=== PATIENT | male | born 1945 | race Caucasian/White ===

== ENCOUNTER 2016-08-20 22:47 | Emergency (ER) | payer MEDICARE, OTHER ==
--- NOTE | 2016-08-20 23:57 | ED Physician Documentation ---
PD HPI DYSPNEA - Stated complaint Stated Complaint: SOA - Chief complaint Chief Complaint: Abd Pain - History obtained from History obtained from: Patient - History of Present Illness Timing - onset: How many weeks ago (2) Pain level now: 0 Improved by: Inhaler/neb, Rest Worsened by: Exertion Associated symptoms: Cough. No: Fever, Chest pain / discomfort Recently seen: Not recently seen - Additional information Additional information: c/o 2 weeks of productive cough, dyspnea. Also c/o 3 days of diarrhea; he recently had constipation and was taking several medications to counteract the constipation. He then had BM 3 days ago and has had frequent diarrheal stools since then. He also c/o intermittent difficulty urinating x months. He has h/o CLL/SLL with stem-cell transplant 8 years ago Review of Systems Constitutional: denies: Fever, Chills, Sweats Cardiac: denies: Chest pain / pressure, Palpitations Respiratory: reports: Dyspnea, Cough GI: reports: Diarrhea. denies: Abdominal Pain, Nausea, Vomiting : denies: Dysuria PD PAST MEDICAL HISTORY - Past Medical History Past Medical History: Yes Cardiovascular: None Respiratory: Shortness of breath, Other Neuro: Parkinson's Endocrine/Autoimmune: None GI: GERD : Renal insuffiency HEENT: None Psych: None Musculoskeletal: None Derm: Other Other Past Medical History: On home O2 @ 4L/min - Past Surgical History Past Surgical History: Yes General: Bowel surgery, Gastric surgery Derm: Skin cancer surgery - Present Medications Home Medications: Ambulatory Orders Medication Instructions Recorded Confirmed Carbidopa/Levodopa [Carbidopa-Levo 1 each PO BID 08/03/12 03/29/14 25-100 mg Odt] Dapsone 50 mg PO BID 08/03/12 03/29/14 Pantoprazole Sodium [Protonix] 40 mg PO BID 08/03/12 06/08/15 oxyCODONE [Roxicodone] 5 mg PO Q4-6H PRN 08/03/12 06/08/15 predniSONE [Deltasone] 5 mg PO DAILY 08/03/12 06/08/15 valACYclovir [Valtrex] 500 mg PO DAILY 08/03/12 06/08/15 Metoprolol Tartrate [Lopressor] 25 mg PO BID 02/02/13 03/29/14 Azithromycin 250 mg PO DAILY 11/16/13 03/29/14 Albuterol Sulfate [Albuterol 1 puffs INH Q6H PRN 03/29/14 03/29/14 Sulfate Hfa] Calcitriol [Rocaltrol] 1 cap PO DAILY 03/29/14 03/29/14 Clobetasol Propionate/Emoll 1 applic TOP BID PRN 03/29/14 03/29/14 [Clobetasol Emollient 0.05% Crm] Mupirocin 2% Oint [Bactroban 2% 1 applic TOP PRN 03/29/14 03/29/14 Oint] Ondansetron [Ondansetron Odt] 1 tab SL BID PRN 03/29/14 06/08/15 Magnesium Hydroxide [Milk of 2,400 mg PO DAILY 06/08/15 06/08/15 Magnesia] Montelukast [Singulair] 10 mg PO QPM 06/08/15 06/08/15 Selegiline HCl 5 mg PO DAILY 06/08/15 06/08/15 Amox/Clav 500/125 [Augmentin 1 tab PO BID 07/28/15 07/28/15 500/125] Fluticasone/Salmeterol [Advair Hfa 1 inh INH BID 07/28/15 07/28/15 230-21 Mcg Inhaler] Ipratropium/Albuterol [Duoneb] 1 unit INH DAILY 07/28/15 07/28/15 Tamsulosin [Flomax] 1 tab PO DAILY 07/28/15 07/28/15 Dicyclomine [Bentyl] 20 mg PO QID PRN #20 capsule 08/21/16 Levofloxacin [Levaquin] 500 mg PO DAILY #6 tablet 08/21/16 - Allergies Allergies/Adverse Reactions: Allergies Allergy/AdvReac Type Severity Reaction Status Date / Time rifampin Allergy Rash Verified 08/20/16 22:54 diphenhydramine HCl * AdvReac Unknown Verified 08/20/16 22:54 [From Benadryl] - Social History Does the pt smoke?: No Smoking Status: Never smoker Does the pt drink ETOH?: No Does the pt have substance abuse?: No - Immunizations Immunizations are current?: Yes - POLST Patient has POLST: Yes PD ED PE NORMAL - Vitals Vital signs reviewed: Yes - General General: Alert and oriented X 3, No acute distress, Well developed/nourished - HEENT HEENT: Moist mucous membranes - Neck Neck: Supple, no meningeal sign - Cardiac Cardiac: RRR, No murmur - Respiratory Respiratory: No respiratory distress, Other (diffuse bilateral crackles) - Abdomen Abdomen: Soft, Non tender, Non distended - Derm Derm: Normal color, Warm and dry Results - Vitals Vitals: Vital Signs - 24 hr 08/20/16 08/21/16 08/21/16 22:49 00:05 00:52 Temperature 36.5 C Heart Rate 74 68 71 Respiratory 19 18 15 Rate Blood Pressure 154/64 H 149/66 H 130/57 L O2 Saturation 94 98 97 08/21/16 08/21/16 08/21/16 02:23 03:30 04:30 Temperature 36.5 C Heart Rate 74 76 78 Respiratory 18 18 16 Rate Blood Pressure 138/77 H 148/65 H 150/65 H O2 Saturation 97 96 96 08/21/16 04:40 Temperature Heart Rate 74 Respiratory 16 Rate Blood Pressure 155/62 H O2 Saturation 97 Oxygen O2 Source Nasal cannula Oxygen Flow Rate 4 - Labs Labs: Microbiology 08/21/16 01:25 Clostridium difficile (PCR) - Final Stool 08/21/16 01:25 Campylobacter Antigen Assay - Final Stool Laboratory Tests 08/21/16 08/21/16 08/21/16 00:05 00:45 00:45 WBC 5.0 RBC 2.59 L Hgb 8.6 L Hct 26.2 L MCV 101.0 H MCH 33.1 H MCHC 32.7 RDW 14.0 Plt Count 161 MPV 8.1 Neut # 3.5 Lymph # 0.7 L [place] # 0.5 Eos # 0.2 Baso # 0.0 Absolute Nucleated RBC 0.00 Nucleated RBCs 0.0 Sodium 132 L Potassium 5.2 H Chloride 96 L Carbon Dioxide 29 Anion Gap 7.0 BUN 22 H Creatinine 1.9 H Estimated GFR (MDRD) 35 L Glucose 98 Calcium 8.6 Total Bilirubin 0.7 AST 27 ALT < 10 L Alkaline Phosphatase 88 B-Natriuretic Peptide Total Protein 7.5 Albumin 3.7 Globulin 3.8 Albumin/Globulin Ratio 1.0 Lipase 29 Urine Color YELLOW Urine Clarity CLEAR Urine pH 7.0 Ur Specific [place] <=1.005 Urine Protein TRACE Urine Glucose (UA) NEGATIVE Urine Ketones NEGATIVE Urine Occult Blood NEGATIVE Urine Nitrite NEGATIVE Urine Bilirubin NEGATIVE Urine Urobilinogen 0.2 (NORMAL) Ur Leukocyte Esterase NEGATIVE Ur Microscopic Review NOT INDICATED Urine Culture Comments NOT INDICATED 08/21/16 00:45 WBC RBC Hgb Hct MCV MCH MCHC RDW Plt Count MPV Neut # Lymph # [place] # Eos # Baso # Absolute Nucleated RBC Nucleated RBCs Sodium Potassium Chloride Carbon Dioxide Anion Gap BUN Creatinine Estimated GFR (MDRD) Glucose Calcium Total Bilirubin AST ALT Alkaline Phosphatase B-Natriuretic Peptide 93 Total Protein Albumin Globulin Albumin/Globulin Ratio Lipase Urine Color Urine Clarity Urine pH Ur Specific [place] Urine Protein Urine Glucose (UA) Urine Ketones Urine Occult Blood Urine Nitrite Urine Bilirubin Urine Urobilinogen Ur Leukocyte Esterase Ur Microscopic Review Urine Culture Comments - Rads (name of study) chest xray Radiology: Prelim report reviewed, See rad report PD MEDICAL DECISION MAKING - ED course Complexity details: reviewed results, re-evaluated patient, considered differential, d/w patient, d/w family Departure - Departure Disposition: Home, Self Care Clinical Impression: Bronchitis Condition: Good Instructions: ED Upper Resp Infec Abx Tx Follow-Up: Lopez Vences MD [Primary Care Provider] - Prescriptions: Dicyclomine [Bentyl] 20 mg PO QID PRN #20 capsule PRN Reason: Diarrhea Levofloxacin [Levaquin] 500 mg PO DAILY #6 tablet Comments: Your red blood cell levels were low today (hemoglobin is 8.6, your hematocrit is 26.2). This is certainly lower than last month's results, but a transfusion is not indicated at this time. You should speak to your doctor about having these levels rechecked this week. Your kidney tests were abnormal, but not significantly different from previous results. Your potassium was slightly elevated, and your sodium was a little bit lower than normal. The test results have been printed out and provided to you. Discharge Date/Time: 08/21/16 04:50
[2016-08-21 00:15] LABS: BILIRUBIN,URINE NEGATIVE (NEGATIVE)
[2016-08-21 00:19] LABS: UA CHARGE (STRIP ONLY) YES; UR CULTURE IF IND NOT INDICATED
[2016-08-21] MEDS ORDERED: SODIUM CHLORIDE 0.9% 500 ML IV STA (00:32)
[2016-08-21 00:55] LABS: BASOPHILS % (AUTO) 0.5 %; EOSINOPHILS # (AUTO) 0.2 10^3/uL (0.0-0.7); EOSINOPHILS % (AUTO) 4.5 %; HCT - HEMATOCRIT 26.2 % (42.0-52.0); HGB - HEMOGLOBIN 8.6 g/dL (14.0-18.0); LYMPHOCYTES # (AUTO) 0.7 10^3/uL (1.5-3.5); LYMPHOCYTES % (AUTO) 14.8 %; MEAN CORPUSCULAR HEMOGLOBIN 33.1 pg (27.0-31.0); MEAN CORPUSCULAR HGB CONC 32.7 g/dL (32.0-36.0); MEAN PLATELET VOLUME 8.1 fL (7.4-11.4); MONOCYTES # (AUTO) 0.5 10^3/uL (0.0-1.0); NEUTROPHILS # (AUTO) 3.5 10^3/uL (1.5-6.6); NEUTROPHILS % (AUTO) 70.2 %; RED BLOOD COUNT 2.59 10^6/uL (4.70-6.10)
[2016-08-21 01:05] LABS: BILIRUBIN,TOTAL 0.7 mg/dL (0.2-1.0); BUN - BLOOD UREA NITROGEN 22 mg/dL (6-20); CALCIUM 8.6 mg/dL (8.5-10.3); CARBON DIOXIDE - CO2 29 mmol/L (21-32); CHLORIDE 96 mmol/L (101-111); CREATININE 1.9 mg/dL (0.6-1.2); GFR - MDRD 35 (>89); GLUCOSE 98 mg/dL (70-100); LIPASE 29 U/L (22-51); POTASSIUM 5.2 mmol/L (3.5-5.0); SODIUM 132 mmol/L (135-145); TOTAL PROTEIN 7.5 g/dL (6.7-8.2)
[2016-08-21] MEDS ORDERED: LOPERAMIDE 2 MG CAPSULE PO STA (01:20)
[2016-08-21] MEDS ORDERED: LOPERAMIDE 2 MG CAPSULE PO ONE (01:20)
[2016-08-21] MEDS ORDERED: DIPHENOX/ATROPINE 2.5/0.025 MG TABLET PO STA (02:29)
[2016-08-21] MEDS ORDERED: DIPHENOX/ATROPINE 2.5/0.025 MG TABLET PO ONE (02:31)
[2016-08-21] MEDS ORDERED: DICYCLOMINE 10 MG CAPSULE PO STA ×2 (03:32→03:34)
[2016-08-21] MEDS ORDERED: DICYCLOMINE 10 MG CAPSULE PO ONE (03:34)
--- NOTE | 2016-08-21 04:21 | XRAY Preliminary Report ---
Exam: XR Chest 2 View PA/LAT IMPRESSION: Mild bilateral patchy opacities, suspicious for bronchopneumonia superimposed upon chroni c pulmonary scarring. [facility] SITE ID: [id number]
--- NOTE | 2016-08-21 04:23 | XRAY Report ---
EXAM: CHEST RADIOGRAPHY EXAM DATE: 08/21/2016 02:03 AM. CLINICAL HISTORY: Cough, dyspnea. COMPARISON: 06/07/2016, CT 04/08/2015. TECHNIQUE: 2 views. FINDINGS: Lungs/Pleura: New patchy right mid-upper lung zone airspace opacities with probable right middle lobe and mild left lung base involvement as well. No pneumothorax or effusion. Mediastinum: Heart and mediastinal contours are unremarkable. Other: Old lower thoracic compression fractures.. IMPRESSION: Mild bilateral patchy opacities, suspicious for bronchopneumonia superimposed upon chroni c pulmonary scarring. [facility] Referring Provider Line: [phone] SITE ID: [id number]
[2016-08-21] MEDS ORDERED: levoFLOXacin 250 MG TABLET PO STA (04:36)
[2016-08-21] MEDS ORDERED: levoFLOXacin 250 MG TABLET ONE (04:38)
[2016-08-21 04:59] VITALS: BP 155/62
== END 2016-08-21 04:50 | disposition home or self-care (01) ==
LOC: ED 22:47
DX: J40 Bronchitis, not specified as acute or chronic (principal); R19.7 Diarrhea, unspecified; D64.9 Anemia, unspecified; R79.89 Other specified abnormal findings of blood chemistry; G20 Parkinson's disease; Z85.6 Personal history of leukemia; Z94.84 Stem cells transplant status
CPT/HCPCS: 36415; 51798; 71020; 80053; 81003; 83690; 83880; 85025; 87045; 87046; 87493; 96360; 96361; 99283; 99285; A9270; 81001; 87086

== ENCOUNTER 2016-10-01 20:51 | Outpatient (CLI) | payer MEDICARE, OTHER | END 2016-10-01 20:52 | disposition short-term general hospital (02) | LOC: EMS 20:51 | PROVIDERS: ATTEND Surgery | DX: R06.00 Dyspnea, unspecified (principal) | CPT/HCPCS: A0425; A0429 ==

== ENCOUNTER 2016-11-20 16:41 | Emergency (ER) | payer MEDICARE, OTHER ==
[2016-11-20] MEDS ORDERED: LIDOCAINE 1% 2 ML VIAL ONE (17:59)
--- NOTE | 2016-11-20 18:25 | ED Physician Documentation ---
PD HPI UPPER EXT INJURY - Stated complaint Stated Complaint: LT THUMB LAC - Chief complaint Chief Complaint: Laceration - History obtained from History obtained from: Patient, Family - History of Present Illness Location: Left, Finger (thumb) Type of injury: Laceration Where injury occurred: Home Timing - onset: Today Timing - duration: Hours Timing - details: Abrupt onset, Still present Improved by: Rest Worsened by: Moving Associated symptoms: No: Weakness, Numbness, Tingling Contributing factors: No: Anticoagulated Similar symptoms before: Diagnosis (laceration) Recently seen: Clinic (Seen by manufacturing engineer machining recently and taken off of aspirin.) - Additonal information Additional information: 71-year-old male with a history of Parkinson's disease and leukemia which is been treated with bone marrow transplant Was using a metal gauge maker to make a gold sloughs when he grabbed the slough's by his hand instead of putting in the vice and he accidentally touched the back of his left thumb with a disk grinder. He has a laceration to the dorsum of the thumb. Review of Systems Constitutional: denies: Fever Respiratory: denies: Cough GI: denies: Vomiting Skin: reports: Laceration (s). denies: Rash Musculoskeletal: reports: Extremity pain. denies: Neck pain, Back pain PD PAST MEDICAL HISTORY - Past Medical History Cardiovascular: Hypertension, Murmur Respiratory: Shortness of breath, Other (GVHD-lungs) Neuro: Parkinson's Endocrine/Autoimmune: None GI: GERD : Renal insuffiency, Other HEENT: None Psych: None Musculoskeletal: None Derm: Other - Past Surgical History Past Surgical History: Yes General: Bowel surgery, Gastric surgery Derm: Skin cancer surgery - Present Medications Home Medications: Ambulatory Orders Medication Instructions Recorded Confirmed Dapsone 50 mg PO BID 08/03/12 11/20/16 valACYclovir [Valtrex] 500 mg PO BID 08/03/12 11/20/16 Metoprolol Tartrate [Lopressor] 12.5 mg PO BID 02/02/13 11/20/16 Azithromycin 250 mg PO DAILY 11/16/13 11/20/16 Calcitriol [Rocaltrol] 0.25 mcg PO DAILY 03/29/14 11/20/16 Montelukast [Singulair] 10 mg PO QPM 06/08/15 11/20/16 Selegiline HCl 5 mg PO BID 06/08/15 11/20/16 Fluticasone/Salmeterol [Advair Hfa 1 inh INH BID 07/28/15 11/20/16 230-21 Mcg Inhaler] Carbidopa/Levodopa ER 25/100 1 tab PO TID tablet 09/29/16 11/20/16 [Sinemet Cr 25 mg/100 mg] Pantoprazole [Protonix] 40 mg PO BID tablet 09/29/16 11/20/16 predniSONE [Deltasone] 5 mg PO DAILYWM tablet 09/29/16 11/20/16 - Allergies Allergies/Adverse Reactions: Allergies Allergy/AdvReac Type Severity Reaction Status Date / Time rifampin Allergy Rash Verified 11/20/16 16:48 diphenhydramine HCl * AdvReac Unknown Verified 11/20/16 16:48 [From Benadryl] lorazepam AdvReac Unknown Verified 11/20/16 16:48 - Social History Does the pt smoke?: No Smoking Status: Never smoker Does the pt drink ETOH?: No Does the pt have substance abuse?: No - Immunizations Immunizations are current?: Yes - POLST Patient has POLST: Yes PD ED PE NORMAL - Vitals Vital signs reviewed: Yes (Hypertensive) - General General: No acute distress, Well developed/nourished - HEENT HEENT: Atraumatic, PERRL - Respiratory Respiratory: No respiratory distress - Derm Derm: Normal color, Warm and dry, No rash - Extremities Extremities: No deformity, Other (There is a 2 cm laceration over the dorsum of the left thumb over the DIP joint. The distal neurovascular components are intact and there are no deeper structures involved.) - Neuro Neuro: No motor deficit, No sensory deficit - Psych Psych: Normal mood, Normal affect Results - Vitals Vitals: Vital Signs - 24 hr 11/20/16 16:44 Temperature 36.3 C L Heart Rate 66 Respiratory 18 Rate Blood Pressure 150/72 H O2 Saturation 94 Oxygen O2 Source Room air Procedures - Laceration (location) left thumb Length in cm: 2 Wound type: Linear, Clean Neurovascular status: Sensory intact, Motor intact, Vascular intact Anesthesia: Lidocaine 1% Wound Preparation: Hibiclens, Irrigated copiously NS, Wound explored, To the base Skin layer closure: Nylon, Interrupted, Size #-0 - enter number (5-0), Sutures - enter # (4) Other: Patient tolerated well, No complications, Neurovascular intact, Dressing applied, Tetanus UTD Complexity: Simple PD MEDICAL DECISION MAKING - ED course Complexity details: considered differential, d/w patient, d/w family ED course: 71-year-old male with a left thumb laceration is sutured he is up-to-date on his tetanus. Departure - Departure Disposition: 01 Home, Self Care Clinical Impression: Thumb laceration Qualifiers: Encounter type: initial encounter Damage to nail status: without damage Foreign body presence: without foreign body Laterality: left Qualified Code(s): S61.012A - Laceration without foreign body of left thumb without damage to nail , initial encounter Condition: Stable Instructions: ED Laceration Hand Follow-Up: Lopez Vences MD [Primary Care Provider] - Comments: Sutures out in 10 days.
[2016-11-20] MEDS ORDERED: BACITRACIN OINT TOP ONE (18:33)
[2016-11-20 18:47] VITALS: BP 119/79
== END 2016-11-20 18:46 | disposition home or self-care (01) ==
LOC: ED 16:41
DX: S61.012A Laceration without foreign body of left thumb without damage to nail, initial encounter (principal); W27.4XXA Contact with kitchen utensil, initial encounter; Y93.89 Activity, other specified; G20 Parkinson's disease; C95.90 Leukemia, unspecified not having achieved remission; I10 Essential (primary) hypertension; Z94.81 Bone marrow transplant status
CPT/HCPCS: 12001; 99283; A9270

== ENCOUNTER 2017-02-03 20:28 | Emergency (ER) | payer MEDICARE, OTHER ==
[2017-02-03 20:38] VITALS: BP 170/72
--- NOTE | 2017-02-03 20:55 | ED Physician Documentation ---
PD HPI UPPER EXT INJURY - Stated complaint Stated Complaint: GLF ARM INJURY - Chief complaint Chief Complaint: Ext Problem - History obtained from History obtained from: Patient, Family - History of Present Illness Location: Other (71-year-old gentleman who is up-to-date on tetanus, history of stem cell transplant and Parkinson's disease. He tripped and fell in the kitchen today hitting his forearm hard on the counter and has a skin tear over the dorsal medial right forearm with underlying pain. No other injuries. No head injury.) Review of Systems Constitutional: reports: Reviewed and negative Throat: reports: Reviewed and negative Cardiac: reports: Reviewed and negative PD PAST MEDICAL HISTORY - Past Medical History Cardiovascular: Hypertension, Murmur Respiratory: Shortness of breath, Other Neuro: Parkinson's Endocrine/Autoimmune: None GI: GERD : Renal insuffiency, Other HEENT: None Psych: None Musculoskeletal: None Derm: Other - Past Surgical History Past Surgical History: Yes General: Bowel surgery, Gastric surgery Derm: Skin cancer surgery - Present Medications Home Medications: Ambulatory Orders Medication Instructions Recorded Confirmed Dapsone 50 mg PO BID 08/03/12 02/03/17 valACYclovir [Valtrex] 500 mg PO DAILY 08/03/12 02/03/17 Metoprolol Tartrate [Lopressor] 12.5 mg PO BID 02/02/13 02/03/17 Azithromycin 250 mg PO DAILY 11/16/13 02/03/17 Calcitriol [Rocaltrol] 0.25 mcg PO DAILY 03/29/14 02/03/17 Montelukast [Singulair] 10 mg PO QPM 06/08/15 02/03/17 Selegiline HCl 5 mg PO BID 06/08/15 02/03/17 Fluticasone/Salmeterol [Advair Hfa 1 inh INH BID 07/28/15 02/03/17 230-21 Mcg Inhaler] Carbidopa/Levodopa ER 25/100 1 tab PO TID tablet 09/29/16 02/03/17 [Sinemet Cr 25 mg/100 mg] Pantoprazole [Protonix] 40 mg PO BID tablet 09/29/16 02/03/17 Cephalexin [Keflex] 500 mg PO QID #20 capsule 02/03/17 Clobetasol Propionate [Temovate] 15 gm TOP PRN PRN 02/03/17 02/03/17 Pramipexole [Mirapex] 0.125 mg PO PRN PRN 02/03/17 02/03/17 Tamsulosin [Flomax] 0.4 mg PO DAILY 02/03/17 02/03/17 predniSONE [Deltasone] 5 mg PO DAILY 02/03/17 02/03/17 - Allergies Allergies/Adverse Reactions: Allergies Allergy/AdvReac Type Severity Reaction Status Date / Time rifampin Allergy Rash Verified 11/20/16 16:48 diphenhydramine HCl * AdvReac Unknown Verified 11/20/16 16:48 [From Benadryl] lorazepam AdvReac Unknown Verified 11/20/16 16:48 - Social History Does the pt smoke?: No Smoking Status: Never smoker Does the pt drink ETOH?: No Does the pt have substance abuse?: No - Immunizations Immunizations are current?: Yes - POLST Patient has POLST: Yes PD ED PE NORMAL - Vitals Vital signs reviewed: Yes - General General: Alert and oriented X 3, No acute distress - Extremities Extremities: Other (There is a 5 cm curved laceration over the dorsal medial mid right forearm with some underlying ulnar tenderness but no deformity.) - Neuro Neuro: Alert and oriented X 3, Normal speech Results - Vitals Vitals: Vital Signs - 24 hr 02/03/17 20:31 Temperature 36.9 C Heart Rate 63 Respiratory 19 Rate Blood Pressure 170/72 H O2 Saturation 98 Oxygen O2 Source Nasal cannula - Rads (name of study) R forearm Radiology: EMP read contemporaneously (normal) Procedures - Laceration (location) R forearm Length in cm: 5 Wound type: Curved, Into subcut fat. No: Into muscle Neurovascular status: Sensory intact, Motor intact, Vascular intact Anesthesia: Lidocaine 1%, Marcaine 0.5%, With bicarb Wound Preparation: Betadine, Irrigated copiously NS Skin layer closure: Nylon, Running, Size #-0 - enter number (3-0) Other: Patient tolerated well, No complications, Neurovascular intact, Tetanus UTD Complexity: Simple PD MEDICAL DECISION MAKING - ED course ED course: 71-year-old gentleman with large skin laceration with underlying tenderness. Skin was closed with a running suture. Given his history of stem cell transplant he was placed on antibiotics, and given his history of wound dehiscence recommended to leave the sutures in for 3 weeks before removal. Departure - Departure Disposition: 01 Home, Self Care Clinical Impression: Laceration of forearm Qualifiers: Encounter type: initial encounter Laterality: right Qualified Code(s): S51.811A - Laceration without foreign body of right forearm, initial encounter Condition: Good Record reviewed to determine appropriate education?: Yes Instructions: ED Laceration All Prescriptions: Cephalexin [Keflex] 500 mg PO QID #20 capsule Comments: Come back for any signs of infection which would include: Redness, swelling, drainage, increased pain, or fevers. Follow-up with your physician in About 3 weeks for suture removal. Your blood pressure was elevated today on check into the emergency department. This does not mean that you have hypertension, it is a common phenomenon to come to the emergency department and have elevated blood pressure. I recommend that you see your primary care physician within the week to have it rechecked when you are feeling better.
[2017-02-03] MEDS ORDERED: BUFFERED LIDOCAINE 10 ML SYRINGE ONE (21:06)
[2017-02-03] MEDS ORDERED: CEPHALEXIN 250 MG Prepack 8 PO STA (21:23)
[2017-02-03] MEDS ORDERED: cephALEXin 250 MG CAPSULE PO STA (21:23)
--- NOTE | 2017-02-03 21:44 | XRAY Preliminary Report ---
Exam: XR FOREARM RT IMPRESSION: 1. Soft tissue hematoma dorsal to the mid forearm. 2. No acute bony abnormality. [facility] SITE ID: [id number]
[2017-02-03] MEDS ORDERED: CEPHALEXIN 250 MG Prepack 8 PO ONE (21:45)
[2017-02-03] MEDS ORDERED: cephALEXin 250 MG CAPSULE PO ONE (21:45)
--- NOTE | 2017-02-03 21:47 | XRAY Report ---
EXAM: RIGHT FOREARM RADIOGRAPHY EXAM DATE: 02/03/2017 09:33 PM. CLINICAL HISTORY: Right forearm pain after smashing on counter top. COMPARISON: None. TECHNIQUE: 2 views. FINDINGS: Bones: Normal. No fractures or bone lesions. Joints: Normal. No effusions or subluxations in the visualized wrist or elbow joints. Soft Tissues: Marked soft tissue swelling dorsal to the mid forearm. Vascular calcifications noted an teromedial to the wrist. IMPRESSION: 1. Soft tissue hematoma dorsal to the mid forearm. 2. No acute bony abnormality. [facility] Referring Provider Line: [phone] SITE ID: [id number]
[2017-02-03] MEDS ORDERED: BACITRACIN OINT TOP ONE (22:02)
== END 2017-02-03 22:12 | disposition home or self-care (01) ==
LOC: ED 20:28
DX: S51.811A Laceration without foreign body of right forearm, initial encounter (principal); W01.198A Fall on same level from slipping, tripping and stumbling with subsequent striking against other object, initial encounter; I10 Essential (primary) hypertension; G20 Parkinson's disease; Z94.84 Stem cells transplant status
CPT/HCPCS: 12002; 73090; 99283; A9270

== ENCOUNTER 2017-02-18 07:09 | Outpatient (CLI) | payer MEDICARE, OTHER | END 2017-02-18 07:10 | disposition critical access hospital (66) | LOC: EMS 07:09 | PROVIDERS: ATTEND Surgery | DX: R00.0 Tachycardia, unspecified (principal) | CPT/HCPCS: A0425; A0429 ==

== ENCOUNTER 2017-02-18 07:38 | Emergency (ER) | payer MEDICARE, OTHER ==
[2017-02-18] MEDS ORDERED: SODIUM CHLORIDE 0.9% 1,000 ML IV ONE (07:48)
[2017-02-18] MEDS: diltiaZEM INJ 5 MG/ML VIAL IVP STA ×2 (07:55→08:44)
[2017-02-18 08:01] LABS: BASOPHILS # (AUTO) 0.1 10^3/uL (0.0-0.1); BASOPHILS % (AUTO) 1.2 %; EOSINOPHILS # (AUTO) 0.2 10^3/uL (0.0-0.7); EOSINOPHILS % (AUTO) 2.7 %; HCT - HEMATOCRIT 36.4 % (42.0-52.0); HGB - HEMOGLOBIN 12.2 g/dL (14.0-18.0); LYMPHOCYTES # (AUTO) 2.2 10^3/uL (1.5-3.5); LYMPHOCYTES % (AUTO) 24.4 %; MEAN CORPUSCULAR HEMOGLOBIN 34.4 pg (27.0-31.0); MEAN CORPUSCULAR HGB CONC 33.5 g/dL (32.0-36.0); MEAN CORPUSCULAR VOLUME 102.6 fL (80.0-94.0); MEAN PLATELET VOLUME 8.7 fL (7.4-11.4); MONOCYTES # (AUTO) 0.8 10^3/uL (0.0-1.0); MONOCYTES % (AUTO) 8.5 %; NEUTROPHILS # (AUTO) 5.6 10^3/uL (1.5-6.6); NEUTROPHILS % (AUTO) 63.2 %; RED BLOOD COUNT 3.55 10^6/uL (4.70-6.10); UNCORRECTED WHITE BLOOD COUNT 8.9 x10^3/uL; WHITE BLOOD COUNT 8.9 x10^3/uL (4.8-10.8)
[2017-02-18 08:20] LABS: ALBUMIN/GLOBULIN RATIO 1.4 (1.0-2.2); BILIRUBIN,TOTAL 0.4 mg/dL (0.2-1.0); BUN - BLOOD UREA NITROGEN 29 mg/dL (6-20); CALCIUM 9.1 mg/dL (8.5-10.3); CARBON DIOXIDE - CO2 28 mmol/L (21-32); CHLORIDE 103 mmol/L (101-111); CREATININE 1.9 mg/dL (0.6-1.2); GFR - MDRD 35 (>89); GLUCOSE 112 mg/dL (70-100); LIPASE 47 U/L (22-51); PHOSPHORUS 3.3 mg/dL (2.5-4.6); POTASSIUM 4.4 mmol/L (3.5-5.0); SODIUM 140 mmol/L (135-145)
--- NOTE | 2017-02-18 08:23 | XRAY Preliminary Report ---
Exam: XR CHEST 1 VIEW IMPRESSION: Changes of mild chronic fibrotic lung disease, both lung bases, less pronounced than on m ost recent prior study, similar to prior CT scan. No pneumonia, CHF or other acute process. [facility] SITE ID: [id number]
--- NOTE | 2017-02-18 08:26 | XRAY Report ---
EXAM: CHEST RADIOGRAPHY, PORTABLE ONE VIEW EXAM DATE: 02/18/2017 07:58 AM. CLINICAL HISTORY: Chest pain in a 71-year-old male. COMPARISON: Two-view chest 09/29/[address] pulmonary angiogram of 04/08/2015. TECHNIQUE: 0758 hour AP upright portable view. FINDINGS: Lungs/Pleura: Increased interstitial markings both lung bases, chronic in appearance. No segmental or lobar consolidation. No pleural effusion. No pneumothorax. Suboptimal inspiratory effort. Mediastinum: Heart size normal considering inspiratory effort. No pulmonary vascular congestion or ad enopathy. Other: Trachea is midline. Osseous structures are unremarkable for age. IMPRESSION: Changes of mild chronic fibrotic lung disease, both lung bases, less pronounced than on m ost recent prior study, similar to prior CT scan. No pneumonia, CHF or other acute process. [facility] Referring Provider Line: [phone] SITE ID: [id number]
[2017-02-18] MEDS ORDERED: diltiaZEM INJ 5 MG/ML VIAL IVP STA (08:40)
--- NOTE | 2017-02-18 09:07 | ED Physician Documentation ---
PD HPI CHEST PAIN - Stated complaint Stated Complaint: RAPID HR - Chief complaint Chief Complaint: Cardiac - History obtained from History obtained from: Patient, EMS - History of Present Illness Timing - onset: Today Timing - onset during: Rest Similar symptoms before: Work up / diagnostics, Treatment Recently seen: Not recently seen - Additional information Additional information: Patient is a 71 year old male with a history of pulmonary fibrosis and a flutter. Patient states that he woke up this morning and happened to put his pulse ox on. Patient states that there was no reason for him to check, he just put it on. Patient states that he was found to have a heart rate of 160 so he called ems. patient denied any complaints with it. Patient did state that he shoveled snow yesterday but never had any chest pain or shortness of breath. Review of Systems Constitutional: denies: Fever, Chills Eyes: denies: Decreased vision Ears: denies: Ear pain, Drainage/discharge Nose: denies: Congestion Throat: reports: Reviewed and negative Cardiac: denies: Chest pain / pressure, Palpitations, Pedal edema, Calf pain Respiratory: denies: Dyspnea, Cough, Wheezing GI: denies: Nausea, Vomiting : reports: Reviewed and negative Skin: denies: Rash, Lesions Neurologic: denies: Generalized weakness Immunocompromised: denies: Immunocompromised PD PAST MEDICAL HISTORY - Past Medical History Past Medical History: Yes Cardiovascular: Hypertension, Atrial flutter, Murmur Respiratory: Shortness of breath, Other Neuro: Parkinson's Endocrine/Autoimmune: None GI: GERD : Renal insuffiency, Other HEENT: None Psych: None Musculoskeletal: None Derm: Other - Past Surgical History Past Surgical History: Yes General: Bowel surgery, Gastric surgery Derm: Skin cancer surgery - Present Medications Home Medications: Ambulatory Orders Medication Instructions Recorded Confirmed Dapsone 50 mg PO BID 08/03/12 02/18/17 valACYclovir [Valtrex] 500 mg PO DAILY 08/03/12 02/18/17 Metoprolol Tartrate [Lopressor] 12.5 mg PO BID 02/02/13 02/18/17 Azithromycin 250 mg PO DAILY 11/16/13 02/18/17 Calcitriol [Rocaltrol] 0.25 mcg PO DAILY 03/29/14 02/18/17 Montelukast [Singulair] 10 mg PO QPM 06/08/15 02/18/17 Selegiline HCl 5 mg PO BID 06/08/15 02/18/17 Fluticasone/Salmeterol [Advair Hfa 1 inh INH BID 07/28/15 02/18/17 230-21 Mcg Inhaler] Carbidopa/Levodopa ER 25/100 1 tab PO TID tablet 09/29/16 02/18/17 [Sinemet Cr 25 mg/100 mg] Pantoprazole [Protonix] 40 mg PO BID tablet 09/29/16 02/18/17 Cephalexin [Keflex] 500 mg PO QID #20 capsule 02/03/17 02/18/17 Clobetasol Propionate [Temovate] 15 gm TOP PRN PRN 02/03/17 02/18/17 Pramipexole [Mirapex] 0.125 mg PO PRN PRN 02/03/17 02/18/17 Tamsulosin [Flomax] 0.4 mg PO DAILY 02/03/17 02/18/17 predniSONE [Deltasone] 5 mg PO DAILY 02/03/17 02/18/17 - Allergies Allergies/Adverse Reactions: Allergies Allergy/AdvReac Type Severity Reaction Status Date / Time rifampin Allergy Rash Verified 11/20/16 16:48 diphenhydramine HCl * AdvReac Unknown Verified 11/20/16 16:48 [From Benadryl] lorazepam AdvReac Unknown Verified 11/20/16 16:48 - Social History Does the pt smoke?: No Smoking Status: Never smoker Does the pt drink ETOH?: No Does the pt have substance abuse?: No - Immunizations Immunizations are current?: Yes - POLST Patient has POLST: Yes PD ED PE NORMAL - Vitals Vital signs reviewed: Yes - General General: Alert and oriented X 3, No acute distress - HEENT HEENT: Atraumatic, PERRL - Neck Neck: Supple, no meningeal sign - Abdomen Abdomen: Soft, Non tender, Non distended - Neuro Neuro: Alert and oriented X 3, No motor deficit, No sensory deficit, Normal speech - Psych Psych: Normal mood PD ED PE EXPANDED - Cardiac Cardiac: Abnormal Rate, Tachy, Irregularly irregular - Extremities Extremities: Right arm (well healing wound on the right arm) Results - Vitals Vitals: Vital Signs - 24 hr 12/02/18/17 02/18/17 07:40 07:59 08:02 Temperature 36.3 C L Heart Rate 160 H 158 H 96 Respiratory 14 16 17 Rate Blood Pressure 106/72 106/72 96/60 O2 Saturation 98 25 L 97 02/18/17 02/18/17 02/18/17 08:07 08:08 08:12 Temperature Heart Rate 106 H 105 H 106 H Respiratory 14 14 19 Rate Blood Pressure 105/50 L 109/60 107/50 L O2 Saturation 98 98 99 02/18/17 02/18/17 02/18/17 08:23 08:42 08:46 Temperature Heart Rate 118 H 118 H 105 H Respiratory 20 20 18 Rate Blood Pressure 108/50 L 118/55 L 116/58 L O2 Saturation 96 97 96 02/18/17 02/18/17 02/18/17 08:48 08:52 08:53 Temperature Heart Rate 71 54 L 53 L Respiratory 17 22 17 Rate Blood Pressure 84/58 L 96/56 L 94/59 L O2 Saturation 98 98 97 02/18/17 09:15 Temperature Heart Rate 57 L Respiratory 12 Rate Blood Pressure 92/57 L O2 Saturation 97 Oxygen O2 Source Room air - EKG (time done) 0742 Rate: Rate (enter#) (160) Rhythm: Atrial flutter Tuttle: Normal Ischemia: ST depression Other comments: Other comments (A flutter with 2:1 with rate related ischemia) Compare to prior EKG: Changed from prior EKG 0805 Rate: Rate (enter#) (118) Rhythm: Atrial fibrillation Tuttle: Normal Compare to prior EKG: Changed from prior EKG 0859 Rate: Rate (enter#) (54) Rhythm: Sinus bradycardia Tuttle: LAD Intervals: Normal HI QRS: Normal Compare to prior EKG: Changed from prior EKG - Labs Labs: Laboratory Tests 02/18/17 02/18/17 02/18/17 07:45 07:45 07:45 WBC 8.9 RBC 3.55 L Hgb 12.2 L Hct 36.4 L MCV 102.6 H MCH 34.4 H MCHC 33.5 RDW 13.0 Plt Count 173 MPV 8.7 Neut # 5.6 Lymph # 2.2 Colquitt # 0.8 Eos # 0.2 Baso # 0.1 Absolute Nucleated RBC 0.00 Nucleated RBC % 0.0 Sodium 140 Potassium 4.4 Chloride 103 Carbon Dioxide 28 Anion Gap 9.0 BUN 29 H Creatinine 1.9 H Estimated GFR (MDRD) 35 L Glucose 112 H Calcium 9.1 Phosphorus 3.3 Magnesium 2.0 Total Bilirubin 0.4 AST 25 ALT < 10 L Alkaline Phosphatase 53 Troponin I < 0.04 Total Protein 7.0 Albumin 4.1 Globulin 2.9 Albumin/Globulin Ratio 1.4 Lipase 47 TSH 02/18/17 07:45 WBC RBC Hgb Hct MCV MCH MCHC RDW Plt Count MPV Neut # Lymph # Colquitt # Eos # Baso # Absolute Nucleated RBC Nucleated RBC % Sodium Potassium Chloride Carbon Dioxide Anion Gap BUN Creatinine Estimated GFR (MDRD) Glucose Calcium Phosphorus Magnesium Total Bilirubin AST ALT Alkaline Phosphatase Troponin I Total Protein Albumin Globulin Albumin/Globulin Ratio Lipase TSH 2.62 - Rads (name of study) chest x-ray Radiology: Final report received (no acute process) PD MEDICAL DECISION MAKING - ED course Complexity details: reviewed old records, reviewed results, re-evaluated patient , considered differential, d/w patient, d/w family ED course: Patient was seen and examined at bedside. patient was placed on a monitor and his heart rate was 160, but patient was asymptomatic. ekg was performed. IV access was gained. labs were drawn and patient was treated with a fluid bolus and cardizem 10mg. Patient's rate improved with the cardizem anywhere between 87 to 120. Patient still felt well. Patient was treated with an additional 10mg of cardizem. Patient's rate converted to sinus bradycardia. Patient's labs were within normal limits. Patient was given detailed discharge and follow up instructions. Patient required no further work up and was stable for discharge with outpatient follow up. - Critical Care Time(min): 30 Time Includes: Direct patient care Data interpretation: CXR, Prior EKG, Cardiac output Departure - Departure Disposition: 01 Home, Self Care Clinical Impression: Atrial flutter Condition: Good Instructions: Atrial Fibrillation Dc Follow-Up: Lopez Vences MD [Primary Care Provider] - Tomorrow Comments: Your symptoms this morning were being caused by a flutter. Your rhythm has since converted. It may have been due to the shoveling of snow yesterday. 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 If you have an elevated heart rate you should take your cartia. If you have any symptoms with the change in heart rate you should return to the emergency department. Discharge Date/Time: 02/18/17 09:27
[2017-02-18 09:16] VITALS: BP 92/57
== END 2017-02-18 09:27 | disposition home or self-care (01) ==
LOC: EDBD → EDUNIT# → ED 07:38
DX: I48.92 Unspecified atrial flutter (principal); J84.10 Pulmonary fibrosis, unspecified; I10 Essential (primary) hypertension; G20 Parkinson's disease; K21.9 Gastro-esophageal reflux disease without esophagitis; N28.9 Disorder of kidney and ureter, unspecified; Z98.84 Bariatric surgery status; Z85.828 Personal history of other malignant neoplasm of skin
CPT/HCPCS: 36415; 71010; 80053; 83690; 83735; 84100; 84443; 84484; 85025; 93005; 96361; 96374; 99284; 99291

== ENCOUNTER 2017-10-02 10:02 | Outpatient (CLI) | payer MEDICARE, OTHER | END 2017-10-02 10:03 | disposition home or self-care (01) | LOC: LAB 10:02 | DX: R91.8 Other nonspecific abnormal finding of lung field (principal) | CPT/HCPCS: 36415; 80299; 81599 ==

== ENCOUNTER 2017-10-10 11:22 | Outpatient (CLI) | payer MEDICARE, OTHER ==
[2017-10-10 12:42] LABS: CREATININE 2.1 mg/dL (0.6-1.2)
== END 2017-10-10 11:23 | disposition home or self-care (01) ==
LOC: LAB 11:22
PROVIDERS: ATTEND Internal Medicine Advanced Heart Failure and Transplant Cardiology
DX: N18.3 Chronic kidney disease, stage 3 (moderate) (principal); I10 Essential (primary) hypertension
CPT/HCPCS: 36415; 80048

== ENCOUNTER 2017-10-11 16:29 | Observation (INO) | payer MEDICARE, OTHER ==
--- NOTE | 2017-10-11 17:00 | ED Physician Documentation ---
History of Present Illness - Stated complaint Stated Complaint: SENT BY DOC - Chief complaint Chief Complaint: General - History obtained from History obtained from: Patient - History of Present Illness Timing: Yesterday (He had blood tests drawn yesterday in a follow-up evaluation for being on treatment for a fungal lung infection. His potassium level came back elevated at 5.8 and his creatinine was slightly higher than normal at 2.1. The ordering physician's office called the patient today to have him come to the ER for repeat blood tests and treatment of the hyperkalemia. The patient is feeling generally okay. He has had a persistent cough for a while. He is does not take any potassium supplements. He has not had any potassium rich foods. He does feel he is perhaps been under hydrating. He has not had any vomiting or diarrhea. He does not take any diuretics. His only new medication is an antifungal orally. He did have his ARB blood pressure medicine stopped a few days ago.) Review of Systems Constitutional: denies: Fever, Chills, Myalgias Eyes: denies: Loss of vision, Photophobia Nose: denies: Rhinorrhea / runny nose, Congestion Throat: denies: Sore throat Cardiac: denies: Chest pain / pressure, Palpitations Respiratory: reports: Dyspnea, Cough (for months, with recent Dx of fungal lung infection and is on oral antifungal medication for the past 2 weeks.). denies: Wheezing GI: reports: Nausea. denies: Abdominal Pain, Vomiting, Diarrhea : denies: Dysuria, Frequency Skin: denies: Rash, Lesions Musculoskeletal: denies: Extremity swelling Neurologic: reports: Generalized weakness (mild). denies: Focal weakness, Numbness, Near syncope PD PAST MEDICAL HISTORY - Past Medical History Past Medical History: Yes Cardiovascular: Hypertension, Atrial flutter, Murmur Respiratory: Shortness of breath, Other Endocrine/Autoimmune: None GI: GERD : Renal insuffiency, Other HEENT: None Psych: None Musculoskeletal: None Derm: Other - Past Surgical History Past Surgical History: Yes General: Bowel surgery, Gastric surgery Derm: Skin cancer surgery - Present Medications Home Medications: Ambulatory Orders Medication Instructions Recorded Confirmed Dapsone 50 mg PO BID 08/03/12 02/18/17 valACYclovir [Valtrex] 500 mg PO DAILY 08/03/12 02/18/17 Metoprolol Tartrate [Lopressor] 12.5 mg PO BID 02/02/13 02/18/17 Azithromycin 250 mg PO DAILY 11/16/13 02/18/17 Calcitriol [Rocaltrol] 0.25 mcg PO DAILY 03/29/14 02/18/17 Montelukast [Singulair] 10 mg PO QPM 06/08/15 02/18/17 Selegiline HCl 5 mg PO BID 06/08/15 02/18/17 Fluticasone/Salmeterol [Advair Hfa 1 inh INH BID 07/28/15 02/18/17 230-21 Mcg Inhaler] Carbidopa/Levodopa ER 25/100 1 tab PO TID tablet 09/29/16 02/18/17 [Sinemet Cr 25 mg/100 mg] Pantoprazole [Protonix] 40 mg PO BID tablet 09/29/16 02/18/17 Clobetasol Propionate [Temovate] 15 gm TOP PRN PRN 02/03/17 02/18/17 Pramipexole [Mirapex] 0.125 mg PO PRN PRN 02/03/17 02/18/17 Tamsulosin [Flomax] 0.4 mg PO DAILY 02/03/17 02/18/17 predniSONE [Deltasone] 5 mg PO DAILY 02/03/17 02/18/17 Hydralazine HCl 100 mg PO 10/11/17 Voriconazole [Vfend] 200 mg PO 10/11/17 - Allergies Allergies/Adverse Reactions: Allergies Allergy/AdvReac Type Severity Reaction Status Date / Time rifampin Allergy Rash Verified 11/20/16 16:48 diphenhydramine HCl * AdvReac Unknown Verified 11/20/16 16:48 [From Benadryl] lorazepam AdvReac Unknown Verified 11/20/16 16:48 - Social History Does the pt smoke?: No Smoking Status: Never smoker Does the pt drink ETOH?: No Does the pt have substance abuse?: No - Immunizations Immunizations are current?: Yes - POLST Patient has POLST: Yes PD ED PE NORMAL - Vitals Vital signs reviewed: Yes - General General: Alert and oriented X 3, No acute distress, Well developed/nourished - HEENT HEENT: Pharynx benign - Neck Neck: Supple, no meningeal sign, No adenopathy, No JVD - Cardiac Cardiac: RRR, No murmur - Respiratory Respiratory: Clear bilaterally - Abdomen Abdomen: Normal bowel sounds, Soft, Non tender, Non distended - Male Male : Deferred - Rectal Rectal: Deferred - Back Back: No CVA TTP - Derm Derm: Normal color, Warm and dry - Extremities Extremities: No deformity, Normal ROM s pain, No calf tenderness / cord, Other ( 1+ edema both legs/ankles. ) - Neuro Neuro: Alert and oriented X 3, No motor deficit, Normal speech - Psych Psych: Normal mood, Normal affect Results - Vitals Vitals: Vital Signs - 24 hr 10/11/17 10/11/17 10/11/17 16:35 17:48 19:15 Temperature 36.7 C Heart Rate 68 74 73 Respiratory 18 16 14 Rate Blood Pressure 125/56 L 131/63 H O2 Saturation 96 96 Oxygen O2 Source Room air - Tele (time rhythm occurred) 17:50 Telemetry / rhythm strip: Rate (70), NSR, Other (normal QRS) - Labs Labs: Laboratory Tests 10/11/17 10/11/17 10/11/17 17:50 17:50 19:25 WBC 8.7 RBC 3.24 L Hgb 11.0 L Hct 33.2 L MCV 102.7 H MCH 33.9 H MCHC 33.0 RDW 13.5 Plt Count 191 MPV 8.3 Neut # (Auto) 7.2 H Lymph # (Auto) 0.7 L Graves # (Auto) 0.6 Eos # (Auto) 0.2 Baso # (Auto) 0.0 Absolute Nucleated RBC 0.01 Nucleated RBC % 0.1 Sodium 136 137 Potassium 6.1 H* 5.4 H Chloride 106 107 Carbon Dioxide 23 22 Anion Gap 7.0 8.0 BUN 48 H 45 H Creatinine 2.1 H 2.1 H Estimated GFR (MDRD) 31 L 31 L Glucose 115 H 132 H Calcium 9.1 8.5 Magnesium 2.2 Total Bilirubin 0.5 AST 22 ALT < 10 L Alkaline Phosphatase 63 Total Protein 7.4 Albumin 4.5 Globulin 2.9 Albumin/Globulin Ratio 1.6 Lipase 61 H PD MEDICAL DECISION MAKING - ED course Complexity details: reviewed results, re-evaluated patient, considered differential, d/w patient - Sepsis Event Vital Signs: Vital Signs - 24 hr 10/11/17 10/11/17 10/11/17 16:35 17:48 19:15 Temperature 36.7 C Heart Rate 68 74 73 Respiratory 18 16 14 Rate Blood Pressure 125/56 L 131/63 H O2 Saturation 96 96 Oxygen O2 Source Room air Departure - Departure Disposition: ED Place in Observation Clinical Impression: Acute hyperkalemia Chronic renal insufficiency Qualifiers: Chronic kidney disease stage: unspecified stage Qualified Code(s): N18.9 - Chronic kidney disease, unspecified Condition: Stable Record reviewed to determine appropriate education?: Yes Discharge Date/Time: 10/11/17 22:27
[2017-10-11] MEDS ORDERED: SODIUM BICARBONATE ABBOJECT 50 MEQ/50 ML SYRINGE IVP STA (17:23)
[2017-10-11] MEDS ORDERED: SODIUM CHLORIDE 0.9% 1,000 ML IV ONE ×2 (17:23→19:36)
[2017-10-11] MEDS ORDERED: SODIUM POLYSTYRENE SULFONATE 15 GM/60 ML BOTTLE PO STA ×3 (17:23→22:07)
[2017-10-11] MEDS ORDERED: INSULIN REGULAR HUMAN 100 UNIT/1 ML 10 ML MDV IVP STA (17:24)
[2017-10-11] MEDS ORDERED: DEXTROSE 50% ABBOJECT 25 GM/50 ML SYRINGE IVP STA (17:24)
[2017-10-11] MEDS ORDERED: ALBUTEROL NEB 2.5 MG/3 ML INH STA (17:26)
[2017-10-11 17:57] LABS: BASOPHILS % (AUTO) 0.3 %; EOSINOPHILS # (AUTO) 0.2 10^3/uL (0.0-0.7); EOSINOPHILS % (AUTO) 2.2 %; LYMPHOCYTES # (AUTO) 0.7 10^3/uL (1.5-3.5); LYMPHOCYTES % (AUTO) 8.2 %; MEAN CORPUSCULAR HEMOGLOBIN 33.9 pg (27.0-31.0); MEAN CORPUSCULAR VOLUME 102.7 fL (80.0-94.0); MEAN PLATELET VOLUME 8.3 fL (7.4-11.4); MONOCYTES # (AUTO) 0.6 10^3/uL (0.0-1.0); MONOCYTES % (AUTO) 6.5 %; NEUTROPHILS # (AUTO) 7.2 10^3/uL (1.5-6.6); NEUTROPHILS % (AUTO) 82.8 %; PLT - PLATELET COUNT 191 10^3/uL (130-450); RED BLOOD COUNT 3.24 10^6/uL (4.70-6.10); RED CELL DISTRIBUTION WIDTH 13.5 % (12.0-15.0); WHITE BLOOD COUNT 8.7 x10^3/uL (4.8-10.8)
[2017-10-11 18:14] LABS: ALBUMIN 4.5 g/dL (3.2-5.5); ALBUMIN/GLOBULIN RATIO 1.6 (1.0-2.2); ALKALINE PHOSPHATASE 63 IU/L (42-121); ALT ALANINE AMINOTRANSFERASE < 10 IU/L (10-60); AST ASPARTATE AMINOTRANSFERASE 22 IU/L (10-42); BILIRUBIN,TOTAL 0.5 mg/dL (0.2-1.0); BUN - BLOOD UREA NITROGEN 48 mg/dL (6-20); CALCIUM 9.1 mg/dL (8.5-10.3); CARBON DIOXIDE - CO2 23 mmol/L (21-32); CHLORIDE 106 mmol/L (101-111); CREATININE 2.1 mg/dL (0.6-1.2); GFR - MDRD 31 (>89); GLUCOSE 115 mg/dL (70-100); LIPASE 61 U/L (22-51); MAGNESIUM 2.2 mg/dL (1.7-2.8); SODIUM 136 mmol/L (135-145); TOTAL PROTEIN 7.4 g/dL (6.7-8.2)
[2017-10-11 19:36] LABS: CALCIUM 8.5 mg/dL (8.5-10.3); CREATININE 2.1 mg/dL (0.6-1.2)
[2017-10-11] MEDS ORDERED: SODIUM CHLORIDE FLUSH 0.9% 10 ML SYRINGE IVP PRN (22:02)
[2017-10-11] MEDS ORDERED: FUROSEMIDE 20 MG/2 ML VIAL IVP STA (22:08)
[2017-10-11] MEDS ORDERED: oxyCODONE 5 MG TABLET PO PRN (22:23)
[2017-10-11] MEDS: DEXTROSE 5%-0.45% NACL 1,000 ML IV SCH (22:42)
[2017-10-11] MEDS ORDERED: cloNIDine 0.1 MG TABLET PO PRN (23:03)
--- NOTE | 2017-10-11 23:17 | HISTORY & PHYSICAL EXAMINATION ---
Chief Complaint - Chief Complaint Chief Complaint: Patient was directed to the ED after a blood tests found hyperkalemia History of Present Illness - Admitted From Admitted From:: home - History Obtained From History obtained from: The patient, his , emergency department physician - History of Present Illness HPI Comment/Other: Mr. 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 He has a past medical history significant for Parkinson's disease which is secondary to the cancer treatments, hypertension, emphysema, again secondary to the chemotherapy, chronic kidney disease, pneumonia, atrial flutter, aortic stenosis, Bronchiolitis obliterans, and patient does have a history of hyperkalemia a few years ago. The patient went for some routine blood testing a couple of days ago and the results found the patient have a potassium level of 5.8. He was directed to the emergency department for retesting and upon retesting was found to have a potassium level of 6.1. Upon presentation to the ED the patient was otherwise asymptomatic. He was found to be mildly hypertensive but the rest of his vital signs were within normal limits. His creatinine was noted to be 2.1 but this is his baseline as he does have a history of chronic kidney disease, stage 3b. Because the suspected offending agents were stopped a few days ago and the patient's potassium level continued to rise it was thought to be prudent to bring him into an observation bed where we will monitor him on telemetry, and treat his hyperkalemia with Kayexalate, IV fluids, and loop diuretics. History - Past Medical History Cardiovascular: reports: Hypertension, Atrial flutter, Murmur Respiratory: reports: Shortness of breath, Other Endocrine/Autoimmune: reports: None GI: reports: GERD : reports: Renal insuffiency, Other HEENT: reports: None Psych: reports: None Musculoskeletal: reports: None Derm: reports: Other MRSA Hx?: No - Past Surgical History General: reports: Bowel surgery, Gastric surgery Derm: reports: Skin cancer surgery - Family & Social History Family History: Mother: Blood Disease/Disorder (Mother of complications of C. difficile infection), Hypertension, Father: Cancer (Father had lung cancer and CLL.) Family History Comment/Other: The patient has a sister who is alive and well. He has no knowledge of any diabetes, hyperlipidemia, or heart disease in the family. Living arrangement: At home Living Situation: With spouse/s.o. Social History Notes: The patient and his celebrated their 49th anniversary yesterday. - Substance History Use: Uses substance without health or social issues: Alcohol Abuse: Recurrent use of substance despite neg consequences: NONE Dependence: Experiences withdrawal or developed tolerances: NONE - POLST Patient has POLST: Yes POLST Status: Full Code Meds/Allgy - Home Medications Home Medications: Ambulatory Orders Medication Instructions Recorded Confirmed Dapsone 50 mg PO BID 08/03/12 02/18/17 valACYclovir [Valtrex] 500 mg PO DAILY 08/03/12 02/18/17 Metoprolol Tartrate [Lopressor] 12.5 mg PO BID 02/02/13 02/18/17 Azithromycin 250 mg PO DAILY 11/16/13 02/18/17 Calcitriol [Rocaltrol] 0.25 mcg PO DAILY 03/29/14 02/18/17 Montelukast [Singulair] 10 mg PO QPM 06/08/15 02/18/17 Selegiline HCl 5 mg PO BID 06/08/15 02/18/17 Fluticasone/Salmeterol [Advair Hfa 1 inh INH BID 07/28/15 02/18/17 230-21 Mcg Inhaler] Carbidopa/Levodopa ER 25/100 1 tab PO TID tablet 09/29/16 02/18/17 [Sinemet Cr 25 mg/100 mg] Pantoprazole [Protonix] 40 mg PO BID tablet 09/29/16 02/18/17 Clobetasol Propionate [Temovate] 15 gm TOP PRN PRN 02/03/17 02/18/17 Pramipexole [Mirapex] 0.125 mg PO PRN PRN 02/03/17 02/18/17 Tamsulosin [Flomax] 0.4 mg PO DAILY 02/03/17 02/18/17 predniSONE [Deltasone] 5 mg PO DAILY 02/03/17 02/18/17 Hydralazine HCl 100 mg PO 10/11/17 Voriconazole [Vfend] 200 mg PO 08/17/18 - Allergies Allergies/Adverse Reactions: Allergies Allergy/AdvReac Type Severity Reaction Status Date / Time rifampin Allergy Rash Verified 11/20/16 16:48 diphenhydramine HCl * AdvReac Unknown Verified 11/20/16 16:48 [From Benadryl] lorazepam AdvReac Unknown Verified 11/20/16 16:48 Review of Systems - Constitutional Constitutional: denies: Fatigue, Fever, Chills, Malaise - Eyes Eyes: denies: Pain, Irritation, Amaurosis, Blurred vision - Ears, Nose & Throat Ears, Nose & Throat: denies: Ear pain, Hearing loss, Hearing aids, Tinnitus, Vertigo, Nasal pain, Nasal discharge - Cardiovascular Cariovascular: denies: Irregular heart rate, Palpitations, Chest pain, Edema, Syncope - Respiratory Respiratory: denies: Cough, Sputum production, Wheezing, Snoring, SOB at rest, SOB with exertion - Gastrointestinal Gastrointestinal: denies: Abdominal pain, Abdominal distention, Constipation, Diarrhea, Change in bowel habits, Rectal bleeding, Black stools, Bloody stools, Nausea, Vomiting - Genitourinary Genitourinary: denies: Dysuria, Frequency, Urgency, Hematuria - Musculoskeletal Musculoskeletal: denies: Muscle pain, Back pain, Muscle aches, Stiffness - Integumentary Integumentary: denies: Rash, Pruritis, Lesions, Dryness - Neurological Neurological: reports: General weakness, Other (Patient has Parkinson's disease/ parkinsonian symptoms secondary to chemotherapy). denies: Focal weakness, Headache, Dizziness - Psychiatric Psychiatric: denies: Depression, Anxiety, Suicidal, Hallucinations - Endocrine Endocrine: denies: Polyuria, Polydypsia, Polyphagia - Hematologic/Lymphatic Hematologic/Lymphatic: denies: Anemia, Bruising, Petechiae, Lymphadenopathy - All Other Systems All Other Systems: reports: Reviewed and negative Exam - Vital Signs Reviewed Vital Signs: Yes Vital Signs: Vital Signs x48h Temp Pulse Pulse Resp BP BP BP 10/11/17 23:06 62 198/64 H 10/11/17 22:30 36.5 C 63 24 199/64 H 10/11/17 22:18 68 19 167/65 H Pulse Ox 10/11/17 23:06 10/11/17 22:30 97 10/11/17 22:18 97 - Physical Exam General Appearance: positive: No acute distress, Alert, Mild distress Eyes Bilateral: positive: Normal inspection, PERRL, EOMI, No lid inflammation, Conjunctivae nml, No scleral icterus ENT: positive: ENT inspection nml, Pharynx nml, No signs of dehydration Neck: positive: Nml inspection, Thyroid nml, No JVD, Trachea midline. negative : Thyromegaly Respiratory: positive: Chest non-tender, No respiratory distress, Breath sounds nml. negative: Wheezes, Rales, Rhonchi Cardiovascular: positive: Regular rate & rhythm, No gallop, Systolic murmur (3/ 6 holosytolic murmur heard) Peripheral Pulses: positive: 1+ Abdomen: positive: Non-tender, No organomegaly, Nml bowel sounds, No distention. negative: Guarding, Rebound Back: positive: Nml inspection. negative: CVA tenderness (R), CVA tenderness (L ) Skin: positive: Color nml, No rash, Warm, Dry. negative: Cyanosis Extremities: positive: Non-tender, Full ROM, Nml appearance, No pedal edema Neurologic/Psychiatric: positive: Oriented x3, CN's nml (2-12), Motor nml, Sensation nml, Mood/affect nml, Other (Patient has masked facies and tremor consistent with parkinsonian disease) Conclusion/Plan - Problem List (1) Acute hyperkalemia Conclusion/Plan: We are treating the patient with IV fluids, loop diuretics, and Kayexalate. We are monitoring his EKG and will recheck his electrolytes in the morning. (2) Hypertension Conclusion/Plan: Patient has been increasingly hypertensive and only takes Metoprolol at home. I will add a calcium channel fina daily and clonidine as needed for hypertensive emergencies. (3) Macrocytic anemia Conclusion/Plan: Likely related to the patient's chronic illness but I will check the patient's B12 and folate levels. (4) Stage 3b chronic kidney disease Conclusion/Plan: The patient's creatinine is 2.1 which is about his baseline. We will gently hydrate him and monitor his medication regimen for nephrotoxic medications. (5) Parkinsons disease Conclusion/Plan: The patient has a history of Parkinson's disease secondary to chemotherapy he underwent for his CLL. We will continue on his home medication regimen. (6) Benign prostatic hyperplasia Conclusion/Plan: Patient has a history of benign prostatic hyperplasia. We will continue him on his tamsulosin. (7) Fungal pneumonia Conclusion/Plan: The patient says he is being treated currently for a fungal pneumonia. He does have a history of scarring secondary to [id number] disease and treatment for his CLL. Will continue on his current medication regimen. 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 We will continue on his home medication regimen. - Lab Results Lab results reviewed: Yes Matt Bones: 10/11/17 17:50 10/11/17 19:25 Core Measures - Anticipated LOS I expect patient to be DC'd or transferred within 96 hours.: Yes - DVT/VTE - Prophylaxis VTE/DVT Device ordered at admit?: Yes
[2017-10-11] MEDS ORDERED: METOPROLOL TARTRATE 25 MG TABLET PO SCH (23:45)
[2017-10-12] MEDS: amLODIPine 5 MG TABLET PO SCH ×2 (00:25→08:20)
[2017-10-12] MEDS: SODIUM CHLORIDE FLUSH 0.9% 10 ML SYRINGE IVP SCH ×2 (03:12→10:13)
[2017-10-12] MEDS: CARBIDOPA/LEVODOPA ER 25 MG/100 MG TABLET PO SCH ×2 (05:58→10:19)
[2017-10-12] MEDS ORDERED: PRAMIPEXOLE 0.25 MG TABLET PO PRN (06:08)
[2017-10-12] MEDS ORDERED: CLOBETASOL 0.05% OINT 30 GM TUBE TOP PRN (06:08)
[2017-10-12 06:12] LABS: HGB - HEMOGLOBIN 10.5 g/dL (14.0-18.0); MEAN CORPUSCULAR HEMOGLOBIN 34.4 pg (27.0-31.0); MEAN CORPUSCULAR HGB CONC 33.1 g/dL (32.0-36.0); MEAN CORPUSCULAR VOLUME 103.8 fL (80.0-94.0); MEAN PLATELET VOLUME 8.4 fL (7.4-11.4); RED BLOOD COUNT 3.04 10^6/uL (4.70-6.10); RED CELL DISTRIBUTION WIDTH 13.8 % (12.0-15.0); WHITE BLOOD COUNT 8.9 x10^3/uL (4.8-10.8)
[2017-10-12 06:19] LABS: CALCIUM 8.4 mg/dL (8.5-10.3); CREATININE 2.1 mg/dL (0.6-1.2)
[2017-10-12 06:49] LABS: FOLATE 6.65 ng/mL (5.90 - >24.8)
[2017-10-12 07:30] VITALS: BP 183/59
[2017-10-12] MEDS: DEXTROSE 5%-0.45% NACL 1,000 ML IV SCH (08:56)
[2017-10-12] MEDS ORDERED: PANTOPRAZOLE 40 MG TABLET PO SCH (09:00)
[2017-10-12] MEDS ORDERED: FLUTICASONE INH SCH (09:00)
[2017-10-12] MEDS ORDERED: predniSONE 5 MG TABLET PO SCH (09:00)
[2017-10-12] MEDS ORDERED: TAMSULOSIN 0.4 MG CAPSULE PO SCH (09:00)
[2017-10-12] MEDS ORDERED: CALCITRIOL 0.25 MCG CAPSULE PO SCH (09:00)
[2017-10-12] MEDS ORDERED: valACYclovir 500 MG TABLET PO SCH (09:00)
[2017-10-12] MEDS ORDERED: SALMETEROL INH SCH (09:00)
[2017-10-12] MEDS ORDERED: POLYETHYLENE GLYCOL 3350 17 GM PACKET PO SCH (09:00)
[2017-10-12] MEDS ORDERED: METOPROLOL TARTRATE 25 MG TABLET PO SCH (09:00)
[2017-10-12] MEDS ORDERED: HYDRALAZINE HCL 100 MG PO SCH (10:08)
--- NOTE | 2017-10-12 10:08 | Discharge Plan ---
Discharge Plan Disposition: 01 Home, Self Care Condition: Stable Diet: Low Sodium Activity Restrictions: Activity as Tolerated Shower Restrictions: No Instruction Topics: Diet Low Potassium Dc Additional Instructions or Follow Up instructions: Resume all your pre-hospital medications. Since Amlodipine worked to get your high blood pressure down, discuss this with your doctor and maybe a change of medicines will be ordered for you. Stick to a low Potassium diet. A handout has been provided to kristy about this. See your PCP or kidney specialist for blood tests and follow-up visit in the next 5-7 days. No Smoking: If you smoke, Please STOP! Call for help. Follow-up with: Lopez Vences MD [Primary Care Provider] -
[2017-10-12] MEDS ORDERED: CARBIDOPA/LEVODOPA ER 25 MG/100 MG TABLET PO SCH (14:00)
[2017-10-12] MEDS ORDERED: MONTELUKAST 10 MG TABLET PO SCH (21:00)
--- NOTE | 2017-10-13 03:42 | DISCHARGE SUMMARY ---
Physician: Joana Farrar MD DATE OF ADMISSION: 10/11/2017 DATE OF DISCHARGE: 10/12/2017 HISTORY OF PRESENT ILLNESS: This is a 72-year-old white male with a history of CLL, stem cell transplant, sagci-jeowtq-mrxr disease, hypertension, COPD, CKD, aortic stenosis, Parkinson's disease, admitted because outpatient labs that showed hyperkalemia, and he was told to go to the emergency room. The potassium level was 5.8, and in the emergency room a repeat potassium level was 6.1. He was placed in Observation, and hyperkalemia was managed. HOSPITAL COURSE AND DISCHARGE DIAGNOSES 1. Acute hyperkalemia. The patient received loop diuretic, Kayexalate, IV fluids. The very next potassium was 4.4. He was on telemetry, and there were no dysrhythmias. He was discharged on similar medications. Losartan had just recently been stopped previously, as an outpatient. 2. Hypertension. The patient reported recent trouble with blood pressure control. He was only on metoprolol at home and possibly on hydralazine. He required a dose of amlodipine while here. Blood pressures were in the 180 systolic range consistently until the last blood pressure, which was 90-99 systolic. With this, he felt fine, not dizzy. No new medicines were prescribed , but he was told to see his primary care physician or product ambassador for adjustment of medications for blood pressure control. 3. Stage 3b chronic kidney disease. The patient's baseline creatinine is 2.1. He received gentle hydration and was on no nephrotoxic medications while here. 4. Parkinson's disease. The patient has obvious stiffness and flat affect. His medications were continued while here. 5. Benign prostatic hypertrophy. The patient was continued on his Tamsulosin while here. 6. Fungal pneumonia. The patient was continued on his several medications while here. 7. Vbams-oioebn-weps disease. He was continued on his home medication regimen. 8. Chronic lymphocytic leukemia. There were no changes made here for management of this. LABORATORY STUDIES AND IMAGING: Reviewed and summarized above. ALLERGIES 1. RIFAMPIN 2. DIPHENHYDRAMINE. 3. LORAZEPAM. MEDICATIONS AT DISCHARGE 1. Albuterol 2 puffs q.4 h. p.r.n. 2. Unclear if he is on Zithromax 250 mg daily. 3. Rocaltrol 0.25 mcg p.o. daily. 4. Carbidopa/levodopa 1 tab p.o. q.i.d. p.r.n. 5. Dapsone 50 mg b.i.d. 6. Advair inhaler b.i.d. 7. Hydralazine 100 mg t.i.d. 8. Metoprolol 25 mg daily. 9. Singulair 10 mg every night. 10. Oxycodone 10 mg q.4 h. p.r.n. 11. Deltasone 5 mg daily. 12. Selegiline 5 mg b.i.d. 13. Flomax 0.4 mg every evening. 14. Valtrex 500 mg every evening. 15. Vfend 300 mg b.i.d. PHYSICAL EXAMINATION AT DISCHARGE VITAL SIGNS: Blood pressure 183/59, then 99/60, heart rate 62, afebrile, room air saturation 96%. HEENT: Unremarkable except flat affect. NECK: Without JVD or carotid bruits. CHEST: Clear. HEART: Sounds normal. ABDOMEN: Soft, benign. EXTREMITIES: Without clubbing, cyanosis, or edema. NEUROLOGIC: Stiffness and bradykinesis. FOLLOWUP: With his PCP as previously scheduled. CODE STATUS: FULL CODE. TIME REQUIRED TO COMPLETE THIS ENTIRE DISCHARGE: 30 minutes. cc: Lopez Vences MD TD: 10/12/2017 15:43 MTDD
[2017-10-13] MEDS ORDERED: SELEGILINE HCL 5 MG PO SCH (09:00)
== END 2017-10-12 10:44 | disposition home or self-care (01) ==
LOC: ED 16:29 → MS2 22:02
PROVIDERS: ADMIT Hospitalist; ATTEND Internal Medicine
DX: E87.5 Hyperkalemia (principal); I12.9 Hypertensive chronic kidney disease with stage 1 through stage 4 chronic kidney disease, or unspecified chronic kidney disease; N18.3 Chronic kidney disease, stage 3 (moderate); G21.19 Other drug induced secondary parkinsonism; T45.1X5S Adverse effect of antineoplastic and immunosuppressive drugs, sequela; N40.0 Benign prostatic hyperplasia without lower urinary tract symptoms; J16.8 Pneumonia due to other specified infectious organisms; D89.813 Graft-versus-host disease, unspecified; C91.91 Lymphoid leukemia, unspecified, in remission; Z94.84 Stem cells transplant status; J68.4 Chronic respiratory conditions due to chemicals, gases, fumes and vapors; I35.0 Nonrheumatic aortic (valve) stenosis; I48.92 Unspecified atrial flutter; K21.9 Gastro-esophageal reflux disease without esophagitis; Z79.51 Long term (current) use of inhaled steroids; Z79.52 Long term (current) use of systemic steroids; Z79.2 Long term (current) use of antibiotics; Z79.899 Other long term (current) drug therapy; Z85.828 Personal history of other malignant neoplasm of skin
CPT/HCPCS: 36415; 80048; 80053; 82607; 82746; 83690; 83735; 85025; 85027; 96361; 96374; 96375; 99283; 99284; A9270; G0378; J1815; J7512

== ENCOUNTER 2017-10-18 11:44 | Outpatient (CLI) | payer MEDICARE, OTHER ==
[2017-10-18 11:59] LABS: BASOPHILS # (AUTO) 0.1 10^3/uL (0.0-0.1); BASOPHILS % (AUTO) 0.8 %; EOSINOPHILS # (AUTO) 0.2 10^3/uL (0.0-0.7); EOSINOPHILS % (AUTO) 2.6 %; HGB - HEMOGLOBIN 10.6 g/dL (14.0-18.0); LYMPHOCYTES # (AUTO) 1.7 10^3/uL (1.5-3.5); LYMPHOCYTES % (AUTO) 26.3 %; MEAN CORPUSCULAR HEMOGLOBIN 34.1 pg (27.0-31.0); MEAN CORPUSCULAR HGB CONC 33.6 g/dL (32.0-36.0); MEAN CORPUSCULAR VOLUME 101.6 fL (80.0-94.0); MEAN PLATELET VOLUME 8.5 fL (7.4-11.4); MONOCYTES # (AUTO) 0.7 10^3/uL (0.0-1.0); MONOCYTES % (AUTO) 10.8 %; NEUTROPHILS # (AUTO) 3.9 10^3/uL (1.5-6.6); NEUTROPHILS % (AUTO) 59.5 %; PLT - PLATELET COUNT 177 10^3/uL (130-450); RED BLOOD COUNT 3.12 10^6/uL (4.70-6.10); RED CELL DISTRIBUTION WIDTH 13.2 % (12.0-15.0); WHITE BLOOD COUNT 6.6 x10^3/uL (4.8-10.8)
[2017-10-18 12:10] LABS: ALBUMIN/GLOBULIN RATIO 1.3 (1.0-2.2); ALKALINE PHOSPHATASE 91 IU/L (42-121); ALT ALANINE AMINOTRANSFERASE < 10 IU/L (10-60); AST ASPARTATE AMINOTRANSFERASE 36 IU/L (10-42); BILIRUBIN,TOTAL 0.5 mg/dL (0.2-1.0); BUN - BLOOD UREA NITROGEN 40 mg/dL (6-20); CARBON DIOXIDE - CO2 25 mmol/L (21-32); CHLORIDE 103 mmol/L (101-111); CREATININE 1.9 mg/dL (0.6-1.2); GFR - MDRD 35 (>89); GLUCOSE 105 mg/dL (70-100); SODIUM 135 mmol/L (135-145); TOTAL PROTEIN 7.1 g/dL (6.7-8.2)
== END 2017-10-18 11:45 | disposition home or self-care (01) ==
LOC: LAB 11:44
PROVIDERS: ATTEND Physician Assistant Medical
DX: Z79.899 Other long term (current) drug therapy (principal); N18.3 Chronic kidney disease, stage 3 (moderate)
CPT/HCPCS: 36415; 80053; 85025

== ENCOUNTER 2017-12-06 13:13 | Outpatient (CLI) | payer MEDICARE, OTHER ==
[2017-12-06 13:54] LABS: ALBUMIN 3.7 g/dL (3.2-5.5); ALBUMIN/GLOBULIN RATIO 1.2 (1.0-2.2); ALKALINE PHOSPHATASE 135 IU/L (42-121); ALT ALANINE AMINOTRANSFERASE < 10 IU/L (10-60); AST ASPARTATE AMINOTRANSFERASE 29 IU/L (10-42); BILIRUBIN,TOTAL 0.3 mg/dL (0.2-1.0); BUN - BLOOD UREA NITROGEN 29 mg/dL (6-20); CARBON DIOXIDE - CO2 25 mmol/L (21-32); CHLORIDE 106 mmol/L (101-111); CREATININE 1.5 mg/dL (0.6-1.2); GFR - MDRD 46 (>89); GLUCOSE 98 mg/dL (70-100); MAGNESIUM 1.8 mg/dL (1.7-2.8); PHOSPHORUS 2.5 mg/dL (2.5-4.6); SODIUM 138 mmol/L (135-145); TOTAL PROTEIN 6.9 g/dL (6.7-8.2)
== END 2017-12-06 13:14 | disposition home or self-care (01) ==
LOC: LAB 13:13
PROVIDERS: ATTEND Physician Assistant
DX: E83.51 Hypocalcemia (principal)
CPT/HCPCS: 36415; 80053; 83735; 84100

== ENCOUNTER 2017-12-13 13:18 | Outpatient (CLI) | payer MEDICARE, OTHER ==
[2017-12-13 14:00] LABS: ALBUMIN 3.7 g/dL (3.2-5.5); ALBUMIN/GLOBULIN RATIO 1.2 (1.0-2.2); ALKALINE PHOSPHATASE 114 IU/L (42-121); ALT ALANINE AMINOTRANSFERASE < 10 IU/L (10-60); AST ASPARTATE AMINOTRANSFERASE 23 IU/L (10-42); BILIRUBIN,TOTAL 0.6 mg/dL (0.2-1.0); BUN - BLOOD UREA NITROGEN 31 mg/dL (6-20); CALCIUM 8.9 mg/dL (8.5-10.3); CARBON DIOXIDE - CO2 26 mmol/L (21-32); CHLORIDE 104 mmol/L (101-111); CREATININE 1.6 mg/dL (0.6-1.2); GFR - MDRD 43 (>89); GLUCOSE 146 mg/dL (70-100); MAGNESIUM 2.1 mg/dL (1.7-2.8); PHOSPHORUS 2.7 mg/dL (2.5-4.6); SODIUM 138 mmol/L (135-145); TOTAL PROTEIN 6.7 g/dL (6.7-8.2)
== END 2017-12-13 13:19 | disposition home or self-care (01) ==
LOC: LAB 13:18
PROVIDERS: ATTEND Physician Assistant
DX: E83.51 Hypocalcemia (principal)
CPT/HCPCS: 36415; 80053; 83735; 84100

== ENCOUNTER 2017-12-26 09:09 | Outpatient (CLI) | payer MEDICARE, OTHER | END 2017-12-26 09:10 | disposition home or self-care (01) | LOC: LAB 09:09 | PROVIDERS: ATTEND Internal Medicine | DX: N52.9 Male erectile dysfunction, unspecified (principal) | CPT/HCPCS: 36415; 81599; 84402; 84403 ==

== ENCOUNTER 2018-02-20 12:35 | Outpatient (CLI) | payer MEDICARE, OTHER ==
[2018-02-20 14:05] LABS: CALCIUM 8.8 mg/dL (8.5-10.3); CREATININE 1.7 mg/dL (0.6-1.2)
== END 2018-02-20 12:36 | disposition home or self-care (01) ==
LOC: LAB 12:35
PROVIDERS: ATTEND Internal Medicine Advanced Heart Failure and Transplant Cardiology
DX: R79.89 Other specified abnormal findings of blood chemistry (principal); I50.22 Chronic systolic (congestive) heart failure; I35.0 Nonrheumatic aortic (valve) stenosis
CPT/HCPCS: 36415; 80048; 83880

== ENCOUNTER 2018-04-30 08:25 | Outpatient (CLI) | payer MEDICARE, OTHER | END 2018-04-30 08:26 | disposition short-term general hospital (02) | LOC: EMS 08:25 | PROVIDERS: ATTEND Surgery | DX: R06.00 Dyspnea, unspecified (principal); R53.1 Weakness; R34 Anuria and oliguria | CPT/HCPCS: A0425; A0427; A0888 ==

== ENCOUNTER 2018-06-27 08:00 | Outpatient (CLI) | payer MEDICARE, OTHER ==
[2018-06-27 18:48] LABS: CALCIUM 8.7 mg/dL (8.5-10.3); CREATININE 1.8 mg/dL (0.6-1.2)
== END 2018-06-27 23:59 | disposition home or self-care (01) ==
LOC: LAB.N 08:00
PROVIDERS: ATTEND Internal Medicine Advanced Heart Failure and Transplant Cardiology
DX: I50.30 Unspecified diastolic (congestive) heart failure (principal)
CPT/HCPCS: 36415; 80048

== ENCOUNTER 2021-04-03 13:22 | Emergency (ER) | payer MEDICARE, OTHER ==
[2021-04-03 14:41] LABS: BASOPHILS # (AUTO) 0.1 10^3/uL (0.0-0.1); BASOPHILS % (AUTO) 0.3 %; EOSINOPHILS # (AUTO) 0.4 10^3/uL (0.0-0.7); EOSINOPHILS % (AUTO) 2.2 %; HCT - HEMATOCRIT 29.7 % (42.0-52.0); HGB - HEMOGLOBIN 9.7 g/dL (14.0-18.0); LYMPHOCYTES # (AUTO) 1.3 10^3/uL (1.5-3.5); LYMPHOCYTES % (AUTO) 7.4 %; MEAN CORPUSCULAR HEMOGLOBIN 30.9 pg (27.0-31.0); MEAN CORPUSCULAR HGB CONC 32.7 g/dL (32.0-36.0); MEAN CORPUSCULAR VOLUME 94.6 fL (80.0-94.0); MEAN PLATELET VOLUME 10.4 fL (7.4-11.4); MONOCYTES # (AUTO) 0.9 10^3/uL (0.0-1.0); MONOCYTES % (AUTO) 4.9 %; NEUTROPHILS # (AUTO) 14.8 10^3/uL (1.5-6.6); NEUTROPHILS % (AUTO) 84.6 %; PLT - PLATELET COUNT 245 10^3/uL (130-450); RED BLOOD COUNT 3.14 10^6/uL (4.70-6.10); RED CELL DISTRIBUTION WIDTH 13.2 % (12.0-15.0); WHITE BLOOD COUNT 17.5 x10^3/uL (4.8-10.8)
[2021-04-03 14:50] LABS: CALCIUM 9.3 mg/dL (8.5-10.3); CREATININE 1.8 mg/dL (0.6-1.2)
[2021-04-03 14:56] LABS: INR 1.2 (0.8-1.2); PT - PROTHROMBIN TIME 13.1 secs (9.9-12.6)
[2021-04-03] MEDS ORDERED: OXYMETAZOLINE HCL 100 SPRAYS BOTTLE NAS STA (15:24)
[2021-04-03] MEDS ORDERED: cephALEXin 250 MG CAPSULE PO STA (15:25)
--- NOTE | 2021-04-03 15:27 | ED Physician Documentation ---
History of Present Illness - Stated complaint Stated Complaint: NOSEBLEEDS, HEART FAILURE - Chief complaint Chief Complaint: General - History obtained from History obtained from: Patient - History of Present Illness Timing: How many days ago (3) Pain level max: 0 Pain level now: 0 - Additonal information Additional information: 75-year-old male states he has had 3 nosebleeds in 3 days. He states he put several pieces of packing in his nose over the past 2 or 3 days but has not removed them. No fevers. No chills. Better with pressure and packing. He is not on any blood thinners. No cough. No congestion. No discharge. Patient does not currently have any active bleeding. Review of Systems Constitutional: denies: Fever, Chills Respiratory: denies: Cough GI: denies: Nausea, Vomiting, Diarrhea Skin: denies: Rash Musculoskeletal: denies: Neck pain, Back pain Neurologic: denies: Headache PD PAST MEDICAL HISTORY - Past Medical History Cardiovascular: Hypertension, Atrial flutter, Murmur Respiratory: Shortness of breath, Other Endocrine/Autoimmune: None GI: GERD : Renal insuffiency, Other HEENT: None Psych: None Musculoskeletal: None Derm: Other - Past Surgical History Past Surgical History: Yes General: Bowel surgery, Gastric surgery Derm: Skin cancer surgery - Present Medications Home Medications: Ambulatory Orders Medication Instructions Recorded Confirmed Dapsone 50 mg PO BID 08/03/12 10/12/17 valACYclovir [Valtrex] 500 mg PO QPM 08/03/12 10/12/17 Azithromycin 250 mg PO DAILY 11/16/13 10/12/17 calcitrioL [Rocaltrol] 0.25 mcg PO DAILY 03/29/14 10/12/17 Montelukast [Singulair] 10 mg PO QPM 06/08/15 10/12/17 Selegiline HCl 5 mg PO BID 06/08/15 10/12/17 Fluticasone/Salmeterol [Advair Hfa 1 puffs INH BID 07/28/15 10/12/17 230-21 Mcg Inhaler] Pantoprazole [Protonix] 40 mg PO BID tablet 09/29/16 10/12/17 Pramipexole [Mirapex] 0.125 mg PO DAILY PRN 02/03/17 10/12/17 Tamsulosin [Flomax] 0.4 mg PO 1700 02/03/17 10/12/17 predniSONE [Deltasone] 5 mg PO DAILY 02/03/17 10/12/17 Hydralazine HCl 100 mg PO TID 10/11/17 10/12/17 Voriconazole [Vfend] 300 mg PO BID 10/11/17 10/12/17 Albuterol Sulf [Ventolin Hfa 2 puffs INH Q4H PRN 10/12/17 10/12/17 Inhaler] Carbidopa/Levodopa 1 tab PO QID PRN 10/12/17 10/12/17 [Carbidopa-Levodopa 25-100 Tab] Metoprolol Succinate 25 mg PO DAILY 10/12/17 10/12/17 Oxycodone HCl 10 mg PO Q4H PRN 10/12/17 10/12/17 Oxymetazoline HCl [Afrin] 1 spray BERNARD BID #30 ml 04/03/21 cephALEXin [Keflex] 500 mg PO Q6H #28 cap 04/03/21 - Allergies Allergies/Adverse Reactions: Allergies Allergy/AdvReac Type Severity Reaction Status Date / Time rifampin Allergy Rash Verified 04/03/21 13:26 diphenhydramine HCl * AdvReac Unknown Verified 04/03/21 13:26 [From Benadryl] lorazepam AdvReac Unknown Verified 04/03/21 13:26 - Social History Does the pt smoke?: No Smoking Status: Never smoker Does the pt drink ETOH?: No Does the pt have substance abuse?: No - Immunizations Immunizations are current?: Yes - POLST Patient has POLST: Yes POLST Status: Full Code PD ED PE NORMAL - Vitals Vital signs reviewed: Yes - General General: Alert and oriented X 3 - HEENT HEENT: Moist mucous membranes, Other (There is dried blood in the right nare with packing in place. The packing was removed. No active bleeding.) - Derm Derm: Warm and dry - Neuro Neuro: Alert and oriented X 3 Results - Vitals Vitals: Vital Signs - 24 hr 04/03/21 04/03/21 04/03/21 13:26 15:49 16:15 Temperature 36.6 C 37 C Heart Rate 88 76 80 Respiratory 16 14 22 Rate Blood Pressure 122/54 L 133/71 H 113/75 O2 Saturation 96 96 100 Oxygen O2 Source Room air - Labs Labs: Laboratory Tests 04/03/21 04/03/21 04/03/21 14:37 14:37 14:39 WBC 17.5 H RBC 3.14 L Hgb 9.7 L Hct 29.7 L MCV 94.6 H MCH 30.9 MCHC 32.7 RDW 13.2 Plt Count 245 MPV 10.4 Neut # (Auto) 14.8 H Lymph # (Auto) 1.3 L [place] # (Auto) 0.9 Eos # (Auto) 0.4 Baso # (Auto) 0.1 Absolute Nucleated RBC 0.00 Nucleated RBC % 0.0 PT 13.1 H INR 1.2 Sodium 134 L Potassium 4.0 Chloride 94 L Carbon Dioxide 29 Anion Gap 11.0 BUN 67 H Creatinine 1.8 H Estimated GFR (MDRD) 37 L Glucose 127 H Calcium 9.3 PD MEDICAL DECISION MAKING - ED course Complexity details: reviewed results, re-evaluated patient, considered differential, d/w patient ED course: 75-year-old male with recurrent epistaxis in the right nare. No active bleeding here. He did have several pieces of gauze that had been in his nose for a few days. These were all removed and the nose was inspected to ensure no further packing was visible. This may be contributing to the elevated white blood cell count. We will place him on Keflex and have him follow-up closely with his doctor for further care. He will return if he worsens. We will place him on Afrin to help stabilize any further clotting or bleeding. There is no active bleeding to cauterize here. Patient counseled regarding signs and symptoms for which I believe and urgent re-evaluation would be necessary. Patient with good understanding of and agreement to plan and is comfortable going home at this time This document was made in part using voice recognition software. While efforts are made to proofread this document, sound alike and grammatical errors may occur. Departure - Departure Disposition: 01 Home, Self Care Clinical Impression: Epistaxis Condition: Good Instructions: ED Nosebleed Follow-Up: Ange Grissom MD [Primary Care Provider] - Prescriptions: Oxymetazoline HCl [Afrin] 1 spray BERNARD BID #30 ml cephALEXin [Keflex] 500 mg PO Q6H #28 cap Comments: Please follow-up with your doctor tomorrow for further care. Take all antibiotics until gone. Do not place any more packing in your nose. Return if you worsen. Use the Afrin for 3 days. Your prescription was sent to [facility] in [place]. Discharge Date/Time: 04/03/21 16:16
[2021-04-03 16:16] VITALS: BP 113/75
== END 2021-04-03 16:16 | disposition home or self-care (01) ==
LOC: ED 13:22
DX: R04.0 Epistaxis (principal)
CPT/HCPCS: 36415; 80048; 85025; 85610; 99283; A9270

== ENCOUNTER 2021-05-30 16:12 | Outpatient (CLI) | payer MEDICARE, OTHER ==
[2021-05-30 16:30] LABS: BASOPHILS % (AUTO) 0.6 %; EOSINOPHILS # (AUTO) 0.3 10^3/uL (0.0-0.7); EOSINOPHILS % (AUTO) 4.2 %; HCT - HEMATOCRIT 31.9 % (42.0-52.0); HGB - HEMOGLOBIN 10.6 g/dL (14.0-18.0); LYMPHOCYTES # (AUTO) 1.7 10^3/uL (1.5-3.5); LYMPHOCYTES % (AUTO) 23.6 %; MEAN CORPUSCULAR HEMOGLOBIN 31.2 pg (27.0-31.0); MEAN CORPUSCULAR HGB CONC 33.2 g/dL (32.0-36.0); MEAN CORPUSCULAR VOLUME 93.8 fL (80.0-94.0); MEAN PLATELET VOLUME 10.6 fL (7.4-11.4); MONOCYTES # (AUTO) 0.4 10^3/uL (0.0-1.0); MONOCYTES % (AUTO) 6.2 %; NEUTROPHILS # (AUTO) 4.6 10^3/uL (1.5-6.6); NEUTROPHILS % (AUTO) 65.1 %; PLT - PLATELET COUNT 227 10^3/uL (130-450); RED CELL DISTRIBUTION WIDTH 13.6 % (12.0-15.0)
[2021-05-30 16:46] LABS: ALKALINE PHOSPHATASE 66 IU/L (42-121); ALT ALANINE AMINOTRANSFERASE < 10 IU/L (10-60); AST ASPARTATE AMINOTRANSFERASE 30 IU/L (10-42); BILIRUBIN,TOTAL 0.6 mg/dL (0.2-1.0); BUN - BLOOD UREA NITROGEN 74 mg/dL (6-20); CALCIUM 9.7 mg/dL (8.5-10.3); CARBON DIOXIDE - CO2 32 mmol/L (21-32); CHLORIDE 93 mmol/L (101-111); CREATININE 1.8 mg/dL (0.6-1.2); GFR - MDRD 37 (>89); GLUCOSE 101 mg/dL (70-100); PHOSPHORUS 4.2 mg/dL (2.5-4.6); POTASSIUM 3.6 mmol/L (3.5-5.0); SODIUM 136 mmol/L (135-145); TOTAL PROTEIN 7.8 g/dL (6.7-8.2)
[2021-05-30 17:07] LABS: BILIRUBIN,DIRECT < 0.1 mg/dL (0.1-0.5)
== END 2021-05-30 16:13 | disposition home or self-care (01) ==
LOC: LAB 16:12
DX: C91.10 Chronic lymphocytic leukemia of B-cell type not having achieved remission (principal)
CPT/HCPCS: 36415; 80048; 80076; 84100; 85025

== ENCOUNTER 2021-09-18 11:20 | Outpatient (CLI) | payer MEDICARE, OTHER | END 2021-09-18 11:21 | disposition critical access hospital (66) | LOC: EMS 11:20 | DX: R06.02 Shortness of breath (principal); R53.1 Weakness | CPT/HCPCS: A0425; A0427 ==

== ENCOUNTER 2021-09-18 11:36 | Emergency (ER) | payer MEDICARE, OTHER ==
--- NOTE | 2021-09-18 11:54 | ED Physician Documentation ---
PD HPI DYSPNEA - Stated complaint Stated Complaint: SOA - Chief complaint Chief Complaint: Resp - History obtained from History obtained from: Patient - History of Present Illness Timing - onset: How many days ago (patient with recent hospitalization for pneumonia and dyspnea, discharged from 3 days ago. Patient not eating well due to throat pain and is generally weaker. Also with increased dyspnea this morning. Is on oxygen 2 lpm NC, and increased it to 3. Has finished PO abx Rx at discharge.) Timing - onset during: Rest Timing - duration: Days Timing - details: Gradual onset (gradually weaker and with increased dyspnea.) Inciting event(s): No: Out of meds (has home nebulizer but no meds for it. Had not been on regular nebs though for awhile.), URI Improved by: O2, Rest Worsened by: Exertion Associated symptoms: Cough, Wheezing. No: Fever, Chest pain / discomfort, Bilateral edema Similar symptoms before: Diagnosis (had had recent pneumonia versus [id number] disease of lungs/mouth. Has BOOP lung disease as well. Some history of COPD.) Recently seen: Admitted (at [facility] to for pneumonia and dyspnea. 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 denies: Fever, Chills Nose: denies: Rhinorrhea / runny nose, Congestion Throat: reports: Oral lesions / sores, Sore throat Cardiac: denies: Chest pain / pressure, Palpitations Respiratory: reports: Dyspnea, Cough, Wheezing GI: reports: Diarrhea (mild during hospitalization. improving now off abx.). denies: Abdominal Pain, Nausea, Vomiting Skin: denies: Rash Neurologic: reports: Generalized weakness, Altered mental status (weaker and slower to converse the past couple of days.). denies: Focal weakness, Numbness PD PAST MEDICAL HISTORY - Past Medical History Cardiovascular: Hypertension, Atrial flutter, Murmur Respiratory: Shortness of breath, Other Endocrine/Autoimmune: None GI: GERD : Renal insuffiency, Other HEENT: None Psych: None Musculoskeletal: None Derm: Other - Past Surgical History Past Surgical History: Yes General: Bowel surgery, Gastric surgery Derm: Skin cancer surgery - Present Medications Home Medications: Ambulatory Orders Medication Instructions Recorded Confirmed calcitrioL [Rocaltrol] 0.25 mcg PO DAILY 03/29/14 09/18/21 Selegiline HCl 5 mg PO BID 06/08/15 09/18/21 Pantoprazole [Protonix] 40 mg PO BID tablet 09/29/16 09/18/21 Tamsulosin [Flomax] 0.8 mg PO DAILY 02/03/17 09/18/21 Albuterol Sulf [Ventolin Hfa 2 puffs INH Q6H PRN 10/12/17 09/18/21 Inhaler] Carbidopa/Levodopa 1 tab PO TID 10/12/17 09/18/21 [Carbidopa-Levodopa 25-100 Tab] Albuterol 2.5 mg INH Q4H PRN #30 ml 09/18/21 Aspirin [Rhea Aspirin] 81 mg PO DAILY 09/18/21 09/18/21 Azithromycin 250 mg PO Q2D 20 Days #10 tablet 09/18/21 Budesonide [Pulmicort Flexhaler] 1 inh IH BID 30 Days #1 unit 09/18/21 Chlorthalidone 25 mg PO DAILY 09/18/21 09/18/21 Diphenoxylate/Atropine [Lomotil] 0 tab PO PRN PRN 09/18/21 09/18/21 Ferrous Sulfate 325 mg PO ONCE 09/18/21 09/18/21 Finasteride [Proscar] 5 mg PO DAILY 09/18/21 09/18/21 Fluoride (Sodium) [Prevident 5000] 100 ml DT DAILY PM 09/18/21 09/18/21 Lactobacillus Rhamnosus GG 1 cap PO DAILY 09/18/21 09/18/21 [Culturelle] Lidocaine Viscous 2% [Xylocaine 5 ml PO Q4H PRN #100 ml 09/18/21 Viscous 2%] Loperamide [Imodium] 2 mg PO PRN PRN 09/18/21 09/18/21 Multivit-Min/Iron/Folic Acid/K 1 each PO DAILY 09/18/21 09/18/21 [Multi-Day Plus Minerals Tablet] NIFEdipine [Procardia Xl] 30 mg PO BID 09/18/21 09/18/21 Nystatin [Mycostatin] 10 ml PO QID 5 Days #100 ml 09/18/21 Nystatin [Nystop] 1 applic TOP BID 09/18/21 09/18/21 Ondansetron Odt [Zofran Odt] 8 mg TL Q8H PRN 09/18/21 09/18/21 Oxycodone HCl 10 mg PO TID 09/18/21 09/18/21 Potassium Chloride [Klor-Con M10] 20 meq PO DAILY 09/18/21 09/18/21 Sodium Chloride 0.65% [[place]] 2 sprays BERNARD Q2H PRN 09/18/21 09/18/21 Valacyclovir HCl [Valtrex] 500 mg PO TID #15 tablet 09/18/21 hydrOXYzine HCL [Hydroxyzine HCl] 25 mg PO BID PRN 09/18/21 09/18/21 polyethylene glycoL 3350 [Miralax] 17 gm PO PRN PRN 09/18/21 09/18/21 - Allergies Allergies/Adverse Reactions: Allergies Allergy/AdvReac Type Severity Reaction Status Date / Time acetaminophen [From Tylenol] Allergy Unknown Verified 09/18/21 11:49 bacitracin Allergy Hives Verified 09/18/21 11:50 [From Neosporin ([id number])] diltiazem Allergy Rash Verified 09/18/21 11:49 neomycin Allergy Hives Verified 09/18/21 11:50 [From Neosporin ([id number])] polymyxin B Allergy Hives Verified 09/18/21 11:50 [From Neosporin ([id number])] rifampin Allergy Rash Verified 09/18/21 11:49 diphenhydramine HCl * AdvReac Unknown Verified 09/18/21 11:49 [From Benadryl] lorazepam AdvReac Unknown Verified 09/18/21 11:49 - Social History Does the pt smoke?: No Smoking Status: Never smoker Does the pt drink ETOH?: No Does the pt have substance abuse?: No - Immunizations Immunizations are current?: Yes - POLST Patient has POLST: Yes POLST Status: Full Code PD ED PE NORMAL - Vitals Vital signs reviewed: Yes - General General: Alert and oriented X 3, Well developed/nourished, Other (general weakness and sluggish answering of questions. He is alert and oriented. ) - HEENT HEENT: Other (small blistering crusted sore right corner of mouth. ). No: Pharynx benign (diffuse redness palatte and posterior pharynx. few small red ulcerations left side. ) - Neck Neck: Supple, no meningeal sign, No adenopathy - Cardiac Cardiac: RRR, No murmur - Respiratory Respiratory: No respiratory distress. No: Clear bilaterally (some wheezing diffusely and fine coarse sounds. Diminished sounds right lower. ) - Abdomen Abdomen: Soft, Non tender - Derm Derm: Normal color, Warm and dry Results - Vitals Vitals: Vital Signs - 24 hr 09/18/21 09/18/21 09/18/21 11:40 13:00 13:19 Temperature 37.2 C Heart Rate 100 90 94 Respiratory 28 H 24 16 Rate Blood Pressure 111/85 H 118/58 L O2 Saturation 93 97 09/18/21 09/18/21 09/18/21 14:17 16:14 16:30 Temperature Heart Rate 88 105 H 90 Respiratory 20 23 20 Rate Blood Pressure 99/51 L 110/52 L 103/51 L O2 Saturation 96 100 100 Oxygen O2 Source Nasal cannula Oxygen Flow Rate 2 - Labs Labs: Laboratory Tests 09/18/21 09/18/21 09/18/21 13:30 13:30 13:30 WBC 8.5 RBC 2.79 L Hgb 8.7 L Hct 26.1 L MCV 93.5 MCH 31.2 H MCHC 33.3 RDW 13.6 Plt Count 199 MPV 10.4 Neut # (Auto) 7.0 H Lymph # (Auto) 0.7 L [place] # (Auto) 0.7 Eos # (Auto) 0.0 Baso # (Auto) 0.0 Absolute Nucleated RBC 0.00 Nucleated RBC % 0.0 ESR > 140 H Sodium 138 Potassium 4.0 Chloride 97 L Carbon Dioxide 30 Anion Gap 11.0 BUN 50 H Creatinine 2.1 H Estimated GFR (MDRD) 31 L Glucose 121 H Calcium 9.1 Magnesium 2.2 Total Bilirubin 0.7 AST 37 ALT < 10 L Alkaline Phosphatase 59 B-Natriuretic Peptide Total Protein 7.4 Albumin 3.2 Globulin 4.2 Albumin/Globulin Ratio 0.8 L Lipase 34 09/18/21 13:30 WBC RBC Hgb Hct MCV MCH MCHC RDW Plt Count MPV Neut # (Auto) Lymph # (Auto) [place] # (Auto) Eos # (Auto) Baso # (Auto) Absolute Nucleated RBC Nucleated RBC % ESR Sodium Potassium Chloride Carbon Dioxide Anion Gap BUN Creatinine Estimated GFR (MDRD) Glucose Calcium Magnesium Total Bilirubin AST ALT Alkaline Phosphatase B-Natriuretic Peptide 166 H Total Protein Albumin Globulin Albumin/Globulin Ratio Lipase PD MEDICAL DECISION MAKING - ED course Complexity details: reviewed results, re-evaluated patient (he is much perkier after IV fluids, GI cocktail for throat pain, and neb treatment. Sats good on 2 lpm NC. ), considered differential (consider persistent pneumonia, mucous plugging, dehydration, viral/fungal stomatitis.), d/w patient, d/w home performance consultant ([facility] pulmonology) ED course: he does seem likely dehydrated and weak, largely due to mouth sores and not eating. Lido/mylanta did help and he was taking sips, small snack after. More alert and sitting up/stnding bedside to urinate after IV fluids. Talked with online communications manager Health Communications Specialist at [facility]. Patient was supposed to be on Zithromax 250 mg 3 times per week baseline, and valacyclovir. Had not gotten prescribed apparently. His stomatitis may be thrush but also consider herpetic given lip sore too. Could have some mucous plugging from recent pneumonia. Okay to use albuterol nebs and asked to start inhaled steroid as well. had said patient sensitive to sedating aspect of Benadryl so that was not included in oral meds for pain. Departure - Departure Disposition: 01 Home, Self Care Clinical Impression: Dyspnea, Pharyngitis, Dehydration, Moderate COPD (chronic obstructive pulmonary disease) Condition: Stable Record reviewed to determine appropriate education?: Yes Prescriptions: Albuterol 2.5 mg INH Q4H PRN #30 ml PRN Reason: Wheezing Azithromycin 250 mg PO Q2D 20 Days #10 tablet Nystatin [Mycostatin] 10 ml PO QID 5 Days #100 ml Budesonide [Pulmicort Flexhaler] 1 inh IH BID 30 Days #1 unit Valacyclovir HCl [Valtrex] 500 mg PO TID #15 tablet Lidocaine Viscous 2% [Xylocaine Viscous 2%] 5 ml PO Q4H PRN #100 ml PRN Reason: Pain Comments: Adonis patterson do seem a bit perkier now with some fluids and medications. I hope you are able to take in liquids and some food better. The on-call lapel padder blindstitch from the [facility] did call back just now. They would like you to continue with your current medications. They said it was okay to add albuterol nebulizer 3-4 times a day to help clear some of the mucus and such. The did agree with using both nystatin antifungal and Sonya acyclovir antiviral to help with the pharyngitis. For the symptoms of it, you can use the viscous lidocaine mixed with some antacid such as Maalox or Mylanta such as we did here to help with some of the discomfort. They also would like you to be using an inhaled steroid twice daily and azithromycin 3 times per week (essentially every other day) as a preventative for infection. Call the lapel padder blindstitch in the next day or 2 to update on how you are doing. Return to the ER as needed. I transmitted your prescriptions to [facility] pharmacy in [place]. Discharge Date/Time: 09/18/21 17:33
--- OUTSIDE RECORDS SUMMARY | 2021-09-18 12:16 | EXTERNAL MEDICAL SUMMARY RPT | Continuity of Care Document ---
:1945 Author Organization [facility] Address [address] [place] [address] Phone Allergies and Intolerances date description facility type (no date) acetaminophen [facility] (unknown) (no date) bacitracin [facility] (unknown) (no date) chlorhexidine [facility] (unknown) (no date) diltiazem [facility] (unknown) (no date) diphenhydramine [facility] (unknown) (no date) rifampin [facility] (unknown) Encounters No information. Functional Status No information. Immunizations No information. Medications date description facility [id number] Azithromycin 250 MG Oral Tablet [facility] Problems No information. Procedures date description facility [id number] General Physician [facility] Results/Labs test date author facility value unit interpret ation Result panel 1 (unknown) (no (unknown) (unknown) (no value) (units (unk nown) date) unknown) (unknown) (no (unknown) (unknown) [address] (units (unkn own) date) Street unknown) (unknown) (no (unknown) (unknown) [place], [place] (units ( unknown) date) [id number] unknown) (unknown) (no (unknown) (unknown) [facility] (units (unknown) date) unknown) (unknown) (no (unknown) (unknown) Signed (units (unkno wn) date) unknown) (unknown) (no (unknown) (unknown) XRay Report (units (un known) date) unknown) (unknown) (no (unknown) (unknown) (no value) (units (unk nown) date) unknown) (unknown) (no (unknown) (unknown) 09/05/21 (units (unkno wn) date) unknown) (unknown) (no (unknown) (unknown) Approved by: (units (u nknown) date) sanjeev Deal M.D. on 09/05/2021 at 15:58 (unknown) (no (unknown) (unknown) Bones and chest (units (unknown) date) wall: No unknown) suspicious bony lesions. Overlying soft tissues (unknown) (no (unknown) (unknown) COMPARISON: (units (un known) date) [facility], unknown) CR, XR CHEST 1V, 03/03/2021, 14:03. (unknown) (no (unknown) (unknown) Dictated by: (units (u nknown) date) Viji Staples unknown) Dylon on 09/05/2021 at 15:57 (unknown) (no (unknown) (unknown) FINDINGS: (units (unkn own) date) unknown) (unknown) (no (unknown) (unknown) IMPRESSION: (units (un known) date) Right basilar unknown) opacity most suggestive of pneumonia. (unknown) (no (unknown) (unknown) INDICATIONS: (units (u nknown) date) short of breath unknown) (unknown) (no (unknown) (unknown) Lungs and (units (unkn own) date) pleura: unknown) Interval development of patchy right basilar opacity. Trace (unknown) (no (unknown) (unknown) Mediastinum: (units (u nknown) date) Mediastinal unknown) contours appear normal. Heart size is normal. (unknown) (no (unknown) (unknown) Surgical (units (unkno wn) date) changes and unknown) devices: Prosthetic valve is noted. (unknown) (no (unknown) (unknown) TECHNIQUE: One (units (unknown) date) view of the unknown) chest was acquired. (unknown) (no (unknown) (unknown) costophrenic (units (u nknown) date) angle blunting unknown) suggestive of minimal effusions. (unknown) (no (unknown) (unknown) unremarkable. (units ( unknown) date) unknown) (unknown) (no (unknown) (unknown) Accession (units (unkn own) date) Number: unknown) [id number] (unknown) (no (unknown) (unknown) Age/Sex: 75 / M (units (unknown) date) Date of unknown) Service: (unknown) (no (unknown) (unknown) : 1945 (units (unknown) date) unknown) Acct:[id number] (unknown) (no (unknown) (unknown) Loc: ED (units (unkno wn) date) unknown) (unknown) (no (unknown) (unknown) [id number] (units (unk nown) date) unknown) (unknown) (no (unknown) (unknown) Ordering (units (unkno wn) date) Provider: unknown) Rhona Fofana D.O. (unknown) (no (unknown) (unknown) PROCEDURE: XR (units (unknown) date) CHEST 1V unknown) (unknown) (no (unknown) (unknown) Patient: (units (unkno wn) date) Adonis Dueñas unknown) Bryan MR#: (unknown) (no (unknown) (unknown) Procedure: XR (units ( unknown) date) chest 1V unknown) (unknown) (no (unknown) (unknown) appear (units (unkno wn) date) unknown) (unknown) (no (unknown) (unknown) bilateral (units (unkn own) date) unknown) Result panel 2 (unknown) (no (unknown) (unknown) (no value) (units (unk nown) date) unknown) (unknown) (no (unknown) (unknown) PO DAILY PRN (units (u nknown) date) (Reason: nausea unknown) and vomiting) (unknown) (no (unknown) (unknown) Date of Service: (units (unknown) date) 09/05/21 unknown) (unknown) (no (unknown) (unknown) (no value) (units (unk nown) date) unknown) (unknown) (no (unknown) (unknown) 0.4 mg PO BEDTIME (units (unknown) date) Qty: 0 unknown) (unknown) (no (unknown) (unknown) 1 - 2 tab PO TID (units (unknown) date) Qty: 0 unknown) (unknown) (no (unknown) (unknown) 1 applic Dental (units (unknown) date) BEDTIME unknown) (unknown) (no (unknown) (unknown) 1 mg PO BID (units (un known) date) unknown) (unknown) (no (unknown) (unknown) 1 patch topical (units (unknown) date) BID Qty: 30 1RF unknown) (unknown) (no (unknown) (unknown) 10 mg PO 1-2XD (units (unknown) date) MDD 20 mg PRN unknown) (Reason: chronic pain) (unknown) (no (unknown) (unknown) 10 mg PO Q8H PRN (units (unknown) date) (Reason: anxiety) unknown) Qty: 60 0RF (unknown) (no (unknown) (unknown) 100 mg PO TID (units ( unknown) date) Qty: 90 1RF unknown) (unknown) (no (unknown) (unknown) 17 gm PO DAILY (units (unknown) date) PRN (Reason: unknown) Constipation) Qty: 0 (unknown) (no (unknown) (unknown) 17.2 tab PO (units (un known) date) BEDTIME Qty: 0 unknown) (unknown) (no (unknown) (unknown) 2 puff INHALATION (units (unknown) date) Q4H PRN (Reason: unknown) Shortness Of Breath) (unknown) (no (unknown) (unknown) 250 mg PO MOWEFR (units (unknown) date) unknown) (unknown) (no (unknown) (unknown) 3 ml INHALATION (units (unknown) date) Q6-8H PRN (Reason: unknown) SOB) (unknown) (no (unknown) (unknown) 30 mg PO QAM (units (u nknown) date) unknown) (unknown) (no (unknown) (unknown) 40 mg PO BID (units (u nknown) date) unknown) (unknown) (no (unknown) (unknown) 400 mg PO TID (units ( unknown) date) Qty: 90 2RF unknown) (unknown) (no (unknown) (unknown) 5 mg PO BID (units (un known) date) unknown) (unknown) (no (unknown) (unknown) 50 mg PO BEDTIME (units (unknown) date) unknown) (unknown) (no (unknown) (unknown) 500 mg PO BEDTIME (units (unknown) date) unknown) (unknown) (no (unknown) (unknown) Allergies (units (unkn own) date) unknown) (unknown) (no (unknown) (unknown) ED Orders (units (unkn own) date) unknown) (unknown) (no (unknown) (unknown) Emergency Report (units (unknown) date) unknown) (unknown) (no (unknown) (unknown) Home Medications (units (unknown) date) unknown) (unknown) (no (unknown) (unknown) IRRITATION (units (unk nown) date) unknown) (unknown) (no (unknown) (unknown) [facility] (units (unknown) date) [address] unknown) [place] [address] (unknown) (no (unknown) (unknown) Label Comments: (units (unknown) date) unknown) (unknown) (no (unknown) (unknown) Previous Rx's (units ( unknown) date) unknown) (unknown) (no (unknown) (unknown) Rx Instructions: (units (unknown) date) unknown) (unknown) (no (unknown) (unknown) TO HIS EXISTING (units (unknown) date) 400MG TID. unknown) (unknown) (no (unknown) (unknown) USE TO TITRATE (units (unknown) date) DOSE TID. PT AWARE unknown) OF HOW TO ADD THIS (unknown) (no (unknown) (unknown) Vital Signs - 8 (units (unknown) date) hr unknown) (unknown) (no (unknown) (unknown) generally takes (units (unknown) date) at least tid, but unknown) may take up to 2 tabs tid (unknown) (no (unknown) (unknown) leave on 3-4 (units (u nknown) date) minutes then spit unknown) out. do not rinse, eat or drink for 30 minutes (unknown) (no (unknown) (unknown) take 1 tablet by (units (unknown) date) mouth EVERY SATURDAY unknown) SATURDAY AND SATURDAY (unknown) (no (unknown) (unknown) take 1 tablet by (units (unknown) date) mouth daily unknown) (unknown) (no (unknown) (unknown) take 1 tablet by (units (unknown) date) mouth every unknown) morning (unknown) (no (unknown) (unknown) (no value) (units (unk nown) date) unknown) (unknown) (no (unknown) (unknown) albuterol sulfate (units (unknown) date) 90 mcg/actuation unknown) Hfa Aerosol Inhaler (unknown) (no (unknown) (unknown) azithromycin 250 (units (unknown) date) mg tablet unknown) (unknown) (no (unknown) (unknown) carbidopa-levodop (units (unknown) date) a 25 MG/100 MG unknown) tablet extended release (unknown) (no (unknown) (unknown) dexamethasone 0.5 (units (unknown) date) mg/5 mL solution unknown) (unknown) (no (unknown) (unknown) diclofenac (units (unk nown) date) epolamine unknown) [Flector] 1.3 % patch 12 hour (unknown) (no (unknown) (unknown) fluoride (sodium) (units (unknown) date) 1.1 % Gel unknown) (unknown) (no (unknown) (unknown) gabapentin 100 mg (units (unknown) date) capsule unknown) (unknown) (no (unknown) (unknown) gabapentin 400 mg (units (unknown) date) capsule unknown) (unknown) (no (unknown) (unknown) hydroxyzine HCl (units (unknown) date) 10 mg tablet unknown) (unknown) (no (unknown) (unknown) ipratropium-albut (units (unknown) date) fermín 0.5 mg-3 unknown) mg(2.5 mg base)/3 mL Solution For Nebulization (unknown) (no (unknown) (unknown) metoprolol (units (unk nown) date) succinate 50 mg unknown) tablet extended release 24 hr (unknown) (no (unknown) (unknown) nifedipine 30 mg (units (unknown) date) tablet extended unknown) release (unknown) (no (unknown) (unknown) ondansetron HCl 4 (units (unknown) date) mg tablet unknown) (unknown) (no (unknown) (unknown) oxycodone 10 mg (units (unknown) date) tablet unknown) (unknown) (no (unknown) (unknown) pantoprazole 40 (units (unknown) date) mg Tablet,Delayed unknown) Release (Dr/Ec) (unknown) (no (unknown) (unknown) polyethylene (units (u nknown) date) glycol 3350 unknown) [Miralax] 119 GM powder (unknown) (no (unknown) (unknown) selegiline HCl 5 (units (unknown) date) mg Tablet unknown) (unknown) (no (unknown) (unknown) sennosides (units (unk nown) date) [senna] 8.6 MG unknown) tablet (unknown) (no (unknown) (unknown) tamsulosin (units (unk nown) date) [Flomax] 0.4 MG unknown) capsule,extended release 24hr (unknown) (no (unknown) (unknown) valacyclovir 500 (units (unknown) date) mg tablet unknown) (unknown) (no (unknown) (unknown) 09/05/21 (units (unkno wn) date) unknown) (unknown) (no (unknown) (unknown) Medication (units (unk nown) date) Instructions unknown) Recorded (unknown) (no (unknown) (unknown) Medication (units (unk nown) date) Instructions unknown) Recorded Confirmed (unknown) (no (unknown) (unknown) (2.5 mg base)/3 (units (unknown) date) mL nebulization unknown) (unknown) (no (unknown) (unknown) *Temp,ED* (units (unkn own) date) [Primary Care unknown) Provider] - (unknown) (no (unknown) (unknown) [phone] (units (unkn own) date) unknown) (unknown) (no (unknown) (unknown) 08/05/20 (units (unkno wn) date) unknown) (unknown) (no (unknown) (unknown) 09/05/21 15:25 (units (unknown) date) unknown) (unknown) (no (unknown) (unknown) 09/05/21 15:26 (units (unknown) date) unknown) (unknown) (no (unknown) (unknown) 14:36 (units (unkno wn) date) unknown) (unknown) (no (unknown) (unknown) Age/Sex: 75 / M (units (unknown) date) unknown) (unknown) (no (unknown) (unknown) Allergy/AdvReac (units (unknown) date) Type Severity unknown) Reaction Status Date / Time (unknown) (no (unknown) (unknown) Atrial (units (unkno wn) date) fibrillation unknown) (unknown) (no (unknown) (unknown) Atrial flutter (units (unknown) date) unknown) (unknown) (no (unknown) (unknown) Blood Pressure (units (unknown) date) 140/104 H unknown) 09/05/21 14:36 (unknown) (no (unknown) (unknown) Blood Pressure (units (unknown) date) 140/104 H unknown) (unknown) (no (unknown) (unknown) 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) (unknown) (no (unknown) (unknown) CMV pneumonia (units ( unknown) date) unknown) (unknown) (no (unknown) (unknown) COVID19 -Nasal (units (unknown) date) RAPID/Pre-Proc unknown) Stat (unknown) (no (unknown) (unknown) Chief Complaint: (units (unknown) date) Shortness of unknown) Breath/Dyspnea (unknown) (no (unknown) (unknown) Chronic (units (unkno wn) date) [id number] unknown) disease (unknown) (no (unknown) (unknown) Chronic kidney (units (unknown) date) disease, stage III unknown) (moderate) (unknown) (no (unknown) (unknown) Complete Blood (units (unknown) date) Count AUTO DIFF unknown) Stat (unknown) (no (unknown) (unknown) Comprehensive (units ( unknown) date) Metabolic Panel unknown) Stat (unknown) (no (unknown) (unknown) Compression (units (un known) date) fracture of L1 unknown) lumbar vertebra (unknown) (no (unknown) (unknown) Course (units (unkno wn) date) unknown) (unknown) (no (unknown) (unknown) 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 unknown) (unknown) (no (unknown) (unknown) HPI - SOB/Dyspnea (units (unknown) date) unknown) (unknown) (no (unknown) (unknown) History of (units (unk nown) date) partial colectomy unknown) (unknown) (no (unknown) (unknown) History of (units (unk nown) date) radiofrequency unknown) ablation procedure for cardiac arrhythmia (unknown) (no (unknown) (unknown) Initial Vital (units ( unknown) date) Signs unknown) (unknown) (no (unknown) (unknown) Initial Vital (units ( unknown) date) Signs: unknown) (unknown) (no (unknown) (unknown) Limitations: no (units (unknown) date) limitations unknown) (unknown) (no (unknown) (unknown) Lipase Stat (units (un known) date) unknown) (unknown) (no (unknown) (unknown) Medical History (units (unknown) date) (Updated 09/05/21 unknown) @ 00:00 by ) (unknown) (no (unknown) (unknown) Mode of arrival: (units (unknown) date) Ambulatory unknown) (unknown) (no (unknown) (unknown) Mother C. (units (un known) date) difficile colitis unknown) (unknown) (no (unknown) (unknown) NT-proBNP (units (unkn own) date) (BNP-Adult 18+) unknown) Stat (unknown) (no (unknown) (unknown) No Action (units (unkn own) date) unknown) (unknown) (no (unknown) (unknown) Ordered: (units (unkno wn) date) unknown) (unknown) (no (unknown) (unknown) Orders (units (unkno wn) date) unknown) (unknown) (no (unknown) (unknown) Oxygen Delivery (units (unknown) date) Method 09/05/21 unknown) 14:36 (unknown) (no (unknown) (unknown) Oxygen Delivery (units (unknown) date) Method Room Air unknown) (unknown) (no (unknown) (unknown) Parkinson disease (units (unknown) date) unknown) (unknown) (no (unknown) (unknown) Patient History (units (unknown) date) unknown) (unknown) (no (unknown) (unknown) Patient: (units (unkno wn) date) Adonis Dueñas unknown) MR#: M (unknown) (no (unknown) (unknown) Prescriptions: (units (unknown) date) unknown) (unknown) (no (unknown) (unknown) Pulse Oximetry (units (unknown) date) 99 09/05/21 unknown) 14:36 (unknown) (no (unknown) (unknown) Pulse Oximetry 99 (units (unknown) date) unknown) (unknown) (no (unknown) (unknown) Pulse Rate 96 H (units (unknown) date) 09/05/21 14:36 unknown) (unknown) (no (unknown) (unknown) Pulse Rate 96 H (units (unknown) date) unknown) (unknown) (no (unknown) (unknown) Referrals: (units (unk nown) date) unknown) (unknown) (no (unknown) (unknown) Related Data (units (u nknown) date) unknown) (unknown) (no (unknown) (unknown) Respiratory Rate (units (unknown) date) 28 H 09/05/21 unknown) 14:36 (unknown) (no (unknown) (unknown) Respiratory Rate (units (unknown) date) 28 H unknown) (unknown) (no (unknown) (unknown) 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) (unknown) (no (unknown) (unknown) Signed By: (units (unk nown) date) unknown) (unknown) (no (unknown) (unknown) Skin cancer (units (un known) date) unknown) (unknown) (no (unknown) (unknown) Smoking Status: (units (unknown) date) Former smoker unknown) (unknown) (no (unknown) (unknown) Smoking Status: (units (unknown) date) Former smoker unknown) (unknown) (no (unknown) (unknown) Social History (units (unknown) date) (Reviewed 12/26/18 unknown) @ 01:35 by Rhona Fofana DO) (unknown) (no (unknown) (unknown) Source: patient (units (unknown) date) unknown) (unknown) (no (unknown) (unknown) Spinal stenosis (units (unknown) date) unknown) (unknown) (no (unknown) (unknown) Stated Complaint: (units (unknown) date) sob/weak unknown) (unknown) (no (unknown) (unknown) Substance Use (units ( unknown) date) Type: does not use unknown) (unknown) (no (unknown) (unknown) Surgical History (units (unknown) date) (Updated 03/03/21 unknown) @ 18:43 by Derik Smith MD) (unknown) (no (unknown) (unknown) T11 vertebral (units ( unknown) date) fracture unknown) (unknown) (no (unknown) (unknown) Temperature 97.1 (units (unknown) date) F L 09/05/21 unknown) 14:36 (unknown) (no (unknown) (unknown) Temperature 97.1 (units (unknown) date) F L unknown) (unknown) (no (unknown) (unknown) Time Seen by (units (u nknown) date) Provider: 09/05/21 unknown) 15:25 (unknown) (no (unknown) (unknown) Tobacco: How many (units (unknown) date) years used: 10 unknown) (unknown) (no (unknown) (unknown) Troponin + CK (units ( unknown) date) Cardiac Panel Stat unknown) (unknown) (no (unknown) (unknown) Vital Signs (units (un known) date) unknown) (unknown) (no (unknown) (unknown) Vital signs: (units (u nknown) date) unknown) (unknown) (no (unknown) (unknown) XR chest 1V Stat (units (unknown) date) unknown) (unknown) (no (unknown) (unknown) [From BENADRYL] (units (unknown) date) SEDATION unknown) (unknown) (no (unknown) (unknown) acetaminophen (units ( unknown) date) [ACETAMINOPHEN] unknown) AdvReac Unknown ABD PAIN Verified 09/05/21 14:36 (unknown) (no (unknown) (unknown) aerosol inhaler (units (unknown) date) Shortness Of unknown) Breath (unknown) (no (unknown) (unknown) albuterol sulfate (units (unknown) date) 90 mcg/actuation 2 unknown) puff inhalation Q4H PRN 11/04/17 08/05/20 (unknown) (no (unknown) (unknown) alcohol intake (units (unknown) date) frequency: unknown) holidays/special occasions only (unknown) (no (unknown) (unknown) alcohol intake: (units (unknown) date) current unknown) (unknown) (no (unknown) (unknown) azithromycin 250 (units (unknown) date) mg tablet 250 mg unknown) PO MOWEFR 04/25/18 08/05/20 (unknown) (no (unknown) (unknown) bacitracin (units (unk nown) date) [BACITRACIN] unknown) Allergy Unknown SKIN Verified 09/05/21 14:36 (unknown) (no (unknown) (unknown) carbidopa ER 25 (units (unknown) date) mg-levodopa 100 mg unknown) 1 - 2 tab PO TID ##0 10/02/16 08/05/20 (unknown) (no (unknown) (unknown) chlorhexidine (units ( unknown) date) [CHLORHEXIDINE] unknown) Allergy Unknown SKIN Verified 09/05/21 14:36 (unknown) (no (unknown) (unknown) dexamethasone 0.5 (units (unknown) date) mg/5 mL oral 1 mg unknown) PO BID 05/23/20 08/05/20 (unknown) (no (unknown) (unknown) diclofenac (units (unk nown) date) epolamine 1.3 % 1 unknown) patch topical BID #30 ea 08/15/20 (unknown) (no (unknown) (unknown) diltiazem Allergy (units (unknown) date) Intermediate Hives unknown) Verified 09/05/21 14:36 (unknown) (no (unknown) (unknown) diphenhydramine (units (unknown) date) AdvReac Unknown unknown) EXTREME Verified 09/05/21 14:36 (unknown) (no (unknown) (unknown) fluoride (sodium) (units (unknown) date) 1.1 % dental gel 1 unknown) applic dental BEDTIME 04/30/18 08/05/20 (unknown) (no (unknown) (unknown) gabapentin 100 mg (units (unknown) date) capsule 100 mg PO unknown) TID #90 caps 01/02/21 (unknown) (no (unknown) (unknown) gabapentin 400 mg (units (unknown) date) capsule 400 mg PO unknown) TID #90 caps 01/31/21 (unknown) (no (unknown) (unknown) gram/dose oral (units (unknown) date) powder (Miralax) unknown) (unknown) (no (unknown) (unknown) household (units (unkn own) date) members: spouse unknown) (unknown) (no (unknown) (unknown) hydroxyzine HCl (units (unknown) date) 10 mg tablet 10 mg unknown) PO Q8H PRN anxiety #60 tabs 03/03/21 (unknown) (no (unknown) (unknown) ipratropium 0.5 (units (unknown) date) mg-albuterol 3 mg unknown) 3 ml inhalation Q6-8H PRN SOB 07/14/18 (unknown) (no (unknown) (unknown) metoprolol (units (unk nown) date) succinate 50 mg 50 unknown) mg PO BEDTIME 04/25/18 08/05/20 (unknown) (no (unknown) (unknown) nifedipine 30 mg (units (unknown) date) tablet,extended 30 unknown) mg PO QAM 04/25/18 08/05/20 (unknown) (no (unknown) (unknown) ondansetron HCl 4 (units (unknown) date) mg tablet mg PO unknown) DAILY PRN nausea and vomiting 05/23/20 (unknown) (no (unknown) (unknown) oxycodone 10 mg (units (unknown) date) tablet 10 mg PO unknown) 1-2XD PRN chronic pain 04/25/18 08/05/20 (unknown) (no (unknown) (unknown) pantoprazole 40 (units (unknown) date) mg tablet,delayed unknown) 40 mg PO BID 07/15/18 08/05/20 (unknown) (no (unknown) (unknown) polyethylene (units (u nknown) date) glycol 3350 17 17 unknown) gm PO DAILY PRN Constipation ##0 10/02/16 (unknown) (no (unknown) (unknown) release (units (unkno wn) date) unknown) (unknown) (no (unknown) (unknown) rifampin (units (unkno wn) date) [RIFAMPIN] Allergy unknown) Unknown HIVES Verified 09/05/21 14:36 (unknown) (no (unknown) (unknown) selegiline HCl 5 (units (unknown) date) mg tablet 5 mg PO unknown) BID 11/04/17 08/05/20 (unknown) (no (unknown) (unknown) sennosides 8.6 mg (units (unknown) date) tablet (senna) unknown) 17.2 tab PO BEDTIME ##0 10/01/16 08/05/20 (unknown) (no (unknown) (unknown) soln (units (unkno wn) date) unknown) (unknown) (no (unknown) (unknown) solution (units (unkno wn) date) unknown) (unknown) (no (unknown) (unknown) tablet,extended (units (unknown) date) release unknown) (unknown) (no (unknown) (unknown) tablet,extended (units (unknown) date) release 24 hr unknown) (unknown) (no (unknown) (unknown) tamsulosin 0.4 mg (units (unknown) date) capsule (Flomax) unknown) 0.4 mg PO BEDTIME ##0 10/01/16 08/05/20 (unknown) (no (unknown) (unknown) transdermal 12 (units (unknown) date) hour patch unknown) (Flector) (unknown) (no (unknown) (unknown) valacyclovir 500 (units (unknown) date) mg tablet 500 mg unknown) PO BEDTIME 04/25/18 08/05/20 Result panel 3 (unknown) (no date) (unknown) (unknown) 0.7 % (unkn own) (unknown) (no date) (unknown) (unknown) 10.7 g/dL (unkn own) (unknown) (no date) (unknown) (unknown) 100 /uL (unkn own) (unknown) (no date) (unknown) (unknown) 1200 /uL (unkn own) (unknown) (no date) (unknown) (unknown) 13.8 % (unkn own) (unknown) (no date) (unknown) (unknown) 15.9 % (unkn own) (unknown) (no date) (unknown) (unknown) 245 X10 3/uL (unkn own) (unknown) (no date) (unknown) (unknown) 3.38 X10 6/uL (unkn own) (unknown) (no date) (unknown) (unknown) 30.6 % (unkn own) (unknown) (no date) (unknown) (unknown) 31.5 PG (unkn own) (unknown) (no date) (unknown) (unknown) 34.8 % (unkn own) (unknown) (no date) (unknown) (unknown) 400 /uL (unkn own) (unknown) (no date) (unknown) (unknown) 5.5 % (unkn own) (unknown) (no date) (unknown) (unknown) 5100 /uL (unkn own) (unknown) (no date) (unknown) (unknown) 69.0 % (unkn own) (unknown) (no date) (unknown) (unknown) 7.4 X10 3/uL (unkn own) (unknown) (no date) (unknown) (unknown) 700 /uL (unkn own) (unknown) (no date) (unknown) (unknown) 8.9 % (unkn own) (unknown) (no date) (unknown) (unknown) 90.6 fL (unkn own) Result panel 4 (unknown) (no date) (unknown) (unknown) 0.5 mg/dL (unkn own) (unknown) (no date) (unknown) (unknown) 1.0 (units (unkn own) unknown) (unknown) (no date) (unknown) (unknown) 1.81 mg/dL (unkn own) (unknown) (no date) (unknown) (unknown) 139 mmol/L (unkn own) (unknown) (no date) (unknown) (unknown) 144 mg/dL (unkn own) (unknown) (no date) (unknown) (unknown) 157 U/L (unkn own) (unknown) (no date) (unknown) (unknown) 3.6 mmol/L (unkn own) (unknown) (no date) (unknown) (unknown) 3.9 g/dL (unkn own) (unknown) (no date) (unknown) (unknown) 31 IU/L (unkn own) (unknown) (no date) (unknown) (unknown) 31 mmol/L (unkn own) (unknown) (no date) (unknown) (unknown) 34.3 (units (unkn own) unknown) (unknown) (no date) (unknown) (unknown) 38 mL/min (unkn own) (unknown) (no date) (unknown) (unknown) 4.0 g/dL (unkn own) (unknown) (no date) (unknown) (unknown) 57 U/L (unkn own) (unknown) (no date) (unknown) (unknown) 62 mg/dL (unkn own) (unknown) (no date) (unknown) (unknown) 7 IU/L (unkn own) (unknown) (no date) (unknown) (unknown) 7.9 g/dL (unkn own) (unknown) (no date) (unknown) (unknown) 87 U/L (unkn own) (unknown) (no date) (unknown) (unknown) 9.1 mg/dL (unkn own) (unknown) (no date) (unknown) (unknown) 99 mmol/L (unkn own) (unknown) (no date) (unknown) (unknown) Test not % (unkn own) performed (unknown) (no date) (unknown) (unknown) Test not ng/mL (unkn own) performed Result panel 5 (unknown) (no date) (unknown) (unknown) Negative (units (unkn own) unknown) Result panel 6 (unknown) (no date) (unknown) (unknown) < 0.012 ng/mL (unkn own) (unknown) (no date) (unknown) (unknown) 0.5 mg/dL (unkn own) (unknown) (no date) (unknown) (unknown) 1.0 (units (unkn own) unknown) (unknown) (no date) (unknown) (unknown) 1.81 mg/dL (unkn own) (unknown) (no date) (unknown) (unknown) 139 mmol/L (unkn own) (unknown) (no date) (unknown) (unknown) 144 mg/dL (unkn own) (unknown) (no date) (unknown) (unknown) 157 U/L (unkn own) (unknown) (no date) (unknown) (unknown) 3.6 mmol/L (unkn own) (unknown) (no date) (unknown) (unknown) 3.9 g/dL (unkn own) (unknown) (no date) (unknown) (unknown) 31 IU/L (unkn own) (unknown) (no date) (unknown) (unknown) 31 mmol/L (unkn own) (unknown) (no date) (unknown) (unknown) 34.3 (units (unkn own) unknown) (unknown) (no date) (unknown) (unknown) 38 mL/min (unkn own) (unknown) (no date) (unknown) (unknown) 4.0 g/dL (unkn own) (unknown) (no date) (unknown) (unknown) 57 U/L (unkn own) (unknown) (no date) (unknown) (unknown) 594 pg/mL (unkn own) (unknown) (no date) (unknown) (unknown) 62 mg/dL (unkn own) (unknown) (no date) (unknown) (unknown) 7 IU/L (unkn own) (unknown) (no date) (unknown) (unknown) 7.9 g/dL (unkn own) (unknown) (no date) (unknown) (unknown) 87 U/L (unkn own) (unknown) (no date) (unknown) (unknown) 9.1 mg/dL (unkn own) (unknown) (no date) (unknown) (unknown) 99 mmol/L (unkn own) (unknown) (no date) (unknown) (unknown) Test not % (unkn own) performed (unknown) (no date) (unknown) (unknown) Test not ng/mL (unkn own) performed Result panel 7 (unknown) (no (unknown) (unknown) (no value) (units (unk nown) date) unknown) (unknown) (no (unknown) (unknown) PO DAILY PRN (units (u nknown) date) (Reason: nausea unknown) and vomiting) (unknown) (no (unknown) (unknown) Date of Service: (units (unknown) date) 09/05/21 unknown) (unknown) (no (unknown) (unknown) (no value) (units (unk nown) date) unknown) (unknown) (no (unknown) (unknown) 0.4 mg PO BEDTIME (units (unknown) date) Qty: 0 unknown) (unknown) (no (unknown) (unknown) 09/05/21 16:00 (units (unknown) date) unknown) (unknown) (no (unknown) (unknown) 1 - 2 tab PO TID (units (unknown) date) Qty: 0 unknown) (unknown) (no (unknown) (unknown) 1 applic Dental (units (unknown) date) BEDTIME unknown) (unknown) (no (unknown) (unknown) 1 mg PO BID (units (un known) date) unknown) (unknown) (no (unknown) (unknown) 1 patch topical (units (unknown) date) BID Qty: 30 1RF unknown) (unknown) (no (unknown) (unknown) 10 mg PO 1-2XD (units (unknown) date) MDD 20 mg PRN unknown) (Reason: chronic pain) (unknown) (no (unknown) (unknown) 10 mg PO Q8H PRN (units (unknown) date) (Reason: anxiety) unknown) Qty: 60 0RF (unknown) (no (unknown) (unknown) 100 mg PO TID (units ( unknown) date) Qty: 90 1RF unknown) (unknown) (no (unknown) (unknown) 17 gm PO DAILY (units (unknown) date) PRN (Reason: unknown) Constipation) Qty: 0 (unknown) (no (unknown) (unknown) 17.2 tab PO (units (un known) date) BEDTIME Qty: 0 unknown) (unknown) (no (unknown) (unknown) 2 puff INHALATION (units (unknown) date) Q4H PRN (Reason: unknown) Shortness Of Breath) (unknown) (no (unknown) (unknown) 250 mg PO MOWEFR (units (unknown) date) unknown) (unknown) (no (unknown) (unknown) 3 ml INHALATION (units (unknown) date) Q6-8H PRN (Reason: unknown) SOB) (unknown) (no (unknown) (unknown) 30 mg PO QAM (units (u nknown) date) unknown) (unknown) (no (unknown) (unknown) 40 mg PO BID (units (u nknown) date) unknown) (unknown) (no (unknown) (unknown) 400 mg PO TID (units ( unknown) date) Qty: 90 2RF unknown) (unknown) (no (unknown) (unknown) 5 mg PO BID (units (un known) date) unknown) (unknown) (no (unknown) (unknown) 50 mg PO BEDTIME (units (unknown) date) unknown) (unknown) (no (unknown) (unknown) 500 mg PO BEDTIME (units (unknown) date) unknown) (unknown) (no (unknown) (unknown) Allergies (units (unkn own) date) unknown) (unknown) (no (unknown) (unknown) ED Orders (units (unkn own) date) unknown) (unknown) (no (unknown) (unknown) Emergency Report (units (unknown) date) unknown) (unknown) (no (unknown) (unknown) Home Medications (units (unknown) date) unknown) (unknown) (no (unknown) (unknown) IRRITATION (units (unk nown) date) unknown) (unknown) (no (unknown) (unknown) [facility] (units (unknown) date) [address] [place] [address] unknown) [place] [address] (unknown) (no (unknown) (unknown) Lab Results (units (un known) date) unknown) (unknown) (no (unknown) (unknown) Label Comments: (units (unknown) date) unknown) (unknown) (no (unknown) (unknown) Previous Rx's (units ( unknown) date) unknown) (unknown) (no (unknown) (unknown) Rx Instructions: (units (unknown) date) unknown) (unknown) (no (unknown) (unknown) TO HIS EXISTING (units (unknown) date) 400MG TID. unknown) (unknown) (no (unknown) (unknown) USE TO TITRATE (units (unknown) date) DOSE TID. PT AWARE unknown) OF HOW TO ADD THIS (unknown) (no (unknown) (unknown) Vital Signs - 8 (units (unknown) date) hr unknown) (unknown) (no (unknown) (unknown) generally takes (units (unknown) date) at least tid, but unknown) may take up to 2 tabs tid (unknown) (no (unknown) (unknown) leave on 3-4 (units (u nknown) date) minutes then spit unknown) out. do not rinse, eat or drink for 30 minutes (unknown) (no (unknown) (unknown) take 1 tablet by (units (unknown) date) mouth EVERY SATURDAY unknown) SATURDAY AND SATURDAY (unknown) (no (unknown) (unknown) take 1 tablet by (units (unknown) date) mouth daily unknown) (unknown) (no (unknown) (unknown) take 1 tablet by (units (unknown) date) mouth every unknown) morning (unknown) (no (unknown) (unknown) (no value) (units (unk nown) date) unknown) (unknown) (no (unknown) (unknown) 09/05/21 09/05/21 (units (unknown) date) 09/05/21 unknown) Range/Units (unknown) (no (unknown) (unknown) 16:00 16:00 16:00 (units (unknown) date) unknown) (unknown) (no (unknown) (unknown) albuterol sulfate (units (unknown) date) 90 mcg/actuation unknown) Hfa Aerosol Inhaler (unknown) (no (unknown) (unknown) azithromycin 250 (units (unknown) date) mg tablet unknown) (unknown) (no (unknown) (unknown) carbidopa-levodop (units (unknown) date) a 25 MG/100 MG unknown) tablet extended release (unknown) (no (unknown) (unknown) dexamethasone 0.5 (units (unknown) date) mg/5 mL solution unknown) (unknown) (no (unknown) (unknown) diclofenac (units (unk nown) date) epolamine unknown) [Flector] 1.3 % patch 12 hour (unknown) (no (unknown) (unknown) fluoride (sodium) (units (unknown) date) 1.1 % Gel unknown) (unknown) (no (unknown) (unknown) gabapentin 100 mg (units (unknown) date) capsule unknown) (unknown) (no (unknown) (unknown) gabapentin 400 mg (units (unknown) date) capsule unknown) (unknown) (no (unknown) (unknown) hydroxyzine HCl (units (unknown) date) 10 mg tablet unknown) (unknown) (no (unknown) (unknown) ipratropium-albut (units (unknown) date) fermín 0.5 mg-3 unknown) mg(2.5 mg base)/3 mL Solution For Nebulization (unknown) (no (unknown) (unknown) metoprolol (units (unk nown) date) succinate 50 mg unknown) tablet extended release 24 hr (unknown) (no (unknown) (unknown) nifedipine 30 mg (units (unknown) date) tablet extended unknown) release (unknown) (no (unknown) (unknown) ondansetron HCl 4 (units (unknown) date) mg tablet unknown) (unknown) (no (unknown) (unknown) oxycodone 10 mg (units (unknown) date) tablet unknown) (unknown) (no (unknown) (unknown) pantoprazole 40 (units (unknown) date) mg Tablet,Delayed unknown) Release (Dr/Ec) (unknown) (no (unknown) (unknown) polyethylene (units (u nknown) date) glycol 3350 unknown) [Miralax] 119 GM powder (unknown) (no (unknown) (unknown) selegiline HCl 5 (units (unknown) date) mg Tablet unknown) (unknown) (no (unknown) (unknown) sennosides (units (unk nown) date) [senna] 8.6 MG unknown) tablet (unknown) (no (unknown) (unknown) tamsulosin (units (unk nown) date) [Flomax] 0.4 MG unknown) capsule,extended release 24hr (unknown) (no (unknown) (unknown) valacyclovir 500 (units (unknown) date) mg tablet unknown) (unknown) (no (unknown) (unknown) 09/05/21 (units (unkno wn) date) unknown) (unknown) (no (unknown) (unknown) He is followed (units (unknown) date) closely by unknown) [facility] and [facility]. He complains of (unknown) (no (unknown) (unknown) Medication (units (unk nown) date) Instructions unknown) Recorded (unknown) (no (unknown) (unknown) Medication (units (unk nown) date) Instructions unknown) Recorded Confirmed (unknown) (no (unknown) (unknown) (2.5 mg base)/3 (units (unknown) date) mL nebulization unknown) (unknown) (no (unknown) (unknown) *Temp,ED* (units (unkn own) date) [Primary Care unknown) Provider] - (unknown) (no (unknown) (unknown) [id number] (units (unkn own) date) unknown) (unknown) (no (unknown) (unknown) 08/05/20 (units (unkno wn) date) unknown) (unknown) (no (unknown) (unknown) 09/05/21 15:25 (units (unknown) date) unknown) (unknown) (no (unknown) (unknown) 09/05/21 16:00 (units (unknown) date) unknown) (unknown) (no (unknown) (unknown) 12 point review (units (unknown) date) of systems is unknown) negative except for those stated above and HPI (unknown) (no (unknown) (unknown) 14:36 (units (unkno wn) date) unknown) (unknown) (no (unknown) (unknown) 2 L of oxygen at (units (unknown) date) night but also has unknown) started wearing some oxygen during the day. (unknown) (no (unknown) (unknown) ALT 7 (<50) (units (unknown) date) IU/L unknown) (unknown) (no (unknown) (unknown) AST 31 (units (unkno wn) date) (17-59) IU/L unknown) (unknown) (no (unknown) (unknown) Age/Sex: 75 / M (units (unknown) date) unknown) (unknown) (no (unknown) (unknown) Albumin 4.0 (units ( unknown) date) (3.5-5.0) g/dL unknown) (unknown) (no (unknown) (unknown) Albumin/Globulin (units (unknown) date) Ratio 1.0 unknown) (1.0-2.8) (unknown) (no (unknown) (unknown) Alkaline (units (unkno wn) date) Phosphatase 87 unknown) (38-126) U/L (unknown) (no (unknown) (unknown) Allergy/AdvReac (units (unknown) date) Type Severity unknown) Reaction Status Date / Time (unknown) (no (unknown) (unknown) Atrial (units (unkno wn) date) fibrillation unknown) (unknown) (no (unknown) (unknown) Atrial flutter (units (unknown) date) unknown) (unknown) (no (unknown) (unknown) BUN 62 H (units (unk nown) date) (9-20) mg/dL unknown) (unknown) (no (unknown) (unknown) BUN/Creatinine (units (unknown) date) Ratio 34.3 H unknown) (6-22) (unknown) (no (unknown) (unknown) Baso # (Auto) (units ( unknown) date) 100 (0-100) unknown) /uL (unknown) (no (unknown) (unknown) Baso % (Auto) (units ( unknown) date) 0.7 (0-2) % unknown) (unknown) (no (unknown) (unknown) Blood Pressure (units (unknown) date) 140/104 H unknown) 09/05/21 14:36 (unknown) (no (unknown) (unknown) Blood Pressure (units (unknown) date) 140/104 H unknown) (unknown) (no (unknown) (unknown) CARDIOVASCULAR: (units (unknown) date) Denies chest pain, unknown) palpitations, orthopnea, edema (unknown) (no (unknown) (unknown) CK-MB (CK-2) (units (u nknown) date) TNP unknown) (unknown) (no (unknown) (unknown) CK-MB (CK-2) Rel (units (unknown) date) Index TNP unknown) (unknown) (no (unknown) (unknown) 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) (unknown) (no (unknown) (unknown) CMV pneumonia (units ( unknown) date) unknown) (unknown) (no (unknown) (unknown) COVID19 -Nasal (units (unknown) date) RAPID/Pre-Proc unknown) Stat (unknown) (no (unknown) (unknown) Calcium 9.1 (units ( unknown) date) (8.4-10.2) mg/dL unknown) (unknown) (no (unknown) (unknown) Carbon Dioxide (units (unknown) date) 31 (22-32) unknown) mmol/L (unknown) (no (unknown) (unknown) Chief Complaint: (units (unknown) date) Shortness of unknown) Breath/Dyspnea (unknown) (no (unknown) (unknown) Chloride 99 (units ( unknown) date) (98-107) mmol/L unknown) (unknown) (no (unknown) (unknown) Chronic (units (unkno wn) date) [id number] unknown) disease (unknown) (no (unknown) (unknown) Chronic kidney (units (unknown) date) disease, stage III unknown) (moderate) (unknown) (no (unknown) (unknown) Complete Blood (units (unknown) date) Count AUTO DIFF unknown) Stat (unknown) (no (unknown) (unknown) Comprehensive (units ( unknown) date) Metabolic Panel unknown) Stat (unknown) (no (unknown) (unknown) Compression (units (un known) date) fracture of L1 unknown) lumbar vertebra (unknown) (no (unknown) (unknown) Course (units (unkno wn) date) unknown) (unknown) (no (unknown) (unknown) Creatinine 1.81 (units (unknown) date) H (0.66-1.25) unknown) mg/dL (unknown) (no (unknown) (unknown) 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 (unknown) (no (unknown) (unknown) Elevated PSA (units (u nknown) date) unknown) (unknown) (no (unknown) (unknown) Eos # (Auto) 400 (units (unknown) date) (0-450) /uL unknown) (unknown) (no (unknown) (unknown) Eos % (Auto) 5.5 (units (unknown) date) H (2-4) % unknown) (unknown) (no (unknown) (unknown) Estimated GFR (units ( unknown) date) 38 L (>60) unknown) mL/min (unknown) (no (unknown) (unknown) Exam (units (unkno wn) date) unknown) (unknown) (no (unknown) (unknown) Family History (units (unknown) date) (Reviewed 08/05/20 unknown) @ 10:35 by Derik Wallace DO) (unknown) (no (unknown) (unknown) Father Cancer (units (unknown) date) unknown) (unknown) (no (unknown) (unknown) Fungal pneumonia (units (unknown) date) unknown) (unknown) (no (unknown) (unknown) GASTROINTESTINAL: (units (unknown) date) Denies nausea, unknown) vomiting, abdominal pain, diarrhea, (unknown) (no (unknown) (unknown) GENERAL: Denies (units (unknown) date) chills, fatigue, unknown) malaise, fever, sweats, travel (unknown) (no (unknown) (unknown) : Denies (units (unkn own) date) dysuria, unknown) frequency, incontinence, hematuria, urinary retention, flank (unknown) (no (unknown) (unknown) General (units (unkno wn) date) unknown) (unknown) (no (unknown) (unknown) GenericComposite[ (units (unknown) date) Plt Count 245 unknown) (150-400) X10^3/uL ] (unknown) (no (unknown) (unknown) GenericComposite[ (units (unknown) date) RBC 3.38 L unknown) (4.5-5.9) X10^6/uL ] (unknown) (no (unknown) (unknown) GenericComposite[ (units (unknown) date) WBC 7.4 unknown) (4.5-11.0) X10^3/uL ] (unknown) (no (unknown) (unknown) Globulin 3.9 (units (unknown) date) (1.7-4.1) g/dL unknown) (unknown) (no (unknown) (unknown) Glucose 144 H (units (unknown) date) (80-110) mg/dL unknown) (unknown) (no (unknown) (unknown) 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 unknown) (unknown) (no (unknown) (unknown) HEENT: Denies (units ( unknown) date) sinus pain, ear unknown) pain, sore throat, difficulty swallowing, neck (unknown) (no (unknown) (unknown) HPI - SOB/Dyspnea (units (unknown) date) unknown) (unknown) (no (unknown) (unknown) HPI Narrative: (units (unknown) date) unknown) (unknown) (no (unknown) (unknown) Hct 30.6 L (units (un known) date) (41-53) % unknown) (unknown) (no (unknown) (unknown) 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 (unknown) (no (unknown) (unknown) Hgb 10.7 L (units (un known) date) (13.5-17.5) g/dL unknown) (unknown) (no (unknown) (unknown) History of (units (unk nown) date) Present Illness unknown) (unknown) (no (unknown) (unknown) History of (units (unk nown) date) partial colectomy unknown) (unknown) (no (unknown) (unknown) History of (units (unk nown) date) radiofrequency unknown) ablation procedure for cardiac arrhythmia (unknown) (no (unknown) (unknown) Initial Vital (units ( unknown) date) Signs unknown) (unknown) (no (unknown) (unknown) Initial Vital (units ( unknown) date) Signs: unknown) (unknown) (no (unknown) (unknown) Lab Data (units (unkno wn) date) unknown) (unknown) (no (unknown) (unknown) Labs: (units (unkno wn) date) unknown) (unknown) (no (unknown) (unknown) Limitations: no (units (unknown) date) limitations unknown) (unknown) (no (unknown) (unknown) Lipase 157 (units (u nknown) date) (23-300) U/L unknown) (unknown) (no (unknown) (unknown) Lipase Stat (units (un known) date) unknown) (unknown) (no (unknown) (unknown) Lymph # (Auto) (units (unknown) date) 1200 unknown) (9996-9869) /uL (unknown) (no (unknown) (unknown) Lymph % (Auto) (units (unknown) date) 15.9 L (25-40) unknown) % (unknown) (no (unknown) (unknown) MCH 31.5 (units (unkn own) date) (26-34) PG unknown) (unknown) (no (unknown) (unknown) MCHC 34.8 (units (unk nown) date) (30-36) % unknown) (unknown) (no (unknown) (unknown) MCV 90.6 (units (unkn own) date) (80-100) fL unknown) (unknown) (no (unknown) (unknown) MDM - SOB/Dyspnea (units (unknown) date) unknown) (unknown) (no (unknown) (unknown) MUSCULOSKELETAL: (units (unknown) date) Denies weakness, unknown) joint pain, or bony pain (unknown) (no (unknown) (unknown) Medical History (units (unknown) date) (Updated 09/05/21 unknown) @ 00:00 by ) (unknown) (no (unknown) (unknown) Mode of arrival: (units (unknown) date) Ambulatory unknown) (unknown) (no (unknown) (unknown) [place] # (Auto) (units ( unknown) date) 700 (0-900) unknown) /uL (unknown) (no (unknown) (unknown) [place] % (Auto) (units ( unknown) date) 8.9 (3-14) % unknown) (unknown) (no (unknown) (unknown) Mother C. (units (un known) date) difficile colitis unknown) (unknown) (no (unknown) (unknown) NEUROLOGIC: (units (un known) date) Denies weakness, unknown) dizziness, headache, numbness, change in speech, (unknown) (no (unknown) (unknown) NT-proBNP (units (unkn own) date) (BNP-Adult 18+) unknown) Stat (unknown) (no (unknown) (unknown) Narrative: (units (unk nown) date) unknown) (unknown) (no (unknown) (unknown) Neut # (Auto) (units ( unknown) date) 5100 unknown) (5557-6905) /uL (unknown) (no (unknown) (unknown) Neut % (Auto) (units ( unknown) date) 69.0 (50-75) % unknown) (unknown) (no (unknown) (unknown) No Action (units (unkn own) date) unknown) (unknown) (no (unknown) (unknown) Ordered: (units (unkno wn) date) unknown) (unknown) (no (unknown) (unknown) Orders (units (unkno wn) date) unknown) (unknown) (no (unknown) (unknown) Oxygen Delivery (units (unknown) date) Method 09/05/21 unknown) 14:36 (unknown) (no (unknown) (unknown) Oxygen Delivery (units (unknown) date) Method Room Air unknown) (unknown) (no (unknown) (unknown) PSYCHIATRIC: No (units (unknown) date) concerning unknown) psychosocial issues. (unknown) (no (unknown) (unknown) Parkinson disease (units (unknown) date) unknown) (unknown) (no (unknown) (unknown) Patient History (units (unknown) date) unknown) (unknown) (no (unknown) (unknown) Patient is a (units (un known) date) 75-year-old male unknown) with history of leukemia [id number] disease (unknown) (no (unknown) (unknown) Patient: (units (unkno wn) date) Adonis Dueñas unknown) MR#: M (unknown) (no (unknown) (unknown) Potassium 3.6 (units (unknown) date) (3.4-5.1) mmol/L unknown) (unknown) (no (unknown) (unknown) Prescriptions: (units (unknown) date) unknown) (unknown) (no (unknown) (unknown) Pulse Oximetry (units (unknown) date) 99 09/05/21 unknown) 14:36 (unknown) (no (unknown) (unknown) Pulse Oximetry 99 (units (unknown) date) unknown) (unknown) (no (unknown) (unknown) Pulse Rate 96 H (units (unknown) date) 09/05/21 14:36 unknown) (unknown) (no (unknown) (unknown) Pulse Rate 96 H (units (unknown) date) unknown) (unknown) (no (unknown) (unknown) RDW 13.8 (units (unkn own) date) (11.6-14.8) % unknown) (unknown) (no (unknown) (unknown) RESPIRATORY: (units (u nknown) date) Denies dyspnea, unknown) cough, wheezing, hemoptysis, sputum. 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) (unknown) (no (unknown) (unknown) SARS-CoV-2 (PCR) (units (unknown) date) Negative unknown) (Negative) (unknown) (no (unknown) (unknown) SKIN: No rash, no (units (unknown) date) erythema, no unknown) pruritus (unknown) (no (unknown) (unknown) Signed By: (units (unk nown) date) unknown) (unknown) (no (unknown) (unknown) Skin cancer (units (un known) date) unknown) (unknown) (no (unknown) (unknown) Smoking Status: (units (unknown) date) Former smoker unknown) (unknown) (no (unknown) (unknown) Smoking Status: (units (unknown) date) Former smoker unknown) (unknown) (no (unknown) (unknown) Social History (units (unknown) date) (Reviewed 12/26/18 unknown) @ 01:35 by Rhona Fofana DO) (unknown) (no (unknown) (unknown) Sodium 139 (units (u nknown) date) (137-145) mmol/L unknown) (unknown) (no (unknown) (unknown) Source: patient (units (unknown) date) unknown) (unknown) (no (unknown) (unknown) Spinal stenosis (units (unknown) date) unknown) (unknown) (no (unknown) (unknown) Stated Complaint: (units (unknown) date) sob/weak unknown) (unknown) (no (unknown) (unknown) Substance Use (units ( unknown) date) Type: does not use unknown) (unknown) (no (unknown) (unknown) Surgical History (units (unknown) date) (Updated 03/03/21 unknown) @ 18:43 by Derik Smith MD) (unknown) (no (unknown) (unknown) T11 vertebral (units ( unknown) date) fracture unknown) (unknown) (no (unknown) (unknown) Temperature 97.1 (units (unknown) date) F L 09/05/21 unknown) 14:36 (unknown) (no (unknown) (unknown) Temperature 97.1 (units (unknown) date) F L unknown) (unknown) (no (unknown) (unknown) Time Seen by (units (u nknown) date) Provider: 09/05/21 unknown) 15:25 (unknown) (no (unknown) (unknown) Tobacco: How many (units (unknown) date) years used: 10 unknown) (unknown) (no (unknown) (unknown) Total Bilirubin (units (unknown) date) 0.5 (0.2-1.3) unknown) mg/dL (unknown) (no (unknown) (unknown) Total Creatine (units (unknown) date) Kinase 57 unknown) (55-170) U/L (unknown) (no (unknown) (unknown) Total Protein (units ( unknown) date) 7.9 (6.3-8.2) unknown) g/dL (unknown) (no (unknown) (unknown) Troponin + CK (units ( unknown) date) Cardiac Panel Stat unknown) (unknown) (no (unknown) (unknown) Vital Signs (units (un known) date) unknown) (unknown) (no (unknown) (unknown) Vital signs: (units (u nknown) date) unknown) (unknown) (no (unknown) (unknown) XR chest 1V Stat (units (unknown) date) unknown) (unknown) (no (unknown) (unknown) [Embedded Image (units (unknown) date) Not Available] unknown) (unknown) (no (unknown) (unknown) [From BENADRYL] (units (unknown) date) SEDATION unknown) (unknown) (no (unknown) (unknown) acetaminophen (units ( unknown) date) [ACETAMINOPHEN] unknown) AdvReac Unknown ABD PAIN Verified 09/05/21 14:36 (unknown) (no (unknown) (unknown) aerosol inhaler (units (unknown) date) Shortness Of unknown) Breath (unknown) (no (unknown) (unknown) albuterol sulfate (units (unknown) date) 90 mcg/actuation 2 unknown) puff inhalation Q4H PRN 11/04/17 08/05/20 (unknown) (no (unknown) (unknown) alcohol intake (units (unknown) date) frequency: unknown) holidays/special occasions only (unknown) (no (unknown) (unknown) alcohol intake: (units (unknown) date) current unknown) (unknown) (no (unknown) (unknown) azithromycin 250 (units (unknown) date) mg tablet 250 mg unknown) PO MOWEFR 04/25/18 08/05/20 (unknown) (no (unknown) (unknown) bacitracin (units (unk nown) date) [BACITRACIN] unknown) Allergy Unknown SKIN Verified 09/05/21 14:36 (unknown) (no (unknown) (unknown) being weak a (units (u nknown) date) difficulty walking unknown) around but does not get need a walker. He is (unknown) (no (unknown) (unknown) carbidopa ER 25 (units (unknown) date) mg-levodopa 100 mg unknown) 1 - 2 tab PO TID ##0 10/02/16 08/05/20 (unknown) (no (unknown) (unknown) chlorhexidine (units ( unknown) date) [CHLORHEXIDINE] unknown) Allergy Unknown SKIN Verified 09/05/21 14:36 (unknown) (no (unknown) (unknown) confusion (units (unkn own) date) unknown) (unknown) (no (unknown) (unknown) congestion using (units (unknown) date) albuterol twice a unknown) day he continues to bring up a lot of sputum (unknown) (no (unknown) (unknown) constipation, (units ( unknown) date) melena. unknown) (unknown) (no (unknown) (unknown) dexamethasone 0.5 (units (unknown) date) mg/5 mL oral 1 mg unknown) PO BID 05/23/20 08/05/20 (unknown) (no (unknown) (unknown) diclofenac (units (unk nown) date) epolamine 1.3 % 1 unknown) patch topical BID #30 ea 08/15/20 (unknown) (no (unknown) (unknown) diltiazem Allergy (units (unknown) date) Intermediate Hives unknown) Verified 09/05/21 14:36 (unknown) (no (unknown) (unknown) diphenhydramine (units (unknown) date) AdvReac Unknown unknown) EXTREME Verified 09/05/21 14:36 (unknown) (no (unknown) (unknown) fluoride (sodium) (units (unknown) date) 1.1 % dental gel 1 unknown) applic dental BEDTIME 04/30/18 08/05/20 (unknown) (no (unknown) (unknown) gabapentin 100 mg (units (unknown) date) capsule 100 mg PO unknown) TID #90 caps 01/02/21 (unknown) (no (unknown) (unknown) gabapentin 400 mg (units (unknown) date) capsule 400 mg PO unknown) TID #90 caps 01/31/21 (unknown) (no (unknown) (unknown) gram/dose oral (units (unknown) date) powder (Miralax) unknown) (unknown) (no (unknown) (unknown) have gotten worse (units (unknown) date) over last couple unknown) of days. He denies any chest pain. He wears (unknown) (no (unknown) (unknown) household (units (unkn own) date) members: spouse unknown) (unknown) (no (unknown) (unknown) hydroxyzine HCl (units (unknown) date) 10 mg tablet 10 mg unknown) PO Q8H PRN anxiety #60 tabs 03/03/21 (unknown) (no (unknown) (unknown) ipratropium 0.5 (units (unknown) date) mg-albuterol 3 mg unknown) 3 ml inhalation Q6-8H PRN SOB 07/14/18 (unknown) (no (unknown) (unknown) metoprolol (units (unk nown) date) succinate 50 mg 50 unknown) mg PO BEDTIME 04/25/18 08/05/20 (unknown) (no (unknown) (unknown) months. He has (units (unknown) date) had productive unknown) sputum no fevers or chills. 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 He has had chronic chest (unknown) (no (unknown) (unknown) oxycodone 10 mg (units (unknown) date) tablet 10 mg PO unknown) 1-2XD PRN chronic pain 04/25/18 08/05/20 (unknown) (no (unknown) (unknown) pain (units (unkno wn) date) unknown) (unknown) (no (unknown) (unknown) pain. 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 (units (unknown) date) unknown) (unknown) (no (unknown) (unknown) release (units (unkno wn) date) unknown) (unknown) (no (unknown) (unknown) rifampin (units (unkno wn) date) [RIFAMPIN] Allergy unknown) Unknown HIVES Verified 09/05/21 14:36 (unknown) (no (unknown) (unknown) selegiline HCl 5 (units (unknown) date) mg tablet 5 mg PO unknown) BID 11/04/17 08/05/20 (unknown) (no (unknown) (unknown) sennosides 8.6 mg (units (unknown) date) tablet (senna) unknown) 17.2 tab PO BEDTIME ##0 10/01/16 08/05/20 (unknown) (no (unknown) (unknown) soln (units (unkno wn) date) unknown) (unknown) (no (unknown) (unknown) solution (units (unkno wn) date) unknown) (unknown) (no (unknown) (unknown) tablet,extended (units (unknown) date) release unknown) (unknown) (no (unknown) (unknown) tablet,extended (units (unknown) date) release 24 hr unknown) (unknown) (no (unknown) (unknown) tamsulosin 0.4 mg (units (unknown) date) capsule (Flomax) unknown) 0.4 mg PO BEDTIME ##0 10/01/16 08/05/20 (unknown) (no (unknown) (unknown) today with (units (unkn own) date) increasing unknown) shortness of breath which has been worse over the last few (unknown) (no (unknown) (unknown) transdermal 12 (units (unknown) date) hour patch unknown) (Flector) (unknown) (no (unknown) (unknown) valacyclovir 500 (units (unknown) date) mg tablet 500 mg unknown) PO BEDTIME 04/25/18 08/05/20 Result panel 8 (unknown) (no date) (unknown) (unknown) 686 ng/mL (unkn own) Result panel 9 (unknown) (no (unknown) (unknown) (no value) (units (unk nown) date) unknown) (unknown) (no (unknown) (unknown) [address] [place] [address] (units (unknown) date) unknown) (unknown) (no (unknown) (unknown) [place], [place] (units ( unknown) date) [id number] unknown) (unknown) (no (unknown) (unknown) CT Scan Report (units (unknown) date) unknown) (unknown) (no (unknown) (unknown) [facility] (units (unknown) date) unknown) (unknown) (no (unknown) (unknown) Signed (units (unkno wn) date) unknown) (unknown) (no (unknown) (unknown) (no value) (units (unk nown) date) unknown) (unknown) (no (unknown) (unknown) 09/05/21 (units (unkno wn) date) unknown) (unknown) (no (unknown) (unknown) 1. No pulmonary (units (unknown) date) embolism unknown) demonstrated. (unknown) (no (unknown) (unknown) 2. Patchy (units (unkn own) date) consolidative and unknown) ground-glass opacities, most confluent in the right (unknown) (no (unknown) (unknown) 3. (units (unkno wn) date) Moderate-severe unknown) bronchiectasis, worsened since before. Areas of bronchial (unknown) (no (unknown) (unknown) 4. Nonspecific (units (unknown) date) reticular and unknown) bronchocentric airspace opacities could suggest a (unknown) (no (unknown) (unknown) 5. Nonspecific (units (unknown) date) mediastinal unknown) lymphadenopathy, could be reactive. (unknown) (no (unknown) (unknown) ANGIO CHEST PE (units (unknown) date) PROTOCOL, unknown) 12/25/2018, 23:58. (unknown) (no (unknown) (unknown) Abdomen: (units (unkno wn) date) Visualized upper unknown) abdominal solid organs appear unremarkable for in (unknown) (no (unknown) (unknown) After the (units (unkn own) date) administration of unknown) intravenous contrast, 2 mm thick sections acquired (unknown) (no (unknown) (unknown) Approved by: (units (u nknown) date) pedro Zapien) Dylon on 09/05/2021 at 18:56 (unknown) (no (unknown) (unknown) Bones and chest (units (unknown) date) wall: Multilevel unknown) degenerative change of the visualized spine. (unknown) (no (unknown) (unknown) COMPARISON: (units (un known) date) [facility], unknown) CR, XR CHEST 1V, 09/05/2021, 15:31. [place] (unknown) (no (unknown) (unknown) Dictated by: (units (u nknown) date) pedro Zapien) Dylon on 09/05/2021 at 18:39 (unknown) (no (unknown) (unknown) FINDINGS: (units (unkn own) date) unknown) (unknown) (no (unknown) (unknown) For radiation (units ( unknown) date) dose reduction, unknown) the following was used: automated exposure (unknown) (no (unknown) (unknown) IMPRESSION: (units (un known) date) unknown) (unknown) (no (unknown) (unknown) INDICATIONS: (units (u nknown) date) +dimer RLL unknown) (unknown) (no (unknown) (unknown) Image quality: (units (unknown) date) Excellent. unknown) (unknown) (no (unknown) (unknown) Lungs and pleura: (units (unknown) date) Bronchiectasis is unknown) present as before, overall moderate-severe (unknown) (no (unknown) (unknown) Mediastinum: No (units (unknown) date) pericardial unknown) effusion. Mediastinal lymphadenopathy is present, (unknown) (no (unknown) (unknown) Pulmonary (units (unkn own) date) arteries: unknown) Pulmonary arteries are normal in size, and demonstrate no (unknown) (no (unknown) (unknown) TECHNIQUE: (units (unk nown) date) unknown) (unknown) (no (unknown) (unknown) acute appearing (units (unknown) date) fractures of T11 unknown) and L1. T11 fracture consistent with (unknown) (no (unknown) (unknown) adjustment of mA (units (unknown) date) and/or kV unknown) according to patient size. (unknown) (no (unknown) (unknown) airways mucous (units (unknown) date) plugging also unknown) present. No pleural effusion. (unknown) (no (unknown) (unknown) aorta is normal (units (unknown) date) in caliber and unknown) enhancement. (unknown) (no (unknown) (unknown) arterial phase of (units (unknown) date) enhancement. unknown) (unknown) (no (unknown) (unknown) complete burst (units (unknown) date) fracture, up to unknown) 75% vertebral body height loss. (unknown) (no (unknown) (unknown) consolidation (units ( unknown) date) within the right unknown) lower lobe. Mild bronchial wall thickening and (unknown) (no (unknown) (unknown) example a 1.2 cm (units (unknown) date) lower paratracheal unknown) lymph node (). A TAVR is present. (unknown) (no (unknown) (unknown) fracture, (units (unkn own) date) approximately 30% unknown) vertebral body height loss. L1 fracture likely (unknown) (no (unknown) (unknown) intraluminal (units (u nknown) date) filling defects to unknown) suggest central pulmonary embolism. (unknown) (no (unknown) (unknown) lobe, suspicious (units (unknown) date) for pneumonia unknown) and/or aspiration. (unknown) (no (unknown) (unknown) of interstitial (units (unknown) date) lung disease. unknown) (unknown) (no (unknown) (unknown) opacities (units (unkn own) date) predominantly in a unknown) bronchocentric distribution, with more confluent (unknown) (no (unknown) (unknown) projection (MIP) (units (unknown) date) coronal and unknown) sagittal reformats were then acquired through the (unknown) (no (unknown) (unknown) pulmonary apices (units (unknown) date) to the posterior unknown) costophrenic angles. 3-dimensional maximum (unknown) (no (unknown) (unknown) thickening and (units (unknown) date) mucous plugging unknown) are present, could indicate a component of (unknown) (no (unknown) (unknown) worsened since (units (unknown) date) the previous exam. unknown) There are patchy consolidative and ground- (unknown) (no (unknown) (unknown) Accession Number: (units (unknown) date) [id number] unknown) (unknown) (no (unknown) (unknown) Age/Sex: 75 / M (units (unknown) date) Date of Service: unknown) (unknown) (no (unknown) (unknown) : 1945 (units (unknown) date) Acct:[id number] unknown) (unknown) (no (unknown) (unknown) Hospital, CT, CT (units (unknown) date) unknown) (unknown) (no (unknown) (unknown) Loc: ED (units (unkno wn) date) unknown) (unknown) (no (unknown) (unknown) [id number] (units (unk nown) date) unknown) (unknown) (no (unknown) (unknown) Non- (units (unkno wn) date) unknown) (unknown) (no (unknown) (unknown) Ordering (units (unkno wn) date) Provider: unknown) Rhona Fofana D.O. (unknown) (no (unknown) (unknown) PROCEDURE: CT (units (unknown) date) ANGIO CHEST PE unknown) PROTOCOL (unknown) (no (unknown) (unknown) Patient: (units (unkno wn) date) Adonis Dueñas unknown) MR#: (unknown) (no (unknown) (unknown) Procedure: CT (units ( unknown) date) angio chest PE unknown) protocol (unknown) (no (unknown) (unknown) Thoracic (units (unkno wn) date) unknown) (unknown) (no (unknown) (unknown) bronchitis. (units (un known) date) unknown) (unknown) (no (unknown) (unknown) component (units (unkn own) date) unknown) (unknown) (no (unknown) (unknown) control, (units (unkno wn) date) unknown) (unknown) (no (unknown) (unknown) for (units (unkno wn) date) unknown) (unknown) (no (unknown) (unknown) from the (units (unkno wn) date) unknown) (unknown) (no (unknown) (unknown) glass (units (unkno wn) date) unknown) (unknown) (no (unknown) (unknown) intensity (units (unkn own) date) unknown) (unknown) (no (unknown) (unknown) lower (units (unkno wn) date) unknown) (unknown) (no (unknown) (unknown) peripheral (units (unk nown) date) unknown) (unknown) (no (unknown) (unknown) represents a (units (u nknown) date) unknown) (unknown) (no (unknown) (unknown) severity, (units (unkn own) date) unknown) (unknown) (no (unknown) (unknown) the early (units (unkn own) date) unknown) (unknown) (no (unknown) (unknown) thorax. (units (unkno wn) date) unknown) (unknown) (no (unknown) (unknown) wall (units (unkno wn) date) unknown) (unknown) (no (unknown) (unknown) wedge/impaction (units (unknown) date) unknown) Result panel 10 (unknown) (no (unknown) (unknown) (no value) (units (unk nown) date) unknown) (unknown) (no (unknown) (unknown) Radiologist's (units ( unknown) date) Impression: unknown) (unknown) (no (unknown) (unknown) PO DAILY PRN (units (u nknown) date) (Reason: nausea unknown) and vomiting) (unknown) (no (unknown) (unknown) Date of Service: (units (unknown) date) 09/05/21 unknown) (unknown) (no (unknown) (unknown) (no value) (units (unk nown) date) unknown) (unknown) (no (unknown) (unknown) 0.4 mg PO BEDTIME (units (unknown) date) Qty: 0 unknown) (unknown) (no (unknown) (unknown) 09/05/21 16:00 (units (unknown) date) unknown) (unknown) (no (unknown) (unknown) 1 - 2 tab PO TID (units (unknown) date) Qty: 0 unknown) (unknown) (no (unknown) (unknown) 1 applic Dental (units (unknown) date) BEDTIME unknown) (unknown) (no (unknown) (unknown) 1 mg PO BID (units (un known) date) unknown) (unknown) (no (unknown) (unknown) 1 patch topical (units (unknown) date) BID Qty: 30 1RF unknown) (unknown) (no (unknown) (unknown) 10 mg PO 1-2XD (units (unknown) date) MDD 20 mg PRN unknown) (Reason: chronic pain) (unknown) (no (unknown) (unknown) 10 mg PO Q8H PRN (units (unknown) date) (Reason: anxiety) unknown) Qty: 60 0RF (unknown) (no (unknown) (unknown) 100 mg PO TID (units ( unknown) date) Qty: 90 1RF unknown) (unknown) (no (unknown) (unknown) [address] [place] [address] (units (unknown) date) unknown) (unknown) (no (unknown) (unknown) 17 gm PO DAILY (units (unknown) date) PRN (Reason: unknown) Constipation) Qty: 0 (unknown) (no (unknown) (unknown) 17.2 tab PO (units (un known) date) BEDTIME Qty: 0 unknown) (unknown) (no (unknown) (unknown) 2 puff INHALATION (units (unknown) date) Q4H PRN (Reason: unknown) Shortness Of Breath) (unknown) (no (unknown) (unknown) 250 mg PO MOWEFR (units (unknown) date) unknown) (unknown) (no (unknown) (unknown) 3 ml INHALATION (units (unknown) date) Q6-8H PRN (Reason: unknown) SOB) (unknown) (no (unknown) (unknown) 30 mg PO QAM (units (u nknown) date) unknown) (unknown) (no (unknown) (unknown) 40 mg PO BID (units (u nknown) date) unknown) (unknown) (no (unknown) (unknown) 400 mg PO TID (units ( unknown) date) Qty: 90 2RF unknown) (unknown) (no (unknown) (unknown) 5 mg PO BID (units (un known) date) unknown) (unknown) (no (unknown) (unknown) 50 mg PO BEDTIME (units (unknown) date) unknown) (unknown) (no (unknown) (unknown) 500 mg PO BEDTIME (units (unknown) date) unknown) (unknown) (no (unknown) (unknown) Allergies (units (unkn own) date) unknown) (unknown) (no (unknown) (unknown) [place] (units ( unknown) date) [id number] unknown) (unknown) (no (unknown) (unknown) Documented By: NR (units (unknown) date) unknown) (unknown) (no (unknown) (unknown) ED Orders (units (unkn own) date) unknown) (unknown) (no (unknown) (unknown) Emergency Report (units (unknown) date) unknown) (unknown) (no (unknown) (unknown) Home Medications (units (unknown) date) unknown) (unknown) (no (unknown) (unknown) IRRITATION (units (unk nown) date) unknown) (unknown) (no (unknown) (unknown) [facility] (units (unknown) date) [address] [place] [address] unknown) [place] [address] (unknown) (no (unknown) (unknown) Lab Results (units (un known) date) unknown) (unknown) (no (unknown) (unknown) Label Comments: (units (unknown) date) unknown) (unknown) (no (unknown) (unknown) Last Admin: (units (un known) date) 09/05/21 17:50 unknown) Dose: 2 sprays (unknown) (no (unknown) (unknown) Previous Rx's (units ( unknown) date) unknown) (unknown) (no (unknown) (unknown) Rx Instructions: (units (unknown) date) unknown) (unknown) (no (unknown) (unknown) Signed (units (unkno wn) date) unknown) (unknown) (no (unknown) (unknown) Stop: 09/05/21 (units (unknown) date) 17:47 unknown) (unknown) (no (unknown) (unknown) TO HIS EXISTING (units (unknown) date) 400MG TID. unknown) (unknown) (no (unknown) (unknown) USE TO TITRATE (units (unknown) date) DOSE TID. PT AWARE unknown) OF HOW TO ADD THIS (unknown) (no (unknown) (unknown) Vital Signs - 8 (units (unknown) date) hr unknown) (unknown) (no (unknown) (unknown) XRay Report (units (un known) date) unknown) (unknown) (no (unknown) (unknown) generally takes (units (unknown) date) at least tid, but unknown) may take up to 2 tabs tid (unknown) (no (unknown) (unknown) leave on 3-4 (units (u nknown) date) minutes then spit unknown) out. do not rinse, eat or drink for 30 minutes (unknown) (no (unknown) (unknown) take 1 tablet by (units (unknown) date) mouth EVERY SATURDAY unknown) SATURDAY AND SATURDAY (unknown) (no (unknown) (unknown) take 1 tablet by (units (unknown) date) mouth daily unknown) (unknown) (no (unknown) (unknown) take 1 tablet by (units (unknown) date) mouth every unknown) morning (unknown) (no (unknown) (unknown) (no value) (units (unk nown) date) unknown) (unknown) (no (unknown) (unknown) 09/05/21 09/05/21 (units (unknown) date) 09/05/21 unknown) Range/Units (unknown) (no (unknown) (unknown) 09/05/21 (units (unkno wn) date) Range/Units unknown) (unknown) (no (unknown) (unknown) 16:00 (units (unkno wn) date) unknown) (unknown) (no (unknown) (unknown) 16:00 16:00 16:00 (units (unknown) date) unknown) (unknown) (no (unknown) (unknown) albuterol sulfate (units (unknown) date) 90 mcg/actuation unknown) Hfa Aerosol Inhaler (unknown) (no (unknown) (unknown) azithromycin 250 (units (unknown) date) mg tablet unknown) (unknown) (no (unknown) (unknown) carbidopa-levodop (units (unknown) date) a 25 MG/100 MG unknown) tablet extended release (unknown) (no (unknown) (unknown) dexamethasone 0.5 (units (unknown) date) mg/5 mL solution unknown) (unknown) (no (unknown) (unknown) diclofenac (units (unk nown) date) epolamine unknown) [Flector] 1.3 % patch 12 hour (unknown) (no (unknown) (unknown) fluoride (sodium) (units (unknown) date) 1.1 % Gel unknown) (unknown) (no (unknown) (unknown) gabapentin 100 mg (units (unknown) date) capsule unknown) (unknown) (no (unknown) (unknown) gabapentin 400 mg (units (unknown) date) capsule unknown) (unknown) (no (unknown) (unknown) hydroxyzine HCl (units (unknown) date) 10 mg tablet unknown) (unknown) (no (unknown) (unknown) ipratropium-albut (units (unknown) date) fermín 0.5 mg-3 unknown) mg(2.5 mg base)/3 mL Solution For Nebulization (unknown) (no (unknown) (unknown) metoprolol (units (unk nown) date) succinate 50 mg unknown) tablet extended release 24 hr (unknown) (no (unknown) (unknown) nifedipine 30 mg (units (unknown) date) tablet extended unknown) release (unknown) (no (unknown) (unknown) ondansetron HCl 4 (units (unknown) date) mg tablet unknown) (unknown) (no (unknown) (unknown) oxycodone 10 mg (units (unknown) date) tablet unknown) (unknown) (no (unknown) (unknown) pantoprazole 40 (units (unknown) date) mg Tablet,Delayed unknown) Release (Dr/Ec) (unknown) (no (unknown) (unknown) polyethylene (units (u nknown) date) glycol 3350 unknown) [Miralax] 119 GM powder (unknown) (no (unknown) (unknown) selegiline HCl 5 (units (unknown) date) mg Tablet unknown) (unknown) (no (unknown) (unknown) sennosides (units (unk nown) date) [senna] 8.6 MG unknown) tablet (unknown) (no (unknown) (unknown) tamsulosin (units (unk nown) date) [Flomax] 0.4 MG unknown) capsule,extended release 24hr (unknown) (no (unknown) (unknown) valacyclovir 500 (units (unknown) date) mg tablet unknown) (unknown) (no (unknown) (unknown) 09/05/21 (units (unkno wn) date) unknown) (unknown) (no (unknown) (unknown) He is followed (units (unknown) date) closely by unknown) [facility] and [facility]. He complains of (unknown) (no (unknown) (unknown) Medication (units (unk nown) date) Instructions unknown) Recorded (unknown) (no (unknown) (unknown) Medication (units (unk nown) date) Instructions unknown) Recorded Confirmed (unknown) (no (unknown) (unknown) may be worse over (units (unknown) date) the last few days. unknown) He is not hypoxic. He does not have a (unknown) (no (unknown) (unknown) not be consistent (units (unknown) date) with pneumonia it unknown) is difficult to tell what is chronic and (unknown) (no (unknown) (unknown) (2.5 mg base)/3 (units (unknown) date) mL nebulization unknown) (unknown) (no (unknown) (unknown) *Temp,ED* (units (unkn own) date) [Primary Care unknown) Provider] - (unknown) (no (unknown) (unknown) [id number] (units (unkn own) date) unknown) (unknown) (no (unknown) (unknown) 08/05/20 (units (unkno wn) date) unknown) (unknown) (no (unknown) (unknown) 09/05/21 15:25 (units (unknown) date) unknown) (unknown) (no (unknown) (unknown) 09/05/21 16:00 (units (unknown) date) unknown) (unknown) (no (unknown) (unknown) 09/05/21 17:38 (units (unknown) date) unknown) (unknown) (no (unknown) (unknown) 12 point review (units (unknown) date) of systems is unknown) negative except for those stated above and HPI (unknown) (no (unknown) (unknown) 14:36 09/05/21 (units (unknown) date) unknown) (unknown) (no (unknown) (unknown) 14:49 09/05/21 (units (unknown) date) unknown) (unknown) (no (unknown) (unknown) 15:00 (units (unkno wn) date) unknown) (unknown) (no (unknown) (unknown) 15:30 09/05/21 (units (unknown) date) unknown) (unknown) (no (unknown) (unknown) 16:00 09/05/21 (units (unknown) date) unknown) (unknown) (no (unknown) (unknown) 16:38 (units (unkno wn) date) unknown) (unknown) (no (unknown) (unknown) 16:39 (units (unkno wn) date) unknown) (unknown) (no (unknown) (unknown) 16:39 09/05/21 (units (unknown) date) unknown) (unknown) (no (unknown) (unknown) 2 L of oxygen at (units (unknown) date) night but also has unknown) started wearing some oxygen during the day. (unknown) (no (unknown) (unknown) ? (units (unkno wn) date) unknown) (unknown) (no (unknown) (unknown) ALT 7 (<50) (units (unknown) date) IU/L unknown) (unknown) (no (unknown) (unknown) ALT (<50) IU/L (units (unknown) date) unknown) (unknown) (no (unknown) (unknown) AST 31 (units (unkn own) date) (17-59) IU/L unknown) (unknown) (no (unknown) (unknown) AST (17-59) (units ( unknown) date) IU/L unknown) (unknown) (no (unknown) (unknown) Accession Number: (units (unknown) date) [id number] ?? unknown) (unknown) (no (unknown) (unknown) Acct:[id number] (units (unknown) date) unknown) (unknown) (no (unknown) (unknown) Age/Sex: 75 / M (units (unknown) date) unknown) (unknown) (no (unknown) (unknown) Age/Sex: 75 / M (units (unknown) date) unknown) (unknown) (no (unknown) (unknown) Albumin 4.0 (units (unknown) date) (3.5-5.0) g/dL unknown) (unknown) (no (unknown) (unknown) Albumin (units (unkno wn) date) (3.5-5.0) g/dL unknown) (unknown) (no (unknown) (unknown) Albumin/Globulin (units (unknown) date) Ratio 1.0 unknown) (1.0-2.8) (unknown) (no (unknown) (unknown) Albumin/Globulin (units (unknown) date) Ratio (1.0-2.8) unknown) (unknown) (no (unknown) (unknown) Alkaline (units (unkno wn) date) Phosphatase 87 unknown) (38-126) U/L (unknown) (no (unknown) (unknown) Alkaline (units (unkno wn) date) Phosphatase unknown) (38-126) U/L (unknown) (no (unknown) (unknown) Allergy/AdvReac (units (unknown) date) Type Severity unknown) Reaction Status Date / Time (unknown) (no (unknown) (unknown) Atrial (units (unkno wn) date) fibrillation unknown) (unknown) (no (unknown) (unknown) Atrial flutter (units (unknown) date) unknown) (unknown) (no (unknown) (unknown) BUN 62 H (units (un known) date) (9-20) mg/dL unknown) (unknown) (no (unknown) (unknown) BUN (9-20) (units (u nknown) date) mg/dL unknown) (unknown) (no (unknown) (unknown) BUN/Creatinine (units (unknown) date) Ratio 34.3 H unknown) (6-22) (unknown) (no (unknown) (unknown) BUN/Creatinine (units (unknown) date) Ratio (6-22) unknown) (unknown) (no (unknown) (unknown) Baso # (Auto) (units ( unknown) date) (0-100) /uL unknown) (unknown) (no (unknown) (unknown) Baso # (Auto) (units ( unknown) date) 100 (0-100) unknown) /uL (unknown) (no (unknown) (unknown) Baso % (Auto) (units ( unknown) date) (0-2) % unknown) (unknown) (no (unknown) (unknown) Baso % (Auto) (units ( unknown) date) 0.7 (0-2) % unknown) (unknown) (no (unknown) (unknown) Blood Pressure (units (unknown) date) unknown) (unknown) (no (unknown) (unknown) Blood Pressure (units (unknown) date) 140/104 H unknown) 09/05/21 14:36 (unknown) (no (unknown) (unknown) Blood Pressure (units (unknown) date) 148/71 H unknown) (unknown) (no (unknown) (unknown) Blood Pressure (units (unknown) date) 140/104 H unknown) (unknown) (no (unknown) (unknown) Bones and chest (units (unknown) date) wall:? No unknown) suspicious bony lesions.? 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 (units (u nknown) date) [facility], unknown) CR, XR CHEST 1V, 03/03/2021, 14:03. (unknown) (no (unknown) (unknown) COVID19 -Nasal (units (unknown) date) RAPID/Pre-Proc unknown) Stat (unknown) (no (unknown) (unknown) CT angio chest PE (units (unknown) date) protocol Stat unknown) (unknown) (no (unknown) (unknown) Calcium 9.1 (units (unknown) date) (8.4-10.2) mg/dL unknown) (unknown) (no (unknown) (unknown) Calcium (units (unkno wn) date) (8.4-10.2) mg/dL unknown) (unknown) (no (unknown) (unknown) Carbon Dioxide (units (unknown) date) 31 (22-32) unknown) mmol/L (unknown) (no (unknown) (unknown) Carbon Dioxide (units (unknown) date) (22-32) mmol/L unknown) (unknown) (no (unknown) (unknown) Chest x-ray: (units (u nknown) date) unknown) (unknown) (no (unknown) (unknown) Chief Complaint: (units (unknown) date) Shortness of unknown) Breath/Dyspnea (unknown) (no (unknown) (unknown) Chloride 99 (units (unknown) date) (98-107) mmol/L unknown) (unknown) (no (unknown) (unknown) Chloride (units (unkno wn) date) (98-107) mmol/L unknown) (unknown) (no (unknown) (unknown) Chronic (units (unkno wn) date) [id number] unknown) disease (unknown) (no (unknown) (unknown) Chronic kidney (units (unknown) date) disease, stage III unknown) (moderate) (unknown) (no (unknown) (unknown) Complete Blood (units (unknown) date) Count AUTO DIFF unknown) Stat (unknown) (no (unknown) (unknown) Comprehensive (units ( unknown) date) Metabolic Panel unknown) Stat (unknown) (no (unknown) (unknown) Compression (units (un known) date) fracture of L1 unknown) lumbar vertebra (unknown) (no (unknown) (unknown) Course (units (unkno wn) date) unknown) (unknown) (no (unknown) (unknown) Creatinine (units (unk nown) date) 1.81 H unknown) (0.66-1.25) mg/dL (unknown) (no (unknown) (unknown) Creatinine (units (unk nown) date) (0.66-1.25) mg/dL unknown) (unknown) (no (unknown) (unknown) 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 (unknown) (no (unknown) (unknown) D Dimer Stat (units (u nknown) date) unknown) (unknown) (no (unknown) (unknown) D-Dimer (<230) (units (unknown) date) ng/mL unknown) (unknown) (no (unknown) (unknown) D-Dimer 686 H (units (unknown) date) (<230) ng/mL unknown) (unknown) (no (unknown) (unknown) : 1945 (units (unknown) date) Acct:[id number] unknown) (unknown) (no (unknown) (unknown) : 1945 (units (unknown) date) unknown) (unknown) (no (unknown) (unknown) Date of Service: (units (unknown) date) 09/05/21 unknown) (unknown) (no (unknown) (unknown) Departure (units (unkn own) date) unknown) (unknown) (no (unknown) (unknown) Dictated by: (units (u nknown) date) Viji Staples M.D. unknown) on 09/05/2021 at 15:57 (unknown) (no (unknown) (unknown) Discharge Plan (units (unknown) date) unknown) (unknown) (no (unknown) (unknown) Discontinued (units (u nknown) date) Medications unknown) (unknown) (no (unknown) (unknown) ECG Data (units (unkno wn) date) unknown) (unknown) (no (unknown) (unknown) EKG-12 Lead Stat (units (unknown) date) unknown) (unknown) (no (unknown) (unknown) ER Physician: (units ( unknown) date) Rhona Fofana unknown) D.O. (unknown) (no (unknown) (unknown) Elevated PSA (units (u nknown) date) unknown) (unknown) (no (unknown) (unknown) Eos # (Auto) (units (u nknown) date) (0-450) /uL unknown) (unknown) (no (unknown) (unknown) Eos # (Auto) 400 (units (unknown) date) (0-450) /uL unknown) (unknown) (no (unknown) (unknown) Eos % (Auto) (units (u nknown) date) (2-4) % unknown) (unknown) (no (unknown) (unknown) Eos % (Auto) 5.5 (units (unknown) date) H (2-4) % unknown) (unknown) (no (unknown) (unknown) Estimated GFR (units ( unknown) date) 38 L (>60) unknown) mL/min (unknown) (no (unknown) (unknown) Estimated GFR (units ( unknown) date) (>60) mL/min unknown) (unknown) (no (unknown) (unknown) Exam (units (unkno wn) date) unknown) (unknown) (no (unknown) (unknown) FINDINGS:? (units (unk nown) date) unknown) (unknown) (no (unknown) (unknown) Family History (units (unknown) date) (Reviewed 08/05/20 unknown) @ 10:35 by Derik Wallace DO) (unknown) (no (unknown) (unknown) Father Cancer (units (unknown) date) unknown) (unknown) (no (unknown) (unknown) Fungal pneumonia (units (unknown) date) unknown) (unknown) (no (unknown) (unknown) GASTROINTESTINAL: (units (unknown) date) Denies nausea, unknown) vomiting, abdominal pain, diarrhea, (unknown) (no (unknown) (unknown) GENERAL: Denies (units (unknown) date) chills, fatigue, unknown) malaise, fever, sweats, travel (unknown) (no (unknown) (unknown) : Denies (units (unkn own) date) dysuria, unknown) frequency, incontinence, hematuria, urinary retention, flank (unknown) (no (unknown) (unknown) General (units (unkno wn) date) unknown) (unknown) (no (unknown) (unknown) GenericComposite[ (units (unknown) date) Plt Count unknown) (150-400) X10^3/uL ] (unknown) (no (unknown) (unknown) GenericComposite[ (units (unknown) date) Plt Count 245 unknown) (150-400) X10^3/uL ] (unknown) (no (unknown) (unknown) GenericComposite[ (units (unknown) date) RBC (4.5-5.9) unknown) X10^6/uL ] (unknown) (no (unknown) (unknown) GenericComposite[ (units (unknown) date) RBC 3.38 L unknown) (4.5-5.9) X10^6/uL ] (unknown) (no (unknown) (unknown) GenericComposite[ (units (unknown) date) WBC (4.5-11.0) unknown) X10^3/uL ] (unknown) (no (unknown) (unknown) GenericComposite[ (units (unknown) date) WBC 7.4 unknown) (4.5-11.0) X10^3/uL ] (unknown) (no (unknown) (unknown) Globulin 3.9 (units (unknown) date) (1.7-4.1) g/dL unknown) (unknown) (no (unknown) (unknown) Globulin (units (unkno wn) date) (1.7-4.1) g/dL unknown) (unknown) (no (unknown) (unknown) Glucose 144 H (units (unknown) date) (80-110) mg/dL unknown) (unknown) (no (unknown) (unknown) Glucose (units (unkno wn) date) (80-110) mg/dL unknown) (unknown) (no (unknown) (unknown) 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 unknown) (unknown) (no (unknown) (unknown) HEENT: Denies (units ( unknown) date) sinus pain, ear unknown) pain, sore throat, difficulty swallowing, neck (unknown) (no (unknown) (unknown) HPI - SOB/Dyspnea (units (unknown) date) unknown) (unknown) (no (unknown) (unknown) HPI Narrative: (units (unknown) date) unknown) (unknown) (no (unknown) (unknown) Hct (41-53) % (units (unknown) date) unknown) (unknown) (no (unknown) (unknown) Hct 30.6 L (units (un known) date) (41-53) % unknown) (unknown) (no (unknown) (unknown) 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 (unknown) (no (unknown) (unknown) Hgb (13.5-17.5) (units (unknown) date) g/dL unknown) (unknown) (no (unknown) (unknown) Hgb 10.7 L (units (un known) date) (13.5-17.5) g/dL unknown) (unknown) (no (unknown) (unknown) History of (units (unk nown) date) Present Illness unknown) (unknown) (no (unknown) (unknown) History of (units (unk nown) date) partial colectomy unknown) (unknown) (no (unknown) (unknown) History of (units (unk nown) date) radiofrequency unknown) ablation procedure for cardiac arrhythmia (unknown) (no (unknown) (unknown) IMPRESSION:? (units (u nknown) date) Right basilar unknown) opacity most suggestive of pneumonia. (unknown) (no (unknown) (unknown) INDICATIONS:? (units ( unknown) date) short of breath unknown) (unknown) (no (unknown) (unknown) Imaging Data (units (u nknown) date) unknown) (unknown) (no (unknown) (unknown) Initial Vital (units ( unknown) date) Signs unknown) (unknown) (no (unknown) (unknown) Initial Vital (units ( unknown) date) Signs: unknown) (unknown) (no (unknown) (unknown) Interpretation: (units (unknown) date) unknown) (unknown) (no (unknown) (unknown) Lab Data (units (unkno wn) date) unknown) (unknown) (no (unknown) (unknown) Labs: (units (unkno wn) date) unknown) (unknown) (no (unknown) (unknown) Limitations: no (units (unknown) date) limitations unknown) (unknown) (no (unknown) (unknown) Lipase 157 (units ( unknown) date) (23-300) U/L unknown) (unknown) (no (unknown) (unknown) Lipase (23-300) (units (unknown) date) U/L unknown) (unknown) (no (unknown) (unknown) Lipase Stat (units (un known) date) unknown) (unknown) (no (unknown) (unknown) Loc: ED (units (unkno wn) date) unknown) (unknown) (no (unknown) (unknown) Lungs and (units (unkn own) date) pleura:? Interval unknown) development of patchy right basilar opacity.? Trace (unknown) (no (unknown) (unknown) Lymph # (Auto) (units (unknown) date) (3948-0989) /uL unknown) (unknown) (no (unknown) (unknown) Lymph # (Auto) (units (unknown) date) 1200 unknown) (1576-2457) /uL (unknown) (no (unknown) (unknown) Lymph % (Auto) (units (unknown) date) (25-40) % unknown) (unknown) (no (unknown) (unknown) Lymph % (Auto) (units (unknown) date) 15.9 L (25-40) unknown) % (unknown) (no (unknown) (unknown) MCH (26-34) PG (units (unknown) date) unknown) (unknown) (no (unknown) (unknown) MCH 31.5 (units (unkn own) date) (26-34) PG unknown) (unknown) (no (unknown) (unknown) MCHC (30-36) % (units (unknown) date) unknown) (unknown) (no (unknown) (unknown) MCHC 34.8 (units (unk nown) date) (30-36) % unknown) (unknown) (no (unknown) (unknown) MCV (80-100) (units (unknown) date) fL unknown) (unknown) (no (unknown) (unknown) MCV 90.6 (units (unkn own) date) (80-100) fL unknown) (unknown) (no (unknown) (unknown) MDM - SOB/Dyspnea (units (unknown) date) unknown) (unknown) (no (unknown) (unknown) MDM Narrative (units ( unknown) date) unknown) (unknown) (no (unknown) (unknown) MR#: [id number] (units (unknown) date) unknown) (unknown) (no (unknown) (unknown) MUSCULOSKELETAL: (units (unknown) date) Denies weakness, unknown) joint pain, or bony pain (unknown) (no (unknown) (unknown) Mediastinum:? (units ( unknown) date) Mediastinal unknown) contours appear normal.? Heart size is normal.? (unknown) (no (unknown) (unknown) Medical History (units (unknown) date) (Updated 09/05/21 unknown) @ 00:00 by ) (unknown) (no (unknown) (unknown) Medical decision (units (unknown) date) making narrative: unknown) (unknown) (no (unknown) (unknown) Mode of arrival: (units (unknown) date) Ambulatory unknown) (unknown) (no (unknown) (unknown) [place] # (Auto) (units ( unknown) date) (0-900) /uL unknown) (unknown) (no (unknown) (unknown) [place] # (Auto) (units ( unknown) date) 700 (0-900) unknown) /uL (unknown) (no (unknown) (unknown) [place] % (Auto) (units ( unknown) date) (3-14) % unknown) (unknown) (no (unknown) (unknown) [place] % (Auto) (units ( unknown) date) 8.9 (3-14) % unknown) (unknown) (no (unknown) (unknown) Mother C. (units (un known) date) difficile colitis unknown) (unknown) (no (unknown) (unknown) NEUROLOGIC: (units (un known) date) Denies weakness, unknown) dizziness, headache, numbness, change in speech, (unknown) (no (unknown) (unknown) NT-Pro-B (units (unkno wn) date) Natriuret Pep unknown) 594 H (<450) pg/mL (unknown) (no (unknown) (unknown) NT-Pro-B (units (unkno wn) date) Natriuret Pep unknown) (<450) pg/mL (unknown) (no (unknown) (unknown) NT-proBNP (units (unkn own) date) (BNP-Adult 18+) unknown) Stat (unknown) (no (unknown) (unknown) Narrative: (units (unk nown) date) unknown) (unknown) (no (unknown) (unknown) Neut # (Auto) (units ( unknown) date) (6260-3372) /uL unknown) (unknown) (no (unknown) (unknown) Neut # (Auto) (units ( unknown) date) 5100 unknown) (8277-5169) /uL (unknown) (no (unknown) (unknown) Neut % (Auto) (units ( unknown) date) (50-75) % unknown) (unknown) (no (unknown) (unknown) Neut % (Auto) (units ( unknown) date) 69.0 (50-75) % unknown) (unknown) (no (unknown) (unknown) No Action (units (unkn own) date) unknown) (unknown) (no (unknown) (unknown) Normal sinus (units (u nknown) date) rhythm rate 89 MT unknown) interval 136 QRS [address] changes (unknown) (no (unknown) (unknown) Ordered: (units (unkno wn) date) unknown) (unknown) (no (unknown) (unknown) Ordering (units (unkno wn) date) Provider: unknown) Rhona Fofana D.O. (unknown) (no (unknown) (unknown) Orders (units (unkno wn) date) unknown) (unknown) (no (unknown) (unknown) Oxygen Delivery (units (unknown) date) Method unknown) (unknown) (no (unknown) (unknown) Oxygen Delivery (units (unknown) date) Method unknown) (unknown) (no (unknown) (unknown) Oxygen Delivery (units (unknown) date) Method 09/05/21 unknown) 14:36 (unknown) (no (unknown) (unknown) Oxygen Delivery (units (unknown) date) Method Room Air unknown) (unknown) (no (unknown) (unknown) Oxymetazoline HCl (units (unknown) date) (Oxymetazoline unknown) Nasal [place] 15 Ml) 2 sprays NASAL NOW ONE (unknown) (no (unknown) (unknown) PROCEDURE:? XR (units (unknown) date) CHEST 1V unknown) (unknown) (no (unknown) (unknown) PSYCHIATRIC: No (units (unknown) date) concerning unknown) psychosocial issues. (unknown) (no (unknown) (unknown) Parkinson disease (units (unknown) date) unknown) (unknown) (no (unknown) (unknown) Patient History (units (unknown) date) unknown) (unknown) (no (unknown) (unknown) Patient has (units (unk nown) date) chronic cough he unknown) sounds like he has sputum production frequently but (unknown) (no (unknown) (unknown) Patient is a (units (un known) date) 75-year-old male unknown) with history of leukemia [id number] disease (unknown) (no (unknown) (unknown) Patient: (units (unkno wn) date) Adonis Dueñas unknown) MR#: M (unknown) (no (unknown) (unknown) Patient: (units (unkno wn) date) Adonis Dueñas unknown) (unknown) (no (unknown) (unknown) Potassium 3.6 (units (unknown) date) (3.4-5.1) mmol/L unknown) (unknown) (no (unknown) (unknown) Potassium (units (unkn own) date) (3.4-5.1) mmol/L unknown) (unknown) (no (unknown) (unknown) Prescriptions: (units (unknown) date) unknown) (unknown) (no (unknown) (unknown) Procedure: XR (units ( unknown) date) chest 1V unknown) (unknown) (no (unknown) (unknown) Pulse Oximetry (units (unknown) date) 99 09/05/21 unknown) 14:36 (unknown) (no (unknown) (unknown) Pulse Oximetry (units (unknown) date) 100 97 92 unknown) (unknown) (no (unknown) (unknown) Pulse Oximetry 94 (units (unknown) date) unknown) (unknown) (no (unknown) (unknown) Pulse Oximetry 99 (units (unknown) date) 96 100 unknown) (unknown) (no (unknown) (unknown) Pulse Rate 96 H (units (unknown) date) 09/05/21 14:36 unknown) (unknown) (no (unknown) (unknown) Pulse Rate 82 86 (units (unknown) date) 92 H unknown) (unknown) (no (unknown) (unknown) Pulse Rate 92 H (units (unknown) date) unknown) (unknown) (no (unknown) (unknown) Pulse Rate 96 H (units (unknown) date) 98 H 88 unknown) (unknown) (no (unknown) (unknown) RDW (11.6-14.8) (units (unknown) date) % unknown) (unknown) (no (unknown) (unknown) RDW 13.8 (units (unkn own) date) (11.6-14.8) % unknown) (unknown) (no (unknown) (unknown) RESPIRATORY: (units (u nknown) date) Denies dyspnea, unknown) cough, wheezing, hemoptysis, sputum. (unknown) (no (unknown) (unknown) Referrals: (units (unk nown) date) unknown) (unknown) (no (unknown) (unknown) Related Data (units (u nknown) date) unknown) (unknown) (no (unknown) (unknown) Respiratory Rate (units (unknown) date) unknown) (unknown) (no (unknown) (unknown) Respiratory Rate (units (unknown) date) unknown) (unknown) (no (unknown) (unknown) Respiratory Rate (units (unknown) date) 28 H 09/05/21 unknown) 14:36 (unknown) (no (unknown) (unknown) Respiratory Rate (units (unknown) date) 28 H unknown) (unknown) (no (unknown) (unknown) Result diagrams: (units (unknown) date) unknown) (unknown) (no (unknown) (unknown) Review of Systems (units (unknown) date) unknown) (unknown) (no (unknown) (unknown) 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) (unknown) (no (unknown) (unknown) SARS-CoV-2 (PCR) (units (unknown) date) (Negative) unknown) (unknown) (no (unknown) (unknown) SARS-CoV-2 (PCR) (units (unknown) date) Negative unknown) (Negative) (unknown) (no (unknown) (unknown) SKIN: No rash, no (units (unknown) date) erythema, no unknown) pruritus (unknown) (no (unknown) (unknown) Signed By: (units (unk nown) date) unknown) (unknown) (no (unknown) (unknown) Skin cancer (units (un known) date) unknown) (unknown) (no (unknown) (unknown) Smoking Status: (units (unknown) date) Former smoker unknown) (unknown) (no (unknown) (unknown) Smoking Status: (units (unknown) date) Former smoker unknown) (unknown) (no (unknown) (unknown) Social History (units (unknown) date) (Reviewed 12/26/18 unknown) @ 01:35 by Rhona Fofana DO) (unknown) (no (unknown) (unknown) Sodium 139 (units ( unknown) date) (137-145) mmol/L unknown) (unknown) (no (unknown) (unknown) Sodium (units (unkno wn) date) (137-145) mmol/L unknown) (unknown) (no (unknown) (unknown) Source: patient (units (unknown) date) unknown) (unknown) (no (unknown) (unknown) Spinal stenosis (units (unknown) date) unknown) (unknown) (no (unknown) (unknown) Stated Complaint: (units (unknown) date) sob/weak unknown) (unknown) (no (unknown) (unknown) Substance Use (units ( unknown) date) Type: does not use unknown) (unknown) (no (unknown) (unknown) Surgical History (units (unknown) date) (Updated 03/03/21 unknown) @ 18:43 by Derik Smith MD) (unknown) (no (unknown) (unknown) Surgical changes (units (unknown) date) and devices:? unknown) Prosthetic valve is noted. (unknown) (no (unknown) (unknown) T11 vertebral (units ( unknown) date) fracture unknown) (unknown) (no (unknown) (unknown) TECHNIQUE:? One (units (unknown) date) view of the chest unknown) was acquired.? (unknown) (no (unknown) (unknown) Temperature (units (un known) date) unknown) (unknown) (no (unknown) (unknown) Temperature (units (un known) date) unknown) (unknown) (no (unknown) (unknown) Temperature 97.1 (units (unknown) date) F L 09/05/21 unknown) 14:36 (unknown) (no (unknown) (unknown) Temperature 97.1 (units (unknown) date) F L unknown) (unknown) (no (unknown) (unknown) Time Seen by (units (u nknown) date) Provider: 09/05/21 unknown) 15:25 (unknown) (no (unknown) (unknown) Tobacco: How many (units (unknown) date) years used: 10 unknown) (unknown) (no (unknown) (unknown) Total Bilirubin (units (unknown) date) 0.5 (0.2-1.3) unknown) mg/dL (unknown) (no (unknown) (unknown) Total Bilirubin (units (unknown) date) (0.2-1.3) mg/dL unknown) (unknown) (no (unknown) (unknown) Total Creatine (units (unknown) date) Kinase 57 unknown) (55-170) U/L (unknown) (no (unknown) (unknown) Total Creatine (units (unknown) date) Kinase (55-170) unknown) U/L (unknown) (no (unknown) (unknown) Total Protein (units ( unknown) date) 7.9 (6.3-8.2) unknown) g/dL (unknown) (no (unknown) (unknown) Total Protein (units ( unknown) date) (6.3-8.2) g/dL unknown) (unknown) (no (unknown) (unknown) Troponin + CK (units ( unknown) date) Cardiac Panel Stat unknown) (unknown) (no (unknown) (unknown) Troponin I < (units (unknown) date) 0.012 unknown) (0.01-0.034) ng/mL (unknown) (no (unknown) (unknown) Troponin I (units (unk nown) date) (0.01-0.034) unknown) ng/mL (unknown) (no (unknown) (unknown) Vital Signs (units (un known) date) unknown) (unknown) (no (unknown) (unknown) Vital signs: (units (u nknown) date) unknown) (unknown) (no (unknown) (unknown) Waiting for CT (units (unknown) date) angio chest. unknown) (unknown) (no (unknown) (unknown) XR chest 1V Stat (units (unknown) date) unknown) (unknown) (no (unknown) (unknown) [Embedded Image (units (unknown) date) Not Available] unknown) (unknown) (no (unknown) (unknown) [From BENADRYL] (units (unknown) date) SEDATION unknown) (unknown) (no (unknown) (unknown) acetaminophen (units ( unknown) date) [ACETAMINOPHEN] unknown) AdvReac Unknown ABD PAIN Verified 09/05/21 14:36 (unknown) (no (unknown) (unknown) aerosol inhaler (units (unknown) date) Shortness Of unknown) Breath (unknown) (no (unknown) (unknown) albuterol sulfate (units (unknown) date) 90 mcg/actuation 2 unknown) puff inhalation Q4H PRN 11/04/17 08/05/20 (unknown) (no (unknown) (unknown) alcohol intake (units (unknown) date) frequency: unknown) holidays/special occasions only (unknown) (no (unknown) (unknown) alcohol intake: (units (unknown) date) current unknown) (unknown) (no (unknown) (unknown) appear (units (unkno wn) date) unknown) (unknown) (no (unknown) (unknown) azithromycin 250 (units (unknown) date) mg tablet 250 mg unknown) PO MOWEFR 04/25/18 08/05/20 (unknown) (no (unknown) (unknown) bacitracin (units (unk nown) date) [BACITRACIN] unknown) Allergy Unknown SKIN Verified 09/05/21 14:36 (unknown) (no (unknown) (unknown) being weak a (units (u nknown) date) difficulty walking unknown) around but does not get need a walker. He is (unknown) (no (unknown) (unknown) bilateral (units (unkn own) date) unknown) (unknown) (no (unknown) (unknown) carbidopa ER 25 (units (unknown) date) mg-levodopa 100 mg unknown) 1 - 2 tab PO TID ##0 10/02/16 08/05/20 (unknown) (no (unknown) (unknown) chlorhexidine (units ( unknown) date) [CHLORHEXIDINE] unknown) Allergy Unknown SKIN Verified 09/05/21 14:36 (unknown) (no (unknown) (unknown) confusion (units (unkn own) date) unknown) (unknown) (no (unknown) (unknown) congestion using (units (unknown) date) albuterol twice a unknown) day he continues to bring up a lot of sputum (unknown) (no (unknown) (unknown) constipation, (units ( unknown) date) melena. unknown) (unknown) (no (unknown) (unknown) costophrenic (units (u nknown) date) angle blunting unknown) suggestive of minimal effusions. (unknown) (no (unknown) (unknown) dexamethasone 0.5 (units (unknown) date) mg/5 mL oral 1 mg unknown) PO BID 05/23/20 08/05/20 (unknown) (no (unknown) (unknown) diclofenac (units (unk nown) date) epolamine 1.3 % 1 unknown) patch topical BID #30 ea 08/15/20 (unknown) (no (unknown) (unknown) diltiazem Allergy (units (unknown) date) Intermediate Hives unknown) Verified 09/05/21 14:36 (unknown) (no (unknown) (unknown) diphenhydramine (units (unknown) date) AdvReac Unknown unknown) EXTREME Verified 09/05/21 14:36 (unknown) (no (unknown) (unknown) doing contrast at (units (unknown) date) this time he unknown) agrees to do contrast. (unknown) (no (unknown) (unknown) fever he has no (units (unknown) date) leukocytosis. unknown) X-ray concerning for pneumonia symptoms where may (unknown) (no (unknown) (unknown) fluoride (sodium) (units (unknown) date) 1.1 % dental gel 1 unknown) applic dental BEDTIME 04/30/18 08/05/20 (unknown) (no (unknown) (unknown) for a PE. He (units ( unknown) date) does have chronic unknown) kidney disease seems to be stable slightly (unknown) (no (unknown) (unknown) gabapentin 100 mg (units (unknown) date) capsule 100 mg PO unknown) TID #90 caps 01/02/21 (unknown) (no (unknown) (unknown) gabapentin 400 mg (units (unknown) date) capsule 400 mg PO unknown) TID #90 caps 01/31/21 (unknown) (no (unknown) (unknown) gram/dose oral (units (unknown) date) powder (Miralax) unknown) (unknown) (no (unknown) (unknown) have gotten worse (units (unknown) date) over last couple unknown) of days. He denies any chest pain. He wears (unknown) (no (unknown) (unknown) household (units (unkn own) date) members: spouse unknown) (unknown) (no (unknown) (unknown) hydroxyzine HCl (units (unknown) date) 10 mg tablet 10 mg unknown) PO Q8H PRN anxiety #60 tabs 03/03/21 (unknown) (no (unknown) (unknown) improved from (units ( unknown) date) previous blood unknown) work. Discussed with him risks and benefits of (unknown) (no (unknown) (unknown) ipratropium 0.5 (units (unknown) date) mg-albuterol 3 mg unknown) 3 ml inhalation Q6-8H PRN SOB 07/14/18 (unknown) (no (unknown) (unknown) metoprolol (units (unk nown) date) succinate 50 mg 50 unknown) mg PO BEDTIME 04/25/18 08/05/20 (unknown) (no (unknown) (unknown) months. He has (units (unknown) date) had productive unknown) sputum no fevers or chills. 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 He has had chronic chest (unknown) (no (unknown) (unknown) oxycodone 10 mg (units (unknown) date) tablet 10 mg PO unknown) 1-2XD PRN chronic pain 04/25/18 08/05/20 (unknown) (no (unknown) (unknown) pain (units (unkno wn) date) unknown) (unknown) (no (unknown) (unknown) pain. 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 (units (unknown) date) unknown) (unknown) (no (unknown) (unknown) release (units (unkno wn) date) unknown) (unknown) (no (unknown) (unknown) rifampin (units (unkno wn) date) [RIFAMPIN] Allergy unknown) Unknown HIVES Verified 09/05/21 14:36 (unknown) (no (unknown) (unknown) selegiline HCl 5 (units (unknown) date) mg tablet 5 mg PO unknown) BID 11/04/17 08/05/20 (unknown) (no (unknown) (unknown) sennosides 8.6 mg (units (unknown) date) tablet (senna) unknown) 17.2 tab PO BEDTIME ##0 17 08/05/20 (unknown) (no (unknown) (unknown) soln (units (unkno wn) date) unknown) (unknown) (no (unknown) (unknown) solution (units (unkno wn) date) unknown) (unknown) (no (unknown) (unknown) tablet,extended (units (unknown) date) release unknown) (unknown) (no (unknown) (unknown) tablet,extended (units (unknown) date) release 24 hr unknown) (unknown) (no (unknown) (unknown) tamsulosin 0.4 mg (units (unknown) date) capsule (Flomax) unknown) 0.4 mg PO BEDTIME ##0 10/01/16 08/05/20 (unknown) (no (unknown) (unknown) today with (units (unkn own) date) increasing unknown) shortness of breath which has been worse over the last few (unknown) (no (unknown) (unknown) transdermal 12 (units (unknown) date) hour patch unknown) (Flector) (unknown) (no (unknown) (unknown) unremarkable.? (units (unknown) date) unknown) (unknown) (no (unknown) (unknown) valacyclovir 500 (units (unknown) date) mg tablet 500 mg unknown) PO BEDTIME 04/25/18 08/05/20 (unknown) (no (unknown) (unknown) what is new. (units (u nknown) date) D-dimer is unknown) slightly elevated at 600 he has multiple risk factors Result panel 11 (unknown) (no (unknown) (unknown) (no value) (units (unk nown) date) unknown) (unknown) (no (unknown) (unknown) Radiologist's (units ( unknown) date) Impression: unknown) (unknown) (no (unknown) (unknown) PO DAILY PRN (units (u nknown) date) (Reason: nausea unknown) and vomiting) (unknown) (no (unknown) (unknown) Date of Service: (units (unknown) date) 09/05/21 unknown) (unknown) (no (unknown) (unknown) (no value) (units (unk nown) date) unknown) (unknown) (no (unknown) (unknown) 0.4 mg PO BEDTIME (units (unknown) date) Qty: 0 unknown) (unknown) (no (unknown) (unknown) 09/05/21 16:00 (units (unknown) date) unknown) (unknown) (no (unknown) (unknown) 1 - 2 tab PO TID (units (unknown) date) Qty: 0 unknown) (unknown) (no (unknown) (unknown) 1 applic Dental (units (unknown) date) BEDTIME unknown) (unknown) (no (unknown) (unknown) 1 mg PO BID (units (un known) date) unknown) (unknown) (no (unknown) (unknown) 1 patch topical (units (unknown) date) BID Qty: 30 1RF unknown) (unknown) (no (unknown) (unknown) 10 mg PO 1-2XD (units (unknown) date) MDD 20 mg PRN unknown) (Reason: chronic pain) (unknown) (no (unknown) (unknown) 10 mg PO Q8H PRN (units (unknown) date) (Reason: anxiety) unknown) Qty: 60 0RF (unknown) (no (unknown) (unknown) 100 mg PO TID (units ( unknown) date) Qty: 90 1RF unknown) (unknown) (no (unknown) (unknown) [facility] (units (unknown) date) unknown) (unknown) (no (unknown) (unknown) 17 gm PO DAILY (units (unknown) date) PRN (Reason: unknown) Constipation) Qty: 0 (unknown) (no (unknown) (unknown) 17.2 tab PO (units (un known) date) BEDTIME Qty: 0 unknown) (unknown) (no (unknown) (unknown) 2 puff INHALATION (units (unknown) date) Q4H PRN (Reason: unknown) Shortness Of Breath) (unknown) (no (unknown) (unknown) 250 mg PO MOWEFR (units (unknown) date) unknown) (unknown) (no (unknown) (unknown) 3 ml INHALATION (units (unknown) date) Q6-8H PRN (Reason: unknown) SOB) (unknown) (no (unknown) (unknown) 30 mg PO QAM (units (u nknown) date) unknown) (unknown) (no (unknown) (unknown) 40 mg PO BID (units (u nknown) date) unknown) (unknown) (no (unknown) (unknown) 400 mg PO TID (units ( unknown) date) Qty: 90 2RF unknown) (unknown) (no (unknown) (unknown) 5 mg PO BID (units (un known) date) unknown) (unknown) (no (unknown) (unknown) 50 mg PO BEDTIME (units (unknown) date) unknown) (unknown) (no (unknown) (unknown) 500 mg PO BEDTIME (units (unknown) date) unknown) (unknown) (no (unknown) (unknown) Allergies (units (unkn own) date) unknown) (unknown) (no (unknown) (unknown) AMAURI Macario (units ( unknown) date) [id number] unknown) (unknown) (no (unknown) (unknown) Documented By: NR (units (unknown) date) unknown) (unknown) (no (unknown) (unknown) ED Orders (units (unkn own) date) unknown) (unknown) (no (unknown) (unknown) Emergency Report (units (unknown) date) unknown) (unknown) (no (unknown) (unknown) Home Medications (units (unknown) date) unknown) (unknown) (no (unknown) (unknown) IRRITATION (units (unk nown) date) unknown) (unknown) (no (unknown) (unknown) [facility] (units (unknown) date) [address] [place] [address] unknown) AMAURI Macario [id number] (unknown) (no (unknown) (unknown) Lab Results (units (un known) date) unknown) (unknown) (no (unknown) (unknown) Label Comments: (units (unknown) date) unknown) (unknown) (no (unknown) (unknown) Last Admin: (units (un known) date) 09/05/21 17:50 unknown) Dose: 2 sprays (unknown) (no (unknown) (unknown) Previous Rx's (units ( unknown) date) unknown) (unknown) (no (unknown) (unknown) Rx Instructions: (units (unknown) date) unknown) (unknown) (no (unknown) (unknown) Signed (units (unkno wn) date) unknown) (unknown) (no (unknown) (unknown) Stop: 09/05/21 (units (unknown) date) 17:47 unknown) (unknown) (no (unknown) (unknown) TO HIS EXISTING (units (unknown) date) 400MG TID. unknown) (unknown) (no (unknown) (unknown) USE TO TITRATE (units (unknown) date) DOSE TID. PT AWARE unknown) OF HOW TO ADD THIS (unknown) (no (unknown) (unknown) Vital Signs - 8 (units (unknown) date) hr unknown) (unknown) (no (unknown) (unknown) XRay Report (units (un known) date) unknown) (unknown) (no (unknown) (unknown) generally takes (units (unknown) date) at least tid, but unknown) may take up to 2 tabs tid (unknown) (no (unknown) (unknown) leave on 3-4 (units (u nknown) date) minutes then spit unknown) out. do not rinse, eat or drink for 30 minutes (unknown) (no (unknown) (unknown) take 1 tablet by (units (unknown) date) mouth EVERY SATURDAY unknown) SATURDAY AND SATURDAY (unknown) (no (unknown) (unknown) take 1 tablet by (units (unknown) date) mouth daily unknown) (unknown) (no (unknown) (unknown) take 1 tablet by (units (unknown) date) mouth every unknown) morning (unknown) (no (unknown) (unknown) (no value) (units (unk nown) date) unknown) (unknown) (no (unknown) (unknown) 09/05/21 09/05/21 (units (unknown) date) 09/05/21 unknown) Range/Units (unknown) (no (unknown) (unknown) 09/05/21 (units (unkno wn) date) Range/Units unknown) (unknown) (no (unknown) (unknown) 16:00 (units (unkno wn) date) unknown) (unknown) (no (unknown) (unknown) 16:00 16:00 16:00 (units (unknown) date) unknown) (unknown) (no (unknown) (unknown) albuterol sulfate (units (unknown) date) 90 mcg/actuation unknown) Hfa Aerosol Inhaler (unknown) (no (unknown) (unknown) azithromycin 250 (units (unknown) date) mg tablet unknown) (unknown) (no (unknown) (unknown) carbidopa-levodop (units (unknown) date) a 25 MG/100 MG unknown) tablet extended release (unknown) (no (unknown) (unknown) dexamethasone 0.5 (units (unknown) date) mg/5 mL solution unknown) (unknown) (no (unknown) (unknown) diclofenac (units (unk nown) date) epolamine unknown) [Flector] 1.3 % patch 12 hour (unknown) (no (unknown) (unknown) fluoride (sodium) (units (unknown) date) 1.1 % Gel unknown) (unknown) (no (unknown) (unknown) gabapentin 100 mg (units (unknown) date) capsule unknown) (unknown) (no (unknown) (unknown) gabapentin 400 mg (units (unknown) date) capsule unknown) (unknown) (no (unknown) (unknown) hydroxyzine HCl (units (unknown) date) 10 mg tablet unknown) (unknown) (no (unknown) (unknown) ipratropium-albut (units (unknown) date) fermín 0.5 mg-3 unknown) mg(2.5 mg base)/3 mL Solution For Nebulization (unknown) (no (unknown) (unknown) metoprolol (units (unk nown) date) succinate 50 mg unknown) tablet extended release 24 hr (unknown) (no (unknown) (unknown) nifedipine 30 mg (units (unknown) date) tablet extended unknown) release (unknown) (no (unknown) (unknown) ondansetron HCl 4 (units (unknown) date) mg tablet unknown) (unknown) (no (unknown) (unknown) oxycodone 10 mg (units (unknown) date) tablet unknown) (unknown) (no (unknown) (unknown) pantoprazole 40 (units (unknown) date) mg Tablet,Delayed unknown) Release (Dr/Ec) (unknown) (no (unknown) (unknown) polyethylene (units (u nknown) date) glycol 3350 unknown) [Miralax] 119 GM powder (unknown) (no (unknown) (unknown) selegiline HCl 5 (units (unknown) date) mg Tablet unknown) (unknown) (no (unknown) (unknown) sennosides (units (unk nown) date) [senna] 8.6 MG unknown) tablet (unknown) (no (unknown) (unknown) tamsulosin (units (unk nown) date) [Flomax] 0.4 MG unknown) capsule,extended release 24hr (unknown) (no (unknown) (unknown) valacyclovir 500 (units (unknown) date) mg tablet unknown) (unknown) (no (unknown) (unknown) 09/05/21 (units (unkno wn) date) unknown) (unknown) (no (unknown) (unknown) He is followed (units (unknown) date) closely by unknown) [facility] and [facility]. He complains of (unknown) (no (unknown) (unknown) Medication (units (unk nown) date) Instructions unknown) Recorded (unknown) (no (unknown) (unknown) Medication (units (unk nown) date) Instructions unknown) Recorded Confirmed (unknown) (no (unknown) (unknown) may be worse over (units (unknown) date) the last few days. unknown) He is not hypoxic. He does not have a (unknown) (no (unknown) (unknown) not be consistent (units (unknown) date) with pneumonia it unknown) is difficult to tell what is chronic and (unknown) (no (unknown) (unknown) (2.5 mg base)/3 (units (unknown) date) mL nebulization unknown) (unknown) (no (unknown) (unknown) *Temp,ED* (units (unkn own) date) [Primary Care unknown) Provider] - (unknown) (no (unknown) (unknown) [phone] (units (unkn own) date) unknown) (unknown) (no (unknown) (unknown) 08/05/20 (units (unkno wn) date) unknown) (unknown) (no (unknown) (unknown) 09/05/21 15:25 (units (unknown) date) unknown) (unknown) (no (unknown) (unknown) 09/05/21 16:00 (units (unknown) date) unknown) (unknown) (no (unknown) (unknown) 09/05/21 17:38 (units (unknown) date) unknown) (unknown) (no (unknown) (unknown) 12 point review (units (unknown) date) of systems is unknown) negative except for those stated above and HPI (unknown) (no (unknown) (unknown) 14:36 09/05/21 (units (unknown) date) unknown) (unknown) (no (unknown) (unknown) 14:49 09/05/21 (units (unknown) date) unknown) (unknown) (no (unknown) (unknown) 15:00 (units (unkno wn) date) unknown) (unknown) (no (unknown) (unknown) 15:30 09/05/21 (units (unknown) date) unknown) (unknown) (no (unknown) (unknown) 16:00 09/05/21 (units (unknown) date) unknown) (unknown) (no (unknown) (unknown) 16:38 (units (unkno wn) date) unknown) (unknown) (no (unknown) (unknown) 16:39 (units (unkno wn) date) unknown) (unknown) (no (unknown) (unknown) 16:39 09/05/21 (units (unknown) date) unknown) (unknown) (no (unknown) (unknown) 2 L of oxygen at (units (unknown) date) night but also has unknown) started wearing some oxygen during the day. (unknown) (no (unknown) (unknown) ? (units (unkno wn) date) unknown) (unknown) (no (unknown) (unknown) ALT 7 (<50) (units (unknown) date) IU/L unknown) (unknown) (no (unknown) (unknown) ALT (<50) IU/L (units (unknown) date) unknown) (unknown) (no (unknown) (unknown) AST 31 (units (unkn own) date) (17-59) IU/L unknown) (unknown) (no (unknown) (unknown) AST (17-59) (units ( unknown) date) IU/L unknown) (unknown) (no (unknown) (unknown) Accession Number: (units (unknown) date) [id number] ?? unknown) (unknown) (no (unknown) (unknown) Acct:[id number] (units (unknown) date) unknown) (unknown) (no (unknown) (unknown) Age/Sex: 75 / M (units (unknown) date) unknown) (unknown) (no (unknown) (unknown) Age/Sex: 75 / M (units (unknown) date) unknown) (unknown) (no (unknown) (unknown) Albumin 4.0 (units (unknown) date) (3.5-5.0) g/dL unknown) (unknown) (no (unknown) (unknown) Albumin (units (unkno wn) date) (3.5-5.0) g/dL unknown) (unknown) (no (unknown) (unknown) Albumin/Globulin (units (unknown) date) Ratio 1.0 unknown) (1.0-2.8) (unknown) (no (unknown) (unknown) Albumin/Globulin (units (unknown) date) Ratio (1.0-2.8) unknown) (unknown) (no (unknown) (unknown) Alkaline (units (unkno wn) date) Phosphatase 87 unknown) (38-126) U/L (unknown) (no (unknown) (unknown) Alkaline (units (unkno wn) date) Phosphatase unknown) (38-126) U/L (unknown) (no (unknown) (unknown) Allergy/AdvReac (units (unknown) date) Type Severity unknown) Reaction Status Date / Time (unknown) (no (unknown) (unknown) Atrial (units (unkno wn) date) fibrillation unknown) (unknown) (no (unknown) (unknown) Atrial flutter (units (unknown) date) unknown) (unknown) (no (unknown) (unknown) BUN 62 H (units (un known) date) (9-20) mg/dL unknown) (unknown) (no (unknown) (unknown) BUN (9-20) (units (u nknown) date) mg/dL unknown) (unknown) (no (unknown) (unknown) BUN/Creatinine (units (unknown) date) Ratio 34.3 H unknown) (6-22) (unknown) (no (unknown) (unknown) BUN/Creatinine (units (unknown) date) Ratio (6-22) unknown) (unknown) (no (unknown) (unknown) Baso # (Auto) (units ( unknown) date) (0-100) /uL unknown) (unknown) (no (unknown) (unknown) Baso # (Auto) (units ( unknown) date) 100 (0-100) unknown) /uL (unknown) (no (unknown) (unknown) Baso % (Auto) (units ( unknown) date) (0-2) % unknown) (unknown) (no (unknown) (unknown) Baso % (Auto) (units ( unknown) date) 0.7 (0-2) % unknown) (unknown) (no (unknown) (unknown) Blood Pressure (units (unknown) date) unknown) (unknown) (no (unknown) (unknown) Blood Pressure (units (unknown) date) 140/104 H unknown) 09/05/21 14:36 (unknown) (no (unknown) (unknown) Blood Pressure (units (unknown) date) 148/71 H unknown) (unknown) (no (unknown) (unknown) Blood Pressure (units (unknown) date) 140/104 H unknown) (unknown) (no (unknown) (unknown) Bones and chest (units (unknown) date) wall:? No unknown) suspicious bony lesions.? 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 (units (u nknown) date) [facility], unknown) CR, XR CHEST 1V, 03/03/2021, 14:03. (unknown) (no (unknown) (unknown) COVID19 -Nasal (units (unknown) date) RAPID/Pre-Proc unknown) Stat (unknown) (no (unknown) (unknown) CT angio chest PE (units (unknown) date) protocol Stat unknown) (unknown) (no (unknown) (unknown) Calcium 9.1 (units (unknown) date) (8.4-10.2) mg/dL unknown) (unknown) (no (unknown) (unknown) Calcium (units (unkno wn) date) (8.4-10.2) mg/dL unknown) (unknown) (no (unknown) (unknown) Carbon Dioxide (units (unknown) date) 31 (22-32) unknown) mmol/L (unknown) (no (unknown) (unknown) Carbon Dioxide (units (unknown) date) (22-32) mmol/L unknown) (unknown) (no (unknown) (unknown) Chest x-ray: (units (u nknown) date) unknown) (unknown) (no (unknown) (unknown) Chief Complaint: (units (unknown) date) Shortness of unknown) Breath/Dyspnea (unknown) (no (unknown) (unknown) Chloride 99 (units (unknown) date) (98-107) mmol/L unknown) (unknown) (no (unknown) (unknown) Chloride (units (unkno wn) date) (98-107) mmol/L unknown) (unknown) (no (unknown) (unknown) Chronic (units (unkno wn) date) [id number] unknown) disease (unknown) (no (unknown) (unknown) Chronic kidney (units (unknown) date) disease, stage III unknown) (moderate) (unknown) (no (unknown) (unknown) Complete Blood (units (unknown) date) Count AUTO DIFF unknown) Stat (unknown) (no (unknown) (unknown) Comprehensive (units ( unknown) date) Metabolic Panel unknown) Stat (unknown) (no (unknown) (unknown) Compression (units (un known) date) fracture of L1 unknown) lumbar vertebra (unknown) (no (unknown) (unknown) Course (units (unkno wn) date) unknown) (unknown) (no (unknown) (unknown) Creatinine (units (unk nown) date) 1.81 H unknown) (0.66-1.25) mg/dL (unknown) (no (unknown) (unknown) Creatinine (units (unk nown) date) (0.66-1.25) mg/dL unknown) (unknown) (no (unknown) (unknown) 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 (unknown) (no (unknown) (unknown) D Dimer Stat (units (u nknown) date) unknown) (unknown) (no (unknown) (unknown) D-Dimer (<230) (units (unknown) date) ng/mL unknown) (unknown) (no (unknown) (unknown) D-Dimer 686 H (units (unknown) date) (<230) ng/mL unknown) (unknown) (no (unknown) (unknown) : 1945 (units (unknown) date) Acct:[id number] unknown) (unknown) (no (unknown) (unknown) : 1945 (units (unknown) date) unknown) (unknown) (no (unknown) (unknown) Date of Service: (units (unknown) date) 09/05/21 unknown) (unknown) (no (unknown) (unknown) Departure (units (unkn own) date) unknown) (unknown) (no (unknown) (unknown) Dictated by: (units (u nknown) date) Viji Staples M.D. unknown) on 09/05/2021 at 15:57 (unknown) (no (unknown) (unknown) Discharge Plan (units (unknown) date) unknown) (unknown) (no (unknown) (unknown) Discontinued (units (u nknown) date) Medications unknown) (unknown) (no (unknown) (unknown) ECG Data (units (unkno wn) date) unknown) (unknown) (no (unknown) (unknown) EKG-12 Lead Stat (units (unknown) date) unknown) (unknown) (no (unknown) (unknown) ER Physician: (units ( unknown) date) Rhona Fofana unknown) D.O. (unknown) (no (unknown) (unknown) Elevated PSA (units (u nknown) date) unknown) (unknown) (no (unknown) (unknown) Eos # (Auto) (units (u nknown) date) (0-450) /uL unknown) (unknown) (no (unknown) (unknown) Eos # (Auto) 400 (units (unknown) date) (0-450) /uL unknown) (unknown) (no (unknown) (unknown) Eos % (Auto) (units (u nknown) date) (2-4) % unknown) (unknown) (no (unknown) (unknown) Eos % (Auto) 5.5 (units (unknown) date) H (2-4) % unknown) (unknown) (no (unknown) (unknown) Estimated GFR (units ( unknown) date) 38 L (>60) unknown) mL/min (unknown) (no (unknown) (unknown) Estimated GFR (units ( unknown) date) (>60) mL/min unknown) (unknown) (no (unknown) (unknown) Exam (units (unkno wn) date) unknown) (unknown) (no (unknown) (unknown) FINDINGS:? (units (unk nown) date) unknown) (unknown) (no (unknown) (unknown) Family History (units (unknown) date) (Reviewed 08/05/20 unknown) @ 10:35 by Derik Wallace DO) (unknown) (no (unknown) (unknown) Father Cancer (units (unknown) date) unknown) (unknown) (no (unknown) (unknown) Fungal pneumonia (units (unknown) date) unknown) (unknown) (no (unknown) (unknown) GASTROINTESTINAL: (units (unknown) date) Denies nausea, unknown) vomiting, abdominal pain, diarrhea, (unknown) (no (unknown) (unknown) GENERAL: Denies (units (unknown) date) chills, fatigue, unknown) malaise, fever, sweats, travel (unknown) (no (unknown) (unknown) : Denies (units (unkn own) date) dysuria, unknown) frequency, incontinence, hematuria, urinary retention, flank (unknown) (no (unknown) (unknown) General (units (unkno wn) date) unknown) (unknown) (no (unknown) (unknown) GenericComposite[ (units (unknown) date) Plt Count unknown) (150-400) X10^3/uL ] (unknown) (no (unknown) (unknown) GenericComposite[ (units (unknown) date) Plt Count 245 unknown) (150-400) X10^3/uL ] (unknown) (no (unknown) (unknown) GenericComposite[ (units (unknown) date) RBC (4.5-5.9) unknown) X10^6/uL ] (unknown) (no (unknown) (unknown) GenericComposite[ (units (unknown) date) RBC 3.38 L unknown) (4.5-5.9) X10^6/uL ] (unknown) (no (unknown) (unknown) GenericComposite[ (units (unknown) date) WBC (4.5-11.0) unknown) X10^3/uL ] (unknown) (no (unknown) (unknown) GenericComposite[ (units (unknown) date) WBC 7.4 unknown) (4.5-11.0) X10^3/uL ] (unknown) (no (unknown) (unknown) Globulin 3.9 (units (unknown) date) (1.7-4.1) g/dL unknown) (unknown) (no (unknown) (unknown) Globulin (units (unkno wn) date) (1.7-4.1) g/dL unknown) (unknown) (no (unknown) (unknown) Glucose 144 H (units (unknown) date) (80-110) mg/dL unknown) (unknown) (no (unknown) (unknown) Glucose (units (unkno wn) date) (80-110) mg/dL unknown) (unknown) (no (unknown) (unknown) 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 unknown) (unknown) (no (unknown) (unknown) HEENT: Denies (units ( unknown) date) sinus pain, ear unknown) pain, sore throat, difficulty swallowing, neck (unknown) (no (unknown) (unknown) HPI - SOB/Dyspnea (units (unknown) date) unknown) (unknown) (no (unknown) (unknown) HPI Narrative: (units (unknown) date) unknown) (unknown) (no (unknown) (unknown) Hct (41-53) % (units (unknown) date) unknown) (unknown) (no (unknown) (unknown) Hct 30.6 L (units (un known) date) (41-53) % unknown) (unknown) (no (unknown) (unknown) 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 (unknown) (no (unknown) (unknown) Hgb (13.5-17.5) (units (unknown) date) g/dL unknown) (unknown) (no (unknown) (unknown) Hgb 10.7 L (units (un known) date) (13.5-17.5) g/dL unknown) (unknown) (no (unknown) (unknown) History of (units (unk nown) date) Present Illness unknown) (unknown) (no (unknown) (unknown) History of (units (unk nown) date) partial colectomy unknown) (unknown) (no (unknown) (unknown) History of (units (unk nown) date) radiofrequency unknown) ablation procedure for cardiac arrhythmia (unknown) (no (unknown) (unknown) IMPRESSION:? (units (u nknown) date) Right basilar unknown) opacity most suggestive of pneumonia. (unknown) (no (unknown) (unknown) INDICATIONS:? (units ( unknown) date) short of breath unknown) (unknown) (no (unknown) (unknown) Imaging Data (units (u nknown) date) unknown) (unknown) (no (unknown) (unknown) Initial Vital (units ( unknown) date) Signs unknown) (unknown) (no (unknown) (unknown) Initial Vital (units ( unknown) date) Signs: unknown) (unknown) (no (unknown) (unknown) Interpretation: (units (unknown) date) unknown) (unknown) (no (unknown) (unknown) Lab Data (units (unkno wn) date) unknown) (unknown) (no (unknown) (unknown) Labs: (units (unkno wn) date) unknown) (unknown) (no (unknown) (unknown) Limitations: no (units (unknown) date) limitations unknown) (unknown) (no (unknown) (unknown) Lipase 157 (units ( unknown) date) (23-300) U/L unknown) (unknown) (no (unknown) (unknown) Lipase (23-300) (units (unknown) date) U/L unknown) (unknown) (no (unknown) (unknown) Lipase Stat (units (un known) date) unknown) (unknown) (no (unknown) (unknown) Loc: ED (units (unkno wn) date) unknown) (unknown) (no (unknown) (unknown) Lungs and (units (unkn own) date) pleura:? Interval unknown) development of patchy right basilar opacity.? Trace (unknown) (no (unknown) (unknown) Lymph # (Auto) (units (unknown) date) (1922-2013) /uL unknown) (unknown) (no (unknown) (unknown) Lymph # (Auto) (units (unknown) date) 1200 unknown) (4749-2507) /uL (unknown) (no (unknown) (unknown) Lymph % (Auto) (units (unknown) date) (25-40) % unknown) (unknown) (no (unknown) (unknown) Lymph % (Auto) (units (unknown) date) 15.9 L (25-40) unknown) % (unknown) (no (unknown) (unknown) MCH (26-34) PG (units (unknown) date) unknown) (unknown) (no (unknown) (unknown) MCH 31.5 (units (unkn own) date) (26-34) PG unknown) (unknown) (no (unknown) (unknown) MCHC (30-36) % (units (unknown) date) unknown) (unknown) (no (unknown) (unknown) MCHC 34.8 (units (unk nown) date) (30-36) % unknown) (unknown) (no (unknown) (unknown) MCV (80-100) (units (unknown) date) fL unknown) (unknown) (no (unknown) (unknown) MCV 90.6 (units (unkn own) date) (80-100) fL unknown) (unknown) (no (unknown) (unknown) MDM - SOB/Dyspnea (units (unknown) date) unknown) (unknown) (no (unknown) (unknown) MDM Narrative (units ( unknown) date) unknown) (unknown) (no (unknown) (unknown) MR#: [id number] (units (unknown) date) unknown) (unknown) (no (unknown) (unknown) MUSCULOSKELETAL: (units (unknown) date) Denies weakness, unknown) joint pain, or bony pain (unknown) (no (unknown) (unknown) Mediastinum:? (units ( unknown) date) Mediastinal unknown) contours appear normal.? Heart size is normal.? (unknown) (no (unknown) (unknown) Medical History (units (unknown) date) (Updated 09/05/21 unknown) @ 00:00 by ) (unknown) (no (unknown) (unknown) Medical decision (units (unknown) date) making narrative: unknown) (unknown) (no (unknown) (unknown) Mode of arrival: (units (unknown) date) Ambulatory unknown) (unknown) (no (unknown) (unknown) [place] # (Auto) (units ( unknown) date) (0-900) /uL unknown) (unknown) (no (unknown) (unknown) [place] # (Auto) (units ( unknown) date) 700 (0-900) unknown) /uL (unknown) (no (unknown) (unknown) [place] % (Auto) (units ( unknown) date) (3-14) % unknown) (unknown) (no (unknown) (unknown) [place] % (Auto) (units ( unknown) date) 8.9 (3-14) % unknown) (unknown) (no (unknown) (unknown) Mother C. (units (un known) date) difficile colitis unknown) (unknown) (no (unknown) (unknown) NEUROLOGIC: (units (un known) date) Denies weakness, unknown) dizziness, headache, numbness, change in speech, (unknown) (no (unknown) (unknown) NT-Pro-B (units (unkno wn) date) Natriuret Pep unknown) 594 H (<450) pg/mL (unknown) (no (unknown) (unknown) NT-Pro-B (units (unkno wn) date) Natriuret Pep unknown) (<450) pg/mL (unknown) (no (unknown) (unknown) NT-proBNP (units (unkn own) date) (BNP-Adult 18+) unknown) Stat (unknown) (no (unknown) (unknown) Narrative: (units (unk nown) date) unknown) (unknown) (no (unknown) (unknown) Neut # (Auto) (units ( unknown) date) (2848-9381) /uL unknown) (unknown) (no (unknown) (unknown) Neut # (Auto) (units ( unknown) date) 5100 unknown) (4344-4552) /uL (unknown) (no (unknown) (unknown) Neut % (Auto) (units ( unknown) date) (50-75) % unknown) (unknown) (no (unknown) (unknown) Neut % (Auto) (units ( unknown) date) 69.0 (50-75) % unknown) (unknown) (no (unknown) (unknown) No Action (units (unkn own) date) unknown) (unknown) (no (unknown) (unknown) Normal sinus (units (u nknown) date) rhythm rate 89 MT unknown) interval 136 QRS [address] changes (unknown) (no (unknown) (unknown) Ordered: (units (unkno wn) date) unknown) (unknown) (no (unknown) (unknown) Ordering (units (unkno wn) date) Provider: unknown) Rhona Fofana D.O. (unknown) (no (unknown) (unknown) Orders (units (unkno wn) date) unknown) (unknown) (no (unknown) (unknown) Oxygen Delivery (units (unknown) date) Method unknown) (unknown) (no (unknown) (unknown) Oxygen Delivery (units (unknown) date) Method unknown) (unknown) (no (unknown) (unknown) Oxygen Delivery (units (unknown) date) Method 09/05/21 unknown) 14:36 (unknown) (no (unknown) (unknown) Oxygen Delivery (units (unknown) date) Method Room Air unknown) (unknown) (no (unknown) (unknown) Oxymetazoline HCl (units (unknown) date) (Oxymetazoline unknown) Nasal [place] 15 Ml) 2 sprays NASAL NOW ONE (unknown) (no (unknown) (unknown) PROCEDURE:? XR (units (unknown) date) CHEST 1V unknown) (unknown) (no (unknown) (unknown) PSYCHIATRIC: No (units (unknown) date) concerning unknown) psychosocial issues. (unknown) (no (unknown) (unknown) Parkinson disease (units (unknown) date) unknown) (unknown) (no (unknown) (unknown) Patient History (units (unknown) date) unknown) (unknown) (no (unknown) (unknown) Patient has (units (unk nown) date) chronic cough he unknown) sounds like he has sputum production frequently but (unknown) (no (unknown) (unknown) Patient is a (units (un known) date) 75-year-old male unknown) with history of leukemia [id number] disease (unknown) (no (unknown) (unknown) Patient: (units (unkno wn) date) Adonis Dueñas unknown) MR#: M (unknown) (no (unknown) (unknown) Patient: (units (unkno wn) date) Adonis Dueñas unknown) (unknown) (no (unknown) (unknown) Potassium 3.6 (units (unknown) date) (3.4-5.1) mmol/L unknown) (unknown) (no (unknown) (unknown) Potassium (units (unkn own) date) (3.4-5.1) mmol/L unknown) (unknown) (no (unknown) (unknown) Prescriptions: (units (unknown) date) unknown) (unknown) (no (unknown) (unknown) Procedure: XR (units ( unknown) date) chest 1V unknown) (unknown) (no (unknown) (unknown) Pulse Oximetry (units (unknown) date) 99 09/05/21 unknown) 14:36 (unknown) (no (unknown) (unknown) Pulse Oximetry (units (unknown) date) 100 97 92 unknown) (unknown) (no (unknown) (unknown) Pulse Oximetry 94 (units (unknown) date) unknown) (unknown) (no (unknown) (unknown) Pulse Oximetry 99 (units (unknown) date) 96 100 unknown) (unknown) (no (unknown) (unknown) Pulse Rate 96 H (units (unknown) date) 07/12/22 14:36 unknown) (unknown) (no (unknown) (unknown) Pulse Rate 82 86 (units (unknown) date) 92 H unknown) (unknown) (no (unknown) (unknown) Pulse Rate 92 H (units (unknown) date) unknown) (unknown) (no (unknown) (unknown) Pulse Rate 96 H (units (unknown) date) 98 H 88 unknown) (unknown) (no (unknown) (unknown) RDW (11.6-14.8) (units (unknown) date) % unknown) (unknown) (no (unknown) (unknown) RDW 13.8 (units (unkn own) date) (11.6-14.8) % unknown) (unknown) (no (unknown) (unknown) RESPIRATORY: (units (u nknown) date) Denies dyspnea, unknown) cough, wheezing, hemoptysis, sputum. (unknown) (no (unknown) (unknown) Referrals: (units (unk nown) date) unknown) (unknown) (no (unknown) (unknown) Related Data (units (u nknown) date) unknown) (unknown) (no (unknown) (unknown) Respiratory Rate (units (unknown) date) unknown) (unknown) (no (unknown) (unknown) Respiratory Rate (units (unknown) date) unknown) (unknown) (no (unknown) (unknown) Respiratory Rate (units (unknown) date) 28 H 09/05/21 unknown) 14:36 (unknown) (no (unknown) (unknown) Respiratory Rate (units (unknown) date) 28 H unknown) (unknown) (no (unknown) (unknown) Result diagrams: (units (unknown) date) unknown) (unknown) (no (unknown) (unknown) Review of Systems (units (unknown) date) unknown) (unknown) (no (unknown) (unknown) 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) (unknown) (no (unknown) (unknown) SARS-CoV-2 (PCR) (units (unknown) date) (Negative) unknown) (unknown) (no (unknown) (unknown) SARS-CoV-2 (PCR) (units (unknown) date) Negative unknown) (Negative) (unknown) (no (unknown) (unknown) SKIN: No rash, no (units (unknown) date) erythema, no unknown) pruritus (unknown) (no (unknown) (unknown) Signed By: (units (unk nown) date) unknown) (unknown) (no (unknown) (unknown) Skin cancer (units (un known) date) unknown) (unknown) (no (unknown) (unknown) Smoking Status: (units (unknown) date) Former smoker unknown) (unknown) (no (unknown) (unknown) Smoking Status: (units (unknown) date) Former smoker unknown) (unknown) (no (unknown) (unknown) Social History (units (unknown) date) (Reviewed 12/26/18 unknown) @ 01:35 by Rhona Fofana DO) (unknown) (no (unknown) (unknown) Sodium 139 (units ( unknown) date) (137-145) mmol/L unknown) (unknown) (no (unknown) (unknown) Sodium (units (unkno wn) date) (137-145) mmol/L unknown) (unknown) (no (unknown) (unknown) Source: patient (units (unknown) date) unknown) (unknown) (no (unknown) (unknown) Spinal stenosis (units (unknown) date) unknown) (unknown) (no (unknown) (unknown) Stated Complaint: (units (unknown) date) sob/weak unknown) (unknown) (no (unknown) (unknown) Substance Use (units ( unknown) date) Type: does not use unknown) (unknown) (no (unknown) (unknown) Surgical History (units (unknown) date) (Updated 03/03/21 unknown) @ 18:43 by Derik Smith MD) (unknown) (no (unknown) (unknown) Surgical changes (units (unknown) date) and devices:? unknown) Prosthetic valve is noted. (unknown) (no (unknown) (unknown) T11 vertebral (units ( unknown) date) fracture unknown) (unknown) (no (unknown) (unknown) TECHNIQUE:? One (units (unknown) date) view of the chest unknown) was acquired.? (unknown) (no (unknown) (unknown) Temperature (units (un known) date) unknown) (unknown) (no (unknown) (unknown) Temperature (units (un known) date) unknown) (unknown) (no (unknown) (unknown) Temperature 97.1 (units (unknown) date) F L 09/05/21 unknown) 14:36 (unknown) (no (unknown) (unknown) Temperature 97.1 (units (unknown) date) F L unknown) (unknown) (no (unknown) (unknown) Time Seen by (units (u nknown) date) Provider: 09/05/21 unknown) 15:25 (unknown) (no (unknown) (unknown) Tobacco: How many (units (unknown) date) years used: 10 unknown) (unknown) (no (unknown) (unknown) Total Bilirubin (units (unknown) date) 0.5 (0.2-1.3) unknown) mg/dL (unknown) (no (unknown) (unknown) Total Bilirubin (units (unknown) date) (0.2-1.3) mg/dL unknown) (unknown) (no (unknown) (unknown) Total Creatine (units (unknown) date) Kinase 57 unknown) (55-170) U/L (unknown) (no (unknown) (unknown) Total Creatine (units (unknown) date) Kinase (55-170) unknown) U/L (unknown) (no (unknown) (unknown) Total Protein (units ( unknown) date) 7.9 (6.3-8.2) unknown) g/dL (unknown) (no (unknown) (unknown) Total Protein (units ( unknown) date) (6.3-8.2) g/dL unknown) (unknown) (no (unknown) (unknown) Troponin + CK (units ( unknown) date) Cardiac Panel Stat unknown) (unknown) (no (unknown) (unknown) Troponin I < (units (unknown) date) 0.012 unknown) (0.01-0.034) ng/mL (unknown) (no (unknown) (unknown) Troponin I (units (unk nown) date) (0.01-0.034) unknown) ng/mL (unknown) (no (unknown) (unknown) Vital Signs (units (un known) date) unknown) (unknown) (no (unknown) (unknown) Vital signs: (units (u nknown) date) unknown) (unknown) (no (unknown) (unknown) Waiting for CT (units (unknown) date) angio chest. unknown) (unknown) (no (unknown) (unknown) XR chest 1V Stat (units (unknown) date) unknown) (unknown) (no (unknown) (unknown) [Embedded Image (units (unknown) date) Not Available] unknown) (unknown) (no (unknown) (unknown) [From BENADRYL] (units (unknown) date) SEDATION unknown) (unknown) (no (unknown) (unknown) acetaminophen (units ( unknown) date) [ACETAMINOPHEN] unknown) AdvReac Unknown ABD PAIN Verified 09/05/21 14:36 (unknown) (no (unknown) (unknown) aerosol inhaler (units (unknown) date) Shortness Of unknown) Breath (unknown) (no (unknown) (unknown) albuterol sulfate (units (unknown) date) 90 mcg/actuation 2 unknown) puff inhalation Q4H PRN 11/04/17 08/05/20 (unknown) (no (unknown) (unknown) alcohol intake (units (unknown) date) frequency: unknown) holidays/special occasions only (unknown) (no (unknown) (unknown) alcohol intake: (units (unknown) date) current unknown) (unknown) (no (unknown) (unknown) appear (units (unkno wn) date) unknown) (unknown) (no (unknown) (unknown) azithromycin 250 (units (unknown) date) mg tablet 250 mg unknown) PO MOWEFR 04/25/18 08/05/20 (unknown) (no (unknown) (unknown) bacitracin (units (unk nown) date) [BACITRACIN] unknown) Allergy Unknown SKIN Verified 09/05/21 14:36 (unknown) (no (unknown) (unknown) being weak a (units (u nknown) date) difficulty walking unknown) around but does not get need a walker. He is (unknown) (no (unknown) (unknown) bilateral (units (unkn own) date) unknown) (unknown) (no (unknown) (unknown) carbidopa ER 25 (units (unknown) date) mg-levodopa 100 mg unknown) 1 - 2 tab PO TID ##0 10/02/16 08/05/20 (unknown) (no (unknown) (unknown) chlorhexidine (units ( unknown) date) [CHLORHEXIDINE] unknown) Allergy Unknown SKIN Verified 09/05/21 14:36 (unknown) (no (unknown) (unknown) confusion (units (unkn own) date) unknown) (unknown) (no (unknown) (unknown) congestion using (units (unknown) date) albuterol twice a unknown) day he continues to bring up a lot of sputum (unknown) (no (unknown) (unknown) constipation, (units ( unknown) date) melena. unknown) (unknown) (no (unknown) (unknown) costophrenic (units (u nknown) date) angle blunting unknown) suggestive of minimal effusions. (unknown) (no (unknown) (unknown) dexamethasone 0.5 (units (unknown) date) mg/5 mL oral 1 mg unknown) PO BID 05/23/20 08/05/20 (unknown) (no (unknown) (unknown) diclofenac (units (unk nown) date) epolamine 1.3 % 1 unknown) patch topical BID #30 ea 08/15/20 (unknown) (no (unknown) (unknown) diltiazem Allergy (units (unknown) date) Intermediate Hives unknown) Verified 09/05/21 14:36 (unknown) (no (unknown) (unknown) diphenhydramine (units (unknown) date) AdvReac Unknown unknown) EXTREME Verified 09/05/21 14:36 (unknown) (no (unknown) (unknown) doing contrast at (units (unknown) date) this time he unknown) agrees to do contrast. (unknown) (no (unknown) (unknown) fever he has no (units (unknown) date) leukocytosis. unknown) X-ray concerning for pneumonia symptoms where may (unknown) (no (unknown) (unknown) fluoride (sodium) (units (unknown) date) 1.1 % dental gel 1 unknown) applic dental BEDTIME 04/30/18 08/05/20 (unknown) (no (unknown) (unknown) for a PE. He (units ( unknown) date) does have chronic unknown) kidney disease seems to be stable slightly (unknown) (no (unknown) (unknown) gabapentin 100 mg (units (unknown) date) capsule 100 mg PO unknown) TID #90 caps 01/02/21 (unknown) (no (unknown) (unknown) gabapentin 400 mg (units (unknown) date) capsule 400 mg PO unknown) TID #90 caps 01/31/21 (unknown) (no (unknown) (unknown) gram/dose oral (units (unknown) date) powder (Miralax) unknown) (unknown) (no (unknown) (unknown) have gotten worse (units (unknown) date) over last couple unknown) of days. He denies any chest pain. He wears (unknown) (no (unknown) (unknown) household (units (unkn own) date) members: spouse unknown) (unknown) (no (unknown) (unknown) hydroxyzine HCl (units (unknown) date) 10 mg tablet 10 mg unknown) PO Q8H PRN anxiety #60 tabs 03/03/21 (unknown) (no (unknown) (unknown) improved from (units ( unknown) date) previous blood unknown) work. Discussed with him risks and benefits of (unknown) (no (unknown) (unknown) ipratropium 0.5 (units (unknown) date) mg-albuterol 3 mg unknown) 3 ml inhalation Q6-8H PRN SOB 07/14/18 (unknown) (no (unknown) (unknown) metoprolol (units (unk nown) date) succinate 50 mg 50 unknown) mg PO BEDTIME 04/25/18 08/05/20 (unknown) (no (unknown) (unknown) months. He has (units (unknown) date) had productive unknown) sputum no fevers or chills. 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 He has had chronic chest (unknown) (no (unknown) (unknown) oxycodone 10 mg (units (unknown) date) tablet 10 mg PO unknown) 1-2XD PRN chronic pain 04/25/18 08/05/20 (unknown) (no (unknown) (unknown) pain (units (unkno wn) date) unknown) (unknown) (no (unknown) (unknown) pain. 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 (units (unknown) date) unknown) (unknown) (no (unknown) (unknown) release (units (unkno wn) date) unknown) (unknown) (no (unknown) (unknown) rifampin (units (unkno wn) date) [RIFAMPIN] Allergy unknown) Unknown HIVES Verified 09/05/21 14:36 (unknown) (no (unknown) (unknown) selegiline HCl 5 (units (unknown) date) mg tablet 5 mg PO unknown) BID 11/04/17 08/05/20 (unknown) (no (unknown) (unknown) sennosides 8.6 mg (units (unknown) date) tablet (senna) unknown) 17.2 tab PO BEDTIME ##0 10/01/16 08/05/20 (unknown) (no (unknown) (unknown) soln (units (unkno wn) date) unknown) (unknown) (no (unknown) (unknown) solution (units (unkno wn) date) unknown) (unknown) (no (unknown) (unknown) tablet,extended (units (unknown) date) release unknown) (unknown) (no (unknown) (unknown) tablet,extended (units (unknown) date) release 24 hr unknown) (unknown) (no (unknown) (unknown) tamsulosin 0.4 mg (units (unknown) date) capsule (Flomax) unknown) 0.4 mg PO BEDTIME ##0 10/01/16 08/05/20 (unknown) (no (unknown) (unknown) today with (units (unkn own) date) increasing unknown) shortness of breath which has been worse over the last few (unknown) (no (unknown) (unknown) transdermal 12 (units (unknown) date) hour patch unknown) (Flector) (unknown) (no (unknown) (unknown) unremarkable.? (units (unknown) date) unknown) (unknown) (no (unknown) (unknown) valacyclovir 500 (units (unknown) date) mg tablet 500 mg unknown) PO BEDTIME 04/25/18 08/05/20 (unknown) (no (unknown) (unknown) what is new. (units (u nknown) date) D-dimer is unknown) slightly elevated at 600 he has multiple risk factors Result panel 12 (unknown) (no (unknown) (unknown) (no value) (units (unk nown) date) unknown) (unknown) (no (unknown) (unknown) Radiologist's (units ( unknown) date) Impression: unknown) (unknown) (no (unknown) (unknown) PO DAILY PRN (units (u nknown) date) (Reason: nausea unknown) and vomiting) (unknown) (no (unknown) (unknown) Date of Service: (units (unknown) date) 09/05/21 unknown) (unknown) (no (unknown) (unknown) (no value) (units (unk nown) date) unknown) (unknown) (no (unknown) (unknown) 0.4 mg PO BEDTIME (units (unknown) date) Qty: 0 unknown) (unknown) (no (unknown) (unknown) 09/05/21 16:00 (units (unknown) date) unknown) (unknown) (no (unknown) (unknown) 1 - 2 tab PO TID (units (unknown) date) Qty: 0 unknown) (unknown) (no (unknown) (unknown) 1 applic Dental (units (unknown) date) BEDTIME unknown) (unknown) (no (unknown) (unknown) 1 mg PO BID (units (un known) date) unknown) (unknown) (no (unknown) (unknown) 1 patch topical (units (unknown) date) BID Qty: 30 1RF unknown) (unknown) (no (unknown) (unknown) 10 mg PO 1-2XD (units (unknown) date) MDD 20 mg PRN unknown) (Reason: chronic pain) (unknown) (no (unknown) (unknown) 10 mg PO Q8H PRN (units (unknown) date) (Reason: anxiety) unknown) Qty: 60 0RF (unknown) (no (unknown) (unknown) 100 mg PO TID (units ( unknown) date) Qty: 90 1RF unknown) (unknown) (no (unknown) (unknown) [address] [place] [address] (units (unknown) date) unknown) (unknown) (no (unknown) (unknown) 17 gm PO DAILY (units (unknown) date) PRN (Reason: unknown) Constipation) Qty: 0 (unknown) (no (unknown) (unknown) 17.2 tab PO (units (un known) date) BEDTIME Qty: 0 unknown) (unknown) (no (unknown) (unknown) 2 puff INHALATION (units (unknown) date) Q4H PRN (Reason: unknown) Shortness Of Breath) (unknown) (no (unknown) (unknown) 250 mg PO MOWEFR (units (unknown) date) unknown) (unknown) (no (unknown) (unknown) 3 ml INHALATION (units (unknown) date) Q6-8H PRN (Reason: unknown) SOB) (unknown) (no (unknown) (unknown) 30 mg PO QAM (units (u nknown) date) unknown) (unknown) (no (unknown) (unknown) 40 mg PO BID (units (u nknown) date) unknown) (unknown) (no (unknown) (unknown) 400 mg PO TID (units ( unknown) date) Qty: 90 2RF unknown) (unknown) (no (unknown) (unknown) 5 mg PO BID (units (un known) date) unknown) (unknown) (no (unknown) (unknown) 50 mg PO BEDTIME (units (unknown) date) unknown) (unknown) (no (unknown) (unknown) 500 mg PO BEDTIME (units (unknown) date) unknown) (unknown) (no (unknown) (unknown) Allergies (units (unkn own) date) unknown) (unknown) (no (unknown) (unknown) [place] (units ( unknown) date) [id number] unknown) (unknown) (no (unknown) (unknown) Documented By: NR (units (unknown) date) unknown) (unknown) (no (unknown) (unknown) ED Orders (units (unkn own) date) unknown) (unknown) (no (unknown) (unknown) Emergency Report (units (unknown) date) unknown) (unknown) (no (unknown) (unknown) Home Medications (units (unknown) date) unknown) (unknown) (no (unknown) (unknown) IRRITATION (units (unk nown) date) unknown) (unknown) (no (unknown) (unknown) [facility] (units (unknown) date) [address] [place] [address] unknown) [place] [address] (unknown) (no (unknown) (unknown) Lab Results (units (un known) date) unknown) (unknown) (no (unknown) (unknown) Label Comments: (units (unknown) date) unknown) (unknown) (no (unknown) (unknown) Last Admin: (units (un known) date) 09/05/21 17:50 unknown) Dose: 2 sprays (unknown) (no (unknown) (unknown) Previous Rx's (units ( unknown) date) unknown) (unknown) (no (unknown) (unknown) Rx Instructions: (units (unknown) date) unknown) (unknown) (no (unknown) (unknown) Signed (units (unkno wn) date) unknown) (unknown) (no (unknown) (unknown) Stop: 09/05/21 (units (unknown) date) 17:47 unknown) (unknown) (no (unknown) (unknown) TO HIS EXISTING (units (unknown) date) 400MG TID. unknown) (unknown) (no (unknown) (unknown) USE TO TITRATE (units (unknown) date) DOSE TID. PT AWARE unknown) OF HOW TO ADD THIS (unknown) (no (unknown) (unknown) Vital Signs - 8 (units (unknown) date) hr unknown) (unknown) (no (unknown) (unknown) XRay Report (units (un known) date) unknown) (unknown) (no (unknown) (unknown) generally takes (units (unknown) date) at least tid, but unknown) may take up to 2 tabs tid (unknown) (no (unknown) (unknown) leave on 3-4 (units (u nknown) date) minutes then spit unknown) out. do not rinse, eat or drink for 30 minutes (unknown) (no (unknown) (unknown) take 1 tablet by (units (unknown) date) mouth EVERY SATURDAY unknown) SATURDAY AND SATURDAY (unknown) (no (unknown) (unknown) take 1 tablet by (units (unknown) date) mouth daily unknown) (unknown) (no (unknown) (unknown) take 1 tablet by (units (unknown) date) mouth every unknown) morning (unknown) (no (unknown) (unknown) (no value) (units (unk nown) date) unknown) (unknown) (no (unknown) (unknown) 09/05/21 09/05/21 (units (unknown) date) 09/05/21 unknown) Range/Units (unknown) (no (unknown) (unknown) 09/05/21 (units (unkno wn) date) Range/Units unknown) (unknown) (no (unknown) (unknown) 16:00 (units (unkno wn) date) unknown) (unknown) (no (unknown) (unknown) 16:00 16:00 16:00 (units (unknown) date) unknown) (unknown) (no (unknown) (unknown) albuterol sulfate (units (unknown) date) 90 mcg/actuation unknown) Hfa Aerosol Inhaler (unknown) (no (unknown) (unknown) azithromycin 250 (units (unknown) date) mg tablet unknown) (unknown) (no (unknown) (unknown) carbidopa-levodop (units (unknown) date) a 25 MG/100 MG unknown) tablet extended release (unknown) (no (unknown) (unknown) dexamethasone 0.5 (units (unknown) date) mg/5 mL solution unknown) (unknown) (no (unknown) (unknown) diclofenac (units (unk nown) date) epolamine unknown) [Flector] 1.3 % patch 12 hour (unknown) (no (unknown) (unknown) fluoride (sodium) (units (unknown) date) 1.1 % Gel unknown) (unknown) (no (unknown) (unknown) gabapentin 100 mg (units (unknown) date) capsule unknown) (unknown) (no (unknown) (unknown) gabapentin 400 mg (units (unknown) date) capsule unknown) (unknown) (no (unknown) (unknown) hydroxyzine HCl (units (unknown) date) 10 mg tablet unknown) (unknown) (no (unknown) (unknown) ipratropium-albut (units (unknown) date) fermín 0.5 mg-3 unknown) mg(2.5 mg base)/3 mL Solution For Nebulization (unknown) (no (unknown) (unknown) metoprolol (units (unk nown) date) succinate 50 mg unknown) tablet extended release 24 hr (unknown) (no (unknown) (unknown) nifedipine 30 mg (units (unknown) date) tablet extended unknown) release (unknown) (no (unknown) (unknown) ondansetron HCl 4 (units (unknown) date) mg tablet unknown) (unknown) (no (unknown) (unknown) oxycodone 10 mg (units (unknown) date) tablet unknown) (unknown) (no (unknown) (unknown) pantoprazole 40 (units (unknown) date) mg Tablet,Delayed unknown) Release (Dr/Ec) (unknown) (no (unknown) (unknown) polyethylene (units (u nknown) date) glycol 3350 unknown) [Miralax] 119 GM powder (unknown) (no (unknown) (unknown) selegiline HCl 5 (units (unknown) date) mg Tablet unknown) (unknown) (no (unknown) (unknown) sennosides (units (unk nown) date) [senna] 8.6 MG unknown) tablet (unknown) (no (unknown) (unknown) tamsulosin (units (unk nown) date) [Flomax] 0.4 MG unknown) capsule,extended release 24hr (unknown) (no (unknown) (unknown) valacyclovir 500 (units (unknown) date) mg tablet unknown) (unknown) (no (unknown) (unknown) 09/05/21 (units (unkno wn) date) unknown) (unknown) (no (unknown) (unknown) He is followed (units (unknown) date) closely by unknown) [facility] and [facility]. He complains of (unknown) (no (unknown) (unknown) Medication (units (unk nown) date) Instructions unknown) Recorded (unknown) (no (unknown) (unknown) Medication (units (unk nown) date) Instructions unknown) Recorded Confirmed (unknown) (no (unknown) (unknown) may be worse over (units (unknown) date) the last few days. unknown) He is not hypoxic. He does not have a (unknown) (no (unknown) (unknown) not be consistent (units (unknown) date) with pneumonia it unknown) is difficult to tell what is chronic and (unknown) (no (unknown) (unknown) (2.5 mg base)/3 (units (unknown) date) mL nebulization unknown) (unknown) (no (unknown) (unknown) *Temp,ED* (units (unkn own) date) [Primary Care unknown) Provider] - (unknown) (no (unknown) (unknown) [phone] (units (unkn own) date) unknown) (unknown) (no (unknown) (unknown) 08/05/20 (units (unkno wn) date) unknown) (unknown) (no (unknown) (unknown) 09/05/21 15:25 (units (unknown) date) unknown) (unknown) (no (unknown) (unknown) 09/05/21 16:00 (units (unknown) date) unknown) (unknown) (no (unknown) (unknown) 09/05/21 17:38 (units (unknown) date) unknown) (unknown) (no (unknown) (unknown) 12 point review (units (unknown) date) of systems is unknown) negative except for those stated above and HPI (unknown) (no (unknown) (unknown) 14:36 09/05/21 (units (unknown) date) unknown) (unknown) (no (unknown) (unknown) 14:49 09/05/21 (units (unknown) date) unknown) (unknown) (no (unknown) (unknown) 15:00 (units (unkno wn) date) unknown) (unknown) (no (unknown) (unknown) 15:30 09/05/21 (units (unknown) date) unknown) (unknown) (no (unknown) (unknown) 16:00 09/05/21 (units (unknown) date) unknown) (unknown) (no (unknown) (unknown) 16:38 (units (unkno wn) date) unknown) (unknown) (no (unknown) (unknown) 16:39 (units (unkno wn) date) unknown) (unknown) (no (unknown) (unknown) 16:39 09/05/21 (units (unknown) date) unknown) (unknown) (no (unknown) (unknown) 2 L of oxygen at (units (unknown) date) night but also has unknown) started wearing some oxygen during the day. (unknown) (no (unknown) (unknown) ? (units (unkno wn) date) unknown) (unknown) (no (unknown) (unknown) ALT 7 (<50) (units (unknown) date) IU/L unknown) (unknown) (no (unknown) (unknown) ALT (<50) IU/L (units (unknown) date) unknown) (unknown) (no (unknown) (unknown) AST 31 (units (unkn own) date) (17-59) IU/L unknown) (unknown) (no (unknown) (unknown) AST (17-59) (units ( unknown) date) IU/L unknown) (unknown) (no (unknown) (unknown) Accession Number: (units (unknown) date) [id number] ?? unknown) (unknown) (no (unknown) (unknown) Acct:[id number] (units (unknown) date) unknown) (unknown) (no (unknown) (unknown) Age/Sex: 75 / M (units (unknown) date) unknown) (unknown) (no (unknown) (unknown) Age/Sex: 75 / M (units (unknown) date) unknown) (unknown) (no (unknown) (unknown) Albumin 4.0 (units (unknown) date) (3.5-5.0) g/dL unknown) (unknown) (no (unknown) (unknown) Albumin (units (unkno wn) date) (3.5-5.0) g/dL unknown) (unknown) (no (unknown) (unknown) Albumin/Globulin (units (unknown) date) Ratio 1.0 unknown) (1.0-2.8) (unknown) (no (unknown) (unknown) Albumin/Globulin (units (unknown) date) Ratio (1.0-2.8) unknown) (unknown) (no (unknown) (unknown) Alkaline (units (unkno wn) date) Phosphatase 87 unknown) (38-126) U/L (unknown) (no (unknown) (unknown) Alkaline (units (unkno wn) date) Phosphatase unknown) (38-126) U/L (unknown) (no (unknown) (unknown) Allergy/AdvReac (units (unknown) date) Type Severity unknown) Reaction Status Date / Time (unknown) (no (unknown) (unknown) Atrial (units (unkno wn) date) fibrillation unknown) (unknown) (no (unknown) (unknown) Atrial flutter (units (unknown) date) unknown) (unknown) (no (unknown) (unknown) BUN 62 H (units (un known) date) (9-20) mg/dL unknown) (unknown) (no (unknown) (unknown) BUN (9-20) (units (u nknown) date) mg/dL unknown) (unknown) (no (unknown) (unknown) BUN/Creatinine (units (unknown) date) Ratio 34.3 H unknown) (6-22) (unknown) (no (unknown) (unknown) BUN/Creatinine (units (unknown) date) Ratio (6-22) unknown) (unknown) (no (unknown) (unknown) Baso # (Auto) (units ( unknown) date) (0-100) /uL unknown) (unknown) (no (unknown) (unknown) Baso # (Auto) (units ( unknown) date) 100 (0-100) unknown) /uL (unknown) (no (unknown) (unknown) Baso % (Auto) (units ( unknown) date) (0-2) % unknown) (unknown) (no (unknown) (unknown) Baso % (Auto) (units ( unknown) date) 0.7 (0-2) % unknown) (unknown) (no (unknown) (unknown) Blood Pressure (units (unknown) date) unknown) (unknown) (no (unknown) (unknown) Blood Pressure (units (unknown) date) 140/104 H unknown) 09/05/21 14:36 (unknown) (no (unknown) (unknown) Blood Pressure (units (unknown) date) 148/71 H unknown) (unknown) (no (unknown) (unknown) Blood Pressure (units (unknown) date) 140/104 H unknown) (unknown) (no (unknown) (unknown) Bones and chest (units (unknown) date) wall:? No unknown) suspicious bony lesions.? 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 (units (u nknown) date) [facility], unknown) CR, XR CHEST 1V, 03/03/2021, 14:03. (unknown) (no (unknown) (unknown) COVID19 -Nasal (units (unknown) date) RAPID/Pre-Proc unknown) Stat (unknown) (no (unknown) (unknown) CT angio chest PE (units (unknown) date) protocol Stat unknown) (unknown) (no (unknown) (unknown) Calcium 9.1 (units (unknown) date) (8.4-10.2) mg/dL unknown) (unknown) (no (unknown) (unknown) Calcium (units (unkno wn) date) (8.4-10.2) mg/dL unknown) (unknown) (no (unknown) (unknown) Carbon Dioxide (units (unknown) date) 31 (22-32) unknown) mmol/L (unknown) (no (unknown) (unknown) Carbon Dioxide (units (unknown) date) (22-32) mmol/L unknown) (unknown) (no (unknown) (unknown) Chest x-ray: (units (u nknown) date) unknown) (unknown) (no (unknown) (unknown) Chief Complaint: (units (unknown) date) Shortness of unknown) Breath/Dyspnea (unknown) (no (unknown) (unknown) Chloride 99 (units (unknown) date) (98-107) mmol/L unknown) (unknown) (no (unknown) (unknown) Chloride (units (unkno wn) date) (98-107) mmol/L unknown) (unknown) (no (unknown) (unknown) Chronic (units (unkno wn) date) rmogl-lovgzh-schu unknown) disease (unknown) (no (unknown) (unknown) Chronic kidney (units (unknown) date) disease, stage III unknown) (moderate) (unknown) (no (unknown) (unknown) Complete Blood (units (unknown) date) Count AUTO DIFF unknown) Stat (unknown) (no (unknown) (unknown) Comprehensive (units ( unknown) date) Metabolic Panel unknown) Stat (unknown) (no (unknown) (unknown) Compression (units (un known) date) fracture of L1 unknown) lumbar vertebra (unknown) (no (unknown) (unknown) Course (units (unkno wn) date) unknown) (unknown) (no (unknown) (unknown) Creatinine (units (unk nown) date) 1.81 H unknown) (0.66-1.25) mg/dL (unknown) (no (unknown) (unknown) Creatinine (units (unk nown) date) (0.66-1.25) mg/dL unknown) (unknown) (no (unknown) (unknown) 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 (unknown) (no (unknown) (unknown) D Dimer Stat (units (u nknown) date) unknown) (unknown) (no (unknown) (unknown) D-Dimer (<230) (units (unknown) date) ng/mL unknown) (unknown) (no (unknown) (unknown) D-Dimer 686 H (units (unknown) date) (<230) ng/mL unknown) (unknown) (no (unknown) (unknown) : 1945 (units (unknown) date) Acct:[id number] unknown) (unknown) (no (unknown) (unknown) : 1945 (units (unknown) date) unknown) (unknown) (no (unknown) (unknown) Date of Service: (units (unknown) date) 09/05/21 unknown) (unknown) (no (unknown) (unknown) Departure (units (unkn own) date) unknown) (unknown) (no (unknown) (unknown) Dictated by: (units (u nknown) date) Viji Staples M.D. unknown) on 09/05/2021 at 15:57 (unknown) (no (unknown) (unknown) Discharge Plan (units (unknown) date) unknown) (unknown) (no (unknown) (unknown) Discontinued (units (u nknown) date) Medications unknown) (unknown) (no (unknown) (unknown) ECG Data (units (unkno wn) date) unknown) (unknown) (no (unknown) (unknown) EKG-12 Lead Stat (units (unknown) date) unknown) (unknown) (no (unknown) (unknown) ER Physician: (units ( unknown) date) Adonis Mancilla unknown) D.O. (unknown) (no (unknown) (unknown) Elevated PSA (units (u nknown) date) unknown) (unknown) (no (unknown) (unknown) Eos # (Auto) (units (u nknown) date) (0-450) /uL unknown) (unknown) (no (unknown) (unknown) Eos # (Auto) 400 (units (unknown) date) (0-450) /uL unknown) (unknown) (no (unknown) (unknown) Eos % (Auto) (units (u nknown) date) (2-4) % unknown) (unknown) (no (unknown) (unknown) Eos % (Auto) 5.5 (units (unknown) date) H (2-4) % unknown) (unknown) (no (unknown) (unknown) Estimated GFR (units ( unknown) date) 38 L (>60) unknown) mL/min (unknown) (no (unknown) (unknown) Estimated GFR (units ( unknown) date) (>60) mL/min unknown) (unknown) (no (unknown) (unknown) Exam (units (unkno wn) date) unknown) (unknown) (no (unknown) (unknown) FINDINGS:? (units (unk nown) date) unknown) (unknown) (no (unknown) (unknown) Family History (units (unknown) date) (Reviewed 08/05/20 unknown) @ 10:35 by Derik Wallace DO) (unknown) (no (unknown) (unknown) Father Cancer (units (unknown) date) unknown) (unknown) (no (unknown) (unknown) Fungal pneumonia (units (unknown) date) unknown) (unknown) (no (unknown) (unknown) GASTROINTESTINAL: (units (unknown) date) Denies nausea, unknown) vomiting, abdominal pain, diarrhea, (unknown) (no (unknown) (unknown) GENERAL: Denies (units (unknown) date) chills, fatigue, unknown) malaise, fever, sweats, travel (unknown) (no (unknown) (unknown) : Denies (units (unkn own) date) dysuria, unknown) frequency, incontinence, hematuria, urinary retention, flank (unknown) (no (unknown) (unknown) General (units (unkno wn) date) unknown) (unknown) (no (unknown) (unknown) GenericComposite[ (units (unknown) date) Plt Count unknown) (150-400) X10^3/uL ] (unknown) (no (unknown) (unknown) GenericComposite[ (units (unknown) date) Plt Count 245 unknown) (150-400) X10^3/uL ] (unknown) (no (unknown) (unknown) GenericComposite[ (units (unknown) date) RBC (4.5-5.9) unknown) X10^6/uL ] (unknown) (no (unknown) (unknown) GenericComposite[ (units (unknown) date) RBC 3.38 L unknown) (4.5-5.9) X10^6/uL ] (unknown) (no (unknown) (unknown) GenericComposite[ (units (unknown) date) WBC (4.5-11.0) unknown) X10^3/uL ] (unknown) (no (unknown) (unknown) GenericComposite[ (units (unknown) date) WBC 7.4 unknown) (4.5-11.0) X10^3/uL ] (unknown) (no (unknown) (unknown) Globulin 3.9 (units (unknown) date) (1.7-4.1) g/dL unknown) (unknown) (no (unknown) (unknown) Globulin (units (unkno wn) date) (1.7-4.1) g/dL unknown) (unknown) (no (unknown) (unknown) Glucose 144 H (units (unknown) date) (80-110) mg/dL unknown) (unknown) (no (unknown) (unknown) Glucose (units (unkno wn) date) (80-110) mg/dL unknown) (unknown) (no (unknown) (unknown) 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 unknown) (unknown) (no (unknown) (unknown) HEENT: Denies (units ( unknown) date) sinus pain, ear unknown) pain, sore throat, difficulty swallowing, neck (unknown) (no (unknown) (unknown) HPI - SOB/Dyspnea (units (unknown) date) unknown) (unknown) (no (unknown) (unknown) HPI Narrative: (units (unknown) date) unknown) (unknown) (no (unknown) (unknown) Hct (41-53) % (units (unknown) date) unknown) (unknown) (no (unknown) (unknown) Hct 30.6 L (units (un known) date) (41-53) % unknown) (unknown) (no (unknown) (unknown) 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 (unknown) (no (unknown) (unknown) Hgb (13.5-17.5) (units (unknown) date) g/dL unknown) (unknown) (no (unknown) (unknown) Hgb 10.7 L (units (un known) date) (13.5-17.5) g/dL unknown) (unknown) (no (unknown) (unknown) History of (units (unk nown) date) Present Illness unknown) (unknown) (no (unknown) (unknown) History of (units (unk nown) date) partial colectomy unknown) (unknown) (no (unknown) (unknown) History of (units (unk nown) date) radiofrequency unknown) ablation procedure for cardiac arrhythmia (unknown) (no (unknown) (unknown) IMPRESSION:? (units (u nknown) date) Right basilar unknown) opacity most suggestive of pneumonia. (unknown) (no (unknown) (unknown) INDICATIONS:? (units ( unknown) date) short of breath unknown) (unknown) (no (unknown) (unknown) Imaging Data (units (u nknown) date) unknown) (unknown) (no (unknown) (unknown) Initial Vital (units ( unknown) date) Signs unknown) (unknown) (no (unknown) (unknown) Initial Vital (units ( unknown) date) Signs: unknown) (unknown) (no (unknown) (unknown) Interpretation: (units (unknown) date) unknown) (unknown) (no (unknown) (unknown) Lab Data (units (unkno wn) date) unknown) (unknown) (no (unknown) (unknown) Labs: (units (unkno wn) date) unknown) (unknown) (no (unknown) (unknown) Limitations: no (units (unknown) date) limitations unknown) (unknown) (no (unknown) (unknown) Lipase 157 (units ( unknown) date) (23-300) U/L unknown) (unknown) (no (unknown) (unknown) Lipase (23-300) (units (unknown) date) U/L unknown) (unknown) (no (unknown) (unknown) Lipase Stat (units (un known) date) unknown) (unknown) (no (unknown) (unknown) Loc: ED (units (unkno wn) date) unknown) (unknown) (no (unknown) (unknown) Lungs and (units (unkn own) date) pleura:? Interval unknown) development of patchy right basilar opacity.? Trace (unknown) (no (unknown) (unknown) Lymph # (Auto) (units (unknown) date) (9834-4195) /uL unknown) (unknown) (no (unknown) (unknown) Lymph # (Auto) (units (unknown) date) 1200 unknown) (0959-4933) /uL (unknown) (no (unknown) (unknown) Lymph % (Auto) (units (unknown) date) (25-40) % unknown) (unknown) (no (unknown) (unknown) Lymph % (Auto) (units (unknown) date) 15.9 L (25-40) unknown) % (unknown) (no (unknown) (unknown) MCH (26-34) PG (units (unknown) date) unknown) (unknown) (no (unknown) (unknown) MCH 31.5 (units (unkn own) date) (26-34) PG unknown) (unknown) (no (unknown) (unknown) MCHC (30-36) % (units (unknown) date) unknown) (unknown) (no (unknown) (unknown) MCHC 34.8 (units (unk nown) date) (30-36) % unknown) (unknown) (no (unknown) (unknown) MCV (80-100) (units (unknown) date) fL unknown) (unknown) (no (unknown) (unknown) MCV 90.6 (units (unkn own) date) (80-100) fL unknown) (unknown) (no (unknown) (unknown) MDM - SOB/Dyspnea (units (unknown) date) unknown) (unknown) (no (unknown) (unknown) MDM Narrative (units ( unknown) date) unknown) (unknown) (no (unknown) (unknown) MR#: [id number] (units (unknown) date) unknown) (unknown) (no (unknown) (unknown) MUSCULOSKELETAL: (units (unknown) date) Denies weakness, unknown) joint pain, or bony pain (unknown) (no (unknown) (unknown) Mediastinum:? (units ( unknown) date) Mediastinal unknown) contours appear normal.? Heart size is normal.? (unknown) (no (unknown) (unknown) Medical History (units (unknown) date) (Updated 09/05/21 unknown) @ 00:00 by ) (unknown) (no (unknown) (unknown) Medical decision (units (unknown) date) making narrative: unknown) (unknown) (no (unknown) (unknown) Mode of arrival: (units (unknown) date) Ambulatory unknown) (unknown) (no (unknown) (unknown) [place] # (Auto) (units ( unknown) date) (0-900) /uL unknown) (unknown) (no (unknown) (unknown) [place] # (Auto) (units ( unknown) date) 700 (0-900) unknown) /uL (unknown) (no (unknown) (unknown) [place] % (Auto) (units ( unknown) date) (3-14) % unknown) (unknown) (no (unknown) (unknown) [place] % (Auto) (units ( unknown) date) 8.9 (3-14) % unknown) (unknown) (no (unknown) (unknown) Mother C. (units (un known) date) difficile colitis unknown) (unknown) (no (unknown) (unknown) NEUROLOGIC: (units (un known) date) Denies weakness, unknown) dizziness, headache, numbness, change in speech, (unknown) (no (unknown) (unknown) NT-Pro-B (units (unkno wn) date) Natriuret Pep unknown) 594 H (<450) pg/mL (unknown) (no (unknown) (unknown) NT-Pro-B (units (unkno wn) date) Natriuret Pep unknown) (<450) pg/mL (unknown) (no (unknown) (unknown) NT-proBNP (units (unkn own) date) (BNP-Adult 18+) unknown) Stat (unknown) (no (unknown) (unknown) Narrative: (units (unk nown) date) unknown) (unknown) (no (unknown) (unknown) Neut # (Auto) (units ( unknown) date) (2953-9233) /uL unknown) (unknown) (no (unknown) (unknown) Neut # (Auto) (units ( unknown) date) 5100 unknown) (1645-3790) /uL (unknown) (no (unknown) (unknown) Neut % (Auto) (units ( unknown) date) (50-75) % unknown) (unknown) (no (unknown) (unknown) Neut % (Auto) (units ( unknown) date) 69.0 (50-75) % unknown) (unknown) (no (unknown) (unknown) No Action (units (unkn own) date) unknown) (unknown) (no (unknown) (unknown) Normal sinus (units (u nknown) date) rhythm rate 89 MT unknown) interval 136 QRS [address] changes (unknown) (no (unknown) (unknown) Ordered: (units (unkno wn) date) unknown) (unknown) (no (unknown) (unknown) Ordering (units (unkno wn) date) Provider: unknown) Rhona Fofana D.O. (unknown) (no (unknown) (unknown) Orders (units (unkno wn) date) unknown) (unknown) (no (unknown) (unknown) Oxygen Delivery (units (unknown) date) Method unknown) (unknown) (no (unknown) (unknown) Oxygen Delivery (units (unknown) date) Method unknown) (unknown) (no (unknown) (unknown) Oxygen Delivery (units (unknown) date) Method 09/05/21 unknown) 14:36 (unknown) (no (unknown) (unknown) Oxygen Delivery (units (unknown) date) Method Room Air unknown) (unknown) (no (unknown) (unknown) Oxymetazoline HCl (units (unknown) date) (Oxymetazoline unknown) Nasal [place] 15 Ml) 2 sprays NASAL NOW ONE (unknown) (no (unknown) (unknown) PROCEDURE:? XR (units (unknown) date) CHEST 1V unknown) (unknown) (no (unknown) (unknown) PSYCHIATRIC: No (units (unknown) date) concerning unknown) psychosocial issues. (unknown) (no (unknown) (unknown) Parkinson disease (units (unknown) date) unknown) (unknown) (no (unknown) (unknown) Patient History (units (unknown) date) unknown) (unknown) (no (unknown) (unknown) Patient has (units (unk nown) date) chronic cough he unknown) sounds like he has sputum production frequently but (unknown) (no (unknown) (unknown) Patient is a (units (un known) date) 75-year-old male unknown) with history of leukemia vzsya-japbrc-kilj disease (unknown) (no (unknown) (unknown) Patient: (units (unkno wn) date) Adonis Dueñas unknown) MR#: M (unknown) (no (unknown) (unknown) Patient: (units (unkno wn) date) Adonis Dueñas unknown) (unknown) (no (unknown) (unknown) Potassium 3.6 (units (unknown) date) (3.4-5.1) mmol/L unknown) (unknown) (no (unknown) (unknown) Potassium (units (unkn own) date) (3.4-5.1) mmol/L unknown) (unknown) (no (unknown) (unknown) Prescriptions: (units (unknown) date) unknown) (unknown) (no (unknown) (unknown) Procedure: XR (units ( unknown) date) chest 1V unknown) (unknown) (no (unknown) (unknown) Pulse Oximetry (units (unknown) date) 99 09/05/21 unknown) 14:36 (unknown) (no (unknown) (unknown) Pulse Oximetry (units (unknown) date) 100 97 92 unknown) (unknown) (no (unknown) (unknown) Pulse Oximetry 94 (units (unknown) date) unknown) (unknown) (no (unknown) (unknown) Pulse Oximetry 99 (units (unknown) date) 96 100 unknown) (unknown) (no (unknown) (unknown) Pulse Rate 96 H (units (unknown) date) 09/05/21 14:36 unknown) (unknown) (no (unknown) (unknown) Pulse Rate 82 86 (units (unknown) date) 92 H unknown) (unknown) (no (unknown) (unknown) Pulse Rate 92 H (units (unknown) date) unknown) (unknown) (no (unknown) (unknown) Pulse Rate 96 H (units (unknown) date) 98 H 88 unknown) (unknown) (no (unknown) (unknown) RDW (11.6-14.8) (units (unknown) date) % unknown) (unknown) (no (unknown) (unknown) RDW 13.8 (units (unkn own) date) (11.6-14.8) % unknown) (unknown) (no (unknown) (unknown) RESPIRATORY: (units (u nknown) date) Denies dyspnea, unknown) cough, wheezing, hemoptysis, sputum. (unknown) (no (unknown) (unknown) Referrals: (units (unk nown) date) unknown) (unknown) (no (unknown) (unknown) Related Data (units (u nknown) date) unknown) (unknown) (no (unknown) (unknown) Respiratory Rate (units (unknown) date) unknown) (unknown) (no (unknown) (unknown) Respiratory Rate (units (unknown) date) unknown) (unknown) (no (unknown) (unknown) Respiratory Rate (units (unknown) date) 28 H 09/05/21 unknown) 14:36 (unknown) (no (unknown) (unknown) Respiratory Rate (units (unknown) date) 28 H unknown) (unknown) (no (unknown) (unknown) Result diagrams: (units (unknown) date) unknown) (unknown) (no (unknown) (unknown) Review of Systems (units (unknown) date) unknown) (unknown) (no (unknown) (unknown) 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) (unknown) (no (unknown) (unknown) SARS-CoV-2 (PCR) (units (unknown) date) (Negative) unknown) (unknown) (no (unknown) (unknown) SARS-CoV-2 (PCR) (units (unknown) date) Negative unknown) (Negative) (unknown) (no (unknown) (unknown) SKIN: No rash, no (units (unknown) date) erythema, no unknown) pruritus (unknown) (no (unknown) (unknown) Signed By: (units (unk nown) date) unknown) (unknown) (no (unknown) (unknown) Skin cancer (units (un known) date) unknown) (unknown) (no (unknown) (unknown) Smoking Status: (units (unknown) date) Former smoker unknown) (unknown) (no (unknown) (unknown) Smoking Status: (units (unknown) date) Former smoker unknown) (unknown) (no (unknown) (unknown) Social History (units (unknown) date) (Reviewed 12/26/18 unknown) @ 01:35 by Rhona Fofana DO) (unknown) (no (unknown) (unknown) Sodium 139 (units ( unknown) date) (137-145) mmol/L unknown) (unknown) (no (unknown) (unknown) Sodium (units (unkno wn) date) (137-145) mmol/L unknown) (unknown) (no (unknown) (unknown) Source: patient (units (unknown) date) unknown) (unknown) (no (unknown) (unknown) Spinal stenosis (units (unknown) date) unknown) (unknown) (no (unknown) (unknown) Stated Complaint: (units (unknown) date) sob/weak unknown) (unknown) (no (unknown) (unknown) Substance Use (units ( unknown) date) Type: does not use unknown) (unknown) (no (unknown) (unknown) Surgical History (units (unknown) date) (Updated 03/03/21 unknown) @ 18:43 by Derik Smith MD) (unknown) (no (unknown) (unknown) Surgical changes (units (unknown) date) and devices:? unknown) Prosthetic valve is noted. (unknown) (no (unknown) (unknown) T11 vertebral (units ( unknown) date) fracture unknown) (unknown) (no (unknown) (unknown) TECHNIQUE:? One (units (unknown) date) view of the chest unknown) was acquired.? (unknown) (no (unknown) (unknown) Temperature (units (un known) date) unknown) (unknown) (no (unknown) (unknown) Temperature (units (un known) date) unknown) (unknown) (no (unknown) (unknown) Temperature 97.1 (units (unknown) date) F L 09/05/21 unknown) 14:36 (unknown) (no (unknown) (unknown) Temperature 97.1 (units (unknown) date) F L unknown) (unknown) (no (unknown) (unknown) Time Seen by (units (u nknown) date) Provider: 09/05/21 unknown) 15:25 (unknown) (no (unknown) (unknown) Tobacco: How many (units (unknown) date) years used: 10 unknown) (unknown) (no (unknown) (unknown) Total Bilirubin (units (unknown) date) 0.5 (0.2-1.3) unknown) mg/dL (unknown) (no (unknown) (unknown) Total Bilirubin (units (unknown) date) (0.2-1.3) mg/dL unknown) (unknown) (no (unknown) (unknown) Total Creatine (units (unknown) date) Kinase 57 unknown) (55-170) U/L (unknown) (no (unknown) (unknown) Total Creatine (units (unknown) date) Kinase (55-170) unknown) U/L (unknown) (no (unknown) (unknown) Total Protein (units ( unknown) date) 7.9 (6.3-8.2) unknown) g/dL (unknown) (no (unknown) (unknown) Total Protein (units ( unknown) date) (6.3-8.2) g/dL unknown) (unknown) (no (unknown) (unknown) Troponin + CK (units ( unknown) date) Cardiac Panel Stat unknown) (unknown) (no (unknown) (unknown) Troponin I < (units (unknown) date) 0.012 unknown) (0.01-0.034) ng/mL (unknown) (no (unknown) (unknown) Troponin I (units (unk nown) date) (0.01-0.034) unknown) ng/mL (unknown) (no (unknown) (unknown) Vital Signs (units (un known) date) unknown) (unknown) (no (unknown) (unknown) Vital signs: (units (u nknown) date) unknown) (unknown) (no (unknown) (unknown) Waiting for CT (units (unknown) date) angio chest. unknown) (unknown) (no (unknown) (unknown) XR chest 1V Stat (units (unknown) date) unknown) (unknown) (no (unknown) (unknown) [Embedded Image (units (unknown) date) Not Available] unknown) (unknown) (no (unknown) (unknown) [From BENADRYL] (units (unknown) date) SEDATION unknown) (unknown) (no (unknown) (unknown) acetaminophen (units ( unknown) date) [ACETAMINOPHEN] unknown) AdvReac Unknown ABD PAIN Verified 09/05/21 14:36 (unknown) (no (unknown) (unknown) aerosol inhaler (units (unknown) date) Shortness Of unknown) Breath (unknown) (no (unknown) (unknown) albuterol sulfate (units (unknown) date) 90 mcg/actuation 2 unknown) puff inhalation Q4H PRN 11/04/17 08/05/20 (unknown) (no (unknown) (unknown) alcohol intake (units (unknown) date) frequency: unknown) holidays/special occasions only (unknown) (no (unknown) (unknown) alcohol intake: (units (unknown) date) current unknown) (unknown) (no (unknown) (unknown) appear (units (unkno wn) date) unknown) (unknown) (no (unknown) (unknown) azithromycin 250 (units (unknown) date) mg tablet 250 mg unknown) PO MOWEFR 04/25/18 08/05/20 (unknown) (no (unknown) (unknown) bacitracin (units (unk nown) date) [BACITRACIN] unknown) Allergy Unknown SKIN Verified 09/05/21 14:36 (unknown) (no (unknown) (unknown) being weak a (units (u nknown) date) difficulty walking unknown) around but does not get need a walker. He is (unknown) (no (unknown) (unknown) bilateral (units (unkn own) date) unknown) (unknown) (no (unknown) (unknown) carbidopa ER 25 (units (unknown) date) mg-levodopa 100 mg unknown) 1 - 2 tab PO TID ##0 10/02/16 08/05/20 (unknown) (no (unknown) (unknown) chlorhexidine (units ( unknown) date) [CHLORHEXIDINE] unknown) Allergy Unknown SKIN Verified 09/05/21 14:36 (unknown) (no (unknown) (unknown) confusion (units (unkn own) date) unknown) (unknown) (no (unknown) (unknown) congestion using (units (unknown) date) albuterol twice a unknown) day he continues to bring up a lot of sputum (unknown) (no (unknown) (unknown) constipation, (units ( unknown) date) melena. unknown) (unknown) (no (unknown) (unknown) costophrenic (units (u nknown) date) angle blunting unknown) suggestive of minimal effusions. (unknown) (no (unknown) (unknown) dexamethasone 0.5 (units (unknown) date) mg/5 mL oral 1 mg unknown) PO BID 05/23/20 08/05/20 (unknown) (no (unknown) (unknown) diclofenac (units (unk nown) date) epolamine 1.3 % 1 unknown) patch topical BID #30 ea 08/15/20 (unknown) (no (unknown) (unknown) diltiazem Allergy (units (unknown) date) Intermediate Hives unknown) Verified 09/05/21 14:36 (unknown) (no (unknown) (unknown) diphenhydramine (units (unknown) date) AdvReac Unknown unknown) EXTREME Verified 09/05/21 14:36 (unknown) (no (unknown) (unknown) doing contrast at (units (unknown) date) this time he unknown) agrees to do contrast. (unknown) (no (unknown) (unknown) fever he has no (units (unknown) date) leukocytosis. unknown) X-ray concerning for pneumonia symptoms where may (unknown) (no (unknown) (unknown) fluoride (sodium) (units (unknown) date) 1.1 % dental gel 1 unknown) applic dental BEDTIME 04/30/18 08/05/20 (unknown) (no (unknown) (unknown) for a PE. He (units ( unknown) date) does have chronic unknown) kidney disease seems to be stable slightly (unknown) (no (unknown) (unknown) gabapentin 100 mg (units (unknown) date) capsule 100 mg PO unknown) TID #90 caps 01/02/21 (unknown) (no (unknown) (unknown) gabapentin 400 mg (units (unknown) date) capsule 400 mg PO unknown) TID #90 caps 01/31/21 (unknown) (no (unknown) (unknown) gram/dose oral (units (unknown) date) powder (Miralax) unknown) (unknown) (no (unknown) (unknown) have gotten worse (units (unknown) date) over last couple unknown) of days. He denies any chest pain. He wears (unknown) (no (unknown) (unknown) household (units (unkn own) date) members: spouse unknown) (unknown) (no (unknown) (unknown) hydroxyzine HCl (units (unknown) date) 10 mg tablet 10 mg unknown) PO Q8H PRN anxiety #60 tabs 03/03/21 (unknown) (no (unknown) (unknown) improved from (units ( unknown) date) previous blood unknown) work. Discussed with him risks and benefits of (unknown) (no (unknown) (unknown) ipratropium 0.5 (units (unknown) date) mg-albuterol 3 mg unknown) 3 ml inhalation Q6-8H PRN SOB 07/14/18 (unknown) (no (unknown) (unknown) metoprolol (units (unk nown) date) succinate 50 mg 50 unknown) mg PO BEDTIME 04/25/18 08/05/20 (unknown) (no (unknown) (unknown) months. He has (units (unknown) date) had productive unknown) sputum no fevers or chills. 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 He has had chronic chest (unknown) (no (unknown) (unknown) oxycodone 10 mg (units (unknown) date) tablet 10 mg PO unknown) 1-2XD PRN chronic pain 04/25/18 08/05/20 (unknown) (no (unknown) (unknown) pain (units (unkno wn) date) unknown) (unknown) (no (unknown) (unknown) pain. 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 (units (unknown) date) unknown) (unknown) (no (unknown) (unknown) release (units (unkno wn) date) unknown) (unknown) (no (unknown) (unknown) rifampin (units (unkno wn) date) [RIFAMPIN] Allergy unknown) Unknown HIVES Verified 09/05/21 14:36 (unknown) (no (unknown) (unknown) selegiline HCl 5 (units (unknown) date) mg tablet 5 mg PO unknown) BID 11/04/17 08/05/20 (unknown) (no (unknown) (unknown) sennosides 8.6 mg (units (unknown) date) tablet (senna) unknown) 17.2 tab PO BEDTIME ##0 10/01/16 08/05/20 (unknown) (no (unknown) (unknown) soln (units (unkno wn) date) unknown) (unknown) (no (unknown) (unknown) solution (units (unkno wn) date) unknown) (unknown) (no (unknown) (unknown) tablet,extended (units (unknown) date) release unknown) (unknown) (no (unknown) (unknown) tablet,extended (units (unknown) date) release 24 hr unknown) (unknown) (no (unknown) (unknown) tamsulosin 0.4 mg (units (unknown) date) capsule (Flomax) unknown) 0.4 mg PO BEDTIME ##0 10/01/16 08/05/20 (unknown) (no (unknown) (unknown) today with (units (unkn own) date) increasing unknown) shortness of breath which has been worse over the last few (unknown) (no (unknown) (unknown) transdermal 12 (units (unknown) date) hour patch unknown) (Flector) (unknown) (no (unknown) (unknown) unremarkable.? (units (unknown) date) unknown) (unknown) (no (unknown) (unknown) valacyclovir 500 (units (unknown) date) mg tablet 500 mg unknown) PO BEDTIME 04/25/18 08/05/20 (unknown) (no (unknown) (unknown) what is new. (units (u nknown) date) D-dimer is unknown) slightly elevated at 600 he has multiple risk factors Result panel 13 (unknown) (no (unknown) (unknown) (no value) (units (unk nown) date) unknown) (unknown) (no (unknown) (unknown) Radiologist's (units ( unknown) date) Impression: unknown) (unknown) (no (unknown) (unknown) PO DAILY PRN (units (u nknown) date) (Reason: nausea unknown) and vomiting) (unknown) (no (unknown) (unknown) Date of Service: (units (unknown) date) 09/05/21 unknown) (unknown) (no (unknown) (unknown) (no value) (units (unk nown) date) unknown) (unknown) (no (unknown) (unknown) <Electronically (units (unknown) date) signed by Adonis vasquez) Bennett Mancilla> (unknown) (no (unknown) (unknown) 0.4 mg PO BEDTIME (units (unknown) date) Qty: 0 unknown) (unknown) (no (unknown) (unknown) 09/05/21 16:00 (units (unknown) date) unknown) (unknown) (no (unknown) (unknown) 09/06/21 0142 (units ( unknown) date) unknown) (unknown) (no (unknown) (unknown) 1 - 2 tab PO TID (units (unknown) date) Qty: 0 unknown) (unknown) (no (unknown) (unknown) 1 applic Dental (units (unknown) date) BEDTIME unknown) (unknown) (no (unknown) (unknown) 1 mg PO BID (units (un known) date) unknown) (unknown) (no (unknown) (unknown) 1 patch topical (units (unknown) date) BID Qty: 30 1RF unknown) (unknown) (no (unknown) (unknown) 10 mg PO 1-2XD (units (unknown) date) MDD 20 mg PRN unknown) (Reason: chronic pain) (unknown) (no (unknown) (unknown) 10 mg PO Q8H PRN (units (unknown) date) (Reason: anxiety) unknown) Qty: 60 0RF (unknown) (no (unknown) (unknown) 100 mg PO TID (units ( unknown) date) Qty: 90 1RF unknown) (unknown) (no (unknown) (unknown) [address] [place] [address] (units (unknown) date) unknown) (unknown) (no (unknown) (unknown) 17 gm PO DAILY (units (unknown) date) PRN (Reason: unknown) Constipation) Qty: 0 (unknown) (no (unknown) (unknown) 17.2 tab PO (units (un known) date) BEDTIME Qty: 0 unknown) (unknown) (no (unknown) (unknown) 2 puff INHALATION (units (unknown) date) Q4H PRN (Reason: unknown) Shortness Of Breath) (unknown) (no (unknown) (unknown) 250 mg PO DAILY (units (unknown) date) 120 Days Qty: 4 unknown) 0RF (unknown) (no (unknown) (unknown) 250 mg PO MOWEFR (units (unknown) date) unknown) (unknown) (no (unknown) (unknown) 3 ml INHALATION (units (unknown) date) Q6-8H PRN (Reason: unknown) SOB) (unknown) (no (unknown) (unknown) 30 mg PO QAM (units (u nknown) date) unknown) (unknown) (no (unknown) (unknown) 40 mg PO BID (units (u nknown) date) unknown) (unknown) (no (unknown) (unknown) 400 mg PO TID (units ( unknown) date) Qty: 90 2RF unknown) (unknown) (no (unknown) (unknown) 5 mg PO BID (units (un known) date) unknown) (unknown) (no (unknown) (unknown) 50 mg PO BEDTIME (units (unknown) date) unknown) (unknown) (no (unknown) (unknown) 500 mg PO BEDTIME (units (unknown) date) unknown) (unknown) (no (unknown) (unknown) Allergies (units (unkn own) date) unknown) (unknown) (no (unknown) (unknown) AMAURI [place] (units ( unknown) date) [id number] unknown) (unknown) (no (unknown) (unknown) CT Scan Report (units (unknown) date) unknown) (unknown) (no (unknown) (unknown) Documented By: KB (units (unknown) date) unknown) (unknown) (no (unknown) (unknown) Documented By: NR (units (unknown) date) unknown) (unknown) (no (unknown) (unknown) ED Orders (units (unkn own) date) unknown) (unknown) (no (unknown) (unknown) Emergency Report (units (unknown) date) unknown) (unknown) (no (unknown) (unknown) Home Medications (units (unknown) date) unknown) (unknown) (no (unknown) (unknown) IRRITATION (units (unk nown) date) unknown) (unknown) (no (unknown) (unknown) [facility] (units (unknown) date) unknown) (unknown) (no (unknown) (unknown) [facility] (units (unknown) date) [address] unknown) [place] [id number] (unknown) (no (unknown) (unknown) Lab Results (units (un known) date) unknown) (unknown) (no (unknown) (unknown) Label Comments: (units (unknown) date) unknown) (unknown) (no (unknown) (unknown) Last Admin: (units (un known) date) 09/05/21 17:50 unknown) Dose: 2 sprays (unknown) (no (unknown) (unknown) Last Admin: (units (un known) date) 09/05/21 20:43 unknown) Dose: 500 mg (unknown) (no (unknown) (unknown) Previous Rx's (units ( unknown) date) unknown) (unknown) (no (unknown) (unknown) Rx Instructions: (units (unknown) date) unknown) (unknown) (no (unknown) (unknown) Signed (units (unkno wn) date) unknown) (unknown) (no (unknown) (unknown) Stop: 09/05/21 (units (unknown) date) 17:47 unknown) (unknown) (no (unknown) (unknown) Stop: 09/05/21 (units (unknown) date) 20:38 unknown) (unknown) (no (unknown) (unknown) TO HIS EXISTING (units (unknown) date) 400MG TID. unknown) (unknown) (no (unknown) (unknown) USE TO TITRATE (units (unknown) date) DOSE TID. PT AWARE unknown) OF HOW TO ADD THIS (unknown) (no (unknown) (unknown) Vital Signs - 8 (units (unknown) date) hr unknown) (unknown) (no (unknown) (unknown) XRay Report (units (un known) date) unknown) (unknown) (no (unknown) (unknown) generally takes (units (unknown) date) at least tid, but unknown) may take up to 2 tabs tid (unknown) (no (unknown) (unknown) leave on 3-4 (units (u nknown) date) minutes then spit unknown) out. do not rinse, eat or drink for 30 minutes (unknown) (no (unknown) (unknown) take 1 tablet by (units (unknown) date) mouth EVERY SATURDAY unknown) SATURDAY AND SATURDAY (unknown) (no (unknown) (unknown) take 1 tablet by (units (unknown) date) mouth daily unknown) (unknown) (no (unknown) (unknown) take 1 tablet by (units (unknown) date) mouth every unknown) morning (unknown) (no (unknown) (unknown) (no value) (units (unk nown) date) unknown) (unknown) (no (unknown) (unknown) 07/12/22 07/12/22 (units (unknown) date) 09/05/21 unknown) Range/Units (unknown) (no (unknown) (unknown) 09/05/21 (units (unkno wn) date) Range/Units unknown) (unknown) (no (unknown) (unknown) 16:00 (units (unkno wn) date) unknown) (unknown) (no (unknown) (unknown) 16:00 16:00 16:00 (units (unknown) date) unknown) (unknown) (no (unknown) (unknown) After that you (units (unknown) date) can go back and unknown) start taking it 3 days a week. Contact your (unknown) (no (unknown) (unknown) albuterol sulfate (units (unknown) date) 90 mcg/actuation unknown) Hfa Aerosol Inhaler (unknown) (no (unknown) (unknown) azithromycin 250 (units (unknown) date) mg tablet unknown) (unknown) (no (unknown) (unknown) carbidopa-levodop (units (unknown) date) a 25 MG/100 MG unknown) tablet extended release (unknown) (no (unknown) (unknown) dexamethasone 0.5 (units (unknown) date) mg/5 mL solution unknown) (unknown) (no (unknown) (unknown) diclofenac (units (unk nown) date) epolamine unknown) [Flector] 1.3 % patch 12 hour (unknown) (no (unknown) (unknown) fluoride (sodium) (units (unknown) date) 1.1 % Gel unknown) (unknown) (no (unknown) (unknown) gabapentin 100 mg (units (unknown) date) capsule unknown) (unknown) (no (unknown) (unknown) gabapentin 400 mg (units (unknown) date) capsule unknown) (unknown) (no (unknown) (unknown) hydroxyzine HCl (units (unknown) date) 10 mg tablet unknown) (unknown) (no (unknown) (unknown) ipratropium-albut (units (unknown) date) fermín 0.5 mg-3 unknown) mg(2.5 mg base)/3 mL Solution For Nebulization (unknown) (no (unknown) (unknown) metoprolol (units (unk nown) date) succinate 50 mg unknown) tablet extended release 24 hr (unknown) (no (unknown) (unknown) nifedipine 30 mg (units (unknown) date) tablet extended unknown) release (unknown) (no (unknown) (unknown) ondansetron HCl 4 (units (unknown) date) mg tablet unknown) (unknown) (no (unknown) (unknown) oxycodone 10 mg (units (unknown) date) tablet unknown) (unknown) (no (unknown) (unknown) pantoprazole 40 (units (unknown) date) mg Tablet,Delayed unknown) Release (Dr/Ec) (unknown) (no (unknown) (unknown) polyethylene (units (u nknown) date) glycol 3350 unknown) [Miralax] 119 GM powder (unknown) (no (unknown) (unknown) selegiline HCl 5 (units (unknown) date) mg Tablet unknown) (unknown) (no (unknown) (unknown) sennosides (units (unk nown) date) [senna] 8.6 MG unknown) tablet (unknown) (no (unknown) (unknown) tamsulosin (units (unk nown) date) [Flomax] 0.4 MG unknown) capsule,extended release 24hr (unknown) (no (unknown) (unknown) valacyclovir 500 (units (unknown) date) mg tablet unknown) (unknown) (no (unknown) (unknown) 09/05/21 (units (unkno wn) date) unknown) (unknown) (no (unknown) (unknown) He is followed (units (unknown) date) closely by unknown) [facility] and [facility]. He complains of (unknown) (no (unknown) (unknown) Medication (units (unk nown) date) Instructions unknown) Recorded (unknown) (no (unknown) (unknown) Medication (units (unk nown) date) Instructions unknown) Recorded Confirmed (unknown) (no (unknown) (unknown) Pneumonia (units (unkn own) date) unknown) (unknown) (no (unknown) (unknown) early (units (unkno wn) date) unknown) (unknown) (no (unknown) (unknown) may be worse over (units (unknown) date) the last few days. unknown) He is not hypoxic. He does not have a (unknown) (no (unknown) (unknown) not be consistent (units (unknown) date) with pneumonia it unknown) is difficult to tell what is chronic and (unknown) (no (unknown) (unknown) <Rhona Ct, (units (unknown) date) DO - Last Filed: unknown) 09/05/21 19:54> (unknown) (no (unknown) (unknown) <Adonis Laurent, (units (unknown) date) DO - Last Filed: unknown) 09/06/21 01:42> (unknown) (no (unknown) (unknown) (2.5 mg base)/3 (units (unknown) date) mL nebulization unknown) (unknown) (no (unknown) (unknown) *Temp,ED* (units (unkn own) date) [Primary Care unknown) Provider] - (unknown) (no (unknown) (unknown) [phone] (units (unkn own) date) unknown) (unknown) (no (unknown) (unknown) 08/05/20 (units (unkno wn) date) unknown) (unknown) (no (unknown) (unknown) 09/05/21 17:38 (units (unknown) date) unknown) (unknown) (no (unknown) (unknown) 1. No pulmonary (units (unknown) date) embolism unknown) demonstrated.? (unknown) (no (unknown) (unknown) 12 point review (units (unknown) date) of systems is unknown) negative except for those stated above and HPI (unknown) (no (unknown) (unknown) 18:00 09/05/21 (units (unknown) date) unknown) (unknown) (no (unknown) (unknown) 18:30 (units (unkno wn) date) unknown) (unknown) (no (unknown) (unknown) 19:00 09/05/21 (units (unknown) date) unknown) (unknown) (no (unknown) (unknown) 19:30 (units (unkno wn) date) unknown) (unknown) (no (unknown) (unknown) 2 L of oxygen at (units (unknown) date) night but also has unknown) started wearing some oxygen during the day. (unknown) (no (unknown) (unknown) 2. Patchy (units (unkn own) date) consolidative and unknown) ground-glass opacities, most confluent in the right (unknown) (no (unknown) (unknown) 3. (units (unkno wn) date) Moderate-severe unknown) bronchiectasis, worsened since before.? Areas of bronchial (unknown) (no (unknown) (unknown) 4. Nonspecific (units (unknown) date) reticular and unknown) bronchocentric airspace opacities could suggest a (unknown) (no (unknown) (unknown) 5. Nonspecific (units (unknown) date) mediastinal unknown) lymphadenopathy, could be reactive.? (unknown) (no (unknown) (unknown) ? (units (unkno wn) date) unknown) (unknown) (no (unknown) (unknown) A prescription (units (unknown) date) for antibiotics unknown) was transmitted to [facility] in [place]. (unknown) (no (unknown) (unknown) ALT 7 (<50) (units (unknown) date) IU/L unknown) (unknown) (no (unknown) (unknown) ALT (<50) IU/L (units (unknown) date) unknown) (unknown) (no (unknown) (unknown) ANGIO CHEST PE (units (unknown) date) PROTOCOL, unknown) 12/25/2018, 23:58. (unknown) (no (unknown) (unknown) AST 31 (units (unkn own) date) (17-59) IU/L unknown) (unknown) (no (unknown) (unknown) AST (17-59) (units ( unknown) date) IU/L unknown) (unknown) (no (unknown) (unknown) Abdomen:? (units (unkno wn) date) Visualized upper unknown) abdominal solid organs appear unremarkable for in the (unknown) (no (unknown) (unknown) Accession Number: (units (unknown) date) [id number] ?? unknown) (unknown) (no (unknown) (unknown) Accession Number: (units (unknown) date) [id number] ?? unknown) (unknown) (no (unknown) (unknown) Acct:[id number] (units (unknown) date) unknown) (unknown) (no (unknown) (unknown) Activity (units (unkno wn) date) Restrictions/Addit unknown) ional Instructions: (unknown) (no (unknown) (unknown) After the (units (unkn own) date) administration of unknown) intravenous contrast, 2 mm thick sections acquired (unknown) (no (unknown) (unknown) Age/Sex: 75 / M (units (unknown) date) unknown) (unknown) (no (unknown) (unknown) Age/Sex: 75 / M (units (unknown) date) unknown) (unknown) (no (unknown) (unknown) Albumin 4.0 (units (unknown) date) (3.5-5.0) g/dL unknown) (unknown) (no (unknown) (unknown) Albumin (units (unkno wn) date) (3.5-5.0) g/dL unknown) (unknown) (no (unknown) (unknown) Albumin/Globulin (units (unknown) date) Ratio 1.0 unknown) (1.0-2.8) (unknown) (no (unknown) (unknown) Albumin/Globulin (units (unknown) date) Ratio (1.0-2.8) unknown) (unknown) (no (unknown) (unknown) Alkaline (units (unkno wn) date) Phosphatase 87 unknown) (38-126) U/L (unknown) (no (unknown) (unknown) Alkaline (units (unkno wn) date) Phosphatase unknown) (38-126) U/L (unknown) (no (unknown) (unknown) Allergy/AdvReac (units (unknown) date) Type Severity unknown) Reaction Status Date / Time (unknown) (no (unknown) (unknown) Approved by: (units (u nknown) date) sanjeev Zapien M.D. on 09/05/2021 at 18:56?? (unknown) (no (unknown) (unknown) Atrial (units (o wn) date) fibrillation unknown) (unknown) (no (unknown) (unknown) Atrial flutter (units (unknown) date) unknown) (unknown) (no (unknown) (unknown) Azithromycin (units (u nknown) date) (Azithromycin 250 unknown) Mg Tablet) 500 mg PO NOW ONE (unknown) (no (unknown) (unknown) BUN 62 H (units (un known) date) (9-20) mg/dL unknown) (unknown) (no (unknown) (unknown) BUN (9-20) (units (u nknown) date) mg/dL unknown) (unknown) (no (unknown) (unknown) BUN/Creatinine (units (unknown) date) Ratio 34.3 H unknown) (6-22) (unknown) (no (unknown) (unknown) BUN/Creatinine (units (unknown) date) Ratio (6-22) unknown) (unknown) (no (unknown) (unknown) Baso # (Auto) (units ( unknown) date) (0-100) /uL unknown) (unknown) (no (unknown) (unknown) Baso # (Auto) (units ( unknown) date) 100 (0-100) unknown) /uL (unknown) (no (unknown) (unknown) Baso % (Auto) (units ( unknown) date) (0-2) % unknown) (unknown) (no (unknown) (unknown) Baso % (Auto) (units ( unknown) date) 0.7 (0-2) % unknown) (unknown) (no (unknown) (unknown) Blood Pressure (units (unknown) date) unknown) (unknown) (no (unknown) (unknown) Blood Pressure (units (unknown) date) 140/104 H unknown) 09/05/21 14:36 (unknown) (no (unknown) (unknown) Blood Pressure (units (unknown) date) 139/68 unknown) (unknown) (no (unknown) (unknown) Bones and chest (units (unknown) date) wall:? Multilevel unknown) degenerative change of the visualized spine.? (unknown) (no (unknown) (unknown) Bones and chest (units (unknown) date) wall:? No unknown) suspicious bony lesions.? 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 (units (u nknown) date) [facility], unknown) CR, XR CHEST 1V, 03/03/2021, 14:03. (unknown) (no (unknown) (unknown) COMPARISON:? (units (u nknown) date) [facility], unknown) CR, XR CHEST 1V, 09/05/2021, 15:31.? [place] (unknown) (no (unknown) (unknown) CT angio chest PE (units (unknown) date) protocol Stat unknown) (unknown) (no (unknown) (unknown) CT scan - chest: (units (unknown) date) unknown) (unknown) (no (unknown) (unknown) Calcium 9.1 (units (unknown) date) (8.4-10.2) mg/dL unknown) (unknown) (no (unknown) (unknown) Calcium (units (unkno wn) date) (8.4-10.2) mg/dL unknown) (unknown) (no (unknown) (unknown) Carbon Dioxide (units (unknown) date) 31 (22-32) unknown) mmol/L (unknown) (no (unknown) (unknown) Carbon Dioxide (units (unknown) date) (22-32) mmol/L unknown) (unknown) (no (unknown) (unknown) Chest x-ray: (units (u nknown) date) unknown) (unknown) (no (unknown) (unknown) Chief Complaint: (units (unknown) date) Shortness of unknown) Breath/Dyspnea (unknown) (no (unknown) (unknown) Chloride 99 (units (unknown) date) (98-107) mmol/L unknown) (unknown) (no (unknown) (unknown) Chloride (units (unkno wn) date) (98-107) mmol/L unknown) (unknown) (no (unknown) (unknown) Chronic (units (unkno wn) date) iovzi-ncsvxj-dchw unknown) disease (unknown) (no (unknown) (unknown) Chronic kidney (units (unknown) date) disease, stage III unknown) (moderate) (unknown) (no (unknown) (unknown) Clinical (units (unkno wn) date) Impression: unknown) (unknown) (no (unknown) (unknown) Compression (units (un known) date) fracture of L1 unknown) lumbar vertebra (unknown) (no (unknown) (unknown) Course (units (unkno wn) date) unknown) (unknown) (no (unknown) (unknown) Creatinine (units (unk nown) date) 1.81 H unknown) (0.66-1.25) mg/dL (unknown) (no (unknown) (unknown) Creatinine (units (unk nown) date) (0.66-1.25) mg/dL unknown) (unknown) (no (unknown) (unknown) 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D. on 09/05/2021 at 18:39 ? ? (unknown) (no (unknown) (unknown) Dictated by: (units (u nknown) date) Viji Staples M.D. unknown) on 09/05/2021 at 15:57 (unknown) (no (unknown) (unknown) Discharge Plan (units (unknown) date) unknown) (unknown) (no (unknown) (unknown) Discontinued (units (u nknown) date) Medications unknown) (unknown) (no (unknown) (unknown) Dr Mancilla: (units (unk nown) date) Received turned unknown) over. Review patient's history and physical exam. (unknown) (no (unknown) (unknown) ECG Data (units (unkno wn) date) unknown) (unknown) (no (unknown) (unknown) ER Physician: (units ( unknown) date) Adonis Mancilla unknown) D.O. (unknown) (no (unknown) (unknown) Elevated PSA (units (u nknown) date) unknown) (unknown) (no (unknown) (unknown) Eos # (Auto) (units (u nknown) date) (0-450) /uL unknown) (unknown) (no (unknown) (unknown) Eos # (Auto) 400 (units (unknown) date) (0-450) /uL unknown) (unknown) (no (unknown) (unknown) Eos % (Auto) (units (u nknown) date) (2-4) % unknown) (unknown) (no (unknown) (unknown) Eos % (Auto) 5.5 (units (unknown) date) H (2-4) % unknown) (unknown) (no (unknown) (unknown) Estimated GFR (units ( unknown) date) 38 L (>60) unknown) mL/min (unknown) (no (unknown) (unknown) Estimated GFR (units ( unknown) date) (>60) mL/min unknown) (unknown) (no (unknown) (unknown) Exam (units (unkno wn) date) unknown) (unknown) (no (unknown) (unknown) FINDINGS:? (units (unk nown) date) unknown) (unknown) (no (unknown) (unknown) Family History (units (unknown) date) (Reviewed 08/05/20 unknown) @ 10:35 by Derik Wallace DO) (unknown) (no (unknown) (unknown) Father Cancer (units (unknown) date) unknown) (unknown) (no (unknown) (unknown) For radiation (units ( unknown) date) dose reduction, unknown) the following was used:? automated exposure (unknown) (no (unknown) (unknown) Fungal pneumonia (units (unknown) date) unknown) (unknown) (no (unknown) (unknown) GASTROINTESTINAL: (units (unknown) date) Denies nausea, unknown) vomiting, abdominal pain, diarrhea, (unknown) (no (unknown) (unknown) GENERAL: Denies (units (unknown) date) chills, fatigue, unknown) malaise, fever, sweats, travel (unknown) (no (unknown) (unknown) : Denies (units (unkn own) date) dysuria, unknown) frequency, incontinence, hematuria, urinary retention, flank (unknown) (no (unknown) (unknown) General (units (unkno wn) date) unknown) (unknown) (no (unknown) (unknown) GenericComposite[ (units (unknown) date) Plt Count unknown) (150-400) X10^3/uL ] (unknown) (no (unknown) (unknown) GenericComposite[ (units (unknown) date) Plt Count 245 unknown) (150-400) X10^3/uL ] (unknown) (no (unknown) (unknown) GenericComposite[ (units (unknown) date) RBC (4.5-5.9) unknown) X10^6/uL ] (unknown) (no (unknown) (unknown) GenericComposite[ (units (unknown) date) RBC 3.38 L unknown) (4.5-5.9) X10^6/uL ] (unknown) (no (unknown) (unknown) GenericComposite[ (units (unknown) date) WBC (4.5-11.0) unknown) X10^3/uL ] (unknown) (no (unknown) (unknown) GenericComposite[ (units (unknown) date) WBC 7.4 unknown) (4.5-11.0) X10^3/uL ] (unknown) (no (unknown) (unknown) Globulin 3.9 (units (unknown) date) (1.7-4.1) g/dL unknown) (unknown) (no (unknown) (unknown) Globulin (units (unkno wn) date) (1.7-4.1) g/dL unknown) (unknown) (no (unknown) (unknown) Glucose 144 H (units (unknown) date) (80-110) mg/dL unknown) (unknown) (no (unknown) (unknown) Glucose (units (unkno wn) date) (80-110) mg/dL unknown) (unknown) (no (unknown) (unknown) 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 unknown) (unknown) (no (unknown) (unknown) HEENT: Denies (units ( unknown) date) sinus pain, ear unknown) pain, sore throat, difficulty swallowing, neck (unknown) (no (unknown) (unknown) HPI - SOB/Dyspnea (units (unknown) date) unknown) (unknown) (no (unknown) (unknown) HPI Narrative: (units (unknown) date) unknown) (unknown) (no (unknown) (unknown) Hct (41-53) % (units (unknown) date) unknown) (unknown) (no (unknown) (unknown) Hct 30.6 L (units (un known) date) (41-53) % unknown) (unknown) (no (unknown) (unknown) 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 (unknown) (no (unknown) (unknown) Hgb (13.5-17.5) (units (unknown) date) g/dL unknown) (unknown) (no (unknown) (unknown) Hgb 10.7 L (units (un known) date) (13.5-17.5) g/dL unknown) (unknown) (no (unknown) (unknown) History of (units (unk nown) date) Present Illness unknown) (unknown) (no (unknown) (unknown) History of (units (unk nown) date) partial colectomy unknown) (unknown) (no (unknown) (unknown) History of (units (unk nown) date) radiofrequency unknown) ablation procedure for cardiac arrhythmia (unknown) (no (unknown) (unknown) Hospital, CT, CT (units (unknown) date) unknown) (unknown) (no (unknown) (unknown) IMPRESSION:? (units (u nknown) date) unknown) (unknown) (no (unknown) (unknown) IMPRESSION:? (units (u nknown) date) Right basilar unknown) opacity most suggestive of pneumonia. (unknown) (no (unknown) (unknown) INDICATIONS:? (units ( unknown) date) +dimer RLL unknown) (unknown) (no (unknown) (unknown) INDICATIONS:? (units ( unknown) date) short of breath unknown) (unknown) (no (unknown) (unknown) Image quality:? (units (unknown) date) Excellent.? unknown) (unknown) (no (unknown) (unknown) Imaging Data (units (u nknown) date) unknown) (unknown) (no (unknown) (unknown) Initial Vital (units ( unknown) date) Signs unknown) (unknown) (no (unknown) (unknown) Initial Vital (units ( unknown) date) Signs: unknown) (unknown) (no (unknown) (unknown) Instructions: DI (units (unknown) date) for Pneumonia -- unknown) Adult (unknown) (no (unknown) (unknown) Interpretation: (units (unknown) date) unknown) (unknown) (no (unknown) (unknown) Lab Data (units (unkno wn) date) unknown) (unknown) (no (unknown) (unknown) Labs: (units (unkno wn) date) unknown) (unknown) (no (unknown) (unknown) Limitations: no (units (unknown) date) limitations unknown) (unknown) (no (unknown) (unknown) Lipase 157 (units ( unknown) date) (23-300) U/L unknown) (unknown) (no (unknown) (unknown) Lipase (23-300) (units (unknown) date) U/L unknown) (unknown) (no (unknown) (unknown) Loc: ED (units (unkno wn) date) unknown) (unknown) (no (unknown) (unknown) Lungs and (units (unkn own) date) pleura:? unknown) Bronchiectasis is present as before, overall moderate-severe (unknown) (no (unknown) (unknown) Lungs and (units (unkn own) date) pleura:? Interval unknown) development of patchy right basilar opacity.? Trace (unknown) (no (unknown) (unknown) Lymph # (Auto) (units (unknown) date) (1633-4514) /uL unknown) (unknown) (no (unknown) (unknown) Lymph # (Auto) (units (unknown) date) 1200 unknown) (5591-2429) /uL (unknown) (no (unknown) (unknown) Lymph % (Auto) (units (unknown) date) (25-40) % unknown) (unknown) (no (unknown) (unknown) Lymph % (Auto) (units (unknown) date) 15.9 L (25-40) unknown) % (unknown) (no (unknown) (unknown) MCH (26-34) PG (units (unknown) date) unknown) (unknown) (no (unknown) (unknown) MCH 31.5 (units (unkn own) date) (26-34) PG unknown) (unknown) (no (unknown) (unknown) MCHC (30-36) % (units (unknown) date) unknown) (unknown) (no (unknown) (unknown) MCHC 34.8 (units (unk nown) date) (30-36) % unknown) (unknown) (no (unknown) (unknown) MCV (80-100) (units (unknown) date) fL unknown) (unknown) (no (unknown) (unknown) MCV 90.6 (units (unkn own) date) (80-100) fL unknown) (unknown) (no (unknown) (unknown) MDM - SOB/Dyspnea (units (unknown) date) unknown) (unknown) (no (unknown) (unknown) MDM Narrative (units ( unknown) date) unknown) (unknown) (no (unknown) (unknown) MR#: [id number] (units (unknown) date) unknown) (unknown) (no (unknown) (unknown) MUSCULOSKELETAL: (units (unknown) date) Denies weakness, unknown) joint pain, or bony pain (unknown) (no (unknown) (unknown) Mediastinum:? (units ( unknown) date) Mediastinal unknown) contours appear normal.? Heart size is normal.? (unknown) (no (unknown) (unknown) Mediastinum:? No (units (unknown) date) pericardial unknown) effusion.? Mediastinal lymphadenopathy is present, (unknown) (no (unknown) (unknown) Medical History (units (unknown) date) (Updated 09/06/21 unknown) @ 00:00 by ) (unknown) (no (unknown) (unknown) Medical decision (units (unknown) date) making narrative: unknown) (unknown) (no (unknown) (unknown) Mode of arrival: (units (unknown) date) Ambulatory unknown) (unknown) (no (unknown) (unknown) Saturday (units (unknown) date) and Saturday but it unknown) will be on a daily basis for the next 4 days. (unknown) (no (unknown) (unknown) [place] # (Auto) (units ( unknown) date) (0-900) /uL unknown) (unknown) (no (unknown) (unknown) [place] # (Auto) (units ( unknown) date) 700 (0-900) unknown) /uL (unknown) (no (unknown) (unknown) [place] % (Auto) (units ( unknown) date) (3-14) % unknown) (unknown) (no (unknown) (unknown) [place] % (Auto) (units ( unknown) date) 8.9 (3-14) % unknown) (unknown) (no (unknown) (unknown) Mother C. (units (un known) date) difficile colitis unknown) (unknown) (no (unknown) (unknown) NEUROLOGIC: (units (un known) date) Denies weakness, unknown) dizziness, headache, numbness, change in speech, (unknown) (no (unknown) (unknown) NT-Pro-B (units (unkno wn) date) Natriuret Pep unknown) 594 H (<450) pg/mL (unknown) (no (unknown) (unknown) NT-Pro-B (units (unkno wn) date) Natriuret Pep unknown) (<450) pg/mL (unknown) (no (unknown) (unknown) Narrative: (units (unk nown) date) unknown) (unknown) (no (unknown) (unknown) Neut # (Auto) (units ( unknown) date) (1049-7756) /uL unknown) (unknown) (no (unknown) (unknown) Neut # (Auto) (units ( unknown) date) 5100 unknown) (7707-7694) /uL (unknown) (no (unknown) (unknown) Neut % (Auto) (units ( unknown) date) (50-75) % unknown) (unknown) (no (unknown) (unknown) Neut % (Auto) (units ( unknown) date) 69.0 (50-75) % unknown) (unknown) (no (unknown) (unknown) New (units (unkno wn) date) unknown) (unknown) (no (unknown) (unknown) No Action (units (unkn own) date) unknown) (unknown) (no (unknown) (unknown) Non- (units (unkno wn) date) unknown) (unknown) (no (unknown) (unknown) Normal sinus (units (u nknown) date) rhythm rate 89 MT unknown) interval 136 QRS [address] changes (unknown) (no (unknown) (unknown) Ordered: (units (unkno wn) date) unknown) (unknown) (no (unknown) (unknown) Ordering (units (unkno wn) date) Provider: unknown) Rhona Fofana D.O. (unknown) (no (unknown) (unknown) Orders (units (unkno wn) date) unknown) (unknown) (no (unknown) (unknown) Oxygen Delivery (units (unknown) date) Method 09/05/21 unknown) 14:36 (unknown) (no (unknown) (unknown) Oxymetazoline HCl (units (unknown) date) (Oxymetazoline unknown) Nasal [place] 15 Ml) 2 sprays NASAL NOW ONE (unknown) (no (unknown) (unknown) PROCEDURE:? CT (units (unknown) date) ANGIO CHEST PE unknown) PROTOCOL (unknown) (no (unknown) (unknown) PROCEDURE:? XR (units (unknown) date) CHEST 1V unknown) (unknown) (no (unknown) (unknown) PSYCHIATRIC: No (units (unknown) date) concerning unknown) psychosocial issues. (unknown) (no (unknown) (unknown) Parkinson disease (units (unknown) date) unknown) (unknown) (no (unknown) (unknown) Patient (units (unkno wn) date) Disposition: Home unknown) (unknown) (no (unknown) (unknown) Patient History (units (unknown) date) unknown) (unknown) (no (unknown) (unknown) Patient has (units (unk nown) date) chronic cough he unknown) sounds like he has sputum production frequently but (unknown) (no (unknown) (unknown) Patient is a (units (un known) date) 75-year-old male unknown) with history of leukemia iedom-ifphoj-obqu disease (unknown) (no (unknown) (unknown) Patient is (units (unk nown) date) agreeable to this. unknown) He was given a 1st dose of antibiotics here in (unknown) (no (unknown) (unknown) Patient: (units (unkno wn) date) Adonis Dueñas unknown) MR#: M (unknown) (no (unknown) (unknown) Patient: (units (unkno wn) date) Adonis Dueñas unknown) (unknown) (no (unknown) (unknown) Please take it as (units (unknown) date) directed. It is unknown) the same medication that you take every (unknown) (no (unknown) (unknown) Potassium 3.6 (units (unknown) date) (3.4-5.1) mmol/L unknown) (unknown) (no (unknown) (unknown) Potassium (units (unkn own) date) (3.4-5.1) mmol/L unknown) (unknown) (no (unknown) (unknown) Prescriptions: (units (unknown) date) unknown) (unknown) (no (unknown) (unknown) Procedure: CT (units ( unknown) date) angio chest PE unknown) protocol (unknown) (no (unknown) (unknown) Procedure: XR (units ( unknown) date) chest 1V unknown) (unknown) (no (unknown) (unknown) Pulmonary (units (unkn own) date) arteries:? unknown) Pulmonary arteries are normal in size, and demonstrate no (unknown) (no (unknown) (unknown) Pulse Oximetry (units (unknown) date) 92 95 unknown) (unknown) (no (unknown) (unknown) Pulse Oximetry (units (unknown) date) 99 09/05/21 unknown) 14:36 (unknown) (no (unknown) (unknown) Pulse Oximetry 95 (units (unknown) date) unknown) (unknown) (no (unknown) (unknown) Pulse Rate 90 81 (units (unknown) date) unknown) (unknown) (no (unknown) (unknown) Pulse Rate 96 H (units (unknown) date) 09/05/21 14:36 unknown) (unknown) (no (unknown) (unknown) Pulse Rate 87 97 (units (unknown) date) H unknown) (unknown) (no (unknown) (unknown) RDW (11.6-14.8) (units (unknown) date) % unknown) (unknown) (no (unknown) (unknown) RDW 13.8 (units (unkn own) date) (11.6-14.8) % unknown) (unknown) (no (unknown) (unknown) RESPIRATORY: (units (u nknown) date) Denies dyspnea, unknown) cough, wheezing, hemoptysis, sputum. (unknown) (no (unknown) (unknown) Referrals: (units (unk nown) date) unknown) (unknown) (no (unknown) (unknown) Related Data (units (u nknown) date) unknown) (unknown) (no (unknown) (unknown) Respiratory Rate (units (unknown) date) 28 H 09/05/21 unknown) 14:36 (unknown) (no (unknown) (unknown) Respiratory Rate (units (unknown) date) 34 H 22 unknown) (unknown) (no (unknown) (unknown) Respiratory Rate (units (unknown) date) 24 30 H unknown) (unknown) (no (unknown) (unknown) Result diagrams: (units (unknown) date) unknown) (unknown) (no (unknown) (unknown) Review of Systems (units (unknown) date) unknown) (unknown) (no (unknown) (unknown) 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) (unknown) (no (unknown) (unknown) SARS-CoV-2 (PCR) (units (unknown) date) (Negative) unknown) (unknown) (no (unknown) (unknown) SARS-CoV-2 (PCR) (units (unknown) date) Negative unknown) (Negative) (unknown) (no (unknown) (unknown) SKIN: No rash, no (units (unknown) date) erythema, no unknown) pruritus (unknown) (no (unknown) (unknown) Signed By: (units (unk nown) date) unknown) (unknown) (no (unknown) (unknown) Skin cancer (units (un known) date) unknown) (unknown) (no (unknown) (unknown) Smoking Status: (units (unknown) date) Former smoker unknown) (unknown) (no (unknown) (unknown) Smoking Status: (units (unknown) date) Former smoker unknown) (unknown) (no (unknown) (unknown) Social History (units (unknown) date) (Reviewed 12/26/18 unknown) @ 01:35 by Rhona Fofana DO) (unknown) (no (unknown) (unknown) Sodium 139 (units ( unknown) date) (137-145) mmol/L unknown) (unknown) (no (unknown) (unknown) Sodium (units (unkno wn) date) (137-145) mmol/L unknown) (unknown) (no (unknown) (unknown) Source: patient (units (unknown) date) unknown) (unknown) (no (unknown) (unknown) Spinal stenosis (units (unknown) date) unknown) (unknown) (no (unknown) (unknown) Stated Complaint: (units (unknown) date) sob/weak unknown) (unknown) (no (unknown) (unknown) Substance Use (units ( unknown) date) Type: does not use unknown) (unknown) (no (unknown) (unknown) Surgical History (units (unknown) date) (Updated 03/03/21 unknown) @ 18:43 by Derik Simth MD) (unknown) (no (unknown) (unknown) Surgical changes (units (unknown) date) and devices:? unknown) Prosthetic valve is noted. (unknown) (no (unknown) (unknown) T11 vertebral (units ( unknown) date) fracture unknown) (unknown) (no (unknown) (unknown) TECHNIQUE:? (units (un known) date) unknown) (unknown) (no (unknown) (unknown) TECHNIQUE:? One (units (unknown) date) view of the chest unknown) was acquired.? (unknown) (no (unknown) (unknown) Temperature 97.1 (units (unknown) date) F L 09/05/21 unknown) 14:36 (unknown) (no (unknown) (unknown) Thoracic (units (unkno wn) date) unknown) (unknown) (no (unknown) (unknown) Time Seen by (units (u nknown) date) Provider: 09/05/21 unknown) 15:25 (unknown) (no (unknown) (unknown) Tobacco: How many (units (unknown) date) years used: 10 unknown) (unknown) (no (unknown) (unknown) Total Bilirubin (units (unknown) date) 0.5 (0.2-1.3) unknown) mg/dL (unknown) (no (unknown) (unknown) Total Bilirubin (units (unknown) date) (0.2-1.3) mg/dL unknown) (unknown) (no (unknown) (unknown) Total Creatine (units (unknown) date) Kinase 57 unknown) (55-170) U/L (unknown) (no (unknown) (unknown) Total Creatine (units (unknown) date) Kinase (55-170) unknown) U/L (unknown) (no (unknown) (unknown) Total Protein (units ( unknown) date) 7.9 (6.3-8.2) unknown) g/dL (unknown) (no (unknown) (unknown) Total Protein (units ( unknown) date) (6.3-8.2) g/dL unknown) (unknown) (no (unknown) (unknown) Troponin I < (units (unknown) date) 0.012 unknown) (0.01-0.034) ng/mL (unknown) (no (unknown) (unknown) Troponin I (units (unk nown) date) (0.01-0.034) unknown) ng/mL (unknown) (no (unknown) (unknown) Visit Report (units (u nknown) date) Forms: Patient unknown) Portal/API (unknown) (no (unknown) (unknown) Vital Signs (units (un known) date) unknown) (unknown) (no (unknown) (unknown) Vital signs: (units (u nknown) date) unknown) (unknown) (no (unknown) (unknown) Waiting for CT (units (unknown) date) angio chest. unknown) (unknown) (no (unknown) (unknown) We were waiting (units (unknown) date) the results of the unknown) CT angiogram. This showed no signs of (unknown) (no (unknown) (unknown) [Embedded Image (units (unknown) date) Not Available] unknown) (unknown) (no (unknown) (unknown) [From BENADRYL] (units (unknown) date) SEDATION unknown) (unknown) (no (unknown) (unknown) acetaminophen (units ( unknown) date) [ACETAMINOPHEN] unknown) AdvReac Unknown ABD PAIN Verified 09/05/21 14:36 (unknown) (no (unknown) (unknown) acute appearing (units (unknown) date) fractures of T11 unknown) and L1.? T11 fracture consistent with (unknown) (no (unknown) (unknown) adjustment of mA (units (unknown) date) and/or kV unknown) according to patient size.? (unknown) (no (unknown) (unknown) aerosol inhaler (units (unknown) date) Shortness Of unknown) Breath (unknown) (no (unknown) (unknown) agreement. (units (unk nown) date) unknown) (unknown) (no (unknown) (unknown) airways mucous (units (unknown) date) plugging also unknown) present.? No pleural effusion. (unknown) (no (unknown) (unknown) albuterol sulfate (units (unknown) date) 90 mcg/actuation 2 unknown) puff inhalation Q4H PRN 11/04/17 08/05/20 (unknown) (no (unknown) (unknown) alcohol intake (units (unknown) date) frequency: unknown) holidays/special occasions only (unknown) (no (unknown) (unknown) alcohol intake: (units (unknown) date) current unknown) (unknown) (no (unknown) (unknown) aorta is normal (units (unknown) date) in caliber and unknown) enhancement. ? (unknown) (no (unknown) (unknown) appear (units (unkno wn) date) unknown) (unknown) (no (unknown) (unknown) arterial phase of (units (unknown) date) enhancement.? unknown) (unknown) (no (unknown) (unknown) azithromycin 250 (units (unknown) date) mg tablet 250 mg unknown) PO DAILY 4 months #4 tabs 09/05/21 (unknown) (no (unknown) (unknown) azithromycin 250 (units (unknown) date) mg tablet 250 mg unknown) PO MOWEFR 04/25/18 08/05/20 (unknown) (no (unknown) (unknown) bacitracin (units (unk nown) date) [BACITRACIN] unknown) Allergy Unknown SKIN Verified 09/05/21 14:36 (unknown) (no (unknown) (unknown) being weak a (units (u nknown) date) difficulty walking unknown) around but does not get need a walker. He is (unknown) (no (unknown) (unknown) bilateral (units (unkn own) date) unknown) (unknown) (no (unknown) (unknown) bronchitis. (units (un known) date) unknown) (unknown) (no (unknown) (unknown) carbidopa ER 25 (units (unknown) date) mg-levodopa 100 mg unknown) 1 - 2 tab PO TID ##0 10/02/16 08/05/20 (unknown) (no (unknown) (unknown) chlorhexidine (units ( unknown) date) [CHLORHEXIDINE] unknown) Allergy Unknown SKIN Verified 09/05/21 14:36 (unknown) (no (unknown) (unknown) choice. Patient (units (unknown) date) is eager to be unknown) discharged home. No indication for admission (unknown) (no (unknown) (unknown) complete burst (units (unknown) date) fracture, up to unknown) 75% vertebral body height loss.? (unknown) (no (unknown) (unknown) component (units (unkn own) date) unknown) (unknown) (no (unknown) (unknown) confusion (units (unkn own) date) unknown) (unknown) (no (unknown) (unknown) consolidation (units ( unknown) date) within the right unknown) lower lobe.? Mild bronchial wall thickening and (unknown) (no (unknown) (unknown) constipation, (units ( unknown) date) melena. unknown) (unknown) (no (unknown) (unknown) control, (units (unkno wn) date) unknown) (unknown) (no (unknown) (unknown) costophrenic (units (u nknown) date) angle blunting unknown) suggestive of minimal effusions. (unknown) (no (unknown) (unknown) dexamethasone 0.5 (units (unknown) date) mg/5 mL oral 1 mg unknown) PO BID 05/23/20 08/05/20 (unknown) (no (unknown) (unknown) diclofenac (units (unk nown) date) epolamine 1.3 % 1 unknown) patch topical BID #30 ea 08/15/20 (unknown) (no (unknown) (unknown) diltiazem Allergy (units (unknown) date) Intermediate Hives unknown) Verified 09/05/21 14:36 (unknown) (no (unknown) (unknown) diphenhydramine (units (unknown) date) AdvReac Unknown unknown) EXTREME Verified 09/05/21 14:36 (unknown) (no (unknown) (unknown) doing contrast at (units (unknown) date) this time he unknown) agrees to do contrast. (unknown) (no (unknown) (unknown) example a 1.2 cm (units (unknown) date) lower paratracheal unknown) lymph node ().? A TAVR is present.? (unknown) (no (unknown) (unknown) fever he has no (units (unknown) date) leukocytosis. unknown) X-ray concerning for pneumonia symptoms where may (unknown) (no (unknown) (unknown) fluoride (sodium) (units (unknown) date) 1.1 % dental gel 1 unknown) applic dental BEDTIME 04/30/18 08/05/20 (unknown) (no (unknown) (unknown) for (units (unkno wn) date) unknown) (unknown) (no (unknown) (unknown) for a PE. He (units ( unknown) date) does have chronic unknown) kidney disease seems to be stable slightly (unknown) (no (unknown) (unknown) fracture, (units (unkn own) date) approximately 30% unknown) vertebral body height loss.? L1 fracture likely (unknown) (no (unknown) (unknown) from the (units (unkno wn) date) unknown) (unknown) (no (unknown) (unknown) gabapentin 100 mg (units (unknown) date) capsule 100 mg PO unknown) TID #90 caps 01/02/21 (unknown) (no (unknown) (unknown) gabapentin 400 mg (units (unknown) date) capsule 400 mg PO unknown) TID #90 caps 01/31/21 (unknown) (no (unknown) (unknown) glass (units (unkno wn) date) unknown) (unknown) (no (unknown) (unknown) gram/dose oral (units (unknown) date) powder (Miralax) unknown) (unknown) (no (unknown) (unknown) have gotten worse (units (unknown) date) over last couple unknown) of days. He denies any chest pain. He wears (unknown) (no (unknown) (unknown) household (units (unkn own) date) members: spouse unknown) (unknown) (no (unknown) (unknown) hydroxyzine HCl (units (unknown) date) 10 mg tablet 10 mg unknown) PO Q8H PRN anxiety #60 tabs 03/03/21 (unknown) (no (unknown) (unknown) improved from (units ( unknown) date) previous blood unknown) work. Discussed with him risks and benefits of (unknown) (no (unknown) (unknown) increase in his (units (unknown) date) sputum production. unknown) Because of his other medical issues and his (unknown) (no (unknown) (unknown) intensity (units (unkn own) date) unknown) (unknown) (no (unknown) (unknown) intraluminal (units (u nknown) date) filling defects to unknown) suggest central pulmonary embolism.? (unknown) (no (unknown) (unknown) ipratropium 0.5 (units (unknown) date) mg-albuterol 3 mg unknown) 3 ml inhalation Q6-8H PRN SOB 07/14/18 (unknown) (no (unknown) (unknown) leukocytosis. He (units (unknown) date) has been feeling unknown) worse over the past couple days. Has had an (unknown) (no (unknown) (unknown) lobe, suspicious (units (unknown) date) for pneumonia unknown) and/or aspiration. (unknown) (no (unknown) (unknown) lower (units (unkno wn) date) unknown) (unknown) (no (unknown) (unknown) metoprolol (units (unk nown) date) succinate 50 mg 50 unknown) mg PO BEDTIME 04/25/18 08/05/20 (unknown) (no (unknown) (unknown) months. He has (units (unknown) date) had productive unknown) sputum no fevers or chills. He thinks this may (unknown) (no (unknown) (unknown) nifedipine 30 mg (units (unknown) date) tablet,extended 30 unknown) mg PO QAM 04/25/18 08/05/20 (unknown) (no (unknown) (unknown) of interstitial (units (unknown) date) lung disease.? unknown) (unknown) (no (unknown) (unknown) ondansetron HCl 4 (units (unknown) date) mg tablet mg PO unknown) DAILY PRN nausea and vomiting 05/23/20 (unknown) (no (unknown) (unknown) opacities (units (unkn own) date) predominantly in a unknown) bronchocentric distribution, with more confluent (unknown) (no (unknown) (unknown) or worsening (units (u nknown) date) symptoms. unknown) (unknown) (no (unknown) (unknown) organizing (units (unk nown) date) pneumonia an unknown) Aspergillus pneumonia. He has had chronic chest conges (unknown) (no (unknown) (unknown) oxycodone 10 mg (units (unknown) date) tablet 10 mg PO unknown) 1-2XD PRN chronic pain 04/25/18 08/05/20 (unknown) (no (unknown) (unknown) pain (units (unkno wn) date) unknown) (unknown) (no (unknown) (unknown) pain. 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 3-dimensional maximum (unknown) (no (unknown) (unknown) pulmonary (units (unkn own) date) embolism. There unknown) were some findings on the CT scan that could (unknown) (no (unknown) (unknown) web assistant for (units (unknown) date) a follow-up. unknown) Return to the emergency department for any new (unknown) (no (unknown) (unknown) quite careful. (units (unknown) date) unknown) (unknown) (no (unknown) (unknown) release (units (unkno wn) date) unknown) (unknown) (no (unknown) (unknown) represents a (units (u nknown) date) unknown) (unknown) (no (unknown) (unknown) rifampin (units (unkno wn) date) [RIFAMPIN] Allergy unknown) Unknown HIVES Verified 09/05/21 14:36 (unknown) (no (unknown) (unknown) selegiline HCl 5 (units (unknown) date) mg tablet 5 mg PO unknown) BID 11/04/17 08/05/20 (unknown) (no (unknown) (unknown) sennosides 8.6 mg (units (unknown) date) tablet (senna) unknown) 17.2 tab PO BEDTIME ##0 10/01/16 08/05/20 (unknown) (no (unknown) (unknown) severity, (units (unkn own) date) unknown) (unknown) (no (unknown) (unknown) soln (units (unkno wn) date) unknown) (unknown) (no (unknown) (unknown) solution (units (unkno wn) date) unknown) (unknown) (no (unknown) (unknown) tablet,extended (units (unknown) date) release unknown) (unknown) (no (unknown) (unknown) tablet,extended (units (unknown) date) release 24 hr unknown) (unknown) (no (unknown) (unknown) tamsulosin 0.4 mg (units (unknown) date) capsule (Flomax) unknown) 0.4 mg PO BEDTIME ##0 10/01/16 08/05/20 (unknown) (no (unknown) (unknown) the emergency (units ( unknown) date) department and a unknown) prescription was sent to the pharmacy of his (unknown) (no (unknown) (unknown) the hospital. He (units (unknown) date) was given return unknown) precautions. He expressed understanding and (unknown) (no (unknown) (unknown) thickening and (units (unknown) date) mucous plugging unknown) are present, could indicate a component of (unknown) (no (unknown) (unknown) thorax.? (units (unkno wn) date) unknown) (unknown) (no (unknown) (unknown) tion using (units (unk nown) date) albuterol twice a unknown) day he continues to bring up a lot of sputum (unknown) (no (unknown) (unknown) today with (units (unkn own) date) increasing unknown) shortness of breath which has been worse over the last few (unknown) (no (unknown) (unknown) transdermal 12 (units (unknown) date) hour patch unknown) (Flector) (unknown) (no (unknown) (unknown) underlying lung (units (unknown) date) pathology we will unknown) treat him presumptively for pneumonia. (unknown) (no (unknown) (unknown) unremarkable.? (units (unknown) date) unknown) (unknown) (no (unknown) (unknown) valacyclovir 500 (units (unknown) date) mg tablet 500 mg unknown) PO BEDTIME 04/25/18 08/05/20 (unknown) (no (unknown) (unknown) wall (units (unkno wn) date) unknown) (unknown) (no (unknown) (unknown) wedge/impaction (units (unknown) date) unknown) (unknown) (no (unknown) (unknown) what is new. (units (u nknown) date) D-dimer is unknown) slightly elevated at 600 he has multiple risk factors (unknown) (no (unknown) (unknown) worsened since (units (unknown) date) the previous unknown) exam.? There are patchy consolidative and ground- Result panel 14 (unknown) (no (unknown) (unknown) (no value) (units (unk nown) date) unknown) (unknown) (no (unknown) (unknown) Radiologist's (units ( unknown) date) Impression: unknown) (unknown) (no (unknown) (unknown) PO DAILY PRN (units (u nknown) date) (Reason: nausea unknown) and vomiting) (unknown) (no (unknown) (unknown) Date of Service: (units (unknown) date) 09/05/21 unknown) (unknown) (no (unknown) (unknown) (no value) (units (unk nown) date) unknown) (unknown) (no (unknown) (unknown) <Electronically (units (unknown) date) signed by Rhona unknown) Faith FofanaO.> (unknown) (no (unknown) (unknown) <Electronically (units (unknown) date) signed by Adonis unknown) Faith MancillaO.> (unknown) (no (unknown) (unknown) 0.4 mg PO BEDTIME (units (unknown) date) Qty: 0 unknown) (unknown) (no (unknown) (unknown) 09/05/21 16:00 (units (unknown) date) unknown) (unknown) (no (unknown) (unknown) 09/06/21 0142 (units ( unknown) date) unknown) (unknown) (no (unknown) (unknown) 09/11/21 0730 (units ( unknown) date) unknown) (unknown) (no (unknown) (unknown) 1 - 2 tab PO TID (units (unknown) date) Qty: 0 unknown) (unknown) (no (unknown) (unknown) 1 applic Dental (units (unknown) date) BEDTIME unknown) (unknown) (no (unknown) (unknown) 1 mg PO BID (units (un known) date) unknown) (unknown) (no (unknown) (unknown) 1 patch topical (units (unknown) date) BID Qty: 30 1RF unknown) (unknown) (no (unknown) (unknown) 10 mg PO 1-2XD (units (unknown) date) MDD 20 mg PRN unknown) (Reason: chronic pain) (unknown) (no (unknown) (unknown) 10 mg PO Q8H PRN (units (unknown) date) (Reason: anxiety) unknown) Qty: 60 0RF (unknown) (no (unknown) (unknown) 100 mg PO TID (units ( unknown) date) Qty: 90 1RF unknown) (unknown) (no (unknown) (unknown) [address] [place] [address] (units (unknown) date) unknown) (unknown) (no (unknown) (unknown) 17 gm PO DAILY (units (unknown) date) PRN (Reason: unknown) Constipation) Qty: 0 (unknown) (no (unknown) (unknown) 17.2 tab PO (units (un known) date) BEDTIME Qty: 0 unknown) (unknown) (no (unknown) (unknown) 2 puff INHALATION (units (unknown) date) Q4H PRN (Reason: unknown) Shortness Of Breath) (unknown) (no (unknown) (unknown) 250 mg PO DAILY (units (unknown) date) 120 Days Qty: 4 unknown) 0RF (unknown) (no (unknown) (unknown) 250 mg PO MOWEFR (units (unknown) date) unknown) (unknown) (no (unknown) (unknown) 3 ml INHALATION (units (unknown) date) Q6-8H PRN (Reason: unknown) SOB) (unknown) (no (unknown) (unknown) 30 mg PO QAM (units (u nknown) date) unknown) (unknown) (no (unknown) (unknown) 40 mg PO BID (units (u nknown) date) unknown) (unknown) (no (unknown) (unknown) 400 mg PO TID (units ( unknown) date) Qty: 90 2RF unknown) (unknown) (no (unknown) (unknown) 5 mg PO BID (units (un known) date) unknown) (unknown) (no (unknown) (unknown) 50 mg PO BEDTIME (units (unknown) date) unknown) (unknown) (no (unknown) (unknown) 500 mg PO BEDTIME (units (unknown) date) unknown) (unknown) (no (unknown) (unknown) Allergies (units (unkn own) date) unknown) (unknown) (no (unknown) (unknown) AMAURI Macario (units ( unknown) date) [id number] unknown) (unknown) (no (unknown) (unknown) CT Scan Report (units (unknown) date) unknown) (unknown) (no (unknown) (unknown) Documented By: KB (units (unknown) date) unknown) (unknown) (no (unknown) (unknown) Documented By: NR (units (unknown) date) unknown) (unknown) (no (unknown) (unknown) Emergency Report (units (unknown) date) unknown) (unknown) (no (unknown) (unknown) Home Medications (units (unknown) date) unknown) (unknown) (no (unknown) (unknown) IRRITATION (units (unk nown) date) unknown) (unknown) (no (unknown) (unknown) [facility] (units (unknown) date) unknown) (unknown) (no (unknown) (unknown) [facility] (units (unknown) date) [address] unknown) A[place]URI [place] [id number] (unknown) (no (unknown) (unknown) Lab Results (units (un known) date) unknown) (unknown) (no (unknown) (unknown) Label Comments: (units (unknown) date) unknown) (unknown) (no (unknown) (unknown) Last Admin: (units (un known) date) 09/05/21 17:50 unknown) Dose: 2 sprays (unknown) (no (unknown) (unknown) Last Admin: (units (un known) date) 09/05/21 20:43 unknown) Dose: 500 mg (unknown) (no (unknown) (unknown) Previous Rx's (units ( unknown) date) unknown) (unknown) (no (unknown) (unknown) Rx Instructions: (units (unknown) date) unknown) (unknown) (no (unknown) (unknown) Signed (units (unkno wn) date) unknown) (unknown) (no (unknown) (unknown) Stop: 09/05/21 (units (unknown) date) 17:47 unknown) (unknown) (no (unknown) (unknown) Stop: 09/05/21 (units (unknown) date) 20:38 unknown) (unknown) (no (unknown) (unknown) TO HIS EXISTING (units (unknown) date) 400MG TID. unknown) (unknown) (no (unknown) (unknown) USE TO TITRATE (units (unknown) date) DOSE TID. PT AWARE unknown) OF HOW TO ADD THIS (unknown) (no (unknown) (unknown) Vital Signs - 8 (units (unknown) date) hr unknown) (unknown) (no (unknown) (unknown) XRay Report (units (un known) date) unknown) (unknown) (no (unknown) (unknown) generally takes (units (unknown) date) at least tid, but unknown) may take up to 2 tabs tid (unknown) (no (unknown) (unknown) leave on 3-4 (units (u nknown) date) minutes then spit unknown) out. do not rinse, eat or drink for 30 minutes (unknown) (no (unknown) (unknown) take 1 tablet by (units (unknown) date) mouth EVERY SATURDAY unknown) SATURDAY AND SATURDAY (unknown) (no (unknown) (unknown) take 1 tablet by (units (unknown) date) mouth daily unknown) (unknown) (no (unknown) (unknown) take 1 tablet by (units (unknown) date) mouth every unknown) morning (unknown) (no (unknown) (unknown) (no value) (units (unk nown) date) unknown) (unknown) (no (unknown) (unknown) 09/05/21 09/05/21 (units (unknown) date) 09/05/21 unknown) Range/Units (unknown) (no (unknown) (unknown) 09/05/21 (units (unkno wn) date) Range/Units unknown) (unknown) (no (unknown) (unknown) 16:00 (units (unkno wn) date) unknown) (unknown) (no (unknown) (unknown) 16:00 16:00 16:00 (units (unknown) date) unknown) (unknown) (no (unknown) (unknown) After that you (units (unknown) date) can go back and unknown) start taking it 3 days a week. Contact your (unknown) (no (unknown) (unknown) albuterol sulfate (units (unknown) date) 90 mcg/actuation unknown) Hfa Aerosol Inhaler (unknown) (no (unknown) (unknown) azithromycin 250 (units (unknown) date) mg tablet unknown) (unknown) (no (unknown) (unknown) carbidopa-levodop (units (unknown) date) a 25 MG/100 MG unknown) tablet extended release (unknown) (no (unknown) (unknown) dexamethasone 0.5 (units (unknown) date) mg/5 mL solution unknown) (unknown) (no (unknown) (unknown) diclofenac (units (unk n) date) epolamine unknown) [Flector] 1.3 % patch 12 hour (unknown) (no (unknown) (unknown) fluoride (sodium) (units (unknown) date) 1.1 % Gel unknown) (unknown) (no (unknown) (unknown) gabapentin 100 mg (units (unknown) date) capsule unknown) (unknown) (no (unknown) (unknown) gabapentin 400 mg (units (unknown) date) capsule unknown) (unknown) (no (unknown) (unknown) hydroxyzine HCl (units (unknown) date) 10 mg tablet unknown) (unknown) (no (unknown) (unknown) ipratropium-albut (units (unknown) date) fermín 0.5 mg-3 unknown) mg(2.5 mg base)/3 mL Solution For Nebulization (unknown) (no (unknown) (unknown) metoprolol (units (unk nown) date) succinate 50 mg unknown) tablet extended release 24 hr (unknown) (no (unknown) (unknown) nifedipine 30 mg (units (unknown) date) tablet extended unknown) release (unknown) (no (unknown) (unknown) ondansetron HCl 4 (units (unknown) date) mg tablet unknown) (unknown) (no (unknown) (unknown) oxycodone 10 mg (units (unknown) date) tablet unknown) (unknown) (no (unknown) (unknown) pantoprazole 40 (units (unknown) date) mg Tablet,Delayed unknown) Release (Dr/Ec) (unknown) (no (unknown) (unknown) polyethylene (units (u nknown) date) glycol 3350 unknown) [Miralax] 119 GM powder (unknown) (no (unknown) (unknown) selegiline HCl 5 (units (unknown) date) mg Tablet unknown) (unknown) (no (unknown) (unknown) sennosides (units (unk nown) date) [senna] 8.6 MG unknown) tablet (unknown) (no (unknown) (unknown) tamsulosin (units (unk nown) date) [Flomax] 0.4 MG unknown) capsule,extended release 24hr (unknown) (no (unknown) (unknown) valacyclovir 500 (units (unknown) date) mg tablet unknown) (unknown) (no (unknown) (unknown) 09/05/21 (units (unkno wn) date) unknown) (unknown) (no (unknown) (unknown) He is followed (units (unknown) date) closely by unknown) [facility] and [facility]. He complains of (unknown) (no (unknown) (unknown) Medication (units (unk nown) date) Instructions unknown) Recorded (unknown) (no (unknown) (unknown) Medication (units (unk nown) date) Instructions unknown) Recorded Confirmed (unknown) (no (unknown) (unknown) Pneumonia (units (unkn own) date) unknown) (unknown) (no (unknown) (unknown) early (units (unkno wn) date) unknown) (unknown) (no (unknown) (unknown) may be worse over (units (unknown) date) the last few days. unknown) He is not hypoxic. He does not have a (unknown) (no (unknown) (unknown) not be consistent (units (unknown) date) with pneumonia it unknown) is difficult to tell what is chronic and (unknown) (no (unknown) (unknown) <Rhona Fofana, (units (unknown) date) DO - Last Filed: unknown) 09/11/21 07:29> (unknown) (no (unknown) (unknown) <Adonis Laurent, (units (unknown) date) DO - Last Filed: unknown) 09/06/21 01:42> (unknown) (no (unknown) (unknown) (2.5 mg base)/3 (units (unknown) date) mL nebulization unknown) (unknown) (no (unknown) (unknown) *Temp,ED* (units (unkn own) date) [Primary Care unknown) Provider] - (unknown) (no (unknown) (unknown) [phone] (units (unkn own) date) unknown) (unknown) (no (unknown) (unknown) 08/05/20 (units (unkno wn) date) unknown) (unknown) (no (unknown) (unknown) 1. No pulmonary (units (unknown) date) embolism unknown) demonstrated.? (unknown) (no (unknown) (unknown) 12 point review (units (unknown) date) of systems is unknown) negative except for those stated above and HPI (unknown) (no (unknown) (unknown) 18:00 09/05/21 (units (unknown) date) unknown) (unknown) (no (unknown) (unknown) 18:30 (units (unkno wn) date) unknown) (unknown) (no (unknown) (unknown) 19:00 09/05/21 (units (unknown) date) unknown) (unknown) (no (unknown) (unknown) 19:30 (units (unkno wn) date) unknown) (unknown) (no (unknown) (unknown) 2 L of oxygen at (units (unknown) date) night but also has unknown) started wearing some oxygen during the day. (unknown) (no (unknown) (unknown) 2. Patchy (units (unkn own) date) consolidative and unknown) ground-glass opacities, most confluent in the right (unknown) (no (unknown) (unknown) 3. (units (unkno wn) date) Moderate-severe unknown) bronchiectasis, worsened since before.? Areas of bronchial (unknown) (no (unknown) (unknown) 4. Nonspecific (units (unknown) date) reticular and unknown) bronchocentric airspace opacities could suggest a (unknown) (no (unknown) (unknown) 5. Nonspecific (units (unknown) date) mediastinal unknown) lymphadenopathy, could be reactive.? (unknown) (no (unknown) (unknown) ? (units (unkno wn) date) unknown) (unknown) (no (unknown) (unknown) A prescription (units (unknown) date) for antibiotics unknown) was transmitted to [facility] in [place]. (unknown) (no (unknown) (unknown) ALT 7 (<50) (units (unknown) date) IU/L unknown) (unknown) (no (unknown) (unknown) ALT (<50) IU/L (units (unknown) date) unknown) (unknown) (no (unknown) (unknown) ANGIO CHEST PE (units (unknown) date) PROTOCOL, unknown) 12/25/2018, 23:58. (unknown) (no (unknown) (unknown) AST 31 (units (unkn own) date) (17-59) IU/L unknown) (unknown) (no (unknown) (unknown) AST (17-59) (units ( unknown) date) IU/L unknown) (unknown) (no (unknown) (unknown) Abdomen:? (units (unkno wn) date) Visualized upper unknown) abdominal solid organs appear unremarkable for in the (unknown) (no (unknown) (unknown) Accession Number: (units (unknown) date) [id number] ?? unknown) (unknown) (no (unknown) (unknown) Accession Number: (units (unknown) date) [id number] ?? unknown) (unknown) (no (unknown) (unknown) Acct:[id number] (units (unknown) date) unknown) (unknown) (no (unknown) (unknown) Activity (units (unkno wn) date) Restrictions/Addit unknown) ional Instructions: (unknown) (no (unknown) (unknown) After the (units (unkn own) date) administration of unknown) intravenous contrast, 2 mm thick sections acquired (unknown) (no (unknown) (unknown) Age/Sex: 75 / M (units (unknown) date) unknown) (unknown) (no (unknown) (unknown) Age/Sex: 75 / M (units (unknown) date) unknown) (unknown) (no (unknown) (unknown) Albumin 4.0 (units (unknown) date) (3.5-5.0) g/dL unknown) (unknown) (no (unknown) (unknown) Albumin (units (unkno wn) date) (3.5-5.0) g/dL unknown) (unknown) (no (unknown) (unknown) Albumin/Globulin (units (unknown) date) Ratio 1.0 unknown) (1.0-2.8) (unknown) (no (unknown) (unknown) Albumin/Globulin (units (unknown) date) Ratio (1.0-2.8) unknown) (unknown) (no (unknown) (unknown) Alkaline (units (unkno wn) date) Phosphatase 87 unknown) (38-126) U/L (unknown) (no (unknown) (unknown) Alkaline (units (unkno wn) date) Phosphatase unknown) (38-126) U/L (unknown) (no (unknown) (unknown) Allergy/AdvReac (units (unknown) date) Type Severity unknown) Reaction Status Date / Time (unknown) (no (unknown) (unknown) Approved by: (units (u nknown) date) sanjeev Zapien M.D. on 09/05/2021 at 18:56?? (unknown) (no (unknown) (unknown) Atrial (units (o wn) date) fibrillation unknown) (unknown) (no (unknown) (unknown) Atrial flutter (units (unknown) date) unknown) (unknown) (no (unknown) (unknown) Azithromycin (units (u nknown) date) (Azithromycin 250 unknown) Mg Tablet) 500 mg PO NOW ONE (unknown) (no (unknown) (unknown) BUN 62 H (units (un known) date) (9-20) mg/dL unknown) (unknown) (no (unknown) (unknown) BUN (9-20) (units (u nknown) date) mg/dL unknown) (unknown) (no (unknown) (unknown) BUN/Creatinine (units (unknown) date) Ratio 34.3 H unknown) (6-22) (unknown) (no (unknown) (unknown) BUN/Creatinine (units (unknown) date) Ratio (6-22) unknown) (unknown) (no (unknown) (unknown) Baso # (Auto) (units ( unknown) date) (0-100) /uL unknown) (unknown) (no (unknown) (unknown) Baso # (Auto) (units ( unknown) date) 100 (0-100) unknown) /uL (unknown) (no (unknown) (unknown) Baso % (Auto) (units ( unknown) date) (0-2) % unknown) (unknown) (no (unknown) (unknown) Baso % (Auto) (units ( unknown) date) 0.7 (0-2) % unknown) (unknown) (no (unknown) (unknown) Blood Pressure (units (unknown) date) unknown) (unknown) (no (unknown) (unknown) Blood Pressure (units (unknown) date) 140/104 H unknown) 09/05/21 14:36 (unknown) (no (unknown) (unknown) Blood Pressure (units (unknown) date) 139/68 unknown) (unknown) (no (unknown) (unknown) Bones and chest (units (unknown) date) wall:? Multilevel unknown) degenerative change of the visualized spine.? (unknown) (no (unknown) (unknown) Bones and chest (units (unknown) date) wall:? No unknown) suspicious bony lesions.? 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 (units (u nknown) date) [facility], unknown) CR, XR CHEST 1V, 03/03/2021, 14:03. (unknown) (no (unknown) (unknown) COMPARISON:? (units (u nknown) date) [facility], unknown) CR, XR CHEST 1V, 09/05/2021, 15:31.? [place] (unknown) (no (unknown) (unknown) CT scan - chest: (units (unknown) date) unknown) (unknown) (no (unknown) (unknown) Calcium 9.1 (units (unknown) date) (8.4-10.2) mg/dL unknown) (unknown) (no (unknown) (unknown) Calcium (units (unkno wn) date) (8.4-10.2) mg/dL unknown) (unknown) (no (unknown) (unknown) Carbon Dioxide (units (unknown) date) 31 (22-32) unknown) mmol/L (unknown) (no (unknown) (unknown) Carbon Dioxide (units (unknown) date) (22-32) mmol/L unknown) (unknown) (no (unknown) (unknown) Chest x-ray: (units (u nknown) date) unknown) (unknown) (no (unknown) (unknown) Chief Complaint: (units (unknown) date) Shortness of unknown) Breath/Dyspnea (unknown) (no (unknown) (unknown) Chloride 99 (units (unknown) date) (98-107) mmol/L unknown) (unknown) (no (unknown) (unknown) Chloride (units (unkno wn) date) (98-107) mmol/L unknown) (unknown) (no (unknown) (unknown) Chronic (units (unkno wn) date) [id number] unknown) disease (unknown) (no (unknown) (unknown) Chronic kidney (units (unknown) date) disease, stage III unknown) (moderate) (unknown) (no (unknown) (unknown) Clinical (units (unkno wn) date) Impression: unknown) (unknown) (no (unknown) (unknown) Compression (units (un known) date) fracture of L1 unknown) lumbar vertebra (unknown) (no (unknown) (unknown) Course (units (unkno wn) date) unknown) (unknown) (no (unknown) (unknown) Creatinine (units (unk nown) date) 1.81 H unknown) (0.66-1.25) mg/dL (unknown) (no (unknown) (unknown) Creatinine (units (unk nown) date) (0.66-1.25) mg/dL unknown) (unknown) (no (unknown) (unknown) 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D. on 09/05/2021 at 18:39 ? ? (unknown) (no (unknown) (unknown) Dictated by: (units (u nknown) date) Viji Staples M.D. unknown) on 09/05/2021 at 15:57 (unknown) (no (unknown) (unknown) Discharge Plan (units (unknown) date) unknown) (unknown) (no (unknown) (unknown) Discontinued (units (u nknown) date) Medications unknown) (unknown) (no (unknown) (unknown) Dr Mancilla: (units (unk nown) date) Received turned unknown) over. Review patient's history and physical exam. (unknown) (no (unknown) (unknown) ECG Data (units (unkno wn) date) unknown) (unknown) (no (unknown) (unknown) ER Physician: (units ( unknown) date) Adonis Mancilla unknown) D.O. (unknown) (no (unknown) (unknown) Elevated PSA (units (u nknown) date) unknown) (unknown) (no (unknown) (unknown) Eos # (Auto) (units (u nknown) date) (0-450) /uL unknown) (unknown) (no (unknown) (unknown) Eos # (Auto) 400 (units (unknown) date) (0-450) /uL unknown) (unknown) (no (unknown) (unknown) Eos % (Auto) (units (u nknown) date) (2-4) % unknown) (unknown) (no (unknown) (unknown) Eos % (Auto) 5.5 (units (unknown) date) H (2-4) % unknown) (unknown) (no (unknown) (unknown) Estimated GFR (units ( unknown) date) 38 L (>60) unknown) mL/min (unknown) (no (unknown) (unknown) Estimated GFR (units ( unknown) date) (>60) mL/min unknown) (unknown) (no (unknown) (unknown) Exam (units (unkno wn) date) unknown) (unknown) (no (unknown) (unknown) FINDINGS:? (units (unk nown) date) unknown) (unknown) (no (unknown) (unknown) Family History (units (unknown) date) (Reviewed 08/05/20 unknown) @ 10:35 by Derik Wallace DO) (unknown) (no (unknown) (unknown) Father Cancer (units (unknown) date) unknown) (unknown) (no (unknown) (unknown) For radiation (units ( unknown) date) dose reduction, unknown) the following was used:? automated exposure (unknown) (no (unknown) (unknown) Fungal pneumonia (units (unknown) date) unknown) (unknown) (no (unknown) (unknown) GASTROINTESTINAL: (units (unknown) date) Denies nausea, unknown) vomiting, abdominal pain, diarrhea, (unknown) (no (unknown) (unknown) GENERAL: Denies (units (unknown) date) chills, fatigue, unknown) malaise, fever, sweats, travel (unknown) (no (unknown) (unknown) : Denies (units (unkn own) date) dysuria, unknown) frequency, incontinence, hematuria, urinary retention, flank (unknown) (no (unknown) (unknown) General (units (unkno wn) date) unknown) (unknown) (no (unknown) (unknown) GenericComposite[ (units (unknown) date) Plt Count unknown) (150-400) X10^3/uL ] (unknown) (no (unknown) (unknown) GenericComposite[ (units (unknown) date) Plt Count 245 unknown) (150-400) X10^3/uL ] (unknown) (no (unknown) (unknown) GenericComposite[ (units (unknown) date) RBC (4.5-5.9) unknown) X10^6/uL ] (unknown) (no (unknown) (unknown) GenericComposite[ (units (unknown) date) RBC 3.38 L unknown) (4.5-5.9) X10^6/uL ] (unknown) (no (unknown) (unknown) GenericComposite[ (units (unknown) date) WBC (4.5-11.0) unknown) X10^3/uL ] (unknown) (no (unknown) (unknown) GenericComposite[ (units (unknown) date) WBC 7.4 unknown) (4.5-11.0) X10^3/uL ] (unknown) (no (unknown) (unknown) Globulin 3.9 (units (unknown) date) (1.7-4.1) g/dL unknown) (unknown) (no (unknown) (unknown) Globulin (units (unkno wn) date) (1.7-4.1) g/dL unknown) (unknown) (no (unknown) (unknown) Glucose 144 H (units (unknown) date) (80-110) mg/dL unknown) (unknown) (no (unknown) (unknown) Glucose (units (unkno wn) date) (80-110) mg/dL unknown) (unknown) (no (unknown) (unknown) 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 unknown) (unknown) (no (unknown) (unknown) HEENT: Denies (units ( unknown) date) sinus pain, ear unknown) pain, sore throat, difficulty swallowing, neck (unknown) (no (unknown) (unknown) HPI - SOB/Dyspnea (units (unknown) date) unknown) (unknown) (no (unknown) (unknown) HPI Narrative: (units (unknown) date) unknown) (unknown) (no (unknown) (unknown) Hct (41-53) % (units (unknown) date) unknown) (unknown) (no (unknown) (unknown) Hct 30.6 L (units (un known) date) (41-53) % unknown) (unknown) (no (unknown) (unknown) 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 (unknown) (no (unknown) (unknown) Hgb (13.5-17.5) (units (unknown) date) g/dL unknown) (unknown) (no (unknown) (unknown) Hgb 10.7 L (units (un known) date) (13.5-17.5) g/dL unknown) (unknown) (no (unknown) (unknown) History of (units (unk nown) date) Present Illness unknown) (unknown) (no (unknown) (unknown) History of (units (unk nown) date) partial colectomy unknown) (unknown) (no (unknown) (unknown) History of (units (unk nown) date) radiofrequency unknown) ablation procedure for cardiac arrhythmia (unknown) (no (unknown) (unknown) Hospital, CT, CT (units (unknown) date) unknown) (unknown) (no (unknown) (unknown) IMPRESSION:? (units (u nknown) date) unknown) (unknown) (no (unknown) (unknown) IMPRESSION:? (units (u nknown) date) Right basilar unknown) opacity most suggestive of pneumonia. (unknown) (no (unknown) (unknown) INDICATIONS:? (units ( unknown) date) +dimer RLL unknown) (unknown) (no (unknown) (unknown) INDICATIONS:? (units ( unknown) date) short of breath unknown) (unknown) (no (unknown) (unknown) Image quality:? (units (unknown) date) Excellent.? unknown) (unknown) (no (unknown) (unknown) Imaging Data (units (u nknown) date) unknown) (unknown) (no (unknown) (unknown) Initial Vital (units ( unknown) date) Signs unknown) (unknown) (no (unknown) (unknown) Initial Vital (units ( unknown) date) Signs: unknown) (unknown) (no (unknown) (unknown) Instructions: DI (units (unknown) date) for Pneumonia -- unknown) Adult (unknown) (no (unknown) (unknown) Interpretation: (units (unknown) date) unknown) (unknown) (no (unknown) (unknown) Lab Data (units (unkno wn) date) unknown) (unknown) (no (unknown) (unknown) Labs: (units (unkno wn) date) unknown) (unknown) (no (unknown) (unknown) Limitations: no (units (unknown) date) limitations unknown) (unknown) (no (unknown) (unknown) Lipase 157 (units ( unknown) date) (23-300) U/L unknown) (unknown) (no (unknown) (unknown) Lipase (23-300) (units (unknown) date) U/L unknown) (unknown) (no (unknown) (unknown) Loc: ED (units (unkno wn) date) unknown) (unknown) (no (unknown) (unknown) Lungs and (units (unkn own) date) pleura:? unknown) Bronchiectasis is present as before, overall moderate-severe (unknown) (no (unknown) (unknown) Lungs and (units (unkn own) date) pleura:? Interval unknown) development of patchy right basilar opacity.? Trace (unknown) (no (unknown) (unknown) Lymph # (Auto) (units (unknown) date) (4063-8520) /uL unknown) (unknown) (no (unknown) (unknown) Lymph # (Auto) (units (unknown) date) 1200 unknown) (7781-6214) /uL (unknown) (no (unknown) (unknown) Lymph % (Auto) (units (unknown) date) (25-40) % unknown) (unknown) (no (unknown) (unknown) Lymph % (Auto) (units (unknown) date) 15.9 L (25-40) unknown) % (unknown) (no (unknown) (unknown) MCH (26-34) PG (units (unknown) date) unknown) (unknown) (no (unknown) (unknown) MCH 31.5 (units (unkn own) date) (26-34) PG unknown) (unknown) (no (unknown) (unknown) MCHC (30-36) % (units (unknown) date) unknown) (unknown) (no (unknown) (unknown) MCHC 34.8 (units (unk nown) date) (30-36) % unknown) (unknown) (no (unknown) (unknown) MCV (80-100) (units (unknown) date) fL unknown) (unknown) (no (unknown) (unknown) MCV 90.6 (units (unkn own) date) (80-100) fL unknown) (unknown) (no (unknown) (unknown) MDM - SOB/Dyspnea (units (unknown) date) unknown) (unknown) (no (unknown) (unknown) MDM Narrative (units ( unknown) date) unknown) (unknown) (no (unknown) (unknown) MR#: [id number] (units (unknown) date) unknown) (unknown) (no (unknown) (unknown) MUSCULOSKELETAL: (units (unknown) date) Denies weakness, unknown) joint pain, or bony pain (unknown) (no (unknown) (unknown) Mediastinum:? (units ( unknown) date) Mediastinal unknown) contours appear normal.? Heart size is normal.? (unknown) (no (unknown) (unknown) Mediastinum:? No (units (unknown) date) pericardial unknown) effusion.? Mediastinal lymphadenopathy is present, (unknown) (no (unknown) (unknown) Medical History (units (unknown) date) (Updated 09/11/21 unknown) @ 00:00 by ) (unknown) (no (unknown) (unknown) Medical decision (units (unknown) date) making narrative: unknown) (unknown) (no (unknown) (unknown) Mode of arrival: (units (unknown) date) Ambulatory unknown) (unknown) (no (unknown) (unknown) Saturday (units (unknown) date) and Saturday but it unknown) will be on a daily basis for the next 4 days. (unknown) (no (unknown) (unknown) [place] # (Auto) (units ( unknown) date) (0-900) /uL unknown) (unknown) (no (unknown) (unknown) [place] # (Auto) (units ( unknown) date) 700 (0-900) unknown) /uL (unknown) (no (unknown) (unknown) [place] % (Auto) (units ( unknown) date) (3-14) % unknown) (unknown) (no (unknown) (unknown) [place] % (Auto) (units ( unknown) date) 8.9 (3-14) % unknown) (unknown) (no (unknown) (unknown) Mother C. (units (un known) date) difficile colitis unknown) (unknown) (no (unknown) (unknown) NEUROLOGIC: (units (un known) date) Denies weakness, unknown) dizziness, headache, numbness, change in speech, (unknown) (no (unknown) (unknown) NT-Pro-B (units (unkno wn) date) Natriuret Pep unknown) 594 H (<450) pg/mL (unknown) (no (unknown) (unknown) NT-Pro-B (units (unkno wn) date) Natriuret Pep unknown) (<450) pg/mL (unknown) (no (unknown) (unknown) Narrative: (units (unk nown) date) unknown) (unknown) (no (unknown) (unknown) Neut # (Auto) (units ( unknown) date) (6822-9559) /uL unknown) (unknown) (no (unknown) (unknown) Neut # (Auto) (units ( unknown) date) 5100 unknown) (2952-3479) /uL (unknown) (no (unknown) (unknown) Neut % (Auto) (units ( unknown) date) (50-75) % unknown) (unknown) (no (unknown) (unknown) Neut % (Auto) (units ( unknown) date) 69.0 (50-75) % unknown) (unknown) (no (unknown) (unknown) New (units (unkno wn) date) unknown) (unknown) (no (unknown) (unknown) No Action (units (unkn own) date) unknown) (unknown) (no (unknown) (unknown) Non- (units (unkno wn) date) unknown) (unknown) (no (unknown) (unknown) Normal sinus (units (u nknown) date) rhythm rate 89 MT unknown) interval 136 QRS [address] changes (unknown) (no (unknown) (unknown) Ordered: (units (unkno wn) date) unknown) (unknown) (no (unknown) (unknown) Ordering (units (unkno wn) date) Provider: unknown) Rhona Fofana D.O. (unknown) (no (unknown) (unknown) Orders (units (unkno wn) date) unknown) (unknown) (no (unknown) (unknown) Oxygen Delivery (units (unknown) date) Method 09/05/21 unknown) 14:36 (unknown) (no (unknown) (unknown) Oxymetazoline HCl (units (unknown) date) (Oxymetazoline unknown) Nasal [place] 15 Ml) 2 sprays NASAL NOW ONE (unknown) (no (unknown) (unknown) PROCEDURE:? CT (units (unknown) date) ANGIO CHEST PE unknown) PROTOCOL (unknown) (no (unknown) (unknown) PROCEDURE:? XR (units (unknown) date) CHEST 1V unknown) (unknown) (no (unknown) (unknown) PSYCHIATRIC: No (units (unknown) date) concerning unknown) psychosocial issues. (unknown) (no (unknown) (unknown) Parkinson disease (units (unknown) date) unknown) (unknown) (no (unknown) (unknown) Patient (units (o wn) date) Disposition: Home unknown) (unknown) (no (unknown) (unknown) Patient History (units (unknown) date) unknown) (unknown) (no (unknown) (unknown) Patient has (units (unk n) date) chronic cough he unknown) sounds like he has sputum production frequently but (unknown) (no (unknown) (unknown) Patient is a (units (un known) date) 75-year-old male unknown) with history of leukemia [id number]-xfrg disease (unknown) (no (unknown) (unknown) Patient is (units (unk n) date) agreeable to this. unknown) He was given a 1st dose of antibiotics here in (unknown) (no (unknown) (unknown) Patient: (units (unkno wn) date) Adonis Dueñas unknown) MR#: M (unknown) (no (unknown) (unknown) Patient: (units (unkno wn) date) Adonis Dueñas unknown) (unknown) (no (unknown) (unknown) Please take it as (units (unknown) date) directed. It is unknown) the same medication that you take every (unknown) (no (unknown) (unknown) Potassium 3.6 (units (unknown) date) (3.4-5.1) mmol/L unknown) (unknown) (no (unknown) (unknown) Potassium (units (unkn own) date) (3.4-5.1) mmol/L unknown) (unknown) (no (unknown) (unknown) Prescriptions: (units (unknown) date) unknown) (unknown) (no (unknown) (unknown) Procedure: CT (units ( unknown) date) angio chest PE unknown) protocol (unknown) (no (unknown) (unknown) Procedure: XR (units ( unknown) date) chest 1V unknown) (unknown) (no (unknown) (unknown) Pulmonary (units (unkn own) date) arteries:? unknown) Pulmonary arteries are normal in size, and demonstrate no (unknown) (no (unknown) (unknown) Pulse Oximetry (units (unknown) date) 92 95 unknown) (unknown) (no (unknown) (unknown) Pulse Oximetry (units (unknown) date) 99 09/05/21 unknown) 14:36 (unknown) (no (unknown) (unknown) Pulse Oximetry 95 (units (unknown) date) unknown) (unknown) (no (unknown) (unknown) Pulse Rate 90 81 (units (unknown) date) unknown) (unknown) (no (unknown) (unknown) Pulse Rate 96 H (units (unknown) date) 09/05/21 14:36 unknown) (unknown) (no (unknown) (unknown) Pulse Rate 87 97 (units (unknown) date) H unknown) (unknown) (no (unknown) (unknown) RDW (11.6-14.8) (units (unknown) date) % unknown) (unknown) (no (unknown) (unknown) RDW 13.8 (units (unkn own) date) (11.6-14.8) % unknown) (unknown) (no (unknown) (unknown) RESPIRATORY: (units (u nknown) date) Denies dyspnea, unknown) cough, wheezing, hemoptysis, sputum. (unknown) (no (unknown) (unknown) Referrals: (units (unk nown) date) unknown) (unknown) (no (unknown) (unknown) Related Data (units (u nknown) date) unknown) (unknown) (no (unknown) (unknown) Respiratory Rate (units (unknown) date) 28 H 09/05/21 unknown) 14:36 (unknown) (no (unknown) (unknown) Respiratory Rate (units (unknown) date) 34 H 22 unknown) (unknown) (no (unknown) (unknown) Respiratory Rate (units (unknown) date) 24 30 H unknown) (unknown) (no (unknown) (unknown) Result diagrams: (units (unknown) date) unknown) (unknown) (no (unknown) (unknown) Review of Systems (units (unknown) date) unknown) (unknown) (no (unknown) (unknown) 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) (unknown) (no (unknown) (unknown) SARS-CoV-2 (PCR) (units (unknown) date) (Negative) unknown) (unknown) (no (unknown) (unknown) SARS-CoV-2 (PCR) (units (unknown) date) Negative unknown) (Negative) (unknown) (no (unknown) (unknown) SKIN: No rash, no (units (unknown) date) erythema, no unknown) pruritus (unknown) (no (unknown) (unknown) Signed By: (units (unk nown) date) unknown) (unknown) (no (unknown) (unknown) Skin cancer (units (un known) date) unknown) (unknown) (no (unknown) (unknown) Smoking Status: (units (unknown) date) Former smoker unknown) (unknown) (no (unknown) (unknown) Smoking Status: (units (unknown) date) Former smoker unknown) (unknown) (no (unknown) (unknown) Social History (units (unknown) date) (Reviewed 12/26/18 unknown) @ 01:35 by Rhona Fofana DO) (unknown) (no (unknown) (unknown) Sodium 139 (units ( unknown) date) (137-145) mmol/L unknown) (unknown) (no (unknown) (unknown) Sodium (units (unkno wn) date) (137-145) mmol/L unknown) (unknown) (no (unknown) (unknown) Source: patient (units (unknown) date) unknown) (unknown) (no (unknown) (unknown) Spinal stenosis (units (unknown) date) unknown) (unknown) (no (unknown) (unknown) Stated Complaint: (units (unknown) date) sob/weak unknown) (unknown) (no (unknown) (unknown) Substance Use (units ( unknown) date) Type: does not use unknown) (unknown) (no (unknown) (unknown) Surgical History (units (unknown) date) (Updated 03/03/21 unknown) @ 18:43 by Derik Smith MD) (unknown) (no (unknown) (unknown) Surgical changes (units (unknown) date) and devices:? unknown) Prosthetic valve is noted. (unknown) (no (unknown) (unknown) T11 vertebral (units ( unknown) date) fracture unknown) (unknown) (no (unknown) (unknown) TECHNIQUE:? (units (un known) date) unknown) (unknown) (no (unknown) (unknown) TECHNIQUE:? One (units (unknown) date) view of the chest unknown) was acquired.? (unknown) (no (unknown) (unknown) Temperature 97.1 (units (unknown) date) F L 09/05/21 unknown) 14:36 (unknown) (no (unknown) (unknown) Thoracic (units (unkno wn) date) unknown) (unknown) (no (unknown) (unknown) Time Seen by (units (u nknown) date) Provider: 09/05/21 unknown) 15:25 (unknown) (no (unknown) (unknown) Tobacco: How many (units (unknown) date) years used: 10 unknown) (unknown) (no (unknown) (unknown) Total Bilirubin (units (unknown) date) 0.5 (0.2-1.3) unknown) mg/dL (unknown) (no (unknown) (unknown) Total Bilirubin (units (unknown) date) (0.2-1.3) mg/dL unknown) (unknown) (no (unknown) (unknown) Total Creatine (units (unknown) date) Kinase 57 unknown) (55-170) U/L (unknown) (no (unknown) (unknown) Total Creatine (units (unknown) date) Kinase (55-170) unknown) U/L (unknown) (no (unknown) (unknown) Total Protein (units ( unknown) date) 7.9 (6.3-8.2) unknown) g/dL (unknown) (no (unknown) (unknown) Total Protein (units ( unknown) date) (6.3-8.2) g/dL unknown) (unknown) (no (unknown) (unknown) Troponin I < (units (unknown) date) 0.012 unknown) (0.01-0.034) ng/mL (unknown) (no (unknown) (unknown) Troponin I (units (unk nown) date) (0.01-0.034) unknown) ng/mL (unknown) (no (unknown) (unknown) Visit Report (units (u nknown) date) Forms: Patient unknown) Portal/API (unknown) (no (unknown) (unknown) Vital Signs (units (un known) date) unknown) (unknown) (no (unknown) (unknown) Vital signs: (units (u nknown) date) unknown) (unknown) (no (unknown) (unknown) Waiting for CT (units (unknown) date) angio chest. unknown) (unknown) (no (unknown) (unknown) We were waiting (units (unknown) date) the results of the unknown) CT angiogram. This showed no signs of (unknown) (no (unknown) (unknown) [Embedded Image (units (unknown) date) Not Available] unknown) (unknown) (no (unknown) (unknown) [From BENADRYL] (units (unknown) date) SEDATION unknown) (unknown) (no (unknown) (unknown) acetaminophen (units ( unknown) date) [ACETAMINOPHEN] unknown) AdvReac Unknown ABD PAIN Verified 09/05/21 14:36 (unknown) (no (unknown) (unknown) acute appearing (units (unknown) date) fractures of T11 unknown) and L1.? T11 fracture consistent with (unknown) (no (unknown) (unknown) adjustment of mA (units (unknown) date) and/or kV unknown) according to patient size.? (unknown) (no (unknown) (unknown) aerosol inhaler (units (unknown) date) Shortness Of unknown) Breath (unknown) (no (unknown) (unknown) agreement. (units (unk nown) date) unknown) (unknown) (no (unknown) (unknown) airways mucous (units (unknown) date) plugging also unknown) present.? No pleural effusion. (unknown) (no (unknown) (unknown) albuterol sulfate (units (unknown) date) 90 mcg/actuation 2 unknown) puff inhalation Q4H PRN 11/04/17 08/05/20 (unknown) (no (unknown) (unknown) alcohol intake (units (unknown) date) frequency: unknown) holidays/special occasions only (unknown) (no (unknown) (unknown) alcohol intake: (units (unknown) date) current unknown) (unknown) (no (unknown) (unknown) aorta is normal (units (unknown) date) in caliber and unknown) enhancement. ? (unknown) (no (unknown) (unknown) appear (units (unkno wn) date) unknown) (unknown) (no (unknown) (unknown) arterial phase of (units (unknown) date) enhancement.? unknown) (unknown) (no (unknown) (unknown) azithromycin 250 (units (unknown) date) mg tablet 250 mg unknown) PO DAILY 4 months #4 tabs 09/05/21 (unknown) (no (unknown) (unknown) azithromycin 250 (units (unknown) date) mg tablet 250 mg unknown) PO MOWEFR 04/25/18 08/05/20 (unknown) (no (unknown) (unknown) bacitracin (units (unk nown) date) [BACITRACIN] unknown) Allergy Unknown SKIN Verified 09/05/21 14:36 (unknown) (no (unknown) (unknown) being weak a (units (u nknown) date) difficulty walking unknown) around but does not get need a walker. He is (unknown) (no (unknown) (unknown) bilateral (units (unkn own) date) unknown) (unknown) (no (unknown) (unknown) bronchitis. (units (un known) date) unknown) (unknown) (no (unknown) (unknown) carbidopa ER 25 (units (unknown) date) mg-levodopa 100 mg unknown) 1 - 2 tab PO TID ##0 10/02/16 08/05/20 (unknown) (no (unknown) (unknown) chlorhexidine (units ( unknown) date) [CHLORHEXIDINE] unknown) Allergy Unknown SKIN Verified 09/05/21 14:36 (unknown) (no (unknown) (unknown) choice. Patient (units (unknown) date) is eager to be unknown) discharged home. No indication for admission (unknown) (no (unknown) (unknown) complete burst (units (unknown) date) fracture, up to unknown) 75% vertebral body height loss.? (unknown) (no (unknown) (unknown) component (units (unkn own) date) unknown) (unknown) (no (unknown) (unknown) confusion (units (unkn own) date) unknown) (unknown) (no (unknown) (unknown) consolidation (units ( unknown) date) within the right unknown) lower lobe.? Mild bronchial wall thickening and (unknown) (no (unknown) (unknown) constipation, (units ( unknown) date) melena. unknown) (unknown) (no (unknown) (unknown) control, (units (unkno wn) date) unknown) (unknown) (no (unknown) (unknown) costophrenic (units (u nknown) date) angle blunting unknown) suggestive of minimal effusions. (unknown) (no (unknown) (unknown) dexamethasone 0.5 (units (unknown) date) mg/5 mL oral 1 mg unknown) PO BID 05/23/20 08/05/20 (unknown) (no (unknown) (unknown) diclofenac (units (unk nown) date) epolamine 1.3 % 1 unknown) patch topical BID #30 ea 08/15/20 (unknown) (no (unknown) (unknown) diltiazem Allergy (units (unknown) date) Intermediate Hives unknown) Verified 09/05/21 14:36 (unknown) (no (unknown) (unknown) diphenhydramine (units (unknown) date) AdvReac Unknown unknown) EXTREME Verified 09/05/21 14:36 (unknown) (no (unknown) (unknown) doing contrast at (units (unknown) date) this time he unknown) agrees to do contrast. (unknown) (no (unknown) (unknown) example a 1.2 cm (units (unknown) date) lower paratracheal unknown) lymph node ().? A TAVR is present.? (unknown) (no (unknown) (unknown) fever he has no (units (unknown) date) leukocytosis. unknown) X-ray concerning for pneumonia symptoms where may (unknown) (no (unknown) (unknown) fluoride (sodium) (units (unknown) date) 1.1 % dental gel 1 unknown) applic dental BEDTIME 04/30/18 08/05/20 (unknown) (no (unknown) (unknown) for (units (unkno wn) date) unknown) (unknown) (no (unknown) (unknown) for a PE. He (units ( unknown) date) does have chronic unknown) kidney disease seems to be stable slightly (unknown) (no (unknown) (unknown) fracture, (units (unkn own) date) approximately 30% unknown) vertebral body height loss.? L1 fracture likely (unknown) (no (unknown) (unknown) from the (units (unkno wn) date) unknown) (unknown) (no (unknown) (unknown) gabapentin 100 mg (units (unknown) date) capsule 100 mg PO unknown) TID #90 caps 01/02/21 (unknown) (no (unknown) (unknown) gabapentin 400 mg (units (unknown) date) capsule 400 mg PO unknown) TID #90 caps 01/31/21 (unknown) (no (unknown) (unknown) glass (units (unkno wn) date) unknown) (unknown) (no (unknown) (unknown) gram/dose oral (units (unknown) date) powder (Miralax) unknown) (unknown) (no (unknown) (unknown) have gotten worse (units (unknown) date) over last couple unknown) of days. He denies any chest pain. He wears (unknown) (no (unknown) (unknown) household (units (unkn own) date) members: spouse unknown) (unknown) (no (unknown) (unknown) hydroxyzine HCl (units (unknown) date) 10 mg tablet 10 mg unknown) PO Q8H PRN anxiety #60 tabs 03/03/21 (unknown) (no (unknown) (unknown) improved from (units ( unknown) date) previous blood unknown) work. Discussed with him risks and benefits of (unknown) (no (unknown) (unknown) increase in his (units (unknown) date) sputum production. unknown) Because of his other medical issues and his (unknown) (no (unknown) (unknown) intensity (units (unkn own) date) unknown) (unknown) (no (unknown) (unknown) intraluminal (units (u nknown) date) filling defects to unknown) suggest central pulmonary embolism.? (unknown) (no (unknown) (unknown) ipratropium 0.5 (units (unknown) date) mg-albuterol 3 mg unknown) 3 ml inhalation Q6-8H PRN SOB 07/14/18 (unknown) (no (unknown) (unknown) leukocytosis. He (units (unknown) date) has been feeling unknown) worse over the past couple days. Has had an (unknown) (no (unknown) (unknown) lobe, suspicious (units (unknown) date) for pneumonia unknown) and/or aspiration. (unknown) (no (unknown) (unknown) lower (units (unkno wn) date) unknown) (unknown) (no (unknown) (unknown) metoprolol (units (unk nown) date) succinate 50 mg 50 unknown) mg PO BEDTIME 04/25/18 08/05/20 (unknown) (no (unknown) (unknown) months. He has (units (unknown) date) had productive unknown) sputum no fevers or chills. He thinks this may (unknown) (no (unknown) (unknown) nifedipine 30 mg (units (unknown) date) tablet,extended 30 unknown) mg PO QAM 04/25/18 08/05/20 (unknown) (no (unknown) (unknown) of interstitial (units (unknown) date) lung disease.? unknown) (unknown) (no (unknown) (unknown) ondansetron HCl 4 (units (unknown) date) mg tablet mg PO unknown) DAILY PRN nausea and vomiting 05/23/20 (unknown) (no (unknown) (unknown) opacities (units (unkn own) date) predominantly in a unknown) bronchocentric distribution, with more confluent (unknown) (no (unknown) (unknown) or worsening (units (u nknown) date) symptoms. unknown) (unknown) (no (unknown) (unknown) organizing (units (unk nown) date) pneumonia an unknown) Aspergillus pneumonia. He has had chronic chest conges (unknown) (no (unknown) (unknown) oxycodone 10 mg (units (unknown) date) tablet 10 mg PO unknown) 1-2XD PRN chronic pain 04/25/18 08/05/20 (unknown) (no (unknown) (unknown) pain (units (unkno wn) date) unknown) (unknown) (no (unknown) (unknown) pain. 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 3-dimensional maximum (unknown) (no (unknown) (unknown) pulmonary (units (unkn own) date) embolism. There unknown) were some findings on the CT scan that could (unknown) (no (unknown) (unknown) web assistant for (units (unknown) date) a follow-up. unknown) Return to the emergency department for any new (unknown) (no (unknown) (unknown) quite careful. (units (unknown) date) unknown) (unknown) (no (unknown) (unknown) release (units (unkno wn) date) unknown) (unknown) (no (unknown) (unknown) represents a (units (u nknown) date) unknown) (unknown) (no (unknown) (unknown) rifampin (units (unkno wn) date) [RIFAMPIN] Allergy unknown) Unknown HIVES Verified 09/05/21 14:36 (unknown) (no (unknown) (unknown) selegiline HCl 5 (units (unknown) date) mg tablet 5 mg PO unknown) BID 11/04/17 08/05/20 (unknown) (no (unknown) (unknown) sennosides 8.6 mg (units (unknown) date) tablet (senna) unknown) 17.2 tab PO BEDTIME ##0 10/01/16 08/05/20 (unknown) (no (unknown) (unknown) severity, (units (unkn own) date) unknown) (unknown) (no (unknown) (unknown) soln (units (unkno wn) date) unknown) (unknown) (no (unknown) (unknown) solution (units (unkno wn) date) unknown) (unknown) (no (unknown) (unknown) tablet,extended (units (unknown) date) release unknown) (unknown) (no (unknown) (unknown) tablet,extended (units (unknown) date) release 24 hr unknown) (unknown) (no (unknown) (unknown) tamsulosin 0.4 mg (units (unknown) date) capsule (Flomax) unknown) 0.4 mg PO BEDTIME ##0 10/01/16 08/05/20 (unknown) (no (unknown) (unknown) the emergency (units ( unknown) date) department and a unknown) prescription was sent to the pharmacy of his (unknown) (no (unknown) (unknown) the hospital. He (units (unknown) date) was given return unknown) precautions. He expressed understanding and (unknown) (no (unknown) (unknown) thickening and (units (unknown) date) mucous plugging unknown) are present, could indicate a component of (unknown) (no (unknown) (unknown) thorax.? (units (unkno wn) date) unknown) (unknown) (no (unknown) (unknown) tion using (units (unk nown) date) albuterol twice a unknown) day he continues to bring up a lot of sputum (unknown) (no (unknown) (unknown) today with (units (unkn own) date) increasing unknown) shortness of breath which has been worse over the last few (unknown) (no (unknown) (unknown) transdermal 12 (units (unknown) date) hour patch unknown) (Flector) (unknown) (no (unknown) (unknown) underlying lung (units (unknown) date) pathology we will unknown) treat him presumptively for pneumonia. (unknown) (no (unknown) (unknown) unremarkable.? (units (unknown) date) unknown) (unknown) (no (unknown) (unknown) valacyclovir 500 (units (unknown) date) mg tablet 500 mg unknown) PO BEDTIME 04/25/18 08/05/20 (unknown) (no (unknown) (unknown) wall (units (unkno wn) date) unknown) (unknown) (no (unknown) (unknown) wedge/impaction (units (unknown) date) unknown) (unknown) (no (unknown) (unknown) what is new. (units (u nknown) date) D-dimer is unknown) slightly elevated at 600 he has multiple risk factors (unknown) (no (unknown) (unknown) worsened since (units (unknown) date) the previous unknown) exam.? There are patchy consolidative and ground- Social History date description facility (no date) Ex-smoker (finding) [facility] Vital Signs date measurement value units +0000 BMI BMI 21.6 kg/m2 [id number]+0000 BP_diastolic BP_diastolic 68 mm[H g] [id number]+0000 BP_systolic BP_systolic 139 mm[Hg] [id number]+0000 heart_rate heart_rate 97 /min [id number]+0000 height_metric height_metric 160.02 cm [id number]+0000 height_standard height_standard 63 in [id number]+0000 respiration_rate respiration_rate 30 /min [id number]+0000 temperature_metric temperature_metric 36.17 C [id number]+0000 temperature_standard temperature_standard 9 7.1 F [id number]+0000 weight_metric weight_metric 25.1 kg [id number]+0000 weight_standard weight_standard 55.34 lb
[2021-09-18] MEDS ORDERED: SODIUM CHLORIDE 0.9% 1,000 ML IV STA (12:50)
[2021-09-18] MEDS ORDERED: MAG HYDROX/AL HYDROX/SIMETH 30 ML UDC PO STA (12:50)
[2021-09-18] MEDS ORDERED: LIDOCAINE VISCOUS 2% 15 ML UDC MM STA ×2 (12:50→16:56)
[2021-09-18] MEDS ORDERED: ACYCLOVIR INJ 500 MG in SODIUM CHLORIDE 0.9% 250 ML IV STA (12:54)
[2021-09-18] MEDS ORDERED: NYSTATIN 500000 UNITS/5 ML UDC PO STA (12:55)
[2021-09-18] MEDS ORDERED: ALBUTEROL NEB 2.5 MG/3 ML INH STA (12:58)
--- NOTE | 2021-09-18 13:39 | XRAY Report ---
PROCEDURE: Chest 1 View X-Ray INDICATIONS: chest pain TECHNIQUE: One view of the chest was acquired. COMPARISON: Chest radiograph 02/18/2017 FINDINGS: Surgical changes and devices: None. Lungs and pleura: No pleural effusions or pneumothorax. Suspected patchy peripheral opacities in bot h lungs, greater on the right. Mediastinum: Mediastinal contours appear normal. Heart size is normal. Bones and chest wall: No suspicious bony lesions. Overlying soft tissues appear unremarkable. IMPRESSION: Bilateral peripheral patchy airspace opacities are suspicious for a bilateral pneumonia, possibly wit h atypical or viral agents. Reviewed by: Miguelito Catalan MD on 09/18/2021 1:38 PM PDT Approved by: Miguelito Catalan MD on 09/18/2021 1:38 PM PDT Station ID: [id number]
[2021-09-18 13:42] LABS: BASOPHILS % (AUTO) 0.2 %; EOSINOPHILS % (AUTO) 0.2 %; HCT - HEMATOCRIT 26.1 % (42.0-52.0); HGB - HEMOGLOBIN 8.7 g/dL (14.0-18.0); LYMPHOCYTES # (AUTO) 0.7 10^3/uL (1.5-3.5); LYMPHOCYTES % (AUTO) 8.4 %; MEAN CORPUSCULAR HEMOGLOBIN 31.2 pg (27.0-31.0); MEAN CORPUSCULAR HGB CONC 33.3 g/dL (32.0-36.0); MEAN CORPUSCULAR VOLUME 93.5 fL (80.0-94.0); MEAN PLATELET VOLUME 10.4 fL (7.4-11.4); MONOCYTES # (AUTO) 0.7 10^3/uL (0.0-1.0); MONOCYTES % (AUTO) 8.1 %; NEUTROPHILS % (AUTO) 82.6 %; PLT - PLATELET COUNT 199 10^3/uL (130-450); RED BLOOD COUNT 2.79 10^6/uL (4.70-6.10); RED CELL DISTRIBUTION WIDTH 13.6 % (12.0-15.0); WHITE BLOOD COUNT 8.5 x10^3/uL (4.8-10.8)
[2021-09-18] MEDS ORDERED: HYDROmorphone 0.5 MG/0.5 ML SYRINGE IVP STA (13:57)
[2021-09-18 13:58] LABS: ALBUMIN 3.2 g/dL (3.2-5.5); ALBUMIN/GLOBULIN RATIO 0.8 (1.0-2.2); ALKALINE PHOSPHATASE 59 IU/L (42-121); ALT ALANINE AMINOTRANSFERASE < 10 IU/L (10-60); AST ASPARTATE AMINOTRANSFERASE 37 IU/L (10-42); BILIRUBIN,TOTAL 0.7 mg/dL (0.2-1.0); BUN - BLOOD UREA NITROGEN 50 mg/dL (6-20); CALCIUM 9.1 mg/dL (8.5-10.3); CARBON DIOXIDE - CO2 30 mmol/L (21-32); CHLORIDE 97 mmol/L (101-111); CREATININE 2.1 mg/dL (0.6-1.2); GFR - MDRD 31 (>89); GLUCOSE 121 mg/dL (70-100); LIPASE 34 U/L (22-51); MAGNESIUM 2.2 mg/dL (1.7-2.8); SODIUM 138 mmol/L (135-145); TOTAL PROTEIN 7.4 g/dL (6.7-8.2)
[2021-09-18] MEDS ORDERED: oxyCODONE 5 MG TABLET PO STA (14:26)
[2021-09-18 16:52] VITALS: BP 103/51
== END 2021-09-18 17:33 | disposition home or self-care (01) ==
LOC: EDUNIT# → ED 11:36
DX: J02.9 Acute pharyngitis, unspecified (principal); E86.0 Dehydration; J44.9 Chronic obstructive pulmonary disease, unspecified; I10 Essential (primary) hypertension; I48.91 Unspecified atrial fibrillation
CPT/HCPCS: 36415; 71045; 80053; 83690; 83735; 83880; 85025; 85651; 94640; 96365; 96366; 96375; 99283; 99284; A9270; J0133; J1170

== ENCOUNTER 2021-09-20 03:25 | Outpatient (CLI) | payer MEDICARE, OTHER | END 2021-09-20 03:26 | disposition critical access hospital (66) | LOC: EMS 03:25 | DX: R41.82 Altered mental status, unspecified (principal); R06.89 Other abnormalities of breathing; R50.9 Fever, unspecified; R05.9 Cough, unspecified; R45.1 Restlessness and agitation | CPT/HCPCS: A0425; A0427 ==

== ENCOUNTER 2021-09-20 03:50 | Inpatient (IN) | payer MEDICARE, OTHER ==
--- NOTE | 2021-09-20 03:51 | ED Physician Documentation ---
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 Patient was discharged from for pneumonia 5 days ago, he was seen in our ER 2 days ago for worsening shortness of breath. At that time the patient improved with fluids after consultation with patient's inspector cold working patient was deemed stable for discharge home. EMS familiar with the patient states that he is much more listless than usual. He was only able to speak 1-2 words to them in route. Patient was febrile and tachycardic per EMS vital signs, he was saturating 90% on 4 L nasal cannula. Patient improved to 99% after DuoNeb treatment. On arrival patient was toxic in appearance, appeared significantly dehydrated, oriented x0. Review of Systems Unable to obtain: AMS PD PAST MEDICAL HISTORY - Past Medical History Past Medical History: Yes Cardiovascular: Congestive heart failure Respiratory: Asthma Neuro: Parkinson's - Present Medications Home Medications: Ambulatory Orders Medication Instructions Recorded Confirmed calcitrioL [Rocaltrol] 0.25 mcg PO DAILY 03/29/14 09/20/21 Selegiline HCl 5 mg PO BIDWM 06/08/15 09/20/21 Pantoprazole [Protonix] 40 mg PO BID tablet 09/29/16 09/20/21 Tamsulosin [Flomax] 0.8 mg PO DAILY 02/03/17 09/20/21 Albuterol Sulf [Ventolin Hfa 2 puffs INH Q6H PRN 10/12/17 09/20/21 Inhaler] Carbidopa/Levodopa 1 tab PO TID 10/12/17 09/20/21 [Carbidopa-Levodopa 25-100 Tab] Albuterol 2.5 mg INH Q4H PRN #30 ml 09/18/21 09/20/21 Aspirin [[place] Aspirin] 81 mg PO DAILY 09/18/21 09/20/21 Azithromycin 250 mg PO Q2D 20 Days #10 tablet 09/18/21 09/20/21 Budesonide [Pulmicort Flexhaler] 1 inh IH BID 30 Days #1 unit 09/18/21 09/20/21 Chlorthalidone 25 mg PO DAILY 09/18/21 09/20/21 Ferrous Sulfate 325 mg PO ONCE 09/18/21 09/20/21 Finasteride [Proscar] 5 mg PO DAILY 09/18/21 09/20/21 Fluoride (Sodium) [Prevident 5000] 100 ml DT DAILY PM 09/18/21 09/20/21 Lactobacillus Rhamnosus GG 1 cap PO DAILY 09/18/21 09/20/21 [Culturelle] Lidocaine Viscous 2% [Xylocaine 5 ml PO Q4H PRN #100 ml 09/18/21 09/20/21 Viscous 2%] Multivit-Min/Iron/Folic Acid/K 1 each PO DAILY 09/18/21 09/20/21 [Multi-Day Plus Minerals Tablet] NIFEdipine [Procardia Xl] 30 mg PO BID 09/18/21 09/20/21 Nystatin [Mycostatin] 10 ml PO QID 5 Days #100 ml 09/18/21 09/20/21 Nystatin [Nystop] 1 applic TOP BID 09/18/21 09/20/21 Ondansetron Odt [Zofran Odt] 8 mg TL Q8H PRN 09/18/21 09/20/21 Oxycodone HCl 10 mg PO TID PRN 09/18/21 09/20/21 Potassium Chloride [Klor-Con M10] 20 meq PO DAILY 09/18/21 09/20/21 Sodium Chloride 0.65% [[place]] 2 sprays BERNARD Q2H PRN 09/18/21 09/20/21 Valacyclovir HCl [Valtrex] 500 mg PO TID #15 tablet 09/18/21 09/20/21 hydrOXYzine HCL [Hydroxyzine HCl] 25 mg PO BID PRN 09/18/21 09/20/21 polyethylene glycoL 3350 [Miralax] 17 gm PO PRN PRN 09/18/21 09/20/21 Ciclopirox [Loprox] 1 appful TP .[id number] 09/20/21 09/20/21 Clobetasol Propionate/Emoll 1 appful TOP DAILY PRN 09/20/21 09/20/21 [Clobetasol Emollnt 0.05% Foam] Clotrimazole Priscila [Clotrimazole] 1 ea PO 5XD 09/20/21 09/20/21 Diphenoxylate/Atropine [Lomotil] 2.5 mg PO QID PRN 09/20/21 09/20/21 Loperamide [Imodium] 2 mg PO QID PRN 09/20/21 09/20/21 - Allergies Allergies/Adverse Reactions: Allergies Allergy/AdvReac Type Severity Reaction Status Date / Time acetaminophen [From Tylenol] Allergy Unknown Verified 09/20/21 04:38 bacitracin Allergy Hives Verified 09/20/21 04:38 [From Neosporin ([id number])] diltiazem Allergy Rash Verified 09/20/21 04:38 neomycin Allergy Hives Verified 09/20/21 04:38 [From Neosporin ([id number])] polymyxin B Allergy Hives Verified 09/20/21 04:38 [From Neosporin ([id number])] rifampin Allergy Rash Verified 09/20/21 04:38 diphenhydramine HCl * AdvReac Unknown Verified 09/20/21 04:38 [From Benadryl] lorazepam AdvReac Unknown Verified 09/20/21 04:38 PD ED PE NORMAL - Vitals Vital signs reviewed: Yes - General General: Other (toxic appearing) - HEENT HEENT: Atraumatic, Other (dry mucous membranes, vesicular lesions lips and tongue) - Cardiac Cardiac: No murmur, Strong equal pulses, Other (tachycardia) - Respiratory Respiratory: Other (on NC, tachypnea, inspiratory crackles bilateral bases) - Abdomen Abdomen: Soft, Non tender, No organomegaly - Derm Derm: Normal color, No rash, Other (poor skin turgor) - Extremities Extremities: No deformity, No tenderness to palpate, Other (trace pitting edema to knees bilaterally) - Neuro Neuro: boil off worker 2-12 intact, Other (no focal neurologic deficit) Eye Opening: Spontaneous Motor: Localizes to Pain Verbal: None GCS Score: 10 Results - Vitals Vitals: Vital Signs - 24 hr 09/20/21 09/20/21 09/20/21 03:50 04:25 05:00 Temperature 37.2 C 38.6 C H Heart Rate 96 107 H 106 H Respiratory 33 H 35 H 37 H Rate Blood Pressure 121/54 L 126/88 H 126/63 O2 Saturation 96 95 94 09/20/21 09/20/21 09/20/21 05:08 05:30 05:43 Temperature 38.4 C H 37.5 C Heart Rate 101 H 98 Respiratory 34 H 31 H Rate Blood Pressure 126/63 131/59 H O2 Saturation 94 95 09/20/21 09/20/21 09/20/21 06:00 06:30 07:00 Temperature Heart Rate 105 H 100 100 Respiratory 28 H 29 H 30 H Rate Blood Pressure 130/61 119/55 L O2 Saturation 96 95 09/20/21 09/20/21 09/20/21 09:15 11:35 13:00 Temperature Heart Rate 100 99 99 Respiratory 17 20 18 Rate Blood Pressure 126/55 L 122/60 122/60 O2 Saturation 97 99 99 Oxygen O2 Source Room air Oxygen Flow Rate 2 - Labs Labs: Laboratory Tests 09/20/21 09/20/21 09/20/21 03:58 03:58 04:06 WBC RBC Hgb Hct MCV MCH MCHC RDW Plt Count MPV Neut # (Auto) Lymph # (Auto) [place] # (Auto) Eos # (Auto) Baso # (Auto) Absolute Nucleated RBC Nucleated RBC % PT INR Bld Gas Analysis Time Sample Site ABG pH ABG pCO2 ABG pO2 ABG HCO3 ABG Total CO2 ABG O2 Saturation ABG Base Excess Dheeraj Test O2 Delivery Device O2 Liters/Min Sodium 137 Potassium 4.2 Chloride 98 L Carbon Dioxide 28 Anion Gap 11.0 BUN 55 H Creatinine 2.1 H Estimated GFR (MDRD) 31 L Glucose 121 H Lactic Acid Calcium 8.7 Total Bilirubin 0.7 AST 36 ALT 12 Alkaline Phosphatase 65 Troponin I High Sens B-Natriuretic Peptide 285 H Total Protein 7.2 Albumin 3.0 L Globulin 4.2 Albumin/Globulin Ratio 0.7 L Urine Color Urine Clarity Urine pH Ur Specific [place] Urine Protein Urine Glucose (UA) Urine Ketones Urine Occult Blood Urine Nitrite Urine Bilirubin Urine Urobilinogen Ur Leukocyte Esterase Urine RBC Urine WBC Ur Squamous Epith Cells Urine Bacteria Urine Casts Ur Microscopic Review Urine Culture Comments Nasal Adenovirus (PCR) NOT DETECTED Nasal B. parapertussis DNA (PCR) NOT DETECTED Nasal Coronavir 229E PCR NOT DETECTED Nasal Coronavir HKU1 PCR NOT DETECTED Nasal Coronavir NL63 PCR NOT DETECTED Nasal Coronavir OC43 PCR NOT DETECTED Nasal Enterovir/Rhinovir PCR NOT DETECTED Nasal Influenza B PCR NOT DETECTED Nasal Influenza A PCR NOT DETECTED Nasal Parainfluen 1 PCR NOT DETECTED Nasal Parainfluen 2 PCR NOT DETECTED Nasal Parainfluen 3 PCR NOT DETECTED Nasal Parainfluen 4 PCR NOT DETECTED Nasal RSV (PCR) NOT DETECTED Nasal B.pertussis DNA PCR NOT DETECTED Nasal C.pneumoniae (PCR) NOT DETECTED [place] Human Metapneumo PCR NOT DETECTED Nasal M.pneumoniae (PCR) NOT DETECTED Nasal SARS-CoV-2 (PCR) NOT DETECTED 09/20/21 09/20/21 09/20/21 04:09 04:09 04:09 WBC 12.0 H RBC 2.71 L Hgb 8.5 L Hct 25.3 L MCV 93.4 MCH 31.4 H MCHC 33.6 RDW 13.7 Plt Count 204 MPV 10.7 Neut # (Auto) 11.0 H Lymph # (Auto) 0.4 L [place] # (Auto) 0.5 Eos # (Auto) 0.0 Baso # (Auto) 0.0 Absolute Nucleated RBC 0.00 Nucleated RBC % 0.0 PT 13.5 H INR 1.2 Bld Gas Analysis Time Sample Site ABG pH ABG pCO2 ABG pO2 ABG HCO3 ABG Total CO2 ABG O2 Saturation ABG Base Excess Dheeraj Test O2 Delivery Device O2 Liters/Min Sodium Potassium Chloride Carbon Dioxide Anion Gap BUN Creatinine Estimated GFR (MDRD) Glucose Lactic Acid Calcium Total Bilirubin AST ALT Alkaline Phosphatase Troponin I High Sens 23.6 H* B-Natriuretic Peptide Total Protein Albumin Globulin Albumin/Globulin Ratio Urine Color Urine Clarity Urine pH Ur Specific [place] Urine Protein Urine Glucose (UA) Urine Ketones Urine Occult Blood Urine Nitrite Urine Bilirubin Urine Urobilinogen Ur Leukocyte Esterase Urine RBC Urine WBC Ur Squamous Epith Cells Urine Bacteria Urine Casts Ur Microscopic Review Urine Culture Comments Nasal Adenovirus (PCR) Nasal B. parapertussis DNA (PCR) Nasal Coronavir 229E PCR Nasal Coronavir HKU1 PCR Nasal Coronavir NL63 PCR Nasal Coronavir OC43 PCR Nasal Enterovir/Rhinovir PCR Nasal Influenza B PCR Nasal Influenza A PCR Nasal Parainfluen 1 PCR Nasal Parainfluen 2 PCR Nasal Parainfluen 3 PCR Nasal Parainfluen 4 PCR Nasal RSV (PCR) Nasal B.pertussis DNA PCR Nasal C.pneumoniae (PCR) [place] Human Metapneumo PCR Nasal M.pneumoniae (PCR) Nasal SARS-CoV-2 (PCR) 09/20/21 09/20/21 09/20/21 04:09 04:25 04:50 WBC RBC Hgb Hct MCV MCH MCHC RDW Plt Count MPV Neut # (Auto) Lymph # (Auto) [place] # (Auto) Eos # (Auto) Baso # (Auto) Absolute Nucleated RBC Nucleated RBC % PT INR Bld Gas Analysis Time 0455 Sample Site RIGHT RADIAL ABG pH 7.41 ABG pCO2 37 ABG pO2 68 L ABG HCO3 22.5 ABG Total CO2 23.6 ABG O2 Saturation 94 ABG Base Excess -1.9 Dheeraj Test POSITIVE O2 Delivery Device NASAL CANNULA O2 Liters/Min 2.00 Sodium Potassium Chloride Carbon Dioxide Anion Gap BUN Creatinine Estimated GFR (MDRD) Glucose Lactic Acid 1.3 Calcium Total Bilirubin AST ALT Alkaline Phosphatase Troponin I High Sens B-Natriuretic Peptide Total Protein Albumin Globulin Albumin/Globulin Ratio Urine Color YELLOW Urine Clarity CLEAR Urine pH 5.5 Ur Specific [place] 1.010 Urine Protein TRACE Urine Glucose (UA) NEGATIVE Urine Ketones NEGATIVE Urine Occult Blood SMALL H Urine Nitrite NEGATIVE Urine Bilirubin NEGATIVE Urine Urobilinogen 0.2 (NORMAL) Ur Leukocyte Esterase NEGATIVE Urine RBC 0-5 Urine WBC 0-3 Ur Squamous Epith Cells RARE Squamous Urine Bacteria None Seen Urine Casts 0-2 Hyaline Casts Ur Microscopic Review INDICATED Urine Culture Comments NOT INDICATED Nasal Adenovirus (PCR) Nasal B. parapertussis DNA (PCR) Nasal Coronavir 229E PCR Nasal Coronavir HKU1 PCR Nasal Coronavir NL63 PCR Nasal Coronavir OC43 PCR Nasal Enterovir/Rhinovir PCR Nasal Influenza B PCR Nasal Influenza A PCR Nasal Parainfluen 1 PCR Nasal Parainfluen 2 PCR Nasal Parainfluen 3 PCR Nasal Parainfluen 4 PCR Nasal RSV (PCR) Nasal B.pertussis DNA PCR Nasal C.pneumoniae (PCR) [place] Human Metapneumo PCR Nasal M.pneumoniae (PCR) Nasal SARS-CoV-2 (PCR) PD MEDICAL DECISION MAKING - ED course Complexity details: reviewed results, re-evaluated patient, considered differential, d/w patient ED course: Toxic appearing patient presenting for difficulty in breathing, altered mental s tatus. Febrile, tachycardic, previously treated for aspiration pneumonia. Will treat empirically for sepsis with broad-spectrum antibiotics. Will be cautious with fluid given patient's history of CHF. Patient has dry mucous membranes but does also have pitting edema. Vitals improved with fluid hydration, patient is mentating better and is now asking for water. Labs and imaging are reviewed, chest x-ray shows multilobar pneumonia, this appears to be worse than when patient was seen in our ER 2 days prior. He is still requiring additional supplemental oxygen. Port/PSI score elevated. Will admit for further treatment. - Critical Care Time(min): 36 Time Includes: Direct patient care, Review records, Reassess patient, Document care, Coordinate care, See progress note Data interpretation: Labs, Pulse ox, ABG, CXR, Prior EKG, See progress note Procedures included in critical care time: Peripheral IV, Blood draw, See progress note Departure - Departure Disposition: 66 [facility] DC/Xfer Clinical Impression: Pneumonia, Altered mental status, Acute on chronic respiratory failure with hypoxemia, Parkinsons disease Condition: Serious Discharge Date/Time: 09/20/21 15:45
[2021-09-20] MEDS ORDERED: SODIUM CHLORIDE 0.9% 500 ML IV ONE (03:52)
[2021-09-20] MEDS ORDERED: VANCOMYCIN INJ 1 GM in SODIUM CHLORIDE 0.9% 500 ML IV STA (03:52)
[2021-09-20] MEDS ORDERED: CEFEPIME 2 GM in SODIUM CHLORIDE 0.9% MINIBAG 100 ML IV STA (03:52)
[2021-09-20 04:19] LABS: BASOPHILS % (AUTO) 0.2 %; EOSINOPHILS % (AUTO) 0.2 %; HCT - HEMATOCRIT 25.3 % (42.0-52.0); HGB - HEMOGLOBIN 8.5 g/dL (14.0-18.0); LYMPHOCYTES # (AUTO) 0.4 10^3/uL (1.5-3.5); LYMPHOCYTES % (AUTO) 3.1 %; MEAN CORPUSCULAR HEMOGLOBIN 31.4 pg (27.0-31.0); MEAN CORPUSCULAR HGB CONC 33.6 g/dL (32.0-36.0); MEAN CORPUSCULAR VOLUME 93.4 fL (80.0-94.0); MEAN PLATELET VOLUME 10.7 fL (7.4-11.4); MONOCYTES # (AUTO) 0.5 10^3/uL (0.0-1.0); MONOCYTES % (AUTO) 4.5 %; NEUTROPHILS % (AUTO) 91.6 %; PLT - PLATELET COUNT 204 10^3/uL (130-450); RED BLOOD COUNT 2.71 10^6/uL (4.70-6.10); RED CELL DISTRIBUTION WIDTH 13.7 % (12.0-15.0)
[2021-09-20] MEDS ORDERED: ACETAMINOPHEN 650 MG SUPP PR STA (04:30)
[2021-09-20 04:33] LABS: ALBUMIN/GLOBULIN RATIO 0.7 (1.0-2.2); BILIRUBIN,TOTAL 0.7 mg/dL (0.2-1.0); CALCIUM 8.7 mg/dL (8.5-10.3); CREATININE 2.1 mg/dL (0.6-1.2); POTASSIUM 4.2 mmol/L (3.5-5.0); TOTAL PROTEIN 7.2 g/dL (6.7-8.2)
[2021-09-20 04:34] LABS: INR 1.2 (0.8-1.2); PT - PROTHROMBIN TIME 13.5 secs (9.9-12.6)
[2021-09-20] MEDS ORDERED: VANCOMYCIN 1 GM VIAL ONE (04:47)
[2021-09-20 04:49] LABS: BILIRUBIN,URINE NEGATIVE (NEGATIVE); GLUCOSE, URINE (UA) NEGATIVE (NEGATIVE); KETONES,URINE (UA) NEGATIVE (NEGATIVE); LEUKOCYTE ESTERASE, URINE NEGATIVE (NEGATIVE); NITRITE,URINE NEGATIVE (NEGATIVE); OCCULT BLOOD,URINE SMALL (NEGATIVE); PH,URINE 5.5 PH (5.0-7.5); PROTEIN,URINE TRACE mg/dL (NEGATIVE); UROBILINOGEN,URINE 0.2 (NORMAL) E.U./dL (NORMAL)
[2021-09-20 04:50] LABS: CLARITY,URINE CLEAR (CLEAR)
[2021-09-20 04:56] LABS: ABG BASE EXCESS -1.9 mmol/L (-2.0-3.0); ABG HCO3 22.5 mmol/L (22.0-26.0); ABG OXYGEN SATURATION 94 % (94-98); ABG PCO2 37 mmHg (34-45); ABG PH 7.41 (7.35-7.45); ABG PO2 68 mmHg (80-100); ABG TCO2 23.6 MMOL/L (21.0-29.0)
[2021-09-20 04:57] LABS: ALLEN TEST POSITIVE
[2021-09-20 05:00] LABS: BACTERIA,URINE None Seen /HPF (None Seen); CASTS, URINE 0-2 Hyaline Casts /LPF; RBC,URINE 0-5 /HPF (0-5); SQUAMOUS EPITHELIAL CELL,UR RARE Squamous (<= Few); WBC,URINE 0-3 /HPF (0-3)
[2021-09-20 05:09] LABS: B. PARAPERTUSSIS- RESP PCR PAN NOT DETECTED; B. PERTUSSIS- RESP PCR PANEL NOT DETECTED; C. PNEUMONIAE- RESP PCR PANEL NOT DETECTED; CORONAVIRUS 229E-RESP PCR NOT DETECTED; CORONAVIRUS HKU1-RESP PCR NOT DETECTED; CORONAVIRUS NL63-RESP PCR NOT DETECTED; CORONAVIRUS OC43-RESP PCR NOT DETECTED; HUMAN METAPNEUMOVIRUS NOT DETECTED; INFLUENZA A- RESP PCR PANEL NOT DETECTED; INFLUENZA B - RESP PCR PANEL NOT DETECTED; M. PNEUMONIAE- RESP PCR PANEL NOT DETECTED; PARAINFLUENZA VIRUS 1 NOT DETECTED; PARAINFLUENZA VIRUS 2 NOT DETECTED; PARAINFLUENZA VIRUS 3 NOT DETECTED; PARAINFLUENZA VIRUS 4 NOT DETECTED; RHINOVIRUS/ENTEROVIRUS NOT DETECTED; RSV- RESP PCR PANEL NOT DETECTED; SARS-CoV-2 -RESP PCR PANEL NOT DETECTED
[2021-09-20] MEDS ORDERED: IPRATROPIUM/ALBUTEROL 3 ML NEB INH STA (08:13)
[2021-09-20] MEDS ORDERED: oxyCODONE 5 MG TABLET PO STA (08:13)
[2021-09-20] MEDS ORDERED: SODIUM CHLORIDE 0.65% NASAL SPRAY NAS PRN (13:13)
[2021-09-20] MEDS ORDERED: ONDANSETRON 4 MG/2 ML VIAL IVP PRN (13:15)
--- NOTE | 2021-09-20 13:27 | HISTORY & PHYSICAL EXAMINATION ---
Chief Complaint - Chief Complaint Chief Complaint: fever History of Present Illness - Admitted From Admitted From:: [facility], [facility] ED - History Obtained From Records Reviewed: yes History obtained from: patient's and ED provider's notes Exam Limitations: weakness - History of Present Illness HPI Comment/Other: Patient is a 76-year-old male with history of Parkinson's disease, alert and oriented x3 at baseline, CHF, asthma, history of CLL status post stem cell transplant, history of Boop on chronic 2 L oxygen who presented to the ED with altered mental status and a fever. His woke up at night and found him sitting at the side of the bed. When she tried to get his attention he was not responsive so she called EMS. When EMS arrived patient's temperature was found to be 103F The patient was recently treated at the [facility] for 1 week. He was on vancomycin and Zosyn for aspiration pneumonia and discharged on 09/14 with prescription of Augmentin to complete a 10-day antibiotic course. He was in the ED 2 days ago For dyspnea. He was thought to be dehydrated and weak. He was also noted to have mouth sores which had been limiting his ability to eat. It was suspected that his stomatitis could be due to thrush but also could be due to hepatic source. He has history of shingles in the past.. He was prescribed valacyclovir and azithromycin as well as nystatin solution and discharged home. Today he was noted to have a white blood cell count of 12. Chest x-ray showed bilateral peripheral patchy airspace opacities suspicious for bilateral pneumonia possibly with atypical or viral agents. As a result he was presented for admission for continued treatment History - Past Medical History Cardiovascular: reports: Hypertension, Atrial flutter, Murmur Respiratory: reports: Shortness of breath, Other Neuro: reports: Parkinson's Endocrine/Autoimmune: reports: None GI: reports: GERD : reports: Renal insuffiency, Other HEENT: reports: None Psych: reports: None Musculoskeletal: reports: None Derm: reports: Other MRSA Hx?: No - Past Surgical History General: reports: Bowel surgery, Gastric surgery Derm: reports: Skin cancer surgery - Family & Social History Family History: Mother: Blood Disease/Disorder (Mother of complications of C. difficile infection), Hypertension, Father: Cancer (Father had lung cancer and CLL.) Family History Comment/Other: The patient has a sister who is alive and well. He has no knowledge of any diabetes, hyperlipidemia, or heart disease in the family. Social History Notes: The patient and his celebrated their 49th anniversary yesterday. - Substance History Use: Uses substance without health or social issues: Alcohol - POLST Patient has POLST: Yes POLST Status: Full Code Meds/Allgy - Home Medications Home Medications: Ambulatory Orders Medication Instructions Recorded Confirmed calcitrioL [Rocaltrol] 0.25 mcg PO DAILY 03/29/14 09/20/21 Selegiline HCl 5 mg PO BID 06/08/15 09/20/21 Pantoprazole [Protonix] 40 mg PO BID tablet 09/29/16 09/20/21 Tamsulosin [Flomax] 0.8 mg PO DAILY 02/03/17 09/20/21 Albuterol Sulf [Ventolin Hfa 2 puffs INH Q6H PRN 10/12/17 09/20/21 Inhaler] Carbidopa/Levodopa 1 tab PO TID 10/12/17 09/20/21 [Carbidopa-Levodopa 25-100 Tab] Albuterol 2.5 mg INH Q4H PRN #30 ml 09/18/21 09/20/21 Aspirin [[place] Aspirin] 81 mg PO DAILY 09/18/21 09/20/21 Azithromycin 250 mg PO Q2D 20 Days #10 tablet 09/18/21 09/20/21 Budesonide [Pulmicort Flexhaler] 1 inh IH BID 30 Days #1 unit 09/18/21 09/20/21 Chlorthalidone 25 mg PO DAILY 09/18/21 09/20/21 Ferrous Sulfate 325 mg PO ONCE 09/18/21 09/20/21 Finasteride [Proscar] 5 mg PO DAILY 09/18/21 09/20/21 Fluoride (Sodium) [Prevident 5000] 100 ml DT DAILY PM 09/18/21 09/20/21 Lactobacillus Rhamnosus GG 1 cap PO DAILY 09/18/21 09/20/21 [Culturelle] Lidocaine Viscous 2% [Xylocaine 5 ml PO Q4H PRN #100 ml 09/18/21 09/20/21 Viscous 2%] Multivit-Min/Iron/Folic Acid/K 1 each PO DAILY 09/18/21 09/20/21 [Multi-Day Plus Minerals Tablet] NIFEdipine [Procardia Xl] 30 mg PO BID 09/18/21 09/20/21 Nystatin [Mycostatin] 10 ml PO QID 5 Days #100 ml 09/18/21 09/20/21 Nystatin [Nystop] 1 applic TOP BID 09/18/21 09/20/21 Ondansetron Odt [Zofran Odt] 8 mg TL Q8H PRN 09/18/21 09/20/21 Oxycodone HCl 10 mg PO TID 09/18/21 09/20/21 Potassium Chloride [Klor-Con M10] 20 meq PO DAILY 09/18/21 09/20/21 Sodium Chloride 0.65% [[place]] 2 sprays BERNARD Q2H PRN 09/18/21 09/20/21 Valacyclovir HCl [Valtrex] 500 mg PO TID #15 tablet 09/18/21 09/20/21 hydrOXYzine HCL [Hydroxyzine HCl] 25 mg PO BID PRN 09/18/21 09/20/21 polyethylene glycoL 3350 [Miralax] 17 gm PO PRN PRN 09/18/21 09/20/21 - Allergies Allergies/Adverse Reactions: Allergies Allergy/AdvReac Type Severity Reaction Status Date / Time acetaminophen [From Tylenol] Allergy Unknown Verified 09/20/21 04:38 bacitracin Allergy Hives Verified 09/20/21 04:38 [From Neosporin ([id number])] diltiazem Allergy Rash Verified 09/20/21 04:38 neomycin Allergy Hives Verified 09/20/21 04:38 [From Neosporin ([id number])] polymyxin B Allergy Hives Verified 09/20/21 04:38 [From Neosporin ([id number])] rifampin Allergy Rash Verified 09/20/21 04:38 diphenhydramine HCl * AdvReac Unknown Verified 09/20/21 04:38 [From Benadryl] lorazepam AdvReac Unknown Verified 09/20/21 04:38 Review of Systems - Other Findings Other Findings: A 12 point review of system was done and found to be negative except for as mentioned in the HPI. Prior Level of Functionality: Patient is normally independent of activities of daily living. Exam - Vital Signs Vital Signs: Vital Signs x48h Temp Pulse Resp BP Pulse Ox 09/20/21 11:35 99 20 122/60 99 09/20/21 09:15 100 17 126/55 L 97 09/20/21 07:00 100 30 H 09/20/21 06:30 100 29 H 119/55 L 95 09/20/21 06:00 105 H 28 H 130/61 96 09/20/21 05:43 37.5 C 09/20/21 05:30 98 31 H 131/59 H 95 - Physical Exam General Appearance: positive: Alert, Moderate distress, Lethargic Eyes Bilateral: positive: PERRL, EOMI ENT: positive: Dry mucous membranes, Other (white painful lesions on tongue) Neck: positive: No JVD, Trachea midline Respiratory: positive: Chest non-tender, Other (mild crackles) Cardiovascular: positive: Regular rate & rhythm, Systolic murmur Abdomen: positive: Non-tender, No organomegaly, Nml bowel sounds, No distention. negative: Guarding, Rebound Back: positive: Nml inspection Skin: positive: Color nml, No rash, Warm, Dry Extremities: positive: Non-tender, Full ROM, Nml appearance, No pedal edema Neurologic/Psychiatric: positive: Oriented x3, Mood/affect nml, Weakness Conclusion/Plan - Problem List (1) Pneumonia Conclusion/Plan: WBC was 12. Chest x-ray showed bilateral peripheral patchy airspace opacities suspicious for bilateral pneumonia possibly with atypical or viral agents. Patient was recently treated at [facility] with vancomycin and Zosyn for 1 week for aspiration pneumonia. Supplemental oxygen via nasal canula 3L with O2Sat at 99% We will continue vancomycin and Zosyn. Azithromycin 500mg IV daily X 3 doses. Diflucan 200 mg IV daily and valacyclovir 500 mg p.o. 3 times daily ordered (2) Stomatitis Conclusion/Plan: Etiology undetermined but differential includes thrush versus herpetic lesions. Patient is fairly immunocompromised. Following his stem cell transplant for CLL, he had [id number]-[id number] disease and required very high doses of steroids. During that time he was on valacyclovir and azithromycin to 50 mg daily 3 days every week. This is significantly affecting patient's ability to eat. As a result he is weak from dehydration. Creatinine was 2.1. Viscous lidocaine oral ordered to help with pain. Soft diet ordered. IV hydration with normal saline at 100 mL/h. Diflucan 200 mg IV daily x5 days initiated 09/20/2021. Valacyclovir 500 mg p.o. 3 times daily (3) Acute renal injury Conclusion/Plan: Acute on chronic. Creatinine 2.1. Estimated GFR 31. Likely poor oral intake due to pain from stomatitis. Diflucan and valacyclovir ordered. IV hydration with normal saline at 100 mL/h. Anticipating improvement. Will monitor renal function with daily labs. (4) Benign prostatic hyperplasia Conclusion/Plan: On tamsulosin 0.8 mg p.o. daily. (5) Parkinsons disease Conclusion/Plan: On carbidopa levodopa 1 tablet p.o. 3 times daily. (6) Atrial flutter Conclusion/Plan: Metoprolol succinate 25 mg p.o. twice daily ordered. - Lab Results Fish Bones: 09/20/21 04:09 09/20/21 03:58 Core Measures - Anticipated LOS I expect patient to be DC'd or transferred within 96 hours.: Yes - DVT/VTE - Prophylaxis VTE/DVT Device ordered at admit?: Yes
[2021-09-20] MEDS ORDERED: PIPERACILLIN/TAZOBACTAM 3.375 GM in SODIUM CHLORIDE 0.9% MINIBAG 100 ML IV SCH (14:00)
[2021-09-20] MEDS ORDERED: AZITHROMYCIN INJ 500 MG in SODIUM CHLORIDE 0.9% 250 ML IV SCH (14:00)
[2021-09-20] MEDS: SODIUM CHLORIDE 0.9% 1,000 ML IV SCH (15:55)
[2021-09-20] MEDS: valACYclovir 500 MG TABLET PO SCH ×2 (15:56→21:24)
[2021-09-20] MEDS ORDERED: FLUCONAZOLE 200 MG/100 ML 100 ML IV SCH (16:00)
[2021-09-20] MEDS: oxyCODONE 5 MG TABLET PO PRN (16:33)
--- NOTE | 2021-09-20 16:33 | PHARMACY PROGRESS NOTE ---
- Therapy Status Vancomycin regimen day #: 1 Therapy status: Awaiting steady state Basis for treatment: Empirical Treatment indication: PNEUMONIA (HCAP WITH POSSIBLE ASPIRATION) Trough goal: 15-20 Concurrent antibiotics: FLUCONAZOLE, ZITHROMAX, ZOSYN - LALO Risk Risk level for Acute Kidney Injury: High Acute Kidney Injury risk factors: Other nephrotoxic agents, Piperacillin/Tozobactam, Baseline CrCl <50, Goal trough >15 - Monitoring and Recommendation Clinical response to treatment: I&O Previous 24 hours 09/18/21 09/19/21 09/20/21 23:59 23:59 23:59 Intake Total 1100 Output Total 50 Balance 1050 Lab Results 09/20/21 03:58 BUN 55 H Creatinine 2.1 H Estimated GFR (MDRD) 31 L Monitoring plan: Daily serum creatinine (PT was treated with 7 days of Vanco and Zosyin at for PNA and was then switched to PO augmentin for additional 3 days. D/C from on 09/15. 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 Vanco trough before 4th dose on 09/23/21 @0300.)
[2021-09-20] MEDS: SODIUM CHLORIDE FLUSH 0.9% 10 ML SYRINGE IVP SCH (17:17)
[2021-09-20] MEDS: NYSTATIN 500000 UNITS/5 ML UDC PO SCH ×2 (17:29→21:37)
[2021-09-20] MEDS: FLUCONAZOLE 200 MG/100 ML 100 ML IV SCH ×2 (17:36→18:41)
[2021-09-20] MEDS: PIPERACILLIN/TAZOBACTAM 3.375 GM in SODIUM CHLORIDE 0.9% MINIBAG 100 ML IV SCH (18:11)
--- NOTE | 2021-09-20 18:44 | PHARMACY PROGRESS NOTE ---
- Best Possible Medication History Admit Date and Time: 09/20/21 1315 Processed by: Pharmacy Medication History completed: Yes Patient Interview: Pt unable to participate Secondary Source(s): Insurance records As the person ultimately responsible for medication therapy, providers are able to order a medication from an existing home medication list in [facility] via the "Reconcile Routine" prior to Confirmation of that medication by office support. Such practice is discouraged except when the physician, in their clinical judgment, deems that a medical need exists for a medication without regard to previous use.
[2021-09-20] MEDS: LIDOCAINE VISCOUS 2% 15 ML UDC MM PRN (18:50)
[2021-09-20] MEDS: BUDESONIDE 0.5 MG/2 ML NEB INH SCH (19:23)
[2021-09-20] MEDS: SELEGILINE HCL 5 MG PO SCH (21:24)
[2021-09-20] MEDS: NIFEdipine ER 30 MG TABLET PO SCH (21:24)
[2021-09-20] MEDS: METOPROLOL SUCCINATE 25 MG TABLET PO SCH (21:24)
[2021-09-20] MEDS: CARBIDOPA/LEVODOPA 25 MG/100 MG TABLET PO SCH (21:24)
[2021-09-20] MEDS: PANTOPRAZOLE 40 MG TABLET PO SCH (21:24)
[2021-09-21] MEDS: PIPERACILLIN/TAZOBACTAM 3.375 GM in SODIUM CHLORIDE 0.9% MINIBAG 100 ML IV SCH ×4 (00:22→17:20)
[2021-09-21] MEDS: SODIUM CHLORIDE FLUSH 0.9% 10 ML SYRINGE IVP SCH ×3 (00:24→15:59)
[2021-09-21] MEDS: SODIUM CHLORIDE 0.9% 1,000 ML IV SCH ×2 (02:25→14:12)
[2021-09-21] MEDS: VANCOMYCIN INJ 1 GM in SODIUM CHLORIDE 0.9% 250 ML IV SCH (03:26)
[2021-09-21] MEDS: SODIUM CHLORIDE FLUSH 0.9% 10 ML SYRINGE IVP PRN (03:27)
[2021-09-21 05:18] LABS: BASOPHILS % (AUTO) 0.4 %; EOSINOPHILS # (AUTO) 0.1 10^3/uL (0.0-0.7); EOSINOPHILS % (AUTO) 1.7 %; HCT - HEMATOCRIT 23.8 % (42.0-52.0); HGB - HEMOGLOBIN 7.8 g/dL (14.0-18.0); LYMPHOCYTES # (AUTO) 0.8 10^3/uL (1.5-3.5); LYMPHOCYTES % (AUTO) 10.5 %; MEAN CORPUSCULAR HEMOGLOBIN 30.4 pg (27.0-31.0); MEAN CORPUSCULAR HGB CONC 32.8 g/dL (32.0-36.0); MEAN CORPUSCULAR VOLUME 92.6 fL (80.0-94.0); MEAN PLATELET VOLUME 10.9 fL (7.4-11.4); MONOCYTES # (AUTO) 0.4 10^3/uL (0.0-1.0); MONOCYTES % (AUTO) 5.7 %; NEUTROPHILS # (AUTO) 6.1 10^3/uL (1.5-6.6); NEUTROPHILS % (AUTO) 81.4 %; PLT - PLATELET COUNT 189 10^3/uL (130-450); RED BLOOD COUNT 2.57 10^6/uL (4.70-6.10); RED CELL DISTRIBUTION WIDTH 13.9 % (12.0-15.0); WHITE BLOOD COUNT 7.5 x10^3/uL (4.8-10.8)
[2021-09-21 05:34] LABS: CALCIUM 7.8 mg/dL (8.5-10.3); CREATININE 1.5 mg/dL (0.6-1.2)
[2021-09-21] MEDS: valACYclovir 500 MG TABLET PO SCH ×3 (05:36→20:13)
[2021-09-21] MEDS: CARBIDOPA/LEVODOPA 25 MG/100 MG TABLET PO SCH ×3 (05:36→20:12)
[2021-09-21] MEDS ORDERED: TRIAMCIN/MOXIFLOX OPHTHALMIC 0.6 ML VIAL IO ONE (07:10)
[2021-09-21] MEDS ORDERED: EPINEPHrine 1 MG/ML AMP ONE (07:10)
[2021-09-21] MEDS ORDERED: TIMOLOL 0.5% OPHTH DROPS ONE (07:11)
[2021-09-21] MEDS ORDERED: BSS/LIDOCAINE/EPINEPHRINE 1 ML VIAL ONE (07:11)
[2021-09-21] MEDS ORDERED: BRIMONIDINE 0.2% OPHTH DROPS 5 ML ONE (07:11)
[2021-09-21] MEDS: ALBUTEROL NEB 2.5 MG/3 ML INH PRN (07:24)
[2021-09-21] MEDS: BUDESONIDE 0.5 MG/2 ML NEB INH SCH ×2 (07:24→20:03)
--- NOTE | 2021-09-21 07:33 | PROVIDER PROGRESS NOTE ---
Assessment/Plan - Problem List (1) Pneumonia Assessment/Plan: White blood cell count improved from 12 down to 7.5 today. Patient is afebrile. On supplemental oxygen via nasal cannula at 3 L. On vancomycin, Zosyn, azithromycin, Diflucan and valacyclovir IV. Encouraged ti use Incentive Spirometer as often as possible. (2) Stomatitis Assessment/Plan: Etiology undetermined but differential includes thrush versus herpetic lesions. Patient is fairly immunocompromised. 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 During that time he was on valacyclovir and azithromycin to 50 mg daily 3 days e very week. This is significantly affecting patient's ability to eat. As a result he is weak from dehydration. Creatinine was 2.1 at admission. Viscous lidocaine oral ordered to help with pain. Soft diet ordered. IV hydration with normal saline at 100 mL/h. Diflucan 200 mg IV daily x5 days initiated 09/20/2021. Valacyclovir 500 mg p.o. 3 times daily (3) Acute renal injury Assessment/Plan: Acute on chronic. Creatinine improved from 2.1 yesterday to 1.5 . Estimated GFR 45. Likely due to poor oral intake due to pain from stomatitis. Diflucan and valacyclovir ordered. Continue IV hydration with normal saline at 100 mL/h. Anticipating further improvement. Will monitor renal function with daily labs. (4) Benign prostatic hyperplasia Assessment/Plan: On tamsulosin 0.8 mg p.o. daily. (5) Parkinsons disease Assessment/Plan: On carbidopa levodopa 1 tablet p.o. 3 times daily. (6) Atrial flutter Assessment/Plan: Metoprolol succinate 25 mg p.o. twice daily ordered. - Current Meds Current Meds: Current Medications Generic Name Dose Route Start Last Admin Trade Name Freq PRN Reason Stop Dose Admin Albuterol 2.5 mg 09/20/21 17:52 09/21/21 07:24 Albuterol Neb 2.5 Mg/3 Ml INH 2.5 mg Q4H PRN Administration Wheezing Budesonide 0.5 mg 09/20/21 19:00 09/21/21 07:24 Budesonide 0.5 Mg/2 Ml Neb INH 0.5 mg RTBID EVAN Administration Carbidopa/Levodopa 1 tab 09/20/21 22:00 09/21/21 05:36 Carbidopa/Levodopa 25 Mg/100 Mg Tablet PO 1 tab TID EVAN Administration Sodium Chloride 1,000 mls @ 100 mls/hr 09/20/21 14:00 09/21/21 02:25 Normal Saline 0.9% IV 100 mls/hr .Q10H EVAN Administration Azithromycin 500 mg/ Sodium 250 mls @ 250 mls/hr 09/20/21 14:00 09/20/21 17:33 Chloride IV 09/22/21 14:59 Infused ONCE EVAN Infusion Vancomycin HCl 1 gm/ Sodium 250 mls @ 167 mls/hr 09/21/21 04:00 09/21/21 04:56 Chloride IV Infused Q24H EVAN Infusion Piperacillin Sod/Tazobactam 100 mls @ 200 mls/hr 09/20/21 18:00 09/21/21 06:03 Sod 3.375 gm/ Sodium Chloride IV Infused Q6H EVAN Infusion Lidocaine HCl 5 ml 09/20/21 17:49 09/20/21 18:50 Lidocaine Viscous 2% 15 Ml Udc MM 5 ml Q4H PRN Administration Mouth Sore Pain Metoprolol Succinate 25 mg 09/20/21 21:00 09/20/21 21:24 Metoprolol Succinate 25 Mg Tablet PO 25 mg BID EVAN Administration Nifedipine 30 mg 09/20/21 21:00 09/20/21 21:24 Nifedipine Er 30 Mg Tablet PO 30 mg BID EVAN Administration Nystatin 10 ml 09/20/21 17:00 09/20/21 21:37 Nystatin 774176 Units/5 Ml Udc PO 10 ml QID EVAN Administration Oxycodone HCl 5 mg 09/20/21 13:15 09/20/21 16:33 Oxycodone 5 Mg Tablet PO 5 mg Q4HR PRN Administration Pain 5 to 7 Pantoprazole Sodium 40 mg 09/20/21 21:00 09/20/21 21:24 Pantoprazole 40 Mg Tablet PO 40 mg BID EVAN Administration Patient Own Med ( 1 each 09/20/21 21:00 09/20/21 21:24 Selegiline Hcl [ PO Not Given Selegiline Hcl] 5 Mg BID EVAN Capsule) Sodium Chloride 10 ml 09/20/21 13:15 09/21/21 03:27 Sodium Chloride Flush 0.9% 10 Ml Syringe IVP 10 ml PRN PRN Administration NEEDED PER PROVIDER ORDERS Sodium Chloride 10 ml 09/20/21 17:00 09/21/21 00:24 Sodium Chloride Flush 0.9% 10 Ml Syringe IVP 10 ml 0100,0900,1700 EVAN Administration Valacyclovir HCl 500 mg 09/20/21 14:00 09/21/21 05:36 Valacyclovir 500 Mg Tablet PO 500 mg TID EVAN Administration - Lab Result Fish Bone Diagrams: 09/21/21 04:19 09/21/21 04:19 - Additional Planning My Orders: My Active Orders 09/20/21 Lunch Soft Mechanical Diet [DIET] 09/20/21 13:13 Sodium Chloride 0.65% [Parker] 2 sprays BERNARD Q2H PRN 09/20/21 13:15 Telemetry- [RC] Q4HR Ondansetron Inj [Zofran Inj] 4 mg IVP Q6HR PRN Sodium Chloride Flush 0.9% [Normal Saline Flush 0.9%] 10 ml IVP PRN PRN oxyCODONE [Roxicodone] 5 mg PO Q4HR PRN 09/20/21 13:16 Activity Orders [RC] Q2HR IO [RC] IOSHIFT Incentive Spirometry - RT [RC] TID Initiate Bowel Care Protocol [RC] .protocol Initiate Line Care Protocol [RC] QSHIFT Initiate Personal Care Protoco [RC] .protocol Oxygen Therapy [RC] .PRN Vital Signs [RC] Q4HR Code Status [OTHERS] Routine Condition of Patient [OTHERS] Routine DVT Prophylaxis [OTHERS] Routine 09/20/21 13:18 SCDs [RC] QSHIFT 09/20/21 14:00 Azithromycin Inj [Zithromax Inj] 500 mg Sodium Chloride 0.9% [Normal Saline 0.9%] 250 ml IV ONCE Sodium Chloride 0.9% [Normal Saline 0.9%] 1,000 ml IV 100 mls/hr valACYclovir [Valtrex] 500 mg PO TID 09/20/21 17:00 Nystatin [Mycostatin] 10 ml PO QID Sodium Chloride Flush 0.9% [Normal Saline Flush 0.9%] 10 ml IVP 0100,0900,1700 09/20/21 17:49 Lidocaine Viscous 2% [Xylocaine Viscous 2%] 5 ml MM Q4H PRN 09/20/21 17:52 Albuterol 2.5 mg INH Q4H PRN 09/20/21 17:54 Nebulizer/MDI Tx. [RC] .BID 09/20/21 18:00 Piperacillin/Tazobactam [Zosyn] 3.375 gm Sodium Chloride 0.9% Minibag [Normal Saline 0.9% Minibag] 100 ml IV Q6H 09/20/21 19:00 Budesonide [Pulmicort] 0.5 mg INH RTBID 09/20/21 21:00 Metoprolol Succinate [Toprol Xl] 25 mg PO BID NIFEdipine [Procardia Xl] 30 mg PO BID Pantoprazole [Protonix] 40 mg PO BID Patient Own Med [Patient Own Medication] 1 each PO BID 09/20/21 22:00 Carbidopa/Levodopa 25/100 [Sinemet 25 mg/100 mg] 1 tab PO TID 09/21/21 04:00 Vancomycin Inj [Vancomycin] 1 gm Sodium Chloride 0.9% [Normal Saline 0.9%] 250 ml IV Q24H 09/21/21 09:00 Aspirin Chewable [St Veto Aspirin] 81 mg PO DAILY Finasteride [Proscar] 5 mg PO DAILY Lactobacillus Rhamnosus GG [Culturelle] 1 cap PO DAILY Tamsulosin [Flomax] 0.8 mg PO DAILY calcitrioL [Rocaltrol] 0.25 mcg PO DAILY 09/21/21 11:30 TROPONIN I HIGH SENSITIVITY [IAI] Q6H 09/21/21 16:00 Fluconazole 200 mg/100 ml [Diflucan 200 mg/100 ml] 100 ml IV Q24H 09/22/21 05:00 BMP - BASIC METABOLIC PANEL [CHEM] DAILYLAB CBC - COMP BLD CT W/AUTO DIFF [HEME] DAILYLAB 09/23/21 03:30 VANCOMYCIN TROUGH [CHEM] Timed 09/23/21 05:00 BMP - BASIC METABOLIC PANEL [CHEM] DAILYLAB CBC - COMP BLD CT W/AUTO DIFF [HEME] DAILYLAB 09/24/21 05:00 BMP - BASIC METABOLIC PANEL [CHEM] DAILYLAB CBC - COMP BLD CT W/AUTO DIFF [HEME] DAILYLAB 09/25/21 05:00 BMP - BASIC METABOLIC PANEL [CHEM] DAILYLAB CBC - COMP BLD CT W/AUTO DIFF [HEME] DAILYLAB Subjective - Subjective Patient Reports: Other (Patient is more awake, alert and oriented today. Appears to be breathing better. Still has crackles and mild wheeze on auscultation of lungs.) Objective Vital Signs: Vital Signs - 24 hr 09/20/21 09/20/21 09/20/21 09:15 11:35 13:00 Temperature Heart Rate 100 99 99 Heart Rate [ Monitoring electrodes] Respiratory 17 20 18 Rate Blood Pressure 126/55 L 122/60 122/60 Blood Pressure [Right Brachial artery] O2 Saturation 97 99 99 09/20/21 09/20/21 09/20/21 13:30 15:45 19:30 Temperature 36.7 C Heart Rate 84 89 Heart Rate [ 87 Monitoring electrodes] Respiratory 22 18 20 Rate Blood Pressure 118/62 Blood Pressure 123/58 L [Right Brachial artery] O2 Saturation 99 99 09/20/21 09/21/21 09/21/21 20:16 00:37 04:47 Temperature 36.9 C 36.7 C 36.5 C Heart Rate Heart Rate [ 87 87 78 Monitoring electrodes] Respiratory 16 20 18 Rate Blood Pressure Blood Pressure 120/58 L 133/61 H 110/49 L [Right Brachial artery] O2 Saturation 97 94 98 09/21/21 07:26 Temperature Heart Rate 78 Heart Rate [ Monitoring electrodes] Respiratory 20 Rate Blood Pressure Blood Pressure [Right Brachial artery] O2 Saturation Oxygen O2 Source Nasal cannula Oxygen Flow Rate 2 I&O (Last 24 Hrs): Intake and Output Totals x24h 09/19/21 09/20/21 09/21/21 23:59 23:59 23:59 Intake Total 1850 1700 Output Total 1150 350 Balance 700 1350 General: Alert, Oriented x3 HEENT: PERRLA, EOMI, Other (white lesions on oral mucosa and tongue) Neck: Supple, No JVD Neuro: Alert, Oriented Times 3 Cardiovascular: Regular rate, Normal S1, Normal S2 Respiratory: Chest non-tender, Wheezes, Other (crackles) Abdomen: Normal bowel sounds, Soft, No tenderness, No masses Extremities: No clubbing, No cyanosis, No edema, No tenderness/swelling Comments/Notes: blisters and white lesions in mouth - Results Results: Laboratory Results WBC 7.5 x10^3/uL (4.8-10.8) 09/21/21 04:19 RBC 2.57 10^6/uL (4.70-6.10) L 09/21/21 04:19 Hgb 7.8 g/dL (14.0-18.0) L 09/21/21 04:19 Hct 23.8 % (42.0-52.0) L 09/21/21 04:19 MCV 92.6 fL (80.0-94.0) 09/21/21 04:19 MCH 30.4 pg (27.0-31.0) 09/21/21 04:19 MCHC 32.8 g/dL (32.0-36.0) 09/21/21 04:19 RDW 13.9 % (12.0-15.0) 09/21/21 04:19 Plt Count 189 10^3/uL (130-450) 09/21/21 04:19 MPV 10.9 fL (7.4-11.4) 09/21/21 04:19 Neut # (Auto) 6.1 10^3/uL (1.5-6.6) 09/21/21 04:19 Lymph # (Auto) 0.8 10^3/uL (1.5-3.5) L 09/21/21 04:19 Todd # (Auto) 0.4 10^3/uL (0.0-1.0) 09/21/21 04:19 Eos # (Auto) 0.1 10^3/uL (0.0-0.7) 09/21/21 04:19 Baso # (Auto) 0.0 10^3/uL (0.0-0.1) 09/21/21 04:19 Absolute Nucleated RBC 0.00 x10^3/uL 09/21/21 04:19 Nucleated RBC % 0.0 /100WBC 09/21/21 04:19 PT 13.5 secs (9.9-12.6) H 09/20/21 04:09 INR 1.2 (0.8-1.2) 09/20/21 04:09 Bld Gas Analysis Time 0455 09/20/21 04:50 Sample Site RIGHT RADIAL 09/20/21 04:50 ABG pH 7.41 (7.35-7.45) 09/20/21 04:50 ABG pCO2 37 mmHg (34-45) 09/20/21 04:50 ABG pO2 68 mmHg (80-100) L 09/20/21 04:50 ABG HCO3 22.5 mmol/L (22.0-26.0) 09/20/21 04:50 ABG Total CO2 23.6 MMOL/L (21.0-29.0) 09/20/21 04:50 ABG O2 Saturation 94 % (94-98) 09/20/21 04:50 ABG Base Excess -1.9 mmol/L (-2.0-3.0) 09/20/21 04:50 Dheeraj Test POSITIVE 09/20/21 04:50 O2 Delivery Device NASAL CANNULA 09/20/21 04:50 O2 Liters/Min 2.00 LPM 09/20/21 04:50 Sodium 142 mmol/L (135-145) 09/21/21 04:19 Potassium 3.0 mmol/L (3.5-5.0) L 09/21/21 04:19 Chloride 106 mmol/L (101-111) 09/21/21 04:19 Carbon Dioxide 28 mmol/L (21-32) 09/21/21 04:19 Anion Gap 8.0 (6-13) 09/21/21 04:19 BUN 32 mg/dL (6-20) H 09/21/21 04:19 Creatinine 1.5 mg/dL (0.6-1.2) H 09/21/21 04:19 Estimated GFR (MDRD) 45 (>89) L 09/21/21 04:19 Glucose 74 mg/dL (70-100) 09/21/21 04:19 Lactic Acid 1.3 mmol/L (0.5-2.2) 09/20/21 04:09 Calcium 7.8 mg/dL (8.5-10.3) L 09/21/21 04:19 Total Bilirubin 0.7 mg/dL (0.2-1.0) 09/20/21 03:58 AST 36 IU/L (10-42) 09/20/21 03:58 ALT 12 IU/L (10-60) 09/20/21 03:58 Alkaline Phosphatase 65 IU/L (42-121) 09/20/21 03:58 Troponin I High Sens 45.1 ng/L (2.3-19.7) H* 09/21/21 04:19 B-Natriuretic Peptide 285 pg/mL (5-100) H 09/20/21 03:58 Total Protein 7.2 g/dL (6.7-8.2) 09/20/21 03:58 Albumin 3.0 g/dL (3.2-5.5) L 09/20/21 03:58 Globulin 4.2 g/dL (2.1-4.2) 09/20/21 03:58 Albumin/Globulin Ratio 0.7 (1.0-2.2) L 09/20/21 03:58 Urine Color YELLOW 09/20/21 04:25 Urine Clarity CLEAR (CLEAR) 09/20/21 04:25 Urine pH 5.5 PH (5.0-7.5) 09/20/21 04:25 Ur Specific [place] 1.010 (1.002-1.030) 09/20/21 04:25 Urine Protein TRACE mg/dL (NEGATIVE) 09/20/21 04:25 Urine Glucose (UA) NEGATIVE mg/dL (NEGATIVE) 09/20/21 04:25 Urine Ketones NEGATIVE mg/dL (NEGATIVE) 09/20/21 04:25 Urine Occult Blood SMALL (NEGATIVE) H 09/20/21 04:25 Urine Nitrite NEGATIVE (NEGATIVE) 09/20/21 04:25 Urine Bilirubin NEGATIVE (NEGATIVE) 09/20/21 04:25 Urine Urobilinogen 0.2 (NORMAL) E.U./dL (NORMAL) 09/20/21 04:25 Ur Leukocyte Esterase NEGATIVE (NEGATIVE) 09/20/21 04:25 Urine RBC 0-5 /HPF (0-5) 09/20/21 04:25 Urine WBC 0-3 /HPF (0-3) 09/20/21 04:25 Ur Squamous Epith Cells RARE Squamous (<= Few) 09/20/21 04:25 Urine Bacteria None Seen /HPF (None Seen) 09/20/21 04:25 Urine Casts 0-2 Hyaline Casts /LPF 09/20/21 04:25 Ur Microscopic Review INDICATED 09/20/21 04:25 Urine Culture Comments NOT INDICATED 09/20/21 04:25 Nasal Adenovirus (PCR) NOT DETECTED 09/20/21 04:06 Nasal B. parapertussis DNA (PCR) NOT DETECTED 09/20/21 04:06 Nasal Coronavir 229E PCR NOT DETECTED 09/20/21 04:06 Nasal Coronavir HKU1 PCR NOT DETECTED 09/20/21 04:06 Nasal Coronavir NL63 PCR NOT DETECTED 09/20/21 04:06 Nasal Coronavir OC43 PCR NOT DETECTED 09/20/21 04:06 Nasal Enterovir/Rhinovir PCR NOT DETECTED 09/20/21 04:06 Nasal Influenza B PCR NOT DETECTED 09/20/21 04:06 Nasal Influenza A PCR NOT DETECTED 09/20/21 04:06 Nasal Parainfluen 1 PCR NOT DETECTED 09/20/21 04:06 Nasal Parainfluen 2 PCR NOT DETECTED 09/20/21 04:06 Nasal Parainfluen 3 PCR NOT DETECTED 09/20/21 04:06 Nasal Parainfluen 4 PCR NOT DETECTED 09/20/21 04:06 Nasal RSV (PCR) NOT DETECTED 09/20/21 04:06 Nasal B.pertussis DNA PCR NOT DETECTED 09/20/21 04:06 Nasal C.pneumoniae (PCR) NOT DETECTED 09/20/21 04:06 Bernard Human Metapneumo PCR NOT DETECTED 09/20/21 04:06 Nasal M.pneumoniae (PCR) NOT DETECTED 09/20/21 04:06 Nasal SARS-CoV-2 (PCR) NOT DETECTED 09/20/21 04:06 ABX Reporting Has patient been on IV antibiotics over the past 48 hours?: Yes
[2021-09-21] MEDS: LIDOCAINE VISCOUS 2% 15 ML UDC MM PRN ×3 (07:57→17:19)
[2021-09-21] MEDS: PANTOPRAZOLE 40 MG TABLET PO SCH ×2 (07:58→20:12)
[2021-09-21] MEDS: oxyCODONE 5 MG TABLET PO PRN ×3 (08:06→20:12)
[2021-09-21] MEDS: SELEGILINE HCL 5 MG PO SCH ×2 (09:12→20:13)
[2021-09-21] MEDS: TAMSULOSIN 0.4 MG CAPSULE PO SCH (09:17)
[2021-09-21] MEDS: NYSTATIN 500000 UNITS/5 ML UDC PO SCH ×4 (09:17→20:12)
[2021-09-21] MEDS: FINASTERIDE 5 MG TABLET PO SCH (09:17)
[2021-09-21] MEDS: METOPROLOL SUCCINATE 25 MG TABLET PO SCH (09:17)
[2021-09-21] MEDS: calcitrioL 0.25 MCG CAPSULE PO SCH (09:17)
[2021-09-21] MEDS: LACTOBACILLUS RHAMNOSUS GG CAPSULE PO SCH (09:17)
[2021-09-21] MEDS: ASPIRIN CHEW 81 MG TABLET PO SCH (09:17)
[2021-09-21] MEDS: NIFEdipine ER 30 MG TABLET PO SCH ×2 (11:53→20:13)
[2021-09-21] MEDS: AZITHROMYCIN INJ 500 MG in SODIUM CHLORIDE 0.9% 250 ML IV SCH (14:12)
[2021-09-21] MEDS ORDERED: POTASSIUM CHLORIDE 20 MEQ TABLET PO ONE (14:28)
[2021-09-21] MEDS: FLUCONAZOLE 200 MG/100 ML 100 ML IV SCH (15:59)
[2021-09-21] MEDS ORDERED: CARBOXYMETHYLCELLULOSE OPHTH DROPS EACHEYE PRN (17:24)
[2021-09-21] MEDS: MIN OIL/DIMETHICON/COCONUT OIL 92 GM TUBE TOP PRN (19:37)
[2021-09-21] MEDS: hydrOXYzine PAMOATE 25 MG CAPSULE PO SCH (20:12)
[2021-09-22] MEDS: PIPERACILLIN/TAZOBACTAM 3.375 GM in SODIUM CHLORIDE 0.9% MINIBAG 100 ML IV SCH ×5 (00:05→23:39)
[2021-09-22] MEDS: MIN OIL/DIMETHICON/COCONUT OIL 92 GM TUBE TOP PRN ×3 (00:05→23:59)
[2021-09-22] MEDS: SODIUM CHLORIDE FLUSH 0.9% 10 ML SYRINGE IVP SCH ×5 (00:09→23:40)
[2021-09-22] MEDS: VANCOMYCIN INJ 1 GM in SODIUM CHLORIDE 0.9% 250 ML IV SCH (03:30)
[2021-09-22] MEDS: SODIUM CHLORIDE 0.9% 1,000 ML IV SCH (03:32)
[2021-09-22 05:27] LABS: BASOPHILS % (AUTO) 0.2 %; EOSINOPHILS # (AUTO) 0.1 10^3/uL (0.0-0.7); EOSINOPHILS % (AUTO) 1.5 %; HCT - HEMATOCRIT 25.9 % (42.0-52.0); HGB - HEMOGLOBIN 8.3 g/dL (14.0-18.0); LYMPHOCYTES # (AUTO) 0.7 10^3/uL (1.5-3.5); LYMPHOCYTES % (AUTO) 8.8 %; MEAN CORPUSCULAR HEMOGLOBIN 29.6 pg (27.0-31.0); MEAN CORPUSCULAR VOLUME 92.5 fL (80.0-94.0); MEAN PLATELET VOLUME 11.6 fL (7.4-11.4); MONOCYTES # (AUTO) 0.5 10^3/uL (0.0-1.0); MONOCYTES % (AUTO) 6.1 %; NEUTROPHILS # (AUTO) 6.9 10^3/uL (1.5-6.6); NEUTROPHILS % (AUTO) 82.7 %; PLT - PLATELET COUNT 224 10^3/uL (130-450); WHITE BLOOD COUNT 8.4 x10^3/uL (4.8-10.8)
[2021-09-22 05:35] LABS: CALCIUM 8.1 mg/dL (8.5-10.3); CREATININE 1.5 mg/dL (0.6-1.2); POTASSIUM 3.1 mmol/L (3.5-5.0)
[2021-09-22] MEDS: valACYclovir 500 MG TABLET PO SCH ×3 (05:45→21:39)
[2021-09-22] MEDS: CARBIDOPA/LEVODOPA 25 MG/100 MG TABLET PO SCH ×3 (05:45→21:39)
[2021-09-22] MEDS: ALBUTEROL NEB 2.5 MG/3 ML INH PRN (06:55)
[2021-09-22] MEDS: BUDESONIDE 0.5 MG/2 ML NEB INH SCH ×2 (06:55→17:18)
[2021-09-22] MEDS ORDERED: MORPHINE 2 MG/ML CARPUJECT IVP STA (06:56)
[2021-09-22 07:17] LABS: ABG BASE EXCESS -1.2 mmol/L (-2.0-3.0); ABG HCO3 24.8 mmol/L (22.0-26.0); ABG OXYGEN SATURATION 90 % (94-98); ABG PCO2 48 mmHg (34-45); ABG PH 7.34 (7.35-7.45); ABG PO2 59 mmHg (80-100); ABG TCO2 26.3 MMOL/L (21.0-29.0); ALLEN TEST POSITIVE
--- NOTE | 2021-09-22 07:33 | PROVIDER PROGRESS NOTE ---
Assessment/Plan - Problem List (1) Pneumonia Assessment/Plan: WBC was 8.4. Afebrile Patient's respiratory status worsened suddenly thus morning. Respiratory rate was in the 40s and he was using abdominal muscles to aid in breathing. ABG showed pH 7.34, PCO2 47.6, PO2 59.1. Chest x-ray Mild interval worsening of diffuse patchy pulmonary opacities suspicious for multifocal pneumonia. Suspect patient may be aspirating. She received 2 breathing treatments and was eventually placed on high flow nasal cannula. Was also given Lasix 40 mg IV x1. Patient resting status improved shortly afterwards. On vancomycin, Zosyn, azithromycin, Diflucan and valacyclovir IV. Encouraged ti use Incentive Spirometer as often as possible. (2) Stomatitis Assessment/Plan: Etiology undetermined but differential includes thrush versus herpetic lesions. Patient is fairly immunocompromised. 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 During that time he was on valacyclovir and azithromycin to 50 mg daily 3 days every week. This is significantly affecting patient's ability to eat. As a result he is weak from dehydration. Creatinine was 2.1 at admission. Viscous lidocaine oral ordered to help with pain. Soft diet ordered. IV hydration with normal saline at 100 mL/h. Diflucan 200 mg IV daily x5 days initiated 09/20/2021. Valacyclovir 500 mg p.o. 3 times daily (3) Acute renal injury Assessment/Plan: No change from the previous day. Cr 1.5 with eGFR of 45. Will continue to monitor. IV fluid discontinued today to to acute dyspnea (4) Benign prostatic hyperplasia Assessment/Plan: On tamsulosin 0.8 mg p.o. daily. (5) Parkinsons disease Assessment/Plan: On carbidopa levodopa 1 tablet p.o. 3 times daily. (6) Atrial flutter Assessment/Plan: Metoprolol succinate 25 mg p.o. twice daily ordered. - Current Meds Current Meds: Current Medications Generic Name Dose Route Start Last Admin Trade Name Freq PRN Reason Stop Dose Admin Albuterol 2.5 mg 09/20/21 17:52 09/22/21 06:55 Albuterol Neb 2.5 Mg/3 Ml INH 2.5 mg Q4H PRN Administration Wheezing Aspirin 81 mg 09/21/21 09:00 09/21/21 09:17 Aspirin Chew 81 Mg Tablet PO 81 mg DAILY EVAN Administration Budesonide 0.5 mg 09/20/21 19:00 09/22/21 06:55 Budesonide 0.5 Mg/2 Ml Neb INH 0.5 mg RTBID EVAN Administration Calcitriol 0.25 mcg 09/21/21 09:00 09/21/21 09:17 Calcitriol 0.25 Mcg Capsule PO 0.25 mcg DAILY EVAN Administration Carbidopa/Levodopa 1 tab 09/20/21 22:00 09/22/21 05:45 Carbidopa/Levodopa 25 Mg/100 Mg Tablet PO 1 tab TID EVAN Administration Finasteride 5 mg 09/21/21 09:00 09/21/21 09:17 Finasteride 5 Mg Tablet PO 5 mg DAILY EVAN Administration Hydroxyzine Pamoate 25 mg 09/21/21 21:00 09/21/21 20:12 Hydroxyzine Pamoate 25 Mg Capsule PO 25 mg BID EVAN Administration Fluconazole 100 mls @ 100 mls/hr 09/21/21 16:00 09/21/21 17:00 Diflucan 200 Mg/100 Ml IV 09/25/21 16:59 Infused Q24H EVAN Infusion Vancomycin HCl 1 gm/ Sodium 250 mls @ 167 mls/hr 09/21/21 04:00 09/22/21 05:00 Chloride IV Infused Q24H EVAN Infusion Piperacillin Sod/Tazobactam 100 mls @ 200 mls/hr 09/20/21 18:00 09/22/21 06:15 Sod 3.375 gm/ Sodium Chloride IV Infused Q6H EVAN Infusion Azithromycin 500 mg/ Sodium 250 mls @ 250 mls/hr 09/21/21 14:00 09/21/21 15:12 Chloride IV 09/22/21 14:59 Infused Q24H EVAN Infusion Lactobacillus Rhamnosus 1 cap 09/21/21 09:00 09/21/21 09:17 Lactobacillus Rhamnosus Gg Capsule PO 1 cap DAILY EVAN Administration Lidocaine HCl 5 ml 09/20/21 17:49 09/21/21 17:19 Lidocaine Viscous 2% 15 Ml Udc MM 5 ml Q4H PRN Administration Mouth Sore Pain Mineral Oil 1 applic 09/21/21 14:17 09/22/21 06:05 Min Oil/Dimethicon/Coconut Oil 92 Gm Tube TOP 1 applic PRN PRN Administration Skin Care Nifedipine 30 mg 09/20/21 21:00 09/21/21 20:13 Nifedipine Er 30 Mg Tablet PO 30 mg BID EVAN Administration Nystatin 10 ml 09/20/21 17:00 09/21/21 20:12 Nystatin 369168 Units/5 Ml Udc PO 10 ml QID EVAN Administration Oxycodone HCl 5 mg 09/20/21 13:15 09/21/21 20:12 Oxycodone 5 Mg Tablet PO 5 mg Q4HR PRN Administration Pain 5 to 7 Pantoprazole Sodium 40 mg 09/20/21 21:00 09/21/21 20:12 Pantoprazole 40 Mg Tablet PO 40 mg BID EVAN Administration Patient Own Med ( 1 each 09/20/21 21:00 09/21/21 20:13 Selegiline Hcl [ PO Not Given Selegiline Hcl] 5 Mg BID EVAN Capsule) Sodium Chloride 10 ml 09/20/21 13:15 09/21/21 03:27 Sodium Chloride Flush 0.9% 10 Ml Syringe IVP 10 ml PRN PRN Administration NEEDED PER PROVIDER ORDERS Sodium Chloride 10 ml 09/20/21 17:00 09/22/21 07:06 Sodium Chloride Flush 0.9% 10 Ml Syringe IVP 10 ml 0100,0900,1700 EVAN Administration Tamsulosin HCl 0.8 mg 09/21/21 09:00 09/21/21 09:17 Tamsulosin 0.4 Mg Capsule PO 0.8 mg DAILY EVAN Administration Valacyclovir HCl 500 mg 09/20/21 14:00 09/22/21 05:45 Valacyclovir 500 Mg Tablet PO 500 mg TID EVAN Administration - Lab Result Fish Bone Diagrams: 09/22/21 04:24 09/22/21 04:24 - Additional Planning My Orders: My Active Orders 09/21/21 09:00 Aspirin Chewable [St Veto Aspirin] 81 mg PO DAILY Finasteride [Proscar] 5 mg PO DAILY Lactobacillus Rhamnosus GG [Culturelle] 1 cap PO DAILY Tamsulosin [Flomax] 0.8 mg PO DAILY calcitrioL [Rocaltrol] 0.25 mcg PO DAILY 09/21/21 14:00 Azithromycin Inj [Zithromax Inj] 500 mg Sodium Chloride 0.9% [Normal Saline 0.9%] 250 ml IV Q24H 09/21/21 14:17 Min Oil/Dimeth/Coconut Oil Crm [Cavilon] 1 applic TOP PRN PRN 09/21/21 16:00 Fluconazole 200 mg/100 ml [Diflucan 200 mg/100 ml] 100 ml IV Q24H 09/21/21 Dinner Soft Mechanical Diet [DIET] 09/21/21 17:24 Carboxymethylcellulose 1% Opht [Refresh 1% Ophth Drops] 1 drops EACHEYE PRN PRN 09/21/21 21:00 hydrOXYzine PAMOATE [VistariL] 25 mg PO BID 09/22/21 07:31 Potassium Chloride [K-Dur] 40 meq PO ONCE ONE 09/22/21 08:00 Multivitamin [Theragran] 1 tab PO DAILYWM 09/22/21 09:00 Metoprolol Succinate [Toprol Xl] 25 mg PO DAILY 09/23/21 03:30 VANCOMYCIN TROUGH [CHEM] Timed 09/23/21 05:00 BMP - BASIC METABOLIC PANEL [CHEM] DAILYLAB CBC - COMP BLD CT W/AUTO DIFF [HEME] DAILYLAB 09/24/21 05:00 BMP - BASIC METABOLIC PANEL [CHEM] DAILYLAB CBC - COMP BLD CT W/AUTO DIFF [HEME] DAILYLAB 09/25/21 05:00 BMP - BASIC METABOLIC PANEL [CHEM] DAILYLAB CBC - COMP BLD CT W/AUTO DIFF [HEME] DAILYLAB Subjective - Subjective Patient Reports: Other (Patient had an acute episode of worsening dyspnea this morning. He was tachypneic with respiratory rate of 40 and using abdominal muscles for respiration.) Objective Vital Signs: Vital Signs - 24 hr 09/21/21 09/21/21 09/21/21 08:01 12:12 14:00 Temperature 37.3 C 36.4 C L Heart Rate Heart Rate [ Brachial] Heart Rate [ 92 75 Monitoring electrodes] Respiratory 18 18 Rate Blood Pressure 107/57 L 116/52 L [Right Brachial artery] O2 Saturation 92 99 88 L 09/21/21 09/21/21 09/21/21 14:42 16:12 19:52 Temperature 36.4 C L 36.4 C L Heart Rate Heart Rate [ Brachial] Heart Rate [ 81 76 Monitoring electrodes] Respiratory 19 20 Rate Blood Pressure 122/59 L 122/58 L [Right Brachial artery] O2 Saturation 94 95 96 09/21/21 09/22/21 09/22/21 20:07 00:02 01:45 Temperature 36.5 C Heart Rate 86 Heart Rate [ 84 Brachial] Heart Rate [ Monitoring electrodes] Respiratory 18 18 18 Rate Blood Pressure 115/65 [Right Brachial artery] O2 Saturation 93 96 09/22/21 09/22/21 09/22/21 04:54 06:56 07:06 Temperature 36.4 C L Heart Rate 90 Heart Rate [ 73 Brachial] Heart Rate [ Monitoring electrodes] Respiratory 16 38 H 40 H Rate Blood Pressure 109/50 L [Right Brachial artery] O2 Saturation 96 92 Oxygen O2 Source Nasal cannula Oxygen Flow Rate 2 I&O (Last 24 Hrs): Intake and Output Totals x24h 09/20/21 09/21/21 09/22/21 23:59 23:59 23:59 Intake Total 1850 3940.000 1600 Output Total 1150 650 550 Balance 700 3290.000 1050 General: Alert, Oriented x3, Moderate distress (respiratory) HEENT: PERRLA, EOMI Neck: Supple, No JVD Neuro: Alert Cardiovascular: Regular rate, Normal S1, Normal S2 Respiratory: Other (Moderate respiratory distress, rhonchous) Abdomen: Normal bowel sounds, Soft, No tenderness Extremities: No clubbing, No cyanosis, No edema, Normal pulses Skin: No rashes, No breakdown - Results Results: Laboratory Results WBC 8.4 x10^3/uL (4.8-10.8) 09/22/21 04:24 RBC 2.80 10^6/uL (4.70-6.10) L 09/22/21 04:24 Hgb 8.3 g/dL (14.0-18.0) L 09/22/21 04:24 Hct 25.9 % (42.0-52.0) L 09/22/21 04:24 MCV 92.5 fL (80.0-94.0) 09/22/21 04:24 MCH 29.6 pg (27.0-31.0) 09/22/21 04:24 MCHC 32.0 g/dL (32.0-36.0) 09/22/21 04:24 RDW 14.0 % (12.0-15.0) 09/22/21 04:24 Plt Count 224 10^3/uL (130-450) 09/22/21 04:24 MPV 11.6 fL (7.4-11.4) H 09/22/21 04:24 Neut # (Auto) 6.9 10^3/uL (1.5-6.6) H 09/22/21 04:24 Lymph # (Auto) 0.7 10^3/uL (1.5-3.5) L 09/22/21 04:24 [place] # (Auto) 0.5 10^3/uL (0.0-1.0) 09/22/21 04:24 Eos # (Auto) 0.1 10^3/uL (0.0-0.7) 09/22/21 04:24 Baso # (Auto) 0.0 10^3/uL (0.0-0.1) 09/22/21 04:24 Absolute Nucleated RBC 0.00 x10^3/uL 09/22/21 04:24 Nucleated RBC % 0.0 /100WBC 09/22/21 04:24 PT 13.5 secs (9.9-12.6) H 09/20/21 04:09 INR 1.2 (0.8-1.2) 09/20/21 04:09 Bld Gas Analysis Time 0709/22/21 07:05 Sample Site RIGHT RADIAL 09/22/21 07:05 ABG pH 7.34 (7.35-7.45) L 09/22/21 07:05 ABG pCO2 48 mmHg (34-45) H 09/22/21 07:05 ABG pO2 59 mmHg (80-100) L 09/22/21 07:05 ABG HCO3 24.8 mmol/L (22.0-26.0) 09/22/21 07:05 ABG Total CO2 26.3 MMOL/L (21.0-29.0) 09/22/21 07:05 ABG O2 Saturation 90 % (94-98) L 09/22/21 07:05 ABG Base Excess -1.2 mmol/L (-2.0-3.0) 09/22/21 07:05 Dheeraj Test POSITIVE 09/22/21 07:05 O2 Delivery Device NASAL CANNULA 09/22/21 07:05 O2 Liters/Min 5.00 LPM 09/22/21 07:05 Sodium 142 mmol/L (135-145) 09/22/21 04:24 Potassium 3.1 mmol/L (3.5-5.0) L 09/22/21 04:24 Chloride 107 mmol/L (101-111) 09/22/21 04:24 Carbon Dioxide 25 mmol/L (21-32) 09/22/21 04:24 Anion Gap 10.0 (6-13) 09/22/21 04:24 BUN 27 mg/dL (6-20) H 09/22/21 04:24 Creatinine 1.5 mg/dL (0.6-1.2) H 09/22/21 04:24 Estimated GFR (MDRD) 45 (>89) L 09/22/21 04:24 Glucose 90 mg/dL (70-100) 09/22/21 04:24 Lactic Acid 1.3 mmol/L (0.5-2.2) 09/20/21 04:09 Calcium 8.1 mg/dL (8.5-10.3) L 09/22/21 04:24 Magnesium 2.1 mg/dL (1.7-2.8) 09/21/21 11:36 Total Bilirubin 0.7 mg/dL (0.2-1.0) 09/20/21 03:58 AST 36 IU/L (10-42) 09/20/21 03:58 ALT 12 IU/L (10-60) 09/20/21 03:58 Alkaline Phosphatase 65 IU/L (42-121) 09/20/21 03:58 Troponin I High Sens 43.2 ng/L (2.3-19.7) H* 09/21/21 11:34 B-Natriuretic Peptide 285 pg/mL (5-100) H 09/20/21 03:58 Total Protein 7.2 g/dL (6.7-8.2) 09/20/21 03:58 Albumin 3.0 g/dL (3.2-5.5) L 09/20/21 03:58 Globulin 4.2 g/dL (2.1-4.2) 09/20/21 03:58 Albumin/Globulin Ratio 0.7 (1.0-2.2) L 09/20/21 03:58 Urine Color YELLOW 09/20/21 04:25 Urine Clarity CLEAR (CLEAR) 09/20/21 04:25 Urine pH 5.5 PH (5.0-7.5) 09/20/21 04:25 Ur Specific [place] 1.010 (1.002-1.030) 09/20/21 04:25 Urine Protein TRACE mg/dL (NEGATIVE) 09/20/21 04:25 Urine Glucose (UA) NEGATIVE mg/dL (NEGATIVE) 09/20/21 04:25 Urine Ketones NEGATIVE mg/dL (NEGATIVE) 09/20/21 04:25 Urine Occult Blood SMALL (NEGATIVE) H 09/20/21 04:25 Urine Nitrite NEGATIVE (NEGATIVE) 09/20/21 04:25 Urine Bilirubin NEGATIVE (NEGATIVE) 09/20/21 04:25 Urine Urobilinogen 0.2 (NORMAL) E.U./dL (NORMAL) 09/20/21 04:25 Ur Leukocyte Esterase NEGATIVE (NEGATIVE) 09/20/21 04:25 Urine RBC 0-5 /HPF (0-5) 09/20/21 04:25 Urine WBC 0-3 /HPF (0-3) 09/20/21 04:25 Ur Squamous Epith Cells RARE Squamous (<= Few) 09/20/21 04:25 Urine Bacteria None Seen /HPF (None Seen) 09/20/21 04:25 Urine Casts 0-2 Hyaline Casts /LPF 09/20/21 04:25 Ur Microscopic Review INDICATED 09/20/21 04:25 Urine Culture Comments NOT INDICATED 09/20/21 04:25 Nasal Adenovirus (PCR) NOT DETECTED 09/20/21 04:06 Nasal B. parapertussis DNA (PCR) NOT DETECTED 09/20/21 04:06 Nasal Coronavir 229E PCR NOT DETECTED 09/20/21 04:06 Nasal Coronavir HKU1 PCR NOT DETECTED 09/20/21 04:06 Nasal Coronavir NL63 PCR NOT DETECTED 09/20/21 04:06 Nasal Coronavir OC43 PCR NOT DETECTED 09/20/21 04:06 Nasal Enterovir/Rhinovir PCR NOT DETECTED 09/20/21 04:06 Nasal Influenza B PCR NOT DETECTED 09/20/21 04:06 Nasal Influenza A PCR NOT DETECTED 09/20/21 04:06 Nasal Parainfluen 1 PCR NOT DETECTED 09/20/21 04:06 Nasal Parainfluen 2 PCR NOT DETECTED 09/20/21 04:06 Nasal Parainfluen 3 PCR NOT DETECTED 09/20/21 04:06 Nasal Parainfluen 4 PCR NOT DETECTED 09/20/21 04:06 Nasal RSV (PCR) NOT DETECTED 09/20/21 04:06 Nasal B.pertussis DNA PCR NOT DETECTED 09/20/21 04:06 Nasal C.pneumoniae (PCR) NOT DETECTED 09/20/21 04:06 Jose Human Metapneumo PCR NOT DETECTED 09/20/21 04:06 Nasal M.pneumoniae (PCR) NOT DETECTED 09/20/21 04:06 Nasal SARS-CoV-2 (PCR) NOT DETECTED 09/20/21 04:06 ABX Reporting Has patient been on IV antibiotics over the past 48 hours?: Yes
[2021-09-22] MEDS ORDERED: POTASSIUM CHLORIDE 20 MEQ TABLET PO ONE (08:00)
--- NOTE | 2021-09-22 08:10 | XRAY Report ---
PROCEDURE: Chest 1 View X-Ray INDICATIONS: Sudden shortness of breath. TECHNIQUE: One view of the chest was acquired. COMPARISON: Chest radiographs 09/20/2021, 09/18/2021. FINDINGS: Surgical changes and devices: TAVR. Lungs and pleura: Patchy bilateral pulmonary opacities persist, with slight interval worsening since the previous exam. No pleural effusion or pneumothorax. Mediastinum: Mediastinal contours appear normal. Heart size is normal. Bones and chest wall: No suspicious bony lesions. Overlying soft tissues appear unremarkable. IMPRESSION: Mild interval worsening of diffuse patchy pulmonary opacities suspicious for multifocal pneumonia. Reviewed by: Miguelito Carrillo MD on 09/22/2021 8:09 AM PDT Approved by: Miguelito Carrillo MD on 09/22/2021 8:09 AM PDT Station ID: [id number]
[2021-09-22] MEDS ORDERED: FUROSEMIDE 40 MG/4 ML VIAL IVP STA (08:28)
[2021-09-22] MEDS ORDERED: IPRATROPIUM/ALBUTEROL 3 ML NEB INH STA (08:31)
[2021-09-22] MEDS ORDERED: METOPROLOL SUCCINATE 25 MG TABLET PO SCH (09:00)
[2021-09-22] MEDS: FINASTERIDE 5 MG TABLET PO SCH (09:59)
[2021-09-22] MEDS: PANTOPRAZOLE 40 MG TABLET PO SCH ×2 (09:59→21:39)
[2021-09-22] MEDS: NYSTATIN 500000 UNITS/5 ML UDC PO SCH ×4 (09:59→21:39)
[2021-09-22] MEDS: ASPIRIN CHEW 81 MG TABLET PO SCH (09:59)
[2021-09-22] MEDS: TAMSULOSIN 0.4 MG CAPSULE PO SCH (09:59)
[2021-09-22] MEDS: calcitrioL 0.25 MCG CAPSULE PO SCH (10:00)
[2021-09-22] MEDS: hydrOXYzine PAMOATE 25 MG CAPSULE PO SCH ×2 (10:00→21:39)
[2021-09-22] MEDS: LACTOBACILLUS RHAMNOSUS GG CAPSULE PO SCH (10:00)
[2021-09-22] MEDS: MULTIVITAMIN TABLET PO SCH (10:00)
[2021-09-22] MEDS: SELEGILINE HCL 5 MG PO SCH ×2 (10:25→21:40)
[2021-09-22] MEDS: NIFEdipine ER 30 MG TABLET PO SCH ×2 (10:25→21:46)
[2021-09-22] MEDS: LIDOCAINE VISCOUS 2% 15 ML UDC MM PRN ×2 (11:26→17:13)
[2021-09-22] MEDS: oxyCODONE 5 MG TABLET PO PRN ×3 (12:50→23:48)
[2021-09-22] MEDS: AZITHROMYCIN INJ 500 MG in SODIUM CHLORIDE 0.9% 250 ML IV SCH (14:10)
[2021-09-22] MEDS: FLUCONAZOLE 200 MG/100 ML 100 ML IV SCH (16:11)
[2021-09-22] MEDS: IPRATROPIUM/ALBUTEROL 3 ML NEB INH PRN (17:18)
[2021-09-23 03:48] LABS: VANCOMYCIN,TROUGH 21.5 ug/mL (10.0-20.0)
[2021-09-23] MEDS: oxyCODONE 5 MG TABLET PO PRN (04:38)
[2021-09-23] MEDS: PIPERACILLIN/TAZOBACTAM 3.375 GM in SODIUM CHLORIDE 0.9% MINIBAG 100 ML IV SCH ×3 (05:18→18:23)
[2021-09-23] MEDS: SODIUM CHLORIDE FLUSH 0.9% 10 ML SYRINGE IVP PRN (05:19)
[2021-09-23] MEDS: valACYclovir 500 MG TABLET PO SCH ×2 (05:21→14:11)
[2021-09-23] MEDS: CARBIDOPA/LEVODOPA 25 MG/100 MG TABLET PO SCH ×2 (05:21→14:10)
[2021-09-23 05:58] LABS: BASOPHILS # (AUTO) 0.1 10^3/uL (0.0-0.1); BASOPHILS % (AUTO) 0.5 %; EOSINOPHILS # (AUTO) 0.3 10^3/uL (0.0-0.7); EOSINOPHILS % (AUTO) 3.1 %; HCT - HEMATOCRIT 25.9 % (42.0-52.0); HGB - HEMOGLOBIN 8.5 g/dL (14.0-18.0); LYMPHOCYTES % (AUTO) 10.2 %; MEAN CORPUSCULAR HEMOGLOBIN 30.4 pg (27.0-31.0); MEAN CORPUSCULAR HGB CONC 32.8 g/dL (32.0-36.0); MEAN CORPUSCULAR VOLUME 92.5 fL (80.0-94.0); MEAN PLATELET VOLUME 11.2 fL (7.4-11.4); MONOCYTES # (AUTO) 0.6 10^3/uL (0.0-1.0); MONOCYTES % (AUTO) 6.4 %; NEUTROPHILS # (AUTO) 7.9 10^3/uL (1.5-6.6); NEUTROPHILS % (AUTO) 79.3 %; PLT - PLATELET COUNT 243 10^3/uL (130-450); RED CELL DISTRIBUTION WIDTH 14.2 % (12.0-15.0); WHITE BLOOD COUNT 9.9 x10^3/uL (4.8-10.8)
[2021-09-23 06:05] LABS: CALCIUM 8.5 mg/dL (8.5-10.3); CREATININE 1.8 mg/dL (0.6-1.2); POTASSIUM 3.2 mmol/L (3.5-5.0)
[2021-09-23] MEDS: BUDESONIDE 0.5 MG/2 ML NEB INH SCH (07:28)
[2021-09-23] MEDS: IPRATROPIUM/ALBUTEROL 3 ML NEB INH PRN ×3 (07:34→12:03)
--- NOTE | 2021-09-23 08:00 | PROVIDER PROGRESS NOTE ---
Assessment/Plan - Current Meds Current Meds: Current Medications Generic Name Dose Route Start Last Admin Trade Name Freq PRN Reason Stop Dose Admin Albuterol 2.5 mg 09/20/21 17:52 09/22/21 06:55 Albuterol Neb 2.5 Mg/3 Ml INH 2.5 mg Q4H PRN Administration Wheezing Albuterol/Ipratropium 3 ml 09/22/21 10:00 09/23/21 07:34 Ipratropium/Albuterol 3 Ml Neb INH 3 ml Q4HR PRN Administration Wheezing Aspirin 81 mg 09/21/21 09:00 09/22/21 09:59 Aspirin Chew 81 Mg Tablet PO 81 mg DAILY EVAN Administration Budesonide 0.5 mg 09/20/21 19:00 09/23/21 07:28 Budesonide 0.5 Mg/2 Ml Neb INH 0.5 mg RTBID EVAN Administration Calcitriol 0.25 mcg 09/21/21 09:00 09/22/21 10:00 Calcitriol 0.25 Mcg Capsule PO 0.25 mcg DAILY EVAN Administration Carbidopa/Levodopa 1 tab 09/20/21 22:00 09/23/21 05:21 Carbidopa/Levodopa 25 Mg/100 Mg Tablet PO 1 tab TID EVAN Administration Finasteride 5 mg 09/21/21 09:00 09/22/21 09:59 Finasteride 5 Mg Tablet PO 5 mg DAILY EVAN Administration Hydroxyzine Pamoate 25 mg 09/21/21 21:00 09/22/21 21:39 Hydroxyzine Pamoate 25 Mg Capsule PO 25 mg BID EVAN Administration Fluconazole 100 mls @ 100 mls/hr 09/21/21 16:00 09/22/21 18:25 Diflucan 200 Mg/100 Ml IV 09/25/21 16:59 Infused Q24H EVAN Infusion Piperacillin Sod/Tazobactam 100 mls @ 200 mls/hr 09/20/21 18:00 09/23/21 05:48 Sod 3.375 gm/ Sodium Chloride IV Infused Q6H EVAN Infusion Lactobacillus Rhamnosus 1 cap 09/21/21 09:00 09/22/21 10:00 Lactobacillus Rhamnosus Gg Capsule PO 1 cap DAILY EVAN Administration Lidocaine HCl 5 ml 09/20/21 17:49 09/22/21 17:13 Lidocaine Viscous 2% 15 Ml Udc MM 5 ml Q4H PRN Administration Mouth Sore Pain Mineral Oil 1 applic 09/21/21 14:17 09/22/21 23:59 Min Oil/Dimethicon/Coconut Oil 92 Gm Tube TOP 1 applic PRN PRN Administration Skin Care Multivitamins 1 tab 09/22/21 08:00 09/22/21 10:00 Multivitamin Tablet PO 1 tab DAILYWM EVAN Administration Nifedipine 30 mg 09/20/21 21:00 09/22/21 21:46 Nifedipine Er 30 Mg Tablet PO 30 mg BID EVAN Administration Nystatin 10 ml 09/20/21 17:00 09/22/21 21:39 Nystatin [id number] Units/5 Ml Udc PO 10 ml QID EVAN Administration Oxycodone HCl 5 mg 09/20/21 13:15 09/23/21 04:38 Oxycodone 5 Mg Tablet PO 5 mg Q4HR PRN Administration Pain 5 to 7 Pantoprazole Sodium 40 mg 09/20/21 21:00 09/22/21 21:39 Pantoprazole 40 Mg Tablet PO 40 mg BID EVAN Administration Patient Own Med ( 1 each 09/20/21 21:00 09/22/21 21:40 Selegiline Hcl [ PO 1 each Selegiline Hcl] 5 Mg BID EVAN Administration Capsule) Sodium Chloride 10 ml 09/20/21 13:15 09/23/21 05:19 Sodium Chloride Flush 0.9% 10 Ml Syringe IVP 10 ml PRN PRN Administration NEEDED PER PROVIDER ORDERS Sodium Chloride 10 ml 09/20/21 17:00 09/22/21 23:40 Sodium Chloride Flush 0.9% 10 Ml Syringe IVP 10 ml 0100,0900,1700 EVAN Administration Tamsulosin HCl 0.8 mg 09/21/21 09:00 09/22/21 09:59 Tamsulosin 0.4 Mg Capsule PO 0.8 mg DAILY EVAN Administration Valacyclovir HCl 500 mg 09/20/21 14:00 09/23/21 05:21 Valacyclovir 500 Mg Tablet PO 500 mg TID EVAN Administration - Lab Result Fish Bone Diagrams: 09/23/21 05:39 09/23/21 05:39 - Additional Planning My Orders: My Active Orders 09/22/21 08:00 Multivitamin [Theragran] 1 tab PO DAILYWM 09/22/21 08:29 Resp Teach Nebulizer/MDI [RC] .ONCE 09/22/21 08:31 Nebulizer/MDI Tx. [RC] QID Resp Teach Nebulizer/MDI [RC] .ONCE 09/22/21 10:00 Ipratropium/Albuterol [Duoneb] 3 ml INH Q4HR PRN 09/23/21 03:30 VANCOMYCIN TROUGH [CHEM] Timed 09/23/21 07:59 Chest 1 View X-Ray [XR] Stat 09/23/21 08:00 Potassium Chloride/Water 10 mEq/100 mL q1h (Enter # of bags) Potassium Chlor 10 Meq/100 ml [Potassium Chloride] 10 meq in 100 ml IV Q1H 09/23/21 09:00 Vancomycin Inj [Vancomycin] 0.75 gm Sodium Chloride 0.9% [Normal Saline 0.9%] 250 ml IV Q24H 09/24/21 05:00 BMP - BASIC METABOLIC PANEL [CHEM] DAILYLAB CBC - COMP BLD CT W/AUTO DIFF [HEME] DAILYLAB 09/25/21 05:00 BMP - BASIC METABOLIC PANEL [CHEM] DAILYLAB CBC - COMP BLD CT W/AUTO DIFF [HEME] DAILYLAB Objective Vital Signs: Vital Signs - 24 hr 09/22/21 09/22/21 09/22/21 08:54 11:20 15:24 Temperature 36.3 C L Heart Rate 95 Heart Rate [ 73 73 Brachial] Respiratory 40 H 34 H 20 Rate Blood Pressure [Left Ankle] Blood Pressure 126/56 L 101/52 L [Right Brachial artery] O2 Saturation 94 100 09/22/21 09/22/21 09/23/21 17:19 20:25 00:04 Temperature 36.8 C 36.6 C Heart Rate 90 Heart Rate [ 77 93 Brachial] Respiratory 26 H 17 24 Rate Blood Pressure [Left Ankle] Blood Pressure 107/54 L 92/60 [Right Brachial artery] O2 Saturation 99 98 09/23/21 09/23/21 09/23/21 01:15 01:58 04:22 Temperature 36.2 C L Heart Rate Heart Rate [ 78 Brachial] Respiratory 24 28 H 26 H Rate Blood Pressure [Left Ankle] Blood Pressure 110/54 L [Right Brachial artery] O2 Saturation 97 97 98 09/23/21 09/23/21 07:25 07:35 Temperature 36.5 C Heart Rate 79 Heart Rate [ 83 Brachial] Respiratory 24 23 Rate Blood Pressure 132/69 H [Left Ankle] Blood Pressure [Right Brachial artery] O2 Saturation 90 L Oxygen O2 Source HHFNC Oxygen Flow Rate 2 I&O (Last 24 Hrs): Intake and Output Totals x24h 09/21/21 09/22/21 09/23/21 23:59 23:59 23:59 Intake Total 3940.000 2786.667 400 Output Total 650 1635 475 Balance 3290.000 1151.667 -75 - Results Results: Laboratory Results WBC 9.9 x10^3/uL (4.8-10.8) 09/23/21 05:39 RBC 2.80 10^6/uL (4.70-6.10) L 09/23/21 05:39 Hgb 8.5 g/dL (14.0-18.0) L 09/23/21 05:39 Hct 25.9 % (42.0-52.0) L 09/23/21 05:39 MCV 92.5 fL (80.0-94.0) 09/23/21 05:39 MCH 30.4 pg (27.0-31.0) 09/23/21 05:39 MCHC 32.8 g/dL (32.0-36.0) 09/23/21 05:39 RDW 14.2 % (12.0-15.0) 09/23/21 05:39 Plt Count 243 10^3/uL (130-450) 09/23/21 05:39 MPV 11.2 fL (7.4-11.4) 09/23/21 05:39 Neut # (Auto) 7.9 10^3/uL (1.5-6.6) H 09/23/21 05:39 Lymph # (Auto) 1.0 10^3/uL (1.5-3.5) L 09/23/21 05:39 [place] # (Auto) 0.6 10^3/uL (0.0-1.0) 09/23/21 05:39 Eos # (Auto) 0.3 10^3/uL (0.0-0.7) 09/23/21 05:39 Baso # (Auto) 0.1 10^3/uL (0.0-0.1) 09/23/21 05:39 Absolute Nucleated RBC 0.00 x10^3/uL 09/23/21 05:39 Nucleated RBC % 0.0 /100WBC 09/23/21 05:39 PT 13.5 secs (9.9-12.6) H 09/20/21 04:09 INR 1.2 (0.8-1.2) 09/20/21 04:09 Bld Gas Analysis Time 0705 09/22/21 07:05 Sample Site RIGHT RADIAL 09/22/21 07:05 ABG pH 7.34 (7.35-7.45) L 09/22/21 07:05 ABG pCO2 48 mmHg (34-45) H 09/22/21 07:05 ABG pO2 59 mmHg (80-100) L 09/22/21 07:05 ABG HCO3 24.8 mmol/L (22.0-26.0) 09/22/21 07:05 ABG Total CO2 26.3 MMOL/L (21.0-29.0) 09/22/21 07:05 ABG O2 Saturation 90 % (94-98) L 09/22/21 07:05 ABG Base Excess -1.2 mmol/L (-2.0-3.0) 09/22/21 07:05 Dheeraj Test POSITIVE 09/22/21 07:05 O2 Delivery Device NASAL CANNULA 09/22/21 07:05 O2 Liters/Min 5.00 LPM 09/22/21 07:05 Sodium 143 mmol/L (135-145) 09/23/21 05:39 Potassium 3.2 mmol/L (3.5-5.0) L 09/23/21 05:39 Chloride 106 mmol/L (101-111) 09/23/21 05:39 Carbon Dioxide 26 mmol/L (21-32) 09/23/21 05:39 Anion Gap 11.0 (6-13) 09/23/21 05:39 BUN 34 mg/dL (6-20) H 09/23/21 05:39 Creatinine 1.8 mg/dL (0.6-1.2) H 09/23/21 05:39 Estimated GFR (MDRD) 37 (>89) L 09/23/21 05:39 Glucose 128 mg/dL (70-100) H 09/23/21 05:39 Lactic Acid 1.3 mmol/L (0.5-2.2) 09/20/21 04:09 Calcium 8.5 mg/dL (8.5-10.3) 09/23/21 05:39 Magnesium 2.1 mg/dL (1.7-2.8) 09/21/21 11:36 Total Bilirubin 0.7 mg/dL (0.2-1.0) 09/20/21 03:58 AST 36 IU/L (10-42) 09/20/21 03:58 ALT 12 IU/L (10-60) 09/20/21 03:58 Alkaline Phosphatase 65 IU/L (42-121) 09/20/21 03:58 Troponin I High Sens 43.2 ng/L (2.3-19.7) H* 09/21/21 11:34 B-Natriuretic Peptide 285 pg/mL (5-100) H 09/20/21 03:58 Total Protein 7.2 g/dL (6.7-8.2) 09/20/21 03:58 Albumin 3.0 g/dL (3.2-5.5) L 09/20/21 03:58 Globulin 4.2 g/dL (2.1-4.2) 09/20/21 03:58 Albumin/Globulin Ratio 0.7 (1.0-2.2) L 09/20/21 03:58 Urine Color YELLOW 09/20/21 04:25 Urine Clarity CLEAR (CLEAR) 09/20/21 04:25 Urine pH 5.5 PH (5.0-7.5) 09/20/21 04:25 Ur Specific [place] 1.010 (1.002-1.030) 09/20/21 04:25 Urine Protein TRACE mg/dL (NEGATIVE) 09/20/21 04:25 Urine Glucose (UA) NEGATIVE mg/dL (NEGATIVE) 09/20/21 04:25 Urine Ketones NEGATIVE mg/dL (NEGATIVE) 09/20/21 04:25 Urine Occult Blood SMALL (NEGATIVE) H 09/20/21 04:25 Urine Nitrite NEGATIVE (NEGATIVE) 09/20/21 04:25 Urine Bilirubin NEGATIVE (NEGATIVE) 09/20/21 04:25 Urine Urobilinogen 0.2 (NORMAL) E.U./dL (NORMAL) 09/20/21 04:25 Ur Leukocyte Esterase NEGATIVE (NEGATIVE) 09/20/21 04:25 Urine RBC 0-5 /HPF (0-5) 09/20/21 04:25 Urine WBC 0-3 /HPF (0-3) 09/20/21 04:25 Ur Squamous Epith Cells RARE Squamous (<= Few) 09/20/21 04:25 Urine Bacteria None Seen /HPF (None Seen) 09/20/21 04:25 Urine Casts 0-2 Hyaline Casts /LPF 09/20/21 04:25 Ur Microscopic Review INDICATED 09/20/21 04:25 Urine Culture Comments NOT INDICATED 09/20/21 04:25 Nasal Adenovirus (PCR) NOT DETECTED 09/20/21 04:06 Nasal B. parapertussis DNA (PCR) NOT DETECTED 09/20/21 04:06 Nasal Coronavir 229E PCR NOT DETECTED 09/20/21 04:06 Nasal Coronavir HKU1 PCR NOT DETECTED 09/20/21 04:06 Nasal Coronavir NL63 PCR NOT DETECTED 09/20/21 04:06 Nasal Coronavir OC43 PCR NOT DETECTED 09/20/21 04:06 Nasal Enterovir/Rhinovir PCR NOT DETECTED 09/20/21 04:06 Nasal Influenza B PCR NOT DETECTED 09/20/21 04:06 Nasal Influenza A PCR NOT DETECTED 09/20/21 04:06 Nasal Parainfluen 1 PCR NOT DETECTED 09/20/21 04:06 Nasal Parainfluen 2 PCR NOT DETECTED 09/20/21 04:06 Nasal Parainfluen 3 PCR NOT DETECTED 09/20/21 04:06 Nasal Parainfluen 4 PCR NOT DETECTED 09/20/21 04:06 Nasal RSV (PCR) NOT DETECTED 09/20/21 04:06 Nasal B.pertussis DNA PCR NOT DETECTED 09/20/21 04:06 Nasal C.pneumoniae (PCR) NOT DETECTED 09/20/21 04:06 Jose Human Metapneumo PCR NOT DETECTED 09/20/21 04:06 Nasal M.pneumoniae (PCR) NOT DETECTED 09/20/21 04:06 Nasal SARS-CoV-2 (PCR) NOT DETECTED 09/20/21 04:06 Last Dose Date 09/22/2021 09/23/21 03:34 Last Dose Time 0400 09/23/21 03:34 Vancomycin Trough 21.5 ug/mL (10.0-20.0) H 09/23/21 03:34
--- NOTE | 2021-09-23 08:18 | XRAY Report ---
PROCEDURE: Chest 1 View X-Ray INDICATIONS: dyspnea TECHNIQUE: One view of the chest was acquired. COMPARISON: 09/22/2021, 09/20/2021, 09/18/2021 FINDINGS: Surgical changes and devices: A percutaneously placed aortic valve prosthesis can be seen. Lungs and pleura: On the semiupright images, no large pneumothorax or large pleural effusions can be seen. Patchy interstitial infiltrates are seen on both sides. Low lung volumes can be seen, causin g a crowded appearance to the lung markings. Mediastinum: The aorta is prominent and tortuous. The cardiac contours are within normal limits. Bones and chest wall: No suspicious bony lesions. Age-appropriate degenerative changes are seen. M ild dextroconvex scoliotic curvature is seen. Overlying soft tissues appear unremarkable. IMPRESSION: Patchy bilateral interstitial infiltrates are seen, which are similar to the prior examination. Low l antonino volumes can be seen. The imaging appearance is most consistent with multifocal pneumonia. Please consider COVID pneumonia. Reviewed by: Trevor Carias MD on 09/23/2021 7:17 AM CRYSTAL Approved by: Trevor Carias MD on 09/23/2021 7:17 AM CRYSTAL Station ID: [id number]
[2021-09-23] MEDS ORDERED: VANCOMYCIN INJ 0.75 GM in SODIUM CHLORIDE 0.9% 250 ML IV SCH (09:00)
[2021-09-23] MEDS: POTASSIUM CHLOR 10 MEQ/100 ML 10 MEQ/100 ML BAG IV SCH ×4 (09:36→14:28)
[2021-09-23] MEDS ORDERED: SODIUM CHLORIDE 0.9% 1,000 ML IV SCH (10:00)
[2021-09-23] MEDS: MULTIVITAMIN TABLET PO SCH (10:16)
[2021-09-23] MEDS: calcitrioL 0.25 MCG CAPSULE PO SCH (10:17)
[2021-09-23] MEDS: ASPIRIN CHEW 81 MG TABLET PO SCH (10:17)
[2021-09-23] MEDS: FINASTERIDE 5 MG TABLET PO SCH (10:19)
[2021-09-23] MEDS: hydrOXYzine PAMOATE 25 MG CAPSULE PO SCH (10:19)
[2021-09-23] MEDS: LACTOBACILLUS RHAMNOSUS GG CAPSULE PO SCH (10:20)
[2021-09-23] MEDS: NIFEdipine ER 30 MG TABLET PO SCH (10:23)
[2021-09-23] MEDS: NYSTATIN 500000 UNITS/5 ML UDC PO SCH ×3 (10:27→18:29)
[2021-09-23] MEDS: PANTOPRAZOLE 40 MG TABLET PO SCH (10:28)
[2021-09-23] MEDS: SELEGILINE HCL 5 MG PO SCH (10:28)
[2021-09-23] MEDS: TAMSULOSIN 0.4 MG CAPSULE PO SCH (10:29)
[2021-09-23] MEDS: MORPHINE 2 MG/ML CARPUJECT IVP PRN ×3 (10:33→18:26)
[2021-09-23 12:42] LABS: ABG HCO3 27.4 mmol/L (22.0-26.0); ABG PCO2 45 mmHg (34-45); ABG PO2 136 mmHg (80-100)
[2021-09-23 12:43] LABS: ABG BASE EXCESS 2.2 mmol/L (-2.0-3.0); ABG OXYGEN SATURATION 99 % (94-98); ABG TCO2 28.8 MMOL/L (21.0-29.0)
[2021-09-23 12:44] LABS: ALLEN TEST POSITIVE
[2021-09-23] MEDS: FLUCONAZOLE 200 MG/100 ML 100 ML IV SCH (15:38)
--- NOTE | 2021-09-23 15:49 | DISCHARGE SUMMARY ---
Discharge Summary Admit Date: 09/20/21 Discharge Date: 09/23/21 Discharging Provider: Alina Sauceda Primary Care Provider: Ange Grissom Code Status: Attempt Resuscitation Condition at Discharge: Serious Discharge Disposition: 02 Transfer Acute Care Hosp Discharge Facility Name: [facility] - DIAGNOSES Admission Diagnoses: Pneumonia Stomatitis Acute renal injury Benign prostatic hyperplasia Parkinson's disease Atrial flutter Discharge Diagnoses with Status of Each Condition: Pneumonia: Likely secondary to aspiration. Patient is on Vancomycin, Zosyn, azithromycin, Diflucan and valacyclovir. Patient is being transferred to [facility]. Stomatitis: Diflucan and valacyclovir Acute renal injury: Improving. Benign prostatic hyperplasia Parkinson's disease Atrial flutter - HPI History of Present Illness: Patient is a 76-year-old male with history of Parkinson's disease, alert and oriented x3 at baseline, CHF, asthma, history of CLL status post stem cell transplant, history of Boop on chronic 2 L oxygen who presented to the ED with altered mental status and a fever. His woke up at night and found him sitting at the side of the bed. When she tried to get his attention he was not responsive so she called EMS. When EMS arrived patient's temperature was found to be 103F The patient was recently treated at the [facility] for 1 week. He was on vancomycin and Zosyn for aspiration pneumonia and discharged on 09/14 with prescription of Augmentin to complete a 10-day antibiotic course. He was in the ED 2 days ago For dyspnea. He was thought to be dehydrated and weak. He was also noted to have mouth sores which had been limiting his ability to eat. It was suspected that his stomatitis could be due to thrush but also could be due to hepatic source. He has history of shingles in the past.. He was prescribed valacyclovir and azithromycin as well as nystatin solution and discharged home. Today he was noted to have a white blood cell count of 12. Chest x-ray showed bilateral peripheral patchy airspace opacities suspicious for bilateral pneumonia possibly with atypical or viral agents. As a result he was presented for admission for continued treatment - HOSPITAL COURSE Hospital Course: Patient is a 76-year-old male who was admitted on 09/20/2021 for pneumonia suspected to be secondary to aspiration pneumonia. He was started on broad-spectrum antibiotics that included vancomycin, Zosyn, azithromycin. He was also on valacyclovir and Diflucan for stomatitis. Over the course of the subsequent 24 hours his respiratory status appeared to i mprove. His White blood cell count normalized and he was afebrile. However over the ensuing 48 hours patient experienced acute worsening in his respiratory status around 7 AM in the mornings. Repeat chest x-ray showed worsening multifocal pneumonia. It is highly suspected that he has been aspirat ing. On the first day of worsening respiratory status after waking up in the morning he was placed on high flow oxygen via nasal cannula and administered a couple of breathing treatments which seem to improve his respiratory status. The same treatment was unsuccessful the second day thus he was transferred to the ICU and placed on the BiPAP. The patient was presented to the ICU team at [facility] whence he had recently been discharged on 09/14/2021. Dr. Mikey Cerda accepted the patient to his service. The patient will benefit from a swallow evaluation while at [facility]. - ALLERGIES Allergies/Adverse Reactions: Allergies Allergy/AdvReac Type Severity Reaction Status Date / Time acetaminophen [From Tylenol] Allergy Unknown Verified 09/20/21 04:38 bacitracin Allergy Hives Verified 09/20/21 04:38 [From Neosporin ([id number])] diltiazem Allergy Rash Verified 09/20/21 04:38 neomycin Allergy Hives Verified 09/20/21 04:38 [From Neosporin ([id number])] polymyxin B Allergy Hives Verified 09/20/21 04:38 [From Neosporin ([id number])] rifampin Allergy Rash Verified 09/20/21 04:38 diphenhydramine HCl * AdvReac Unknown Verified 09/20/21 04:38 [From Benadryl] lorazepam AdvReac Unknown Verified 09/20/21 04:38 - MEDICATIONS Home Medications: Ambulatory Orders Medication Instructions Recorded Confirmed calcitrioL [Rocaltrol] 0.25 mcg PO DAILY 03/29/14 09/20/21 Selegiline HCl 5 mg PO BIDWM 06/08/15 09/20/21 Pantoprazole [Protonix] 40 mg PO BID tablet 09/29/16 09/20/21 Tamsulosin [Flomax] 0.8 mg PO DAILY 02/03/17 09/20/21 Albuterol Sulf [Ventolin Hfa 2 puffs INH Q6H PRN 10/12/17 09/20/21 Inhaler] Carbidopa/Levodopa 1 tab PO TID 10/12/17 09/20/21 [Carbidopa-Levodopa 25-100 Tab] Albuterol 2.5 mg INH Q4H PRN #30 ml 09/18/21 09/20/21 Aspirin [[place] Aspirin] 81 mg PO DAILY 09/18/21 09/20/21 Azithromycin 250 mg PO Q2D 20 Days #10 tablet 09/18/21 09/20/21 Budesonide [Pulmicort Flexhaler] 1 inh IH BID 30 Days #1 unit 09/18/21 09/20/21 Chlorthalidone 25 mg PO DAILY 09/18/21 09/20/21 Ferrous Sulfate 325 mg PO ONCE 09/18/21 09/20/21 Finasteride [Proscar] 5 mg PO DAILY 09/18/21 09/20/21 Fluoride (Sodium) [Prevident 5000] 100 ml DT DAILY PM 09/18/21 09/20/21 Lactobacillus Rhamnosus GG 1 cap PO DAILY 09/18/21 09/20/21 [Culturelle] Lidocaine Viscous 2% [Xylocaine 5 ml PO Q4H PRN #100 ml 09/18/21 09/20/21 Viscous 2%] Multivit-Min/Iron/Folic Acid/K 1 each PO DAILY 09/18/21 09/20/21 [Multi-Day Plus Minerals Tablet] NIFEdipine [Procardia Xl] 30 mg PO BID 09/18/21 09/20/21 Nystatin [Mycostatin] 10 ml PO QID 5 Days #100 ml 09/18/21 09/20/21 Nystatin [Nystop] 1 applic TOP BID 09/18/21 09/20/21 Ondansetron Odt [Zofran Odt] 8 mg TL Q8H PRN 09/18/21 09/20/21 Oxycodone HCl 10 mg PO TID PRN 09/18/21 09/20/21 Potassium Chloride [Klor-Con M10] 20 meq PO DAILY 09/18/21 09/20/21 Sodium Chloride 0.65% [Driggs] 2 sprays BERNARD Q2H PRN 09/18/21 09/20/21 Valacyclovir HCl [Valtrex] 500 mg PO TID #15 tablet 09/18/21 09/20/21 hydrOXYzine HCL [Hydroxyzine HCl] 25 mg PO BID PRN 09/18/21 09/20/21 polyethylene glycoL 3350 [Miralax] 17 gm PO PRN PRN 09/18/21 09/20/21 Ciclopirox [Loprox] 1 appful TP .[id number] 09/20/21 09/20/21 Clobetasol Propionate/Emoll 1 appful TOP DAILY PRN 09/20/21 09/20/21 [Clobetasol Emollnt 0.05% Foam] Clotrimazole Priscila [Clotrimazole] 1 ea PO 5XD 09/20/21 09/20/21 Diphenoxylate/Atropine [Lomotil] 2.5 mg PO QID PRN 09/20/21 09/20/21 Loperamide [Imodium] 2 mg PO QID PRN 09/20/21 09/20/21 - PHYSICAL EXAM AT DISCHARGE General Appearance: positive: Moderate distress, Lethargic ENT: positive: No signs of dehydration Neck: positive: No JVD, Trachea midline Respiratory: positive: Chest non-tender, Wheezes, Rales, Other (tachypneic) Cardiovascular: positive: Regular rate & rhythm Abdomen: positive: Non-tender, No organomegaly, Nml bowel sounds, No distention. negative: Guarding, Rebound Back: positive: Nml inspection Skin: positive: No rash, Warm, Dry Extremities: positive: Non-tender, Full ROM, Nml appearance, Pedal edema Neurologic/Psychiatric: positive: Mood/affect nml, Other (somnolent) - LABS Result Diagrams: 09/23/21 05:39 09/23/21 05:39 - TIME SPENT Time Spent in Discharge (Minutes): 20
--- NOTE | 2021-09-23 15:52 | Discharge Plan ---
Discharge Plan Problem Reviewed?: Yes Disposition: 02 Transfer Acute Care Hosp Condition: Serious Activity Restrictions: Bed rest Health Concerns: Patient is a 76-year-old male who was admitted on 09/20/2021 for pneumonia suspected to be secondary to aspiration pneumonia. He was started on broad-spectrum antibiotics that included vancomycin, Zosyn, azithromycin. He was also on valacyclovir and Diflucan for stomatitis. Over the course of the subsequent 24 hours his respiratory status appeared to improve. His White blood cell count normalized and he was afebrile. However over the ensuing 48 hours patient experienced acute worsening in his respiratory status around 7 AM in the mornings. Repeat chest x-ray showed worsening multifocal pneumonia. It is highly suspected that he has been aspirating. On the first day of worsening respiratory status after waking up in the morning he was placed on high flow oxygen via nasal cannula and administered a couple of breathing treatments which seem to improve his respiratory status. The same tr eatment was unsuccessful the second day thus he was transferred to the ICU and placed on the BiPAP. The patient was presented to the ICU team at [facility] whence he had recently been discharged on 09/14/2021. Dr. Mikey Cerda accepted the patient to his service. The patient will benefit from a swallow evaluation while at [facility]. No Smoking: If you smoke, Please STOP! Call for help.
[2021-09-23] MEDS ORDERED: LORazepam 2 MG/ML VIAL IVP STA ×2 (17:43→18:04)
[2021-09-23] MEDS ORDERED: MORPHINE 2 MG/ML CARPUJECT IVP STA (17:45)
[2021-09-23] MEDS: SODIUM CHLORIDE FLUSH 0.9% 10 ML SYRINGE IVP SCH (18:29)
[2021-09-23] MEDS ORDERED: PROPOFOL 200 MG/20 ML VIAL IVP ONE ×2 (18:36→18:48)
[2021-09-23] MEDS ORDERED: ETOMIDATE 40 MG/20 ML VIAL IVP ONE ×3 (18:43→18:54)
[2021-09-23] MEDS ORDERED: ROCURONIUM 50 MG/5 ML VIAL IVP ONE (18:43)
[2021-09-23] MEDS ORDERED: ROCURONIUM 50 MG/5 ML VIAL ONE (18:55)
[2021-09-23] MEDS ORDERED: PROPOFOL 1000 MG/100 ML 1,000 MG/100 ML BOTTLE IV SCH (19:00)
[2021-09-23 19:23] LABS: ABG HCO3 26.6 mmol/L (22.0-26.0); ABG PCO2 50 mmHg (34-45); ABG PH 7.34 (7.35-7.45); ABG PO2 85 mmHg (80-100); ABG TCO2 28.2 MMOL/L (21.0-29.0)
[2021-09-23 19:24] LABS: ABG BASE EXCESS 0.5 mmol/L (-2.0-3.0); ABG OXYGEN SATURATION 96 % (94-98); ALLEN TEST POSITIVE
[2021-09-23 19:25] LABS: ABG MODE OF VENTILATION ASSIST/CONTROL; ABG RESPIRATORY RATE 16 b/min
[2021-09-23 19:58] VITALS: BP 135/87
--- NOTE | 2021-09-23 20:37 | XRAY Report ---
PROCEDURE: Chest for Line Placement INDICATIONS: intubated TECHNIQUE: One view of the chest was acquired. COMPARISON: Same-day radiograph FINDINGS: Surgical changes and devices: Enteric tube terminates in the stomach. ET tube terminates in the lower trachea on the second image in the series Aortic valve device. Lungs and pleura: Diffuse lung disease. Suspected small bilateral pleural effusions. Mediastinum: Mediastinal contours appear normal. Heart size is normal. Bones and chest wall: No suspicious bony lesions. Overlying soft tissues appear unremarkable. IMPRESSION: ET tube terminates in lower trachea on the second image of the series. Enteric tube terminates in the stomach. Diffuse lung disease suggest pneumonia Reviewed by: Steve Nunez MD on 09/23/2021 8:36 PM PDT Approved by: Steve Nunez MD on 09/23/2021 8:36 PM PDT Station ID: [id number]
--- NOTE | 2021-09-25 10:30 | XRAY Report ---
PROCEDURE: Chest 1 View X-Ray INDICATIONS: AMS, HYPOXIA TECHNIQUE: One view of the chest was acquired. COMPARISON: Chest radiograph 09/18/2021. FINDINGS: Surgical changes and devices: None. Lungs and pleura: Redemonstrated patchy bilateral airspace opacities, not substantially changed. No l arge pleural effusion or pneumothorax. Mediastinum: Mediastinal contours appear normal. Heart size is normal. Bones and chest wall: No suspicious bony lesions. Overlying soft tissues appear unremarkable. IMPRESSION: Bilateral pulmonary opacities are present as before which could represent multifocal pneumonia. This report is concordant with the preliminary report. Reviewed by: Miguelito Carrillo MD on 09/25/2021 10:28 AM PDT Approved by: Miguelito Carrillo MD on 09/25/2021 10:28 AM PDT Station ID: [id number]
== END 2021-09-23 19:45 | disposition short-term general hospital (02) | DRG 208 ==
LOC: EDUNIT# → ED 03:50 → MS2 13:15 → ICU 09-23 09:19
PROVIDERS: ADMIT Internal Medicine; ATTEND Internal Medicine
PROC: 0BH17EZ Insertion of Endotracheal Airway into Trachea, Via Natural or Artificial Opening (ICD-10-PCS; principal; 2021-09-23)
PROC: 5A1935Z Respiratory Ventilation, Less than 24 Consecutive Hours (ICD-10-PCS; 2021-09-23)
PROC: 0DH67UZ Insertion of Feeding Device into Stomach, Via Natural or Artificial Opening (ICD-10-PCS; 2021-09-23)
DX: A41.9 Sepsis, unspecified organism (principal); J18.9 Pneumonia, unspecified organism; J96.21 Acute and chronic respiratory failure with hypoxia; J69.0 Pneumonitis due to inhalation of food and vomit; N17.9 Acute kidney failure, unspecified; Z20.822 Contact with and (suspected) exposure to COVID-19; I48.92 Unspecified atrial flutter; Z94.84 Stem cells transplant status; I13.0 Hypertensive heart and chronic kidney disease with heart failure and stage 1 through stage 4 chronic kidney disease, or unspecified chronic kidney disease; K12.1 Other forms of stomatitis; N40.0 Benign prostatic hyperplasia without lower urinary tract symptoms; G20 Parkinson's disease; J45.909 Unspecified asthma, uncomplicated; I50.9 Heart failure, unspecified; E86.0 Dehydration; K21.9 Gastro-esophageal reflux disease without esophagitis; N18.9 Chronic kidney disease, unspecified; Z79.82 Long term (current) use of aspirin; Z79.899 Other long term (current) drug therapy; Z80.1 Family history of malignant neoplasm of trachea, bronchus and lung; Z80.6 Family history of leukemia; Z82.49 Family history of ischemic heart disease and other diseases of the circulatory system; Z85.6 Personal history of leukemia; Z86.19 Personal history of other infectious and parasitic diseases; Z88.8 Allergy status to other drugs, medicaments and biological substances; Z99.81 Dependence on supplemental oxygen
CPT/HCPCS: 36415; 36600; 71045; 80048; 80053; 80202; 81001; 82803; 83605; 83735; 83880; 84484; 85025; 85610; 87040; 87150; 87633; 93005; 94002; 94640; 94660; 96361; 96365; 96366; 96368; 99285; 99291; A6250; A9270; J2060; J3370; J7626; 81003; 87086; 94770